=== PATIENT | female | born 1960 | race Caucasian/White ===

== ENCOUNTER 2016-08-30 11:05 | Emergency (ER) | payer OTHER ==
[~2016-08-30] VITALS: Ht 172.7 cm; Wt 62.4 kg
[~2016-08-30 11:05] MED LIST: CAL-150C PO; HYDR-3533 PO; MAGN250T13 PO; SPIRCAP INH; VENTAER INH; VITA10002 PO
[2016-08-30 11:09] VITALS: BP 110/81; PULSE 88; RESP 16; TEMP 98.3; O2SAT 96
[2016-08-30] MEDS ORDERED: GABA400C5 PO (11:23)
[2016-08-30] MEDS ORDERED: AMLO10TA2 PO (11:23)
--- NOTE | 2016-08-30 11:27 | PD ---
HPI Chief Complaint: Musculoskeletal Complaint Time Seen by Provider: 11:20 Travel History International Travel<30 days: No Contact w/Intl Traveler<30days: No Traveled to known affect area: No History of Present Illness HPI The patient is a 56-year-old female who presents emergency department for left arm pain. The patient states she developed left arm pain several days ago after she rolled 3000 knees papers. Pain is located over the lateral aspect of the left shoulder and radiates down the left mid humeral area. The patient denies any falls or direct trauma to the area, however, states she uses a "cracking" to the left shoulder that radiates down the left arm. She is right -hand dominant. She denies any paresthesias left arm, however, notes her pain is sharp, worse with movement, and slightly alleviated at rest. The patient also states she has a history of chronic pain and recently ran out of her Lortab and does not have an appointment next Saturday. The patient came to the emergency department for an x-ray of her left arm and for refill of her Lortab. Patient does note a history of alcohol use, has been sober for the last 134 days. She denies taking any anticoagulants at home. PFSH Past Medical History Arthritis: No Asthma: Yes Autoimmune Disease: No Blood Disorders: No Anxiety: Yes Depression: Yes Heart Rhythm Problems: No Cancer: No Cardiac Catheterization: Yes (07/08/12 ) Cardiovascular Problems: Yes ([place] 2012) High Cholesterol: Yes Chest Pain: No Congestive Heart Failure: No COPD: Yes Cerebrovascular Accident: Yes ([place]) Diabetes: No Diminished Hearing: No Endocrine: No Gastrointestinal Disorders: Yes GERD: Yes Genitourinary: No Headaches: Yes Hepatitis: No Hiatal Hernia: No Hypertension: Yes Immune Disorder: No Implanted Vascular Access Dvce: No Kidney Stones: Yes Musculoskeletal: Yes Neurologic: Yes (MIGRAINES) Psychiatric: Yes Reproductive: No Respiratory: Yes (COPD, CHRONIC BRONCHITIS) Immunizations Current: Yes Myocardial Infarction: Yes (2012) Renal Failure: No Seizures: No Thyroid Disease: No Ulcer: No PNEUMOCCOCAL Vaccine (Year): 1 ?: Not Menopausal: Yes : 4 Para: 3 Miscarriage: 1 : 0 Ectopic : No Ovarian Cysts: No Tubal Ligation: Yes Past Surgical History AICD: No Body Medical Devices: CARDIAC STENT 07/08/12 Section: Yes Coronary Stent: Yes (X 1) Hysterectomy: No Pacemaker: No Other Surgery: Yes Social History Alcohol Use: Yes (" 4 BEERS DAILY ") Tobacco Use: Yes (1/2 PPD) Substance Use: No Allergies-Medications (Allergen,Severity, Reaction): Coded Allergies: Codeine (Verified Allergy, Severe, Rash, 08/30/16) Compazine (Verified Allergy, Severe, SWELLING, 08/30/16) Penicillin (Verified Allergy, Severe, SWELLING, 08/30/16) Reported Meds & Prescriptions Reported Meds & Active Scripts Active Reported Gabapentin 400 Mg Cap 400 Cap PO Q6HR Amlodipine (Amlodipine Besylate) 10 Mg Tab 10 Mg PO DAILY Review of Systems Except as stated in HPI: all other systems reviewed are Neg Respiratory: No: Shortness of Breath Gastrointestinal: No: Nausea, Vomiting Musculoskeletal: Positive: Edema, Pain Neurologic: No: Paresthesia, Sensory Disturbance Physical Exam Narrative GENERAL: Awake, alert, pleasant 56-year-old female who appears her stated age and is in no acute respiratory distress. SKIN: Focused skin assessment warm/dry. HEAD: Atraumatic. Normocephalic. EYES: Pupils equal and round. No scleral icterus. No injection or drainage. ENT: No nasal bleeding or discharge. Mucous membranes pink and moist. NECK: Trachea midline. No JVD. MUSCULOSKELETAL: The left arm is tender palpation lateral aspect left shoulder the lateral aspect left humeral area. No tenderness over the biceps or triceps. She is able flex and extend the left elbow as well as supinate and pronate, however, has difficulty abducting and extending the left upper extremity secondary to pain. Positive left radial pulse. No tenderness over the left clavicle. NEUROLOGICAL: Awake and alert. No obvious cranial nerve deficits. Motor grossly within normal limits. Normal speech. PSYCHIATRIC: Appropriate mood and affect; insight and judgment normal. Data Data Last Documented VS Vital Signs Date Time Temp Pulse Resp B/P Pulse Ox O2 Delivery O2 Flow Rate FiO2 08/30/16 11:09 98.3 88 16 110/81 96 Orders Humerus (Min 2vws) (08/30/16 ) [facility] Medical Decision Making Medical Screen Exam Complete: Yes Emergency Medical Condition: Yes Medical Record Reviewed: Yes Interpretation(s) X-ray reveals no acute fracture or dislocation. Differential Diagnosis Differential diagnosis includes sprain, strain, frozen shoulder, fracture, contusion, hematoma, radiculopathy. Narrative Course An x-ray of the left humerus was obtained. X-rays unremarkable, no acute fracture dislocation. The patient will be placed in a sling for comfort, however, is advised to take her arm out of the sling for range of motion exercises daily and a follow-up with her primary physician as she may benefit from outpatient physical therapy. She is requesting a prescription/refill until she can see her physician for Lortab. I will place her on Lortab, 12 pills, and ibuprofen. She is advised to apply ice and/or heat to the affected area for comfort. Diagnosis Primary Impression: Strain of left upper arm Qualified Code: S46.912A - Strain of left upper arm, initial encounter Patient Instructions: General Instructions Additional Instructions: Sling as needed. Range of motion exercises. Medications as directed. Follow- up with her primary physician, you may benefit from physical therapy. Please provide a patient a copy of her x-ray results at discharge. Med/Other Pt SpecificInfo: Prescription(s) given Scripts Hydrocodone-Acetaminophen ([place])7.5-325 mg Tab1 Tab PO Q6H PRN (PAIN) #12 TAB Ref 0 Prov:Jaison Johnston MD 08/30/16 Ibuprofen 400 Mg [id number] Mg PO Q6H PRN (PAIN SCALE 1 TO 10) #20 TAB Ref 0 Prov:Jaison Johnston MD 08/30/16 Disposition: 01 DISCHARGE HOME Condition: Stable Jaison Johnston MD Aug 30, 2016 11:27
--- NOTE | 2016-08-30 11:46 | RADRPT ---
EXAM DATE/TIME: 08/30/2016 11:33 [facility] COMPARISON: HUMERUS LEFT (MIN 2VWS), June 07, 2014, 16:12. INDICATIONS : Pain in left humerus after rolling newspapers yesterday. MEDICAL HISTORY : None. SURGICAL HISTORY : None. ENCOUNTER: Initial ACUITY: 2 days PAIN SCORE: 8/10 LOCATION: Left humerus FINDINGS: Two view examination of the left humerus demonstrates no evidence of fracture or dislocation. Bony m ineralization is normal. The soft tissue structures are intact. There is an old healed fracture invo lving the distal clavicle. There is At the a.c. joint. CONCLUSION: No acute fracture or joint dislocation. Errol Barber MD on August 30, 2016 at 11:43 Board Certified Radiologist. This report was verified electronically.
[2016-08-30] MEDS ORDERED: IBUP400T20 PO (12:00)
[2016-08-30] MEDS ORDERED: HYDR-3288 PO (12:00)
[2016-08-30] MEDS ORDERED: ACETAMINOPHEN/HYDROcodone 325 MG/5 MG TAB PO ONE (12:00)
== END 2016-08-30 12:40 | disposition home or self-care (01) ==
LOC: PHEFT 11:05
DX: S46.912A Strain of unspecified muscle, fascia and tendon at shoulder and upper arm level, left arm, initial encounter (principal); R60.9 Edema, unspecified; I10 Essential (primary) hypertension; K21.9 Gastro-esophageal reflux disease without esophagitis; J44.9 Chronic obstructive pulmonary disease, unspecified; E78.00 Pure hypercholesterolemia, unspecified; I25.2 Old myocardial infarction; Z87.442 Personal history of urinary calculi; F17.210 Nicotine dependence, cigarettes, uncomplicated; T73.3XXA Exhaustion due to excessive exertion, initial encounter; X50.3XXA Overexertion from repetitive movements, initial encounter; Y93.89 Activity, other specified; Y92.9 Unspecified place or not applicable
CPT/HCPCS: 73060; 99283

== ENCOUNTER 2016-09-28 13:28 | Inpatient (IN) | payer OTHER ==
[~2016-09-28] VITALS: Ht 152.4 cm; Wt 61.3 kg
[2016-09-28] VITALS (8 sets, daily range): BP systolic 92–109; BP diastolic 54–66; PULSE 65–76; RESP 15–20; TEMP 98.3–100.2; O2SAT 94–98
[~2016-09-28 13:28] MED LIST changes: +AMLO10TA2 PO; -CAL-150C PO; +GABA400C5 PO; +HYDR-3288 PO; -HYDR-3533 PO; +IBUP400T20 PO; -MAGN250T13 PO; -SPIRCAP INH; -VENTAER INH; -VITA10002 PO
[2016-09-28] MEDS ORDERED: SODIUM CHLOR 0.9% 1000 ML INJ 1,000 ML IV ONE ×3 (13:33→17:45)
--- NOTE | 2016-09-28 13:52 | PD ---
HPI Chief Complaint: Neuro Symptoms/ Deficits Time Seen by Provider: 13:33 Travel History International Travel<30 days: No Contact w/Intl Traveler<30days: No Traveled to known affect area: No History of Present Illness HPI PATIENT WAS FOUND AROUND 1030 BY FRIENDS WITH LEFT SIDED FACIAL DROOP, AND GENERALIZED WEAKNESS ON FLOOR, NO SYNCOPE AND APPARENTLY WAS TOO WEAK TO GET UP ON HER OWN.. ALL: CODEINE,COMPAZINE,PCN PMHX: COPD, SMOKING HX, PFSH Past Medical History Arthritis: No Asthma: Yes Autoimmune Disease: No Blood Disorders: No Anxiety: Yes Depression: Yes Heart Rhythm Problems: No Cancer: No Cardiac Catheterization: Yes (07/08/12 ) Cardiovascular Problems: Yes ([place] 2012) High Cholesterol: Yes Chest Pain: No Congestive Heart Failure: No COPD: Yes Cerebrovascular Accident: Yes ([place]) Diabetes: No Diminished Hearing: No Endocrine: No Gastrointestinal Disorders: Yes GERD: Yes Genitourinary: No Headaches: Yes Hepatitis: No Hiatal Hernia: No Hypertension: Yes Immune Disorder: No Implanted Vascular Access Dvce: No Kidney Stones: Yes Musculoskeletal: Yes Neurologic: Yes (MIGRAINES) Psychiatric: Yes Reproductive: No Respiratory: Yes (COPD, CHRONIC BRONCHITIS) Immunizations Current: Yes Migraines: Yes Myocardial Infarction: Yes (2012) Renal Failure: No Seizures: No Thyroid Disease: No Ulcer: No PNEUMOCCOCAL Vaccine (Year): 1 ?: Not Menopausal: Yes : 4 Para: 3 Miscarriage: 1 : 0 Ectopic : No Ovarian Cysts: No Tubal Ligation: Yes Past Surgical History AICD: No Body Medical Devices: PLATE, SCREWS LEFT WRIST Section: Yes Coronary Stent: Yes (X 1) Hysterectomy: No Pacemaker: No Other Surgery: Yes Social History Alcohol Use: No Tobacco Use: Yes (/2 PPD) Substance Use: No Allergies-Medications (Allergen,Severity, Reaction): Coded Allergies: Codeine (Verified Allergy, Severe, Rash, 08/30/16) Compazine (Verified Allergy, Severe, SWELLING, 08/30/16) Penicillin (Verified Allergy, Severe, SWELLING, 08/30/16) Reported Meds & Prescriptions Reported Meds & Active Scripts Active [place] (Hydrocodone-Acetaminophen) 7.5-325 mg Tab 1 Tab PO Q6H PRN Ibuprofen 400 Mg Tab 400 Mg PO Q6H PRN Reported Gabapentin 400 Mg Cap 400 Cap PO Q6HR Amlodipine (Amlodipine Besylate) 10 Mg Tab 10 Mg PO DAILY Review of Systems Except as stated in HPI: all other systems reviewed are Neg Neurologic: Positive: Weakness Physical Exam Narrative GENERAL: SKIN: Warm and dry. HEAD: Atraumatic. Normocephalic. EYES: Pupils equal and round. No scleral icterus. No injection or drainage. ENT: No nasal bleeding or discharge. Mucous membranes pink and moist. NECK: Trachea midline. No JVD. CARDIOVASCULAR: Regular rate and rhythm. RESPIRATORY: No accessory muscle use. Clear to auscultation. Breath sounds equal bilaterally. GASTROINTESTINAL: Abdomen soft, non-tender, nondistended. Hepatic and splenic margins not palpable. MUSCULOSKELETAL: Extremities without clubbing, cyanosis, or edema. No obvious deformities. NEUROLOGICAL: Awake and alert. FACIAL DROOP LEFT, GENERALIZED WEAKNESS AND RESTRING TREMORS PSYCHIATRIC: Appropriate mood and affect; insight and judgment normal. Data Data Last Documented VS Vital Signs Date Time Temp Pulse Resp B/P Pulse Ox O2 Delivery O2 Flow Rate FiO2 09/28/16 15:08 18 94 Room Air 09/28/16 15:05 68 92/55 09/28/16 13:42 2.00 09/28/16 13:31 99.1 Orders Diet Npo (09/28/16 Lunch) Activity Bed Rest (09/28/16 ) Electrocardiogram (09/28/16 ) I-Stat Creatinine (09/28/16 13:33) I-Stat Profile (09/28/16 13:33) Prothrombin Time / Inr (Pt) (09/28/16 13:33) Act Partial Throm Time (Ptt) (09/28/16 13:33) Complete Blood Count With Diff (09/28/16 13:33) Fibrinogen (09/28/16 13:33) Creatine Kinase (Cpk) (09/28/16 13:33) Troponin I (09/28/16 13:33) Ua Includes Microscopic (09/28/16 13:33) Drug Screen, Random Urine (09/28/16 13:33) Type And Screen (09/28/16 13:33) Ct Brain W/O Iv Contrast(Rout) (09/28/16 ) Chest, Single Ap (09/28/16 ) Cta Brain W Iv Contrast W 3d (09/28/16 13:33) Cta Neck W Iv Contrast W 3d (09/28/16 13:33) Consult Neurology (09/28/16 ) Blood Glucose (09/28/16 13:33) Ecg Monitoring (09/28/16 13:33) Neuro Checks Q2HX12,Q4H (09/28/16 13:33) Nursing Bedside Swallow Assess .ONCE (09/28/16 13:33) Iv Access Insert/Monitor (09/28/16 13:33) NPO (09/28/16 13:33) Oximetry (09/28/16 13:33) Oxygen Administration (09/28/16 13:33) Sodium Chlor 0.9% 1000 Ml Inj (Ns 1000 M (09/28/16 13:33) Resp Oxygen Eleazar C Titrat 1-4 L (09/28/16 13:33) Cath For Specimen (09/28/16 13:33) (Hub Use Only)Inp Phy Cons/Ref (09/28/16 ) Iohexol 350 Inj (Omnipaque 350 Inj) (09/28/16 14:02) Alcohol (Ethanol) (09/28/16 14:24) Salicylates (Aspirin) (09/28/16 14:24) Tylenol (Acetaminophen) (09/28/16 14:24) CKMB (09/28/16 13:45) CKMB% (09/28/16 13:45) Nih Stroke Scale - Nihss .On admission and discharge (09/28/16 14:37) Case Management Consult (09/28/16 ) Activity Bed Rest (09/28/16 14:37) Nursing Bedside Swallow Assess .ONCE (09/28/16 14:37) Scd Bilateral/Knee High HUANG.QSHIFT (09/28/16 14:37) Diet Npo (09/28/16 Dinner) Hemoglobin (Hgb) A1c (09/28/16 14:37) Lipid Profile (09/29/16 06:00) Echo 2d Comp With Doppler (09/28/16 ) Resp Oxygen Eleazar C Titrat 1-4 L (09/28/16 ) ^ Hold Medication (09/28/16 14:37) Sodium Chloride 0.9% Flush (Ns Flush) (09/28/16 21:00) Sodium Chloride 0.9% Flush (Ns Flush) (09/28/16 14:45) Sodium Chlor 0.9% 1000 Ml Inj (Ns 1000 M (09/28/16 14:37) Aspirin Supp (Aspirin Supp) (09/28/16 14:45) Bedside Glucose HUANG.AC&HS (09/28/16 14:37) ^ Discontinue Insulin Orders (09/28/16 14:37) Insulin Aspart Supplemtl Scale (Novolog (09/28/16 16:00) Dextrose 50% In Ulices (Vial) Inj (D50w (Vi (09/28/16 14:45) Glucagon Inj (Glucagon Inj) (09/28/16 14:45) Consult Rehab Medicine (09/28/16 14:37) Customer Success Director / Telemetry HUANG.Q8H (09/28/16 14:37) Consult Stoke Navigator (09/28/16 ) (Hub Use Only)Inp Phy Cons/Ref (09/28/16 ) Sodium Chlor 0.9% 1000 Ml Inj (Ns 1000 M (09/28/16 15:00) Admit Order (Ed Use Only) (09/28/16 16:07) Labs Laboratory Tests Test 09/28/16 09/28/16 09/28/16 13:45 14:28 14:44 White Blood Count 6.3 TH/MM3 Red Blood Count 4.08 MIL/MM3 Hemoglobin 12.3 GM/DL Bedside Hemoglobin 12.9 G/DL Hematocrit 35.7 % Bedside Hematocrit 38.0 % Mean Corpuscular Volume 87.5 FL Mean Corpuscular Hemoglobin 30.2 PG Mean Corpuscular Hemoglobin 34.4 % Concent Red Cell Distribution Width 17.2 % Platelet Count 229 TH/MM3 Mean Platelet Volume 6.8 FL Neutrophils (%) (Auto) 86.1 % Lymphocytes (%) (Auto) 7.5 % Monocytes (%) (Auto) 5.7 % Eosinophils (%) (Auto) 0.2 % Basophils (%) (Auto) 0.5 % Neutrophils # (Auto) 5.4 TH/MM3 Lymphocytes # (Auto) 0.5 TH/MM3 Monocytes # (Auto) 0.4 TH/MM3 Eosinophils # (Auto) 0.0 TH/MM3 Basophils # (Auto) 0.0 TH/MM3 CBC Comment DIFF FINAL Differential Comment Prothrombin Time 11.7 SEC Prothromb Time International 1.1 RATIO Ratio Activated Partial 24.6 SEC Thromboplast Time Fibrinogen 452 mg/dL Bedside Sodium 140 MMOL/L Bedside Potassium 3.9 MMOL/L Bedside Chloride 113 MMOL/L Bedside Blood Urea Nitrogen 20 MG/DL Bedside Creatinine 1.3 MG/DL Bedside Glucose 97 MG/DL Hemoglobin A1c 6.9 % Total Creatine Kinase 4920 U/L Creatine Kinase MB 52.0 NG/ML Creatine Kinase MB % 1.1 % Troponin I LESS THAN 0.02 NG/ML Blood Type B POSITIVE Antibody Screen NEGATIVE Blood Bank Comment Urine Color YELLOW Urine Turbidity CLEAR Urine pH 5.5 Urine Specific [place] 1.034 Urine Protein TRACE mg/dL Urine Glucose (UA) NEG mg/dL Urine Ketones NEG mg/dL Urine Occult Blood NEG Urine Nitrite NEG Urine Bilirubin NEG Urine Urobilinogen LESS THAN 2.0 MG/DL Urine Leukocyte Esterase NEG Urine WBC 3 /hpf Urine Squamous Epithelial 2 /hpf Cells Urine Hyaline Casts 22 /lpf Urine Mucus FEW /lpf Microscopic Urinalysis Comment Urine Opiates Screen NEG Urine Barbiturates Screen NEG Urine Amphetamines Screen NEG Urine Benzodiazepines Screen NEG Urine Cocaine Screen NEG Urine Cannabinoids Screen NEG Salicylates Level 41.7 MG/DL Acetaminophen Level LESS THAN 2.0 MCG/ML Ethyl Alcohol Level LESS THAN 3 MG/DL MDM Medical Decision Making Medical Screen Exam Complete: Yes Emergency Medical Condition: Yes Medical Record Reviewed: Yes Differential Diagnosis electrolyte abnl v ich v cva v etoh withdrawal v tox syndrome Narrative Course AT [facility] RADIOLOGIST CALLED A NEGATIVE ICH ON CT AND STABLE CHRONIC FINDINGS Critical Care Narrative CRITICAL CARE NOTE: With evaluation of the patient, labs, EKG, receipt of radiologic studies, administration of medications, reevaluation the patient and discussion of the patient with the admitting physicians, the total critical care time was [45] minutes. Time to perform other separately billable procedures was not included in the critical care time. Physician Communication Physician Communication DISCUSSED IN DETAIL WITH DR HOPKINS (NEUROLOGIST) AND BASED ON TIME, AND SEVERITY OF SYMPTOMS PATIENT IS NOT A TPA CANDIDATE. Diagnosis Primary Impression: Rhabdomyolysis Qualified Code: M62.82 - Non-traumatic rhabdomyolysis Additional Impressions: Salicylate poisoning Qualified Code: T39.094A - Poisoning by salicylate, undetermined intent, initial encounter Altered mental state Qualified Code: R41.0 - Delirium Daniel Randolph MD Sep 28, 2016 13:52
--- NOTE | 2016-09-28 14:00 | RADRPT ---
EXAM DATE/TIME: 09/28/2016 13:48 [facility] COMPARISON: CT BRAIN W/O CONTRAST, September 27, 2015, 16:29. INDICATIONS : Stroke alert; left side facial droop, tremors, weakness. RADIATION DOSE: 30.68 CTDIvol (mGy) MEDICAL HISTORY : Stroke. Hypertension. SURGICAL HISTORY : Coronary artery stent. ENCOUNTER: Initial ACUITY: 1 day PAIN SCALE: Non-responsive LOCATION: cranial TECHNIQUE: Multiple contiguous axial images were obtained of the head. Using automated exposure control and adj ustment of the mA and/or kV according to patient size, radiation dose was kept as low as reasonably a chievable to obtain optimal diagnostic quality images. DICOM format image data is available electro nically for review and comparison. FINDINGS: CEREBRUM: The ventricles are normal. There is mild cerebral atrophy with slightly asymmetric extra-axial space on the left. This finding is stable. No midline shift, mass lesion, hemorrhage or acute infarction. No extra-axial fluid collections are seen. POSTERIOR FOSSA: The cerebellum and brainstem demonstrate no acute finding. The 4th ventricle is midline. The cerebe llopontine angle is unremarkable. EXTRACRANIAL: There is minimal mucoperiosteal thickening in the left maxillary sinus. SKULL: The calvaria is intact. No evidence of skull fracture. CONCLUSION: 1. Stable noncontrast head CT. No acute intracranial abnormality is identified. 2. Chronic changes include mild cerebral atrophy. Reynaldo Patel MD on September 28, 2016 at 13:54 Board Certified Radiologist. This report was verified electronically.
[2016-09-28] MEDS ORDERED: IOHEXOL 350 MG/ML 10 ML VIAL (for RAD DIAG) IV ONE (14:02)
[2016-09-28 14:05] LABS: AUTOMATED NEUTROPHIL # 5.4 TH/MM3 (1.8-7.7); BASOPHIL % 0.5 % (0.0-2.0); EOSINOPHIL % 0.2 % (0.0-4.0); HEMATOCRIT 35.7 % (35.0-46.0); HEMO FLAGS DIFF FINAL; LYMPH % 7.5 % (9.0-44.0); LYMPHOCYTE # 0.5 TH/MM3 (1.0-4.8); MEAN CELL VOLUME 87.5 FL (80.0-100.0); MEAN CORPUSCULAR HEMOGLOBIN 30.2 PG (27.0-34.0); MEAN CORPUSCULAR HGB CONC 34.4 % (32.0-36.0); MONO % 5.7 % (0.0-8.0); NEUT % 86.1 % (16.0-70.0); PLATELET COUNT 229 TH/MM3 (150-450); RED BLOOD COUNT 4.08 MIL/MM3 (4.00-5.30); RED CELL DISTRIBUTION WIDTH 17.2 % (11.6-17.2); WHITE BLOOD COUNT 6.3 TH/MM3 (4.0-11.0)
[2016-09-28 14:06] LABS: I-STAT POTASSIUM 3.9 MMOL/L (3.5-4.9); I-STAT SODIUM 140 MMOL/L (138-146)
[2016-09-28 14:17] LABS: APTT (PATIENT) 24.6 SEC (24.3-30.1); INTERNATIONAL NORMALIZED RATIO 1.1 RATIO; PROTHROMBIN TIME - PATIENT 11.7 SEC (9.8-11.6)
--- NOTE | 2016-09-28 14:30 | RADRPT ---
EXAM DATE/TIME: 09/28/2016 14:03 [facility] COMPARISON: CHEST SINGLE AP, April 03, 2015, 19:40. INDICATIONS : Stroke alert MEDICAL HISTORY : Stroke. Hypertension SURGICAL HISTORY : Coronary artery stent. ENCOUNTER: Initial ACUITY: 1 day PAIN SCORE: Non-responsive. LOCATION: Bilateral chest FINDINGS: Portable AP view of the chest demonstrates a normal-sized cardiac silhouette. No effusion, consolidat ion, or pneumothorax is visualized. The bones and soft tissues demonstrate no acute abnormality. Lung s are hyperinflated and multiple EKG lines overlie the patient. CONCLUSION: No acute cardiopulmonary abnormality is identified. Reynaldo Patel MD on September 28, 2016 at 14:25 Board Certified Radiologist. This report was verified electronically.
--- NOTE | 2016-09-28 14:34 | RADRPT ---
EXAM DATE/TIME: 09/28/2016 13:57 [facility] COMPARISON: CT BRAIN W/O CONTRAST, September 28, 2016, 13:48. INDICATIONS : Stroke alert; left side facial droop, tremors. IV CONTRAST: 75 cc Omnipaque 350 (iohexol) IV ; Cumulative dose for multiple exams. RADIATION DOSE: 26.24 CTDIvol (mGy) ; Combined studies MEDICAL HISTORY : Stroke. Hypertension. Renal calculi. SURGICAL HISTORY : Coronary artery stent. ENCOUNTER: Initial ACUITY: 1 day PAIN SCALE: 0/10 LOCATION: cranial TECHNIQUE: Volumetric scanning was performed using a multi-row detector CT scanner. The data was post processed with a variety of visualization algorithms including full volume maximum intensity projection, multi -planar sliding thin slab reformation, curved planar reformation, and surface rendering techniques. Using automated exposure control and adjustment of the mA and/or kV according to patient size, radiat ion dose was kept as low as reasonably achievable to obtain optimal diagnostic quality images. DICO M format image data is available electronically for review and comparison. FINDINGS: There is excellent visualization of the major intracranial arteries out to the second-order branch ve ssels. There is no evidence for aneurysm, vessel truncation or stenosis, and no evidence for vascula r malformation. CONCLUSION: Normal examination. Jimmy Schmidt Jr., MD on September 28, 2016 at 14:30 Board Certified Radiologist. This report was verified electronically.
[2016-09-28 14:35] LABS: CREATINE KINASE 4920 U/L (26-192)
[2016-09-28] MEDS ORDERED: SODIUM CHLOR 0.9% 1000 ML INJ 1,000 ML IV SCH (14:37)
[2016-09-28] MEDS ORDERED: ASPIRIN 300 MG SUPP RECTAL SCH (14:45)
[2016-09-28] MEDS ORDERED: GLUCAGON 1 MG/ML VIAL OTHER PRN (14:45)
[2016-09-28] MEDS ORDERED: SODIUM CHLORIDE 0.9% FLUSH 5 ML FLUSH IV FLUSH PRN (14:45)
[2016-09-28] MEDS ORDERED: DEXTROSE 50% IN WATER 50 ML VIAL(D50) IV PUSH PRN (14:45)
[2016-09-28 14:56] LABS: BLOOD, URINE NEG (NEG); GLUCOSE,URINE NEG (NEG); HYALINE CAST, URINE 22 /lpf (RARE); KETONE, URINE NEG (NEG); MUCUS URINE FEW /lpf (OCC); NITRITE,URINE NEG (NEG); PH, URINE 5.5 (5.0-8.5); SQUAMOUS EPITHELIAL CELL URINE 2 /hpf (0-5); URINE COLOR YELLOW (YELLW/STRAW)
[2016-09-28 15:07] LABS: AMPHETAMINE, URINE NEG (NEG); BARBITURATES, URINE NEG (NEG); COCAINE, URINE NEG (NEG)
--- NOTE | 2016-09-28 15:07 | MB ---
cc: KELLIEZACHERY DATE OF CONSULTATION 09/28/16 REASON FOR CONSULTATION Stroke alert HISTORY OF PRESENT ILLNESS Ms. Hensley is a 56-year-old female found on the floor at 10:30 this morning. At that time she was very jittery and shaking and had a left facial droop and slurred speech, stroke alert was called. It is unclear exactly when she was seen normal last. PAST MEDICAL HISTORY History of alcohol abuse but none for several years. She denies any other past medical history. According to the chart past medical history she does have a history of [place], coronary stents in the past. Cardiac catheterization COPD, bronchitis. Apparently has had a stroke in the past. Migraine headaches. MEDICATIONS AT HOME She denies taking any medications at home. ALLERGIES CODEINE, COMPAZINE, PENICILLIN. SOCIAL HISTORY She denies alcohol use for several years. She does smoke. NEUROLOGIC EXAMINATION Blood pressure 109/66, pulse is 80, respiratory rate 18, temperature 99.1 degrees. NEURO: Higher cortical function, she is alert. Speech dysarthric but fluent. No aphasia. 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 On motor exam she states that she is weak in the left side. However, she demonstrates equal strength bilaterally. She is able to lift both arms up and both legs up. There is no drift. She has myoclonic jerking in both upper extremities. Reflexes are symmetric. IMAGING STUDIES CT of the brain no acute changes identified, chronic atrophy and ischemic demyelinization is identified. CTA of the brain was obtained, currently pending results. LABORATORY DATA The white count 6300. Hemoglobin 12.3, hematocrit 35%, platelets 229,000, PT 11.7, INR 1.1, APTT 24.6, sodium is 140, potassium 3.9, chloride 113, BUN is 20, creatinine 1.3, glucose 97. Tox screen pending. Urinalysis is pending. IMPRESSION Possible small stroke in the right hemisphere causing left facial droop. However, at this time her symptoms are very minimal plus the time of onset is ambiguous. Her NIH stroke scale is 4. She is not a candidate for IV TPA since we are not sure of the last time normal and also she does not have any definite focal neurologic findings except the facial droop. RECOMMENDATIONS Start her on aspirin 325 milligrams daily. Will obtain further evaluation with an echocardiogram, also lipid panel. According to her old records there was some history of stent associated with a stroke in the past. I would like to clarify this further before ordering an MRI to be sure she is able to have an MRI of the brain. We will monitor her carefully with close neurological checks. MD OTTO Torres/DOUG /2:31 PM /2:45 PM
--- NOTE | 2016-09-28 15:26 | RADRPT ---
EXAM DATE/TIME: 09/28/2016 13:57 [facility] COMPARISON: No previous studies available for comparison. INDICATIONS : Stroke alert; left side facial droop, tremors. IV CONTRAST: 75 cc Omnipaque 350 (iohexol) IV ; Cumulative dose for multiple exams. RADIATION DOSE: 26.24 CTDIvol (mGy) ; Reconstructed from previous dataset MEDICAL HISTORY : Stroke. Hypertension. SURGICAL HISTORY : Coronary artery stent. ENCOUNTER: Initial ACUITY: 1 day PAIN SCALE: 0/10 LOCATION: neck Elevated flow velocities and ICA/CCA ratios have been found to correlate with increased degrees of vessel stenosis, calculated as percentage of diameter relative to a normal segment of distal ICA/CCA. TECHNIQUE: Volumetric scanning was performed using a multirow detector CT scanner. The data was post processed with a variety of visualization algorithms including full-volume maximum intensity projection, multip lanar sliding thin-slab reformation, curved-planar reformation, and surface-rendering techniques. Us ing automated exposure control and adjustment of the mA and/or kV according to patient size, radiatio n dose was kept as low as reasonably achievable to obtain optimal diagnostic quality images. DICOM f ormat image data is available electronically for review and comparison. FINDINGS: Motion degraded exam. AORTIC ARCH: There is a three-vessel origin of the great vessels from the aorta. No evidence of ostial narrowing. RIGHT CAROTID: Eccentric calcified plaque is seen involving the proximal ICA. Utilizing NASCET criteria this generat es a 20% stenosis. No ulceration. The more cephalad portion of the extracranial ICA is patent. ECA an d CCA are patent. LEFT CAROTID: Eccentric calcified plaque is seen involving the proximal ICA. Utilizing NASCET criteria this generat es a 20% stenosis. No ulceration. The more cephalad portion of the extracranial ICA is patent. ECA an d CCA are patent. VERTEBRALS: The vertebral arteries have a symmetric diameter. No stenotic lesions are seen. Diffuse emphysematous changes within the visualized lung apices. CONCLUSION: 1. Calcified plaque generating 20% ICA stenoses without ulceration. 2. Patent vertebral arteries. 3. Emphysematous changes. Jimmy Schmidt Jr., MD on September 28, 2016 at 15:20 Board Certified Radiologist. This report was verified electronically.
[2016-09-28 15:35] LABS: ACETAMINOPHEN LESS THAN 2.0 MCG/ML (10.0-30.0)
[2016-09-28] MEDS: INSULIN ASPART SUPPLEMENTAL SCALE SQ SCH ×2 (16:00→19:53)
[2016-09-28 16:17] LABS: HEMOGLOBIN A1a 1.5 %; HEMOGLOBIN A1b 2.4 %; HEMOGLOBIN Ao 79.9 %; HEMOGLOBIN LA1C 2.8 %; HEMOGLOBIN P3 5.8 %
[2016-09-28] MEDS ORDERED: MAGNESIUM HYDROXIDE SUSP 30 ML CUP PO PRN (17:45)
[2016-09-28] MEDS ORDERED: LACTULOSE SYRUP 20 GM/30 ML CUP PO PRN (17:45)
[2016-09-28] MEDS ORDERED: SODIUM CHLORIDE 0.9% FLUSH 10 ML FLUSH IV FLUSH PRN (17:45)
[2016-09-28] MEDS ORDERED: ONDANSETRON HCL 4 MG/2 ML VIAL IVP PRN (17:45)
[2016-09-28] MEDS ORDERED: BISACODYL 10 MG SUPP RECTAL PRN (17:45)
[2016-09-28] MEDS ORDERED: ACETAMINOPHEN 325 MG TAB PO PRN (17:45)
[2016-09-28] MEDS ORDERED: SENNOSIDES 8.6 MG TAB PO PRN (17:45)
--- NOTE | 2016-09-28 18:02 | HHI.HP ---
[facility] Service [facility] Primary Care Physician [facility] Admission Diagnosis TIA Diagnoses: Chief Complaint: Found by family altered Travel History International Travel<30 Days: No Contact w/Intl Traveler <30 Da: No Traveled to Known Affected Are: No History of Present Illness Written by Paloma Encarnacion, acting as scribe for Dr. Conti on 09/28/16 at 17:42. This is a 56-year-old female patient with past medical history which includes EtOH abuse in the past, CAD status post [place] with cardiac stents, CVA, migraine headaches. Patient is currently obtunded and unable to give reliable information therefore information gathered from patient has physical exam as well as prior computerized charting. Patient asked she's able to give her name and that she is in the hospital. Patient does not know why she is in the hospital. Patient offers no specific complaints at this time. Per prior charting patient was found at 10:30 this morning by her family members she was noted to have slurred speech described as being jittery and confused with question of left-sided facial droop. When patient asked about whether or not she took aspirin she is unable to answer. Patient asked about EtOH use reports she has not drank in 6 months or more. Glucose 97 upon arrival to the emergency department Review of Systems ROS Limitations: Clinical Condition, Poor Historian Past Family Social History Past Medical History EtOH abuse in the past, CAD status post [place] with cardiac stents, CVA, migraine headaches Past Surgical History Cardiac stents, left wrist surgery Reported Medications [place] (Hydrocodone-Acetaminophen) 7.5-325 mg Tab 1 Tab PO Q6H PRN Ibuprofen 400 Mg Tab 400 Mg PO Q6H PRN Gabapentin 400 Mg Cap 400 Cap PO Q6HR Amlodipine (Amlodipine Besylate) 10 Mg Tab 10 Mg PO DAILY Allergies: Coded Allergies: Codeine (Verified Allergy, Severe, Rash, 08/30/16) Compazine (Verified Allergy, Severe, SWELLING, 08/30/16) Penicillin (Verified Allergy, Severe, SWELLING, 08/30/16) Active Ordered Medications Current Medications Medications (Trade) Dose Ordered Sig/Sandoval Route Start Time Stop Time Status Last Admin (NS Flush) 2 ml BID IV FLUSH 09/28/16 21:00 IV Flush 2 ml 2 ml UNSCH PRN IV FLUSH 09/28/16 14:45 (NS 1000 ml Inj) 1,000 ml @ 70 mls/hr [id number] IV 09/28/16 14:37 (Aspirin Supp) 300 mg DAILY RECTAL 09/28/16 14:45 (NovoLOG SUPPLEMENTAL SCALE) 1 ACHS SQ 09/28/16 16:00 (D50w (Vial) Inj) 50 ml UNSCH PRN IV PUSH 09/28/16 14:45 (Glucagon Inj) 1 mg UNSCH PRN OTHER 09/28/16 14:45 Family History Unable to obtain at this time due to patient's clinical condition Social History per prior computerized charting patient has a history of EtOH abuse. Patient denies EtOH use for the past 6 months. Per prior turning patient smokes half pack cigarette per day. Patient denies at this time Physical Exam Vital Signs Vital Signs Date Time Temp Pulse Resp B/P Pulse Ox O2 Delivery O2 Flow Rate FiO2 09/28/16 15:08 18 94 Room Air 09/28/16 15:05 68 18 92/55 94 Room Air 09/28/16 13:42 95 2.00 09/28/16 13:39 80 18 Room Air 09/28/16 13:31 99.1 76 18 109/66 97 Physical Exam GENERAL: This is a well-nourished, well-developed patient, appears critically ill and obtunded SKIN: No rashes, ecchymoses or lesions. Cool and dry. HEAD: Atraumatic. Normocephalic. No temporal or scalp tenderness. EYES: Pupils equal round and reactive. Extraocular motions intact. No scleral icterus. No injection or drainage. ENT: Nose without bleeding, purulent drainage or septal hematoma. Throat without erythema, tonsillar hypertrophy or exudate. Uvula midline. Airway patent. CARDIOVASCULAR: Regular rate and rhythm without murmurs, gallops, or rubs. RESPIRATORY: Clear to auscultation. Breath sounds equal bilaterally. No wheezes , rales, or rhonchi. GASTROINTESTINAL: Abdomen soft, non-tender, nondistended. No guarding. MUSCULOSKELETAL: Extremities without clubbing, cyanosis, or edema. No joint tenderness, effusion, or edema noted. No calf tenderness. Negative Homans sign bilaterally. NEUROLOGICAL: Obtunded has difficult time following commands. Right-sided facial droop noted. Right upper and lower extremity weaker than left. Patient also has generalized weakness. Slurred speech noted Laboratory Laboratory Tests Test 09/28/16 09/28/16 09/28/16 13:45 14:28 14:44 White Blood Count 6.3 Red Blood Count 4.08 Hemoglobin 12.3 Bedside Hemoglobin 12.9 Hematocrit 35.7 Bedside Hematocrit 38.0 Mean Corpuscular Volume 87.5 Mean Corpuscular Hemoglobin 30.2 Mean Corpuscular Hemoglobin 34.4 Concent Red Cell Distribution Width 17.2 Platelet Count 229 Mean Platelet Volume 6.8 Neutrophils (%) (Auto) 86.1 Lymphocytes (%) (Auto) 7.5 Monocytes (%) (Auto) 5.7 Eosinophils (%) (Auto) 0.2 Basophils (%) (Auto) 0.5 Neutrophils # (Auto) 5.4 Lymphocytes # (Auto) 0.5 Monocytes # (Auto) 0.4 Eosinophils # (Auto) 0.0 Basophils # (Auto) 0.0 CBC Comment DIFF FINAL Differential Comment Prothrombin Time 11.7 Prothromb Time International 1.1 Ratio Activated Partial 24.6 Thromboplast Time Fibrinogen 452 Bedside Sodium 140 Bedside Potassium 3.9 Bedside Chloride 113 Bedside Blood Urea Nitrogen 20 Bedside Creatinine 1.3 Bedside Glucose 97 Hemoglobin A1c 6.9 Total Creatine Kinase 4920 Creatine Kinase MB 52.0 Creatine Kinase MB % 1.1 Troponin I LESS THAN 0.02 Blood Type B POSITIVE Antibody Screen NEGATIVE Blood Bank Comment Urine Color YELLOW Urine Turbidity CLEAR Urine pH 5.5 Urine Specific [place] 1.034 Urine Protein TRACE Urine Glucose (UA) NEG Urine Ketones NEG Urine Occult Blood NEG Urine Nitrite NEG Urine Bilirubin NEG Urine Urobilinogen LESS THAN 2.0 Urine Leukocyte Esterase NEG Urine WBC 3 Urine Squamous Epithelial 2 Cells Urine Hyaline Casts 22 Urine Mucus FEW Microscopic Urinalysis Comment Urine Opiates Screen NEG Urine Barbiturates Screen NEG Urine Amphetamines Screen NEG Urine Benzodiazepines Screen NEG Urine Cocaine Screen NEG Urine Cannabinoids Screen NEG Salicylates Level 41.7 Acetaminophen Level LESS THAN 2.0 Ethyl Alcohol Level LESS THAN 3 Result Diagram: 09/28/16 1345 Imaging Last Impressions Neck CTA 09/28/16 1333 Signed Impressions: Service Date/Time: Wednesday, September 28, 2016 13:57 - CONCLUSION: 1. Calcified plaque generating 20%% ICA stenoses without ulceration. 2. Patent vertebral arteries. 3. Emphysematous changes. Jimmy Schmidt Jr., MD Head CTA 09/28/16 1333 Signed Impressions: Service Date/Time: Wednesday, September 28, 2016 13:57 - CONCLUSION: Normal examination. Jimmy Schmidt Jr., MD Head CT 09/28/16 0000 Signed Impressions: Service Date/Time: Wednesday, September 28, 2016 13:48 - CONCLUSION: 1. Stable noncontrast head CT. No acute intracranial abnormality is identified. 2. Chronic changes include mild cerebral atrophy. Reynaldo Patel MD Chest X-Ray 09/28/16 0000 Signed Impressions: Service Date/Time: Wednesday, September 28, 2016 14:03 - CONCLUSION: No acute cardiopulmonary abnormality is identified. Reynaldo Patel MD Assessment and Plan Problem List: (1) Altered mental state ICD Code: R41.82 Status: Acute (2) Salicylate poisoning ICD Code: T39.091A Status: Acute (3) Rhabdomyolysis ICD Code: M62.82 Status: Acute (4) Hypotension ICD Code: I95.9 Status: Resolved Assessment and Plan This is a 56-year-old female patient with past medical history which includes EtOH abuse in the past, CAD status post [place] with cardiac stents, CVA, migraine headaches. Patient is currently obtunded and unable to give reliable information . Patient was found at 10:30 this morning by her family members she was noted to have slurred speech described as being jittery and confused with question of left-sided facial droop. Altered mental status CVA versus salicylate toxicity Salicylate level 41.7 Admit patient to intensive care unit for close monitoring she appears critically ill and obtunded Discussed with Dr. Randolph in ER physician will call poison control CT of the head reviewed and reveals stable noncontrast head CT. No acute intracranial abnormality is identified. Chronic changes involving mild cerebral atrophy Neck CTA reviewed and reveals calcified plaques generating 20% ICA stenosis without ulceration. Patent vertebral artery. Emphysematous changes. Head CT reviewed and reveals normal exam Chest x-ray reviewed and reveals no acute cardiopulmonary abnormality is identified Glucose on arrival 97 UA revealed negative leukocyte esterase no culture indicated Continuous cardiac telemetry Echocardiogram Neurology consultation hold aspirin as patient has salicylate toxicity D5NS IV fluid Hypotension Continue to monitor blood pressure IV bolus ordered Rhabdomyolysis CK 4920 IV fluids Recheck CK in a.m. Recheck CBC and BMP in a.m. Discussed with patient, nursing in ER physician This note was transcribed by june Encarnacion. I, Dr. Kushal Bansal personally performed the history, physical exam, and medical decision making; and confirmed the accuracy of the information in the transcribed note. Authenticated by Dr. Kushal Bansal on 09/28/16 at 17:42. Physician Certification 2 Midnight Certification Type: Admission for Inpatient Services Order for Inpatient Services The services are ordered in accordance with Medicare regulations or non- Medicare payer requirements, as applicable. In the case of services not specified as inpatient-only, they are appropriately provided as inpatient services in accordance with the 2-midnight benchmark. Estimated LOS (days): 3 days is the estimated time the patient will need to remain in the hospital, assuming treatment plan goals are met and no additional complications. Post-Hospital Plan: Not yet determined Problem Qualifiers (1) Altered mental state: Qualified Code: R41.0 - Delirium (2) Salicylate poisoning: Qualified Code: T39.094A - Poisoning by salicylate, undetermined intent, initial encounter (3) Rhabdomyolysis: Qualified Code: M62.82 - Non-traumatic rhabdomyolysis Paloma Encarnacion Sep 28, 2016 18:02 Kushal Reyes MD Oct 01, 2016 23:00
[2016-09-28 18:21] LABS: BLOOD GAS BASE EXCESS -9.1 mmol/L (-2-2); BLOOD GAS CARBOXYHEMOGLOBIN 0.8 % (0-4); BLOOD GAS HCO3 16 mmol/L (22-26); BLOOD GAS METHEMOGLOBIN 0.7 % (0-2); BLOOD GAS O2 HGB SATURATION 86 % (90-100); BLOOD GAS OXYGEN CONTENT 13.7 Vol % (12.0-20.0); BLOOD GAS PCO2 31 mmHg (38-42); BLOOD GAS PO2 59 mmHG (61-120); BLOOD GAS TOTAL HGB 11.3 G/DL (12.0-16.0); CRITICAL VALUE YES; DRAW SITE RT RADIAL; FIO2 21 %; NUMBER OF ARTERIAL PUNCTURES 1; OXYGEN DEVICE ROOM AIR; STAT YES; TEMP CORR TO 98.6; ULNAR PULSE PRESENT
[2016-09-28] MEDS ORDERED: D5-NS + KCL 20 MEQ INJ 1,000 ML IV SCH (19:00)
[2016-09-28] MEDS: HEPARIN SODIUM - SQ 10,000 UNITS/ML VIAL SQ SCH (19:34)
[2016-09-28] MEDS: DOCUSATE SODIUM 50 MG/SENNA 8.6 MG TAB PO SCH (20:03)
[2016-09-28] MEDS: SODIUM CHLORIDE 0.9% FLUSH 10 ML FLUSH IV FLUSH SCH (21:00)
[2016-09-28] MEDS ORDERED: SODIUM CHLORIDE 0.9% FLUSH 5 ML FLUSH IV FLUSH SCH (21:00)
[2016-09-29] VITALS (9 sets, daily range): BP systolic 99–135; BP diastolic 56–83; PULSE 69–83; RESP 18–20; TEMP 98.6–99.8; O2SAT 94–98
[2016-09-29] MEDS: HEPARIN SODIUM - SQ 10,000 UNITS/ML VIAL SQ SCH ×3 (04:44→21:14)
[2016-09-29] MEDS: INSULIN ASPART SUPPLEMENTAL SCALE SQ SCH ×4 (06:25→21:00)
[2016-09-29] MEDS: DOCUSATE SODIUM 50 MG/SENNA 8.6 MG TAB PO SCH ×2 (09:00→21:14)
[2016-09-29] MEDS: SODIUM CHLORIDE 0.9% FLUSH 10 ML FLUSH IV FLUSH SCH ×2 (10:06→21:00)
[2016-09-29 12:53] LABS: BASOPHIL # 0.1 TH/MM3 (0-0.2); BASOPHIL % 0.7 % (0.0-2.0); EOSINOPHIL % 0.1 % (0.0-4.0); HEMATOCRIT 33.7 % (35.0-46.0); HEMO FLAGS DIFF FINAL; LYMPH % 6.4 % (9.0-44.0); LYMPHOCYTE # 0.7 TH/MM3 (1.0-4.8); MEAN CELL VOLUME 88.4 FL (80.0-100.0); MEAN CORPUSCULAR HEMOGLOBIN 29.4 PG (27.0-34.0); MEAN CORPUSCULAR HGB CONC 33.2 % (32.0-36.0); MONO % 4.9 % (0.0-8.0); NEUT % 87.9 % (16.0-70.0); PLATELET COUNT 231 TH/MM3 (150-450); RED BLOOD COUNT 3.82 MIL/MM3 (4.00-5.30); WHITE BLOOD COUNT 10.2 TH/MM3 (4.0-11.0)
--- NOTE | 2016-09-29 13:16 | EKG ---
Date Performed: 09/28/2016 Time Performed: 13:36:11 PTAGE: 56 years EKG: Sinus rhythm NORMAL ECG PREVIOUS TRACING : 04/03/2015 19.40 Since previous tracing, no significant change noted DOCTOR: Asaf Hayes Interpretating Date/Time 09/29/2016 13:15:58
[2016-09-29 13:26] LABS: ANION GAP 8 MEQ/L (5-15); AST (GOT) 168 U/L (15-37); BICARBONATE 19.8 MEQ/L (21.0-32.0); BLOOD UREA NITROGEN 11 MG/DL (7-18); CHLORIDE 116 MEQ/L (98-107); GLOMERULAR FILTRATION RATE 126 ML/MIN (>89); POTASSIUM 3.2 MEQ/L (3.5-5.1); SODIUM (NA) 144 MEQ/L (136-145)
[2016-09-29 13:40] LABS: ALKALINE PHOSPHATASE 54 U/L (45-117); ALT (GPT) 53 U/L (10-53); CREATINE KINASE 5174 U/L (26-192); HDL CHOLESTEROL 43.9 MG/DL (40.0-60.0); LDL CHOLESTEROL 76 MG/DL (0-99); TOTAL BILIRUBIN ADULT 0.2 MG/DL (0.2-1.0)
[2016-09-29 13:57] LABS: CKMB 25.2 NG/ML (0.5-3.6)
[2016-09-29] MEDS ORDERED: POTASSIUM CHLORIDE 10 MEQ CONTROLLED RELEASE TAB PO ONE (15:00)
[2016-09-29] MEDS ORDERED: LORazepam 2 MG/ML VIAL IV PUSH PRN ×4 (15:15)
[2016-09-29] MEDS ORDERED: FLUMAZENIL 0.5 MG/5 ML VIAL IV PUSH PRN (15:15)
[2016-09-29] MEDS ORDERED: HALOPERIDOL LACTATE 5 MG/ML AMP IM PRN (15:15)
[2016-09-29] MEDS: NS + KCL 20 MEQ INJ 1,000 ML IV SCH ×2 (15:15→23:15)
[2016-09-29] MEDS ORDERED: LORazepam 1 MG TAB PO PRN (15:15)
--- NOTE | 2016-09-29 15:42 | HHI.PR ---
Subjective Remarks Written by Paloma Encarnacion, acting as scribe for Dr. Conti on 09/29/16 at 15:36. Salicylate level, Hypotension and Rhabdomyolysis. Patient awake and alert, but appears confused. Patient is accusatory and paranoid. Per RN reports patient was hallucinating earlier. Patient offer no other complaints at this time. Denies shortness of breath, chest pain, N/V/D/C. Objective Vitals Vital Signs Date Time Temp Pulse Resp B/P Pulse Ox O2 Delivery O2 Flow Rate FiO2 09/29/16 12:45 95 21 09/29/16 12:06 98.6 79 18 116/62 98 09/29/16 08:21 99.8 71 18 100/60 94 09/29/16 08:14 69 09/29/16 04:00 99.2 75 18 102/56 97 09/29/16 03:30 99.1 73 18 103/58 98 09/29/16 00:00 98.8 70 18 99/62 96 09/28/16 21:13 98 Nasal Cannula 2.00 09/28/16 20:00 98.3 65 20 108/57 97 09/28/16 19:44 98 Nasal Cannula 2 09/28/16 19:30 69 15 92/54 97 Nasal Cannula 2 09/28/16 18:48 100.2 72 18 96/59 97 Room Air I/O 09/28/16 09/28/16 09/28/16 09/29/16 09/29/16 09/29/16 06:59 14:59 22:59 06:59 14:59 22:59 Output Total 550 ml Balance -550 ml Output Urine Total 550 ml # Voids 1 7 Result Diagram: 09/29/16 1221 09/29/16 1221 Imaging Last Impressions Neck CTA 09/28/16 1333 Signed Impressions: Service Date/Time: Wednesday, September 28, 2016 13:57 - CONCLUSION: 1. Calcified plaque generating 20%% ICA stenoses without ulceration. 2. Patent vertebral arteries. 3. Emphysematous changes. Jimmy Schmidt Jr., MD Head CTA 09/28/16 1333 Signed Impressions: Service Date/Time: Wednesday, September 28, 2016 13:57 - CONCLUSION: Normal examination. Jimmy Schmidt Jr., MD Head CT 09/28/16 0000 Signed Impressions: Service Date/Time: Wednesday, September 28, 2016 13:48 - CONCLUSION: 1. Stable noncontrast head CT. No acute intracranial abnormality is identified. 2. Chronic changes include mild cerebral atrophy. Reynaldo Patel MD Chest X-Ray 09/28/16 0000 Signed Impressions: Service Date/Time: Wednesday, September 28, 2016 14:03 - CONCLUSION: No acute cardiopulmonary abnormality is identified. Reynaldo Patel MD Objective Remarks GENERAL: This is a well-nourished, well-developed patient, awake, alert and confused SKIN: No rashes, ecchymoses or lesions. Cool and dry. HEAD: Atraumatic. Normocephalic. No temporal or scalp tenderness. EYES: Extraocular motions intact. No scleral icterus. No injection or drainage. ENT: Nose without bleeding, purulent drainage or septal hematoma. Throat without erythema, tonsillar hypertrophy or exudate. Uvula midline. Airway patent. CARDIOVASCULAR: Regular rate and rhythm without murmurs, gallops, or rubs. RESPIRATORY: Clear to auscultation. Breath sounds equal bilaterally. No wheezes , rales, or rhonchi. GASTROINTESTINAL: Abdomen soft, non-tender, nondistended. No guarding. MUSCULOSKELETAL: Extremities without clubbing, cyanosis, or edema. No joint tenderness, effusion, or edema noted. No calf tenderness. Negative Homans sign bilaterally. NEUROLOGICAL: No focal deficits. Patient also has generalized weakness, no focal deficits at this time. A/P Problem List: (1) Altered mental state ICD Code: R41.82 Status: Acute (2) Salicylate poisoning ICD Code: T39.091A Status: Acute (3) Rhabdomyolysis ICD Code: M62.82 Status: Acute (4) Hypotension ICD Code: I95.9 Status: Acute Assessment and Plan This is a 56-year-old female patient with past medical history which includes EtOH abuse in the past, CAD status post [place] with cardiac stents, CVA, migraine headaches. Patient is currently obtunded and unable to give reliable information . Patient was found at 10:30 this morning by her family members she was noted to have slurred speech described as being jittery and confused with question of left-sided facial droop. Altered mental status CVA versus salicylate toxicity CT of the head reviewed and reveals stable noncontrast head CT. No acute intracranial abnormality is identified. Chronic changes involving mild cerebral atrophy Neck CTA reviewed and reveals calcified plaques generating 20% ICA stenosis without ulceration. Patent vertebral artery. Emphysematous changes. Head CT reviewed and reveals normal exam Chest x-ray reviewed and reveals no acute cardiopulmonary abnormality is identified Glucose on arrival 97 UA revealed negative leukocyte esterase no culture indicated Continuous cardiac telemetry Echocardiogram pending Neurology consultation hold aspirin as patient has salicylate toxicity Salicylate level 41.7 --> 36.1 --> 19.4 D5NS IV fluid changed to NS with 20meq K Hypotension- improved Continue to monitor blood pressure Rhabdomyolysis CK 4920 --> 5174 change fluids to NS with KCL increase rate Recheck CK in a.m. Hypokalemia- potassium 3.2 replaced recheck in AM Psychosis Hallucinations, paranoid and persecuting Consult psych DVT prophylaxis with SCDs Discussed with patient, nursing Attending Statement This note was transcribed by june Encarnacion. I, Dr. Kushal Bansal personally performed the history, physical exam, and medical decision making; and confirmed the accuracy of the information in the transcribed note. Authenticated by Dr. Kushal Bansal on 09/30/16 at 07:31. Problem Qualifiers (1) Altered mental state: Qualified Code: R41.0 - Delirium (2) Salicylate poisoning: Qualified Code: T39.094A - Poisoning by salicylate, undetermined intent, initial encounter (3) Rhabdomyolysis: Qualified Code: M62.82 - Non-traumatic rhabdomyolysis Paloma Encarnacion Sep 29, 2016 15:42 Kushal Reyes MD Sep 30, 2016 07:31
[2016-09-29] MEDS: FOLIC ACID 1 MG TAB PO SCH (17:24)
[2016-09-29] MEDS: CYANOCOBALAMIN 1,000 MCG TAB PO SCH (17:24)
[2016-09-30] VITALS (9 sets, daily range): BP systolic 142–167; BP diastolic 80–92; PULSE 75–88; RESP 17–20; TEMP 97.6–99.7; O2SAT 93–99
[2016-09-30] MEDS: HEPARIN SODIUM - SQ 10,000 UNITS/ML VIAL SQ SCH ×3 (03:21→22:47)
[2016-09-30] MEDS: LORazepam 2 MG TAB PO PRN ×2 (03:30→06:16)
[2016-09-30] MEDS: INSULIN ASPART SUPPLEMENTAL SCALE SQ SCH ×4 (06:14→21:00)
--- NOTE | 2016-09-30 06:49 | RADRPT ---
EXAM DATE/TIME: 09/30/2016 06:08 [facility] COMPARISON: CHEST SINGLE AP, September 28, 2016, 14:03. INDICATIONS : Shortness of breath. MEDICAL HISTORY : Stroke. Hypertension. Renal calculi SURGICAL HISTORY : Coronary artery stent. ENCOUNTER: Subsequent ACUITY: 3 days PAIN SCORE: 1/10 LOCATION: Bilateral chest FINDINGS: The cardiac silhouette is normal in transverse diameter. There is left lower lobe atelectasis versus pneumonia. The right lung is free of acute parenchymal opacity. No pleural effusions are identified. CONCLUSION: 1. Left lower lobe atelectasis versus pneumonia. Cruzito Morris MD on September 30, 2016 at 6:47 Board Certified Radiologist. This report was verified electronically.
--- NOTE | 2016-09-30 07:23 | PD.PSY.CON ---
Provisional Diagnosis Admission Date Sep 28, 2016 at 17:45 Golden I. 1. Delirium due to medical condition +/- component of withdrawal 2. History of alcohol use disorder Golden II. Deferred History of Present Illness Service Psychiatry Consult Requested By Dr. Gallito Garnett Reason for Consult Visual hallucinations, paranoid delusions, aspirin overdose Primary Care Physician [facility] Ms. Hensley is a 56-year-old female with a history of alcohol use disorder who is presently admitted to the medical floor. Patient initially presented for TIA symptoms and was subsequently found to have an elevated salicylate level. Since admission to the medical floor, the patient has been noted to be hallucinating and paranoid. She has been started on a CIWA scale with Ativan for the management of withdrawal given her history of alcohol use disorder and has received approximately 8 mg of Ativan in the last 24 hours. Reviewing the electronic medical record, I note that the patient was seen by Dr. Whitman in 2004 for alcohol dependency issues. Patient seen and examined. Chart reviewed. Case discussed with nursing staff who reports that the patient was combative and belligerent yesterday. She was also reportedly actively hallucinating. She told the nurse that she had not used alcohol in 6 months. On my examination today, the patient presents as quite delirious. See full mental status testing below. She is in soft wrist restraints. She has fluctuations in level of consciousness throughout the interview. She endorses subjective confusion. She stares around the room and endorses visual hallucinations of figures standing behind me. She admits to feeling somewhat threatened and fearful in her current state. No SI or HI voiced. Psychiatric interview was quite limited as of the patient's current mental status, and I am unable to obtain any meaningful past psychiatric, family , chemical dependency or social history for this reason. Review of Systems ROS Limitations: Altered Mental Status, Poor Historian Other Limited ROS Past Family Social History Coded Allergies: Codeine (Verified Allergy, Severe, Rash, 08/30/16) Compazine (Verified Allergy, Severe, SWELLING, 08/30/16) Penicillin (Verified Allergy, Severe, SWELLING, 08/30/16) Past Medical History See EMR Active Scripts Hydrocodone-Acetaminophen ([place])7.5-325 mg Tab1 Tab PO Q6H PRN (PAIN) #12 TAB Ref 0 Prov:Jaison Johnston MD 08/30/16 Ibuprofen 400 Mg [id number] Mg PO Q6H PRN (PAIN SCALE 1 TO 10) #20 TAB Ref 0 Prov:Jaison Johnston MD 08/30/16 Reported Medications Gabapentin 400 Mg [id number] Cap PO Q6HR #30 CAP Ref 0 08/30/16 Amlodipine 10 Mg Tab10 Mg PO DAILY #30 TAB Ref 0 08/30/16 Current Medications Medications (Trade) Dose Ordered Sig/Sandoval Route Start Time Stop Time Status Last Admin (NovoLOG SUPPLEMENTAL SCALE) 1 ACHS SQ 09/28/16 16:00 (D50w (Vial) Inj) 50 ml UNSCH PRN IV PUSH 09/28/16 14:45 (Glucagon Inj) 1 mg UNSCH PRN OTHER 09/28/16 14:45 (NS Flush) 2 ml UNSCH PRN IV FLUSH 09/28/16 17:45 (NS Flush) 2 ml BID IV FLUSH 09/28/16 21:00 09/29/16 10:06 (Tylenol) 650 mg Q4H PRN PO 09/28/16 17:45 (Zofran Inj) 4 mg Q6H PRN IVP 09/28/16 17:45 (Heparin Inj) 5,000 units Q8H SQ 09/28/16 20:00 09/30/16 03:21 (Emiliana-Colace) 1 tab BID PO 09/28/16 21:00 09/29/16 21:14 (Milk Of Magnesia Liq) 30 ml Q12H PRN PO 09/28/16 17:45 (Senokot) 17.2 mg Q12H PRN PO 09/28/16 17:45 (Dulcolax Supp) 10 mg DAILY PRN RECTAL 09/28/16 17:45 Lactulose 30 ml 30 ml DAILY PRN PO 09/28/16 17:45 (NS + KCl 20 Meq Inj) 1,000 ml @ 125 mls/hr Q8H IV 09/29/16 15:15 (Folate) 1 mg DAILY PO 09/29/16 15:15 09/29/16 17:24 (Vitamin B12) 1,000 mcg DAILY PO 09/29/16 15:15 09/29/16 17:24 (Romazicon Inj) 0.2 mg Q1M PRN IV PUSH 09/29/16 15:15 (Ativan) 1 mg Q4H PRN PO 09/29/16 15:15 (Ativan Inj) 1 mg Q4H PRN IV PUSH 09/29/16 15:15 (Ativan) 2 mg Q2H PRN PO 09/29/16 15:15 09/30/16 06:16 (Ativan Inj) 2 mg Q2H PRN IV PUSH 09/29/16 15:15 09/30/16 00:42 (Ativan Inj) 2 mg Q1H PRN IV PUSH 09/29/16 15:15 (Ativan Inj) 2 mg Q15M PRN IV PUSH 09/29/16 15:15 09/29/16 17:28 (Haldol Inj) 2 mg Q15M PRN IM 09/29/16 15:15 09/29/16 17:19 Patient's Strengths (min. 2) In monitored setting. Some verbal fluency. Physical Exam Physical exam completed by primary team. On my examination today, the patient appears to be in no acute physical distress. No hand tremor, no diaphoresis, no mydriasis, no other signs of GABAergic withdrawal noted. No other motoric abnormalities appreciated. Labs and vitals reviewed: Vital Signs Vital Signs Date Time Temp Pulse Resp B/P Pulse Ox O2 Delivery O2 Flow Rate FiO2 09/30/16 05:12 97 Nasal Cannula 3.00 09/30/16 04:00 99.2 84 20 156/82 09/29/16 12:45 21 I/O 09/29/16 09/29/16 09/29/16 07:59 15:59 23:59 Intake Total 240 ml 240 ml Output Total 550 ml Balance -550 ml 240 ml 240 ml Lab Results Item Value Date Time White Blood Count 10.2 TH/MM3 # 09/29/16 1221 Hemoglobin 11.2 GM/DL L 09/29/16 1221 Platelet Count 231 TH/MM3 09/29/16 1221 Sodium Level 144 MEQ/L 09/29/16 1221 Potassium Level 3.2 MEQ/L L 09/29/16 1221 Chloride Level 116 MEQ/L H 09/29/16 1221 Carbon Dioxide Level 19.8 MEQ/L L 09/29/16 1221 Blood Urea Nitrogen 11 MG/DL 09/29/16 1221 Creatinine 0.51 MG/DL 09/29/16 1221 Estimat Glomerular Filtration Rate 126 ML/MIN 09/29/16 1221 Alanine Aminotransferase (ALT/SGPT) 53 U/L 09/29/16 1221 Alkaline Phosphatase 54 U/L 09/29/16 1221 Total Creatine Kinase 5174 U/L H 09/29/16 1221 Salicylates Level 41.7 MG/DL *H 09/28/16 1444 Ethyl Alcohol Level LESS THAN 3 MG/DL 09/28/16 1444 EKG read as sinus rhythm with a QTC of 399 ms. Last Impressions Chest X-Ray 09/30/16 0000 Signed Impressions: Service Date/Time: Friday, September 30, 2016 06:08 - CONCLUSION: 1. Left lower lobe atelectasis versus pneumonia. Cruzito Morris MD Neck CTA 09/28/163 Signed Impressions: Service Date/Time: Wednesday, September 28, 2016 13:57 - CONCLUSION: 1. Calcified plaque generating 20%% ICA stenoses without ulceration. 2. Patent vertebral arteries. 3. Emphysematous changes. Jimmy Schmidt Jr., MD Head CTA 09/28/163 Signed Impressions: Service Date/Time: Wednesday, September 28, 2016 13:57 - CONCLUSION: Normal examination. Jimmy Schmidt Jr., MD Head CT 09/28/16 0000 Signed Impressions: Service Date/Time: Wednesday, September 28, 2016 13:48 - CONCLUSION: 1. Stable noncontrast head CT. No acute intracranial abnormality is identified. 2. Chronic changes include mild cerebral atrophy. Reynaldo Patel MD Mental Status Examination Patient is in hospital [facility]. She is fairly well groomed. Level of alertness fluctuates throughout the interview. She answers to name but is otherwise disoriented. Her registration is 0 out of 3, and she has difficulties repeating. She is unable to recall any items. She is unable to name items. Focus and concentration quite scattered. Motor exam as above. Speech largely nonsensical and rambling. She is able to answer a few questions appropriately, as above. Memory difficult to assess given other current mental status issues. Mood is somewhat fearful, and affect is consistent with stated mood. Thought process quite disorganized, limiting assessment of thought content. No tereso delusions. Endorses visual hallucinations as above. No SI or HI. Insight and judgment are presently quite poor. Assessment & Plan Problem List: (1) Delirium due to another medical condition ICD Code: F05 (2) History of alcohol use disorder ICD Code: Z87.898 Assessment & Plan This is a 56-year-old female with psychiatric history as detailed above who is presently admitted to the medical floor following initial presentation for a TIA. Psychiatry is consulted for hallucinations and paranoia. The patient is presently quite delirious, and I suspect this may be multifactorial related to presenting salicylate toxicity (intention unclear), elevated CK, possible medication effect. Although the patient has a history of alcohol use issues, she has no stigmata of withdrawal on my exam, but she also has received quite a bit of Ativan overnight. My concern is that she is scoring so highly on the CIWA scale because of hallucinations and agitation better explained by delirium from other causes, and that the benzodiazepines she is being administered may in fact be worsening her mental status. For now, I recommend the following: --Start Haldol 1mg TID IV for delirium. QTc wnl. --Continue to use Ativan PRN CIWA, but consider adjusting parameters to focus more on signs like hand tremor, diaphoresis, vital sign abnormalities that are more specific for GABAergic withdrawal delirium. --Add empiric thiamine supplement --Limit use of opiates, anticholinergics, antihistamines and benzodiazepines except as needed for the management of withdrawal as all can worsen mental status. --Limited use of restraints. Recommend sitter instead for behavioral redirection. --Frequent reorientation. Early mobilization. Aggressive treatment of any urinary retention or constipation. --Unless there is evidence of primary psychiatric disturbance or evidence that ASA intake was suicidal overdose, patient unlikely to benefit additionally from med psych/inpatient psych. Patient's current issues seem to be secondary to medical problems and/or withdrawal. If evidence of either of above, initiate BA and place with sitter. Case discussed with RN. Thank you very much for this consultation. Please call or page with questions. I will update Dr. Oquendo after the weekend (he returns Saturday). Cruzito Parish MD Sep 30, 2016 07:23
[2016-09-30] MEDS: FOLIC ACID 1 MG TAB PO SCH (10:28)
[2016-09-30] MEDS: DOCUSATE SODIUM 50 MG/SENNA 8.6 MG TAB PO SCH ×2 (10:28→22:47)
[2016-09-30] MEDS: CYANOCOBALAMIN 1,000 MCG TAB PO SCH (10:28)
[2016-09-30] MEDS: HALOPERIDOL LACTATE 5 MG/ML AMP IV PUSH SCH ×3 (10:29→17:54)
[2016-09-30] MEDS: SODIUM CHLORIDE 0.9% FLUSH 10 ML FLUSH IV FLUSH SCH ×2 (10:29→22:48)
[2016-09-30] MEDS: NS + KCL 20 MEQ INJ 1,000 ML IV SCH ×3 (10:30→23:15)
[2016-09-30] MEDS: RESP: ALBUTEROL 2.5 MG/IPRATROPIUM 0.5 MG NEB (PRN) NEB ×2 (12:56→18:50)
[2016-09-30] MEDS ORDERED: POTASSIUM CHLORIDE 10 MEQ CONTROLLED RELEASE TAB PO ONE (14:00)
--- NOTE | 2016-09-30 14:05 | ECHRPT ---
Indication: cva/tia CONCLUSIONS Normal left ventricular size. Wall thickness is measured at the upper limits of normal. The left ventricular systolic function is normal with an estimated ejection fraction in the range of 55-60%. No regional wall motion abnormalities are present. Mild mitral valve regurgitation. There is mild tricuspid valve regurgitation. There is estimated mild pulmonary hypertension present (range 40-50 mmHg). There is no pericardial effusion. BP: / HR: Rhythm: MEASUREMENTS (Male / Female) Normal Values Technical Quality:Technically difficult study 2D ECHO LV Diastolic Diameter PLAX 3.6 cm 4.2 - 5.9 / 3.9 - 5.3 cm LV Systolic Diameter PLAX 2.7 cm IVS Diastolic Thickness 1.1 cm 0.6 - 1.0 / 0.6 - 0.9 cm LVPW Diastolic Thickness 1.0 cm 0.6 - 1.0 / 0.6 - 0.9 cm LV Relative Wall Thickness 0.6 RV Internal Dim ED PLAX 2.3 cm M-MODE Aortic Root Diameter MM 3.4 cm LA Systolic Diameter MM 4.1 cm LA Ao Ratio MM 1.2 AV Cusp Separation MM 2.4 cm DOPPLER Mitral E Point Velocity 93.3 cm/s Mitral A Point Velocity 58.2 cm/s Mitral E to A Ratio 1.6 LV E' Lateral Velocity 12.8 cm/s Mitral E to LV E' Lateral Ratio 7.3 LV E' Septal Velocity 14.1 cm/s Mitral E to LV E' Septal Ratio 6.6 TR Peak Velocity 319.0 cm/s TR Peak Gradient 40.7 mmHg FINDINGS LEFT VENTRICLE Normal left ventricular size. Wall thickness is measured at the upper limits of normal. The left ventricular systolic function is normal with an estimated ejection fraction in the range of 55-60%. No regional wall motion abnormalities are present. RIGHT VENTRICLE Normal right ventricular size and systolic function. LEFT ATRIUM The left atrial size is normal. RIGHT ATRIUM The right atrial size is normal. AORTA The aortic root and proximal ascending aorta are normal in size on limited imaging. MITRAL VALVE Structurally normal mitral valve. Mild mitral valve regurgitation. AORTIC VALVE Trileaflet aortic valve. No aortic valve stenosis or regurgitation. TRICUSPID VALVE Structurally normal tricuspid valve. There is mild tricuspid valve regurgitation. There is estimated mild pulmonary hypertension present (range 40-50 mmHg). PULMONARY VALVE The pulmonary valve is not well visualized. VESSELS The inferior vena cava is normal in size. PERICARDIUM There is no pericardial effusion. OTHER FINDINGS small asd vs pfo Wolfgang Patterson MD (Electronically Signed) Final Date:30 September 2016 14:05
--- NOTE | 2016-09-30 16:08 | HHI.PR ---
Subjective Remarks as per RN patient still having hallucinations patient is still confused, unable to provide good reponses to my questions BP noted to be elevated patient is afebrile PAtient has been having low grade fevers Objective Vitals Vital Signs Date Time Temp Pulse Resp B/P Pulse Ox O2 Delivery O2 Flow Rate FiO2 09/30/16 12:54 98.3 75 18 167/81 95 09/30/16 08:22 99.0 79 19 148/85 97 09/30/16 05:12 97 Nasal Cannula 3.00 09/30/16 04:00 99.2 84 20 156/82 95 09/30/16 00:00 99.7 83 20 146/80 94 09/29/16 20:00 98.7 83 20 135/83 96 09/29/16 17:19 99.1 74 20 122/62 96 I/O 09/29/16 09/29/16 09/29/16 09/30/16 09/30/16 09/30/16 07:00 15:00 23:00 07:00 15:00 23:00 Intake Total 240 ml 240 ml Output Total 550 ml Balance -550 ml 240 ml 240 ml Intake Oral 240 ml 240 ml Output Urine Total 550 ml # Voids 7 3 1 2 1 # Bowel Movements 1 0 1 Result Diagram: 09/29/16 1221 09/29/16 1221 Imaging Last Impressions Chest X-Ray 09/30/16 0000 Signed Impressions: Service Date/Time: Friday, September 30, 2016 06:08 - CONCLUSION: 1. Left lower lobe atelectasis versus pneumonia. Cruzito Morris MD Neck CTA 09/28/16 1333 Signed Impressions: Service Date/Time: Wednesday, September 28, 2016 13:57 - CONCLUSION: 1. Calcified plaque generating 20%% ICA stenoses without ulceration. 2. Patent vertebral arteries. 3. Emphysematous changes. Jimmy Schmidt Jr., MD Head CTA 09/28/16 1333 Signed Impressions: Service Date/Time: Wednesday, September 28, 2016 13:57 - CONCLUSION: Normal examination. Jimmy Schmidt Jr., MD Head CT 09/28/16 0000 Signed Impressions: Service Date/Time: Wednesday, September 28, 2016 13:48 - CONCLUSION: 1. Stable noncontrast head CT. No acute intracranial abnormality is identified. 2. Chronic changes include mild cerebral atrophy. Reynaldo Patel MD Objective Remarks GENERAL: This is a well-nourished, well-developed patient, awake, alert and confused SKIN: No rashes, ecchymoses or lesions. Cool and dry. HEAD: Atraumatic. Normocephalic. No temporal or scalp tenderness. EYES: Extraocular motions intact. No scleral icterus. No injection or drainage. ENT: Nose without bleeding, purulent drainage or septal hematoma. Throat without erythema, tonsillar hypertrophy or exudate. Uvula midline. Airway patent. CARDIOVASCULAR: Regular rate and rhythm without murmurs, gallops, or rubs. RESPIRATORY:Breath sounds decreased at the bases. bilaterally. No wheezes, rales , or rhonchi. GASTROINTESTINAL: Abdomen soft, non-tender, nondistended. No guarding. MUSCULOSKELETAL: Extremities without clubbing, cyanosis, or edema. No joint tenderness, effusion, or edema noted. No calf tenderness. Negative Homans sign bilaterally. NEUROLOGICAL: No focal deficits. Patient also has generalized weakness, no focal deficits at this time. Medications and IVs Current Medications Medications (Trade) Dose Ordered Sig/Sandoval Route Start Time Stop Time Status Last Admin (NovoLOG SUPPLEMENTAL SCALE) 1 ACHS SQ 09/28/16 16:00 (D50w (Vial) Inj) 50 ml UNSCH PRN IV PUSH 09/28/16 14:45 (Glucagon Inj) 1 mg UNSCH PRN OTHER 09/28/16 14:45 (NS Flush) 2 ml UNSCH PRN IV FLUSH 09/28/16 17:45 (NS Flush) 2 ml BID IV FLUSH 09/28/16 21:00 09/30/16 10:29 (Tylenol) 650 mg Q4H PRN PO 09/28/16 17:45 (Zofran Inj) 4 mg Q6H PRN IVP 09/28/16 17:45 (Heparin Inj) 5,000 units Q8H SQ 09/28/16 20:00 09/30/16 12:22 (Emiliana-Colace) 1 tab BID PO 09/28/16 21:00 09/30/16 10:28 (Milk Of Magnesia Liq) 30 ml Q12H PRN PO 09/28/16 17:45 (Senokot) 17.2 mg Q12H PRN PO 09/28/16 17:45 (Dulcolax Supp) 10 mg DAILY PRN RECTAL 09/28/16 17:45 Lactulose 30 ml 30 ml DAILY PRN PO 09/28/16 17:45 (NS + KCl 20 Meq Inj) 1,000 ml @ 125 mls/hr Q8H IV 09/29/16 15:15 09/30/16 10:30 (Folate) 1 mg DAILY PO 09/29/16 15:15 09/30/16 10:28 (Vitamin B12) 1,000 mcg DAILY PO 09/29/16 15:15 09/30/16 10:28 (Romazicon Inj) 0.2 mg Q1M PRN IV PUSH 09/29/16 15:15 (Ativan) 1 mg Q4H PRN PO 09/29/16 15:15 (Ativan Inj) 1 mg Q4H PRN IV PUSH 09/29/16 15:15 (Ativan) 2 mg Q2H PRN PO 09/29/16 15:15 09/30/16 06:16 (Ativan Inj) 2 mg Q2H PRN IV PUSH 09/29/16 15:15 09/30/16 00:42 (Ativan Inj) 2 mg Q1H PRN IV PUSH 09/29/16 15:15 (Ativan Inj) 2 mg Q15M PRN IV PUSH 09/29/16 15:15 09/29/16 17:28 (Haldol Inj) 2 mg Q15M PRN IM 09/29/16 15:15 09/29/16 17:19 (Haldol Inj) 1 mg TID IV PUSH 09/30/16 09:00 09/30/16 12:23 (Norvasc) 10 mg DAILY PO 09/30/16 14:00 09/30/16 15:18 A/P Problem List: (1) Altered mental status ICD Code: R41.82 Status: Acute Plan: This is a 56-year-old female patient with past medical history which includes EtOH abuse in the past, CAD status post OH with cardiac stents, CVA, migraine headaches. Patient is currently obtunded and unable to give reliable information . Patient was found at 10:30 this morning by her family members she was noted to have slurred speech described as being jittery and confused with question of left-sided facial droop. Patient initially admitted with a diagnosis of atheromatous status due to CVA versus salicylate toxicity Neurology consulted. Aspirin was held since aspirin level was very elevated at 41. CT of the head reviewed stable noncontrast head CT. Rectal changes involving mild cerebral atrophy. CTA of the neck ordered revealed calcified plaques generating 20% ICA stenosis without ulceration are patent vertebral artery. Initial chest x-ray and pain admission and reviewed by me showed no acute cardiopulmonary abnormality. Glucose was normal on arrival. UA was negative. The patient was admitted and placed on cardiac telemetry 09/30 Echocardiogram ordered and it shows a normal left ventricular systolic function with an EF of 55-60%. Mild pulmonary hypertension. Psychiatry has been consulted - symptoms thought to be secondary to the due to delirium. Patient started on Haldol 1 mg 3 times a day IV for delirium. Opinion Ativan when necessary as per [facility] protocol. I suspect the patient has delirium secondary to metabolic encephalopathy possibly due to aspiration pneumonia. Will start the patient on broad-spectrum IV antibiotics with IV vancomycin and IV Zosyn. . (2) Salicylate poisoning ICD Code: T39.091A Status: Acute Plan: Patient initially started on D5NS which was switched to normal saline once salicylate came down to normal level. (3) Rhabdomyolysis ICD Code: M62.82 Status: Acute Plan: CK was 4920 on admission, it went up to 5174 on 09/29. IV fluids were switched from D5NS to normal saline and the rate was increased. Today's labs are still pending. (4) Hypotension ICD Code: I95.9 Status: Resolved Plan: Hypotension resolved after IV fluid administration. Patient now hypertensive. (5) HTN (hypertension) ICD Code: I10 Status: Acute Plan: Resume amlodipine. Continue to monitor vital signs since patient is hypertensive with systolic blood pressure in the 160s (6) Left lower lobe pneumonia ICD Code: J18.1 Status: Acute Plan: Suspect due to aspiration pneumonia given patient's altered mental status. Chest x-ray on admission did not show any abnormalities or infiltrates. Repeat chest x-ray obtained on 09/29 shows a left lower lobe infiltrate and patient is having low-grade fevers. I will start the patient on IV Zosyn and IV vancomycin since the patient has been hospitalized for 3 days. Pneumococcal urine antigen and Legionella urine antigen. Assessment and Plan DVT prophylaxis: SCDs, continue heparin subcutaneously. Discharge Planning Continue to monitor in the medical floor. Patient still with delirium and been started on IV antibiotics for left lower lobe infiltrate. Problem Qualifiers (1) Salicylate poisoning: Qualified Code: T39.094A - Poisoning by salicylate, undetermined intent, initial encounter (2) Rhabdomyolysis: Qualified Code: M62.82 - Non-traumatic rhabdomyolysis Kushal Reyes MD Sep 30, 2016 16:08
[2016-09-30] MEDS ORDERED: Vancomycin Consult Pharmacy 1 EA OTHER SCH (16:15)
[2016-09-30] MEDS ORDERED: VANCOMYCIN INJ 1,000 MG in SODIUM CHLOR 0.9% 250 ML INJ 250 ML IV SCH (16:15)
[2016-09-30] MEDS ORDERED: PIPERACIL-TAZO 4.5 GM PREMIX 100 ML IV SCH (17:00)
[2016-09-30] MEDS: PIPERACIL-TAZO 4.5 GM PREMIX 100 ML IV SCH (17:53)
[2016-09-30] MEDS: VANCOMYCIN INJ 1,250 MG in SODIUM CHLOR 0.9% 250 ML INJ 250 ML IV SCH (18:32)
[2016-09-30 19:07] LABS: AUTOMATED NEUTROPHIL # 9.3 TH/MM3 (1.8-7.7); BASOPHIL % 0.4 % (0.0-2.0); HEMO FLAGS DIFF FINAL; LYMPH % 7.5 % (9.0-44.0); LYMPHOCYTE # 0.8 TH/MM3 (1.0-4.8); MEAN CORPUSCULAR HEMOGLOBIN 29.2 PG (27.0-34.0); MEAN CORPUSCULAR HGB CONC 33.2 % (32.0-36.0); MONO % 6.7 % (0.0-8.0); NEUT % 85.4 % (16.0-70.0); PLATELET COUNT 264 TH/MM3 (150-450); RED CELL DISTRIBUTION WIDTH 16.9 % (11.6-17.2); WHITE BLOOD COUNT 10.9 TH/MM3 (4.0-11.0)
[2016-09-30 19:41] LABS: ANION GAP 9 MEQ/L (5-15); AST (GOT) 109 U/L (15-37); BLOOD UREA NITROGEN 5 MG/DL (7-18); CHLORIDE 110 MEQ/L (98-107); GLOMERULAR FILTRATION RATE 201 ML/MIN (>89); POTASSIUM 3.5 MEQ/L (3.5-5.1); SODIUM (NA) 141 MEQ/L (136-145)
[2016-09-30 19:42] LABS: ALT (GPT) 51 U/L (10-53)
[2016-09-30 19:55] LABS: ALKALINE PHOSPHATASE 78 U/L (45-117); CREATINE KINASE 2546 U/L (26-192); TOTAL BILIRUBIN ADULT 0.5 MG/DL (0.2-1.0)
[2016-09-30 20:11] LABS: CKMB 6.6 NG/ML (0.5-3.6)
[2016-10-01] VITALS (9 sets, daily range): BP systolic 143–169; BP diastolic 62–96; PULSE 66–85; RESP 17–42; TEMP 97.6–98.8; O2SAT 93–96
[2016-10-01] MEDS: PIPERACIL-TAZO 4.5 GM PREMIX 100 ML IV SCH ×3 (01:21→17:21)
[2016-10-01] MEDS: HEPARIN SODIUM - SQ 10,000 UNITS/ML VIAL SQ SCH ×3 (04:07→22:37)
[2016-10-01] MEDS: VANCOMYCIN INJ 1,250 MG in SODIUM CHLOR 0.9% 250 ML INJ 250 ML IV SCH ×2 (05:56→16:08)
[2016-10-01] MEDS: INSULIN ASPART SUPPLEMENTAL SCALE SQ SCH ×4 (05:59→21:00)
[2016-10-01] MEDS: RESP: ALBUTEROL 2.5 MG/IPRATROPIUM 0.5 MG NEB (PRN) NEB (07:46)
[2016-10-01] MEDS: CYANOCOBALAMIN 1,000 MCG TAB PO SCH (09:18)
[2016-10-01] MEDS: SODIUM CHLORIDE 0.9% FLUSH 10 ML FLUSH IV FLUSH SCH ×2 (09:19→22:37)
[2016-10-01] MEDS: FOLIC ACID 1 MG TAB PO SCH (09:19)
[2016-10-01] MEDS: NS + KCL 20 MEQ INJ 1,000 ML IV SCH ×2 (09:23→22:36)
[2016-10-01] MEDS: HALOPERIDOL LACTATE 5 MG/ML AMP IV PUSH SCH ×3 (09:26→17:21)
[2016-10-01] MEDS: DOCUSATE SODIUM 50 MG/SENNA 8.6 MG TAB PO SCH ×2 (09:26→22:37)
--- NOTE | 2016-10-01 13:49 | HHI.PR ---
Subjective Remarks patient is alert and oriented denies hallucinations on 4 liters nasal canula denies sob o2 sats on the low 90's Objective Vitals Vital Signs Date Time Temp Pulse Resp B/P Pulse Ox O2 Delivery O2 Flow Rate FiO2 10/01/16 12:00 98.8 76 143/80 95 10/01/16 08:00 98.8 78 42 157/96 94 10/01/16 07:48 94 Nasal Cannula 4.00 10/01/16 04:34 97.8 79 17 158/80 95 10/01/16 00:30 97.6 85 17 169/85 93 09/30/16 21:03 96 21 09/30/16 20:30 97.6 88 17 157/84 93 09/30/16 16:19 98.2 77 20 142/92 99 I/O 09/30/16 09/30/16 09/30/16 10/01/16 10/01/16 10/01/16 07:00 15:00 23:00 07:00 15:00 23:00 Intake Total 650 ml 1051 ml Balance 650 ml 1051 ml Intake Oral 240 ml IV Total 650 ml 811 ml # Voids 2 1 1 5 # Bowel Movements 1 5 Result Diagram: 09/30/16 1827 09/30/16 1827 Imaging Last Impressions Chest X-Ray 09/30/16 0000 Signed Impressions: Service Date/Time: Friday, September 30, 2016 06:08 - CONCLUSION: 1. Left lower lobe atelectasis versus pneumonia. Cruzito Morris MD Neck CTA 09/28/163 Signed Impressions: Service Date/Time: Wednesday, September 28, 2016 13:57 - CONCLUSION: 1. Calcified plaque generating 20%% ICA stenoses without ulceration. 2. Patent vertebral arteries. 3. Emphysematous changes. Jimmy Schmidt Jr., MD Head CTA 09/28/16 1333 Signed Impressions: Service Date/Time: Wednesday, September 28, 2016 13:57 - CONCLUSION: Normal examination. Jimmy Schmidt Jr., MD Head CT 09/28/16 0000 Signed Impressions: Service Date/Time: Wednesday, September 28, 2016 13:48 - CONCLUSION: 1. Stable noncontrast head CT. No acute intracranial abnormality is identified. 2. Chronic changes include mild cerebral atrophy. Reynaldo Patel MD Objective Remarks GENERAL: This is a well-nourished, well-developed patient, awake, alert and confused SKIN: No rashes, ecchymoses or lesions. Cool and dry. HEAD: Atraumatic. Normocephalic. No temporal or scalp tenderness. EYES: Extraocular motions intact. No scleral icterus. No injection or drainage. ENT: Nose without bleeding, purulent drainage or septal hematoma. Throat without erythema, tonsillar hypertrophy or exudate. Uvula midline. Airway patent. CARDIOVASCULAR: Regular rate and rhythm without murmurs, gallops, or rubs. RESPIRATORY:Breath sounds decreased at the bases. bilaterally. No wheezes, rales , or rhonchi. GASTROINTESTINAL: Abdomen soft, non-tender, nondistended. No guarding. MUSCULOSKELETAL: Extremities without clubbing, cyanosis, or edema. No joint tenderness, effusion, or edema noted. No calf tenderness. Negative Homans sign bilaterally. NEUROLOGICAL: No focal deficits. Patient also has generalized weakness, no focal deficits at this time. Procedures none Medications and IVs Current Medications Medications (Trade) Dose Ordered Sig/Sandoval Route Start Time Stop Time Status Last Admin (NovoLOG SUPPLEMENTAL SCALE) 1 ACHS SQ 09/28/16 16:00 (D50w (Vial) Inj) 50 ml UNSCH PRN IV PUSH 09/28/16 14:45 (Glucagon Inj) 1 mg UNSCH PRN OTHER 09/28/16 14:45 (NS Flush) 2 ml UNSCH PRN IV FLUSH 09/28/16 17:45 (NS Flush) 2 ml BID IV FLUSH 09/28/16 21:00 09/30/16 22:48 (Tylenol) 650 mg Q4H PRN PO 09/28/16 17:45 (Zofran Inj) 4 mg Q6H PRN IVP 09/28/16 17:45 (Heparin Inj) 5,000 units Q8H SQ 09/28/16 20:00 10/01/16 14:06 (Emiliana-Colace) 1 tab BID PO 09/28/16 21:00 09/30/16 22:47 (Milk Of Magnesia Liq) 30 ml Q12H PRN PO 09/28/16 17:45 (Senokot) 17.2 mg Q12H PRN PO 09/28/16 17:45 (Dulcolax Supp) 10 mg DAILY PRN RECTAL 09/28/16 17:45 Lactulose 30 ml 30 ml DAILY PRN PO 09/28/16 17:45 (NS + KCl 20 Meq Inj) 1,000 ml @ 125 mls/hr Q8H IV 09/29/16 15:15 10/01/16 09:23 (Folate) 1 mg DAILY PO 09/29/16 15:15 10/01/16 09:19 (Vitamin B12) 1,000 mcg DAILY PO 09/29/16 15:15 10/01/16 09:18 (Romazicon Inj) 0.2 mg Q1M PRN IV PUSH 09/29/16 15:15 (Ativan) 1 mg Q4H PRN PO 09/29/16 15:15 (Ativan Inj) 1 mg Q4H PRN IV PUSH 09/29/16 15:15 (Ativan) 2 mg Q2H PRN PO 09/29/16 15:15 09/30/16 06:16 (Ativan Inj) 2 mg Q2H PRN IV PUSH 09/29/16 15:15 09/30/16 00:42 (Ativan Inj) 2 mg Q1H PRN IV PUSH 09/29/16 15:15 (Ativan Inj) 2 mg Q15M PRN IV PUSH 09/29/16 15:15 09/29/16 17:28 (Haldol Inj) 2 mg Q15M PRN IM 09/29/16 15:15 09/29/16 17:19 (Haldol Inj) 1 mg TID IV PUSH 09/30/16 09:00 10/01/16 17:21 Amlodipine Besylate 10 mg 10 mg DAILY PO 09/30/16 14:00 10/01/16 09:19 Pharmacy Profile Note 0 ml @ 0 mls/hr UNSCH OTHER 09/30/16 16:15 (Vancomycin Inj/ NS 250 ml Inj) 262.5 ml @ 250 mls/hr Q12H IV 09/30/16 18:00 10/01/16 16:08 Miscellaneous Information SPECIFIC LAB TO BE DRAWN:VANCOMYCIN TROUGH DATE TO... ONCE ONCE .XX 10/02/16 05:45 10/02/16 05:46 (Zosyn 4.5 Gm Premix) 100 ml @ 200 mls/hr Q8H IV 09/30/16 18:00 10/01/16 17:21 (SoluMEDROL INJ) 40 mg Q8HR IV PUSH 10/01/16 14:30 10/01/16 16:07 (Aspirin) 325 mg DAILY PO 10/01/16 17:00 10/01/16 17:24 Urinary Catheter: No Vascular Central Line Catheter: No A/P Problem List: (1) Altered mental status ICD Code: R41.82 Status: Acute (2) Salicylate poisoning ICD Code: T39.091A Status: Acute (3) Rhabdomyolysis ICD Code: M62.82 Status: Acute (4) Hypotension ICD Code: I95.9 Status: Resolved (5) HTN (hypertension) ICD Code: I10 Status: Acute (6) Left lower lobe pneumonia ICD Code: J18.1 Status: Acute (7) Acute respiratory failure ICD Code: J96.00 Status: Acute Plan: Patient is on 4 liters nasal canula and 02 sats are dropping into low 90' s Due to pneumonia. Patient also a smoker - possible COPD. Will start on Iv Solumedrol since there are decreased breath sounds and air movement on physical exam. Echo 55 to 60% Wean O2 as tolerated. repeat CXR in am Assessment and Plan (1) Altered mental status Plan: This is a 56-year-old female patient with past medical history which includes EtOH abuse in the past, CAD status post ME with cardiac stents, CVA, migraine headaches. Patient is currently obtunded and unable to give reliable information . Patient was found at 10:30 this morning by her family members she was noted to have slurred speech described as being jittery and confused with question of left-sided facial droop. Patient initially admitted with a diagnosis of atheromatous status due to CVA versus salicylate toxicity Neurology consulted. Aspirin was held since aspirin level was very elevated at 41. CT of the head reviewed stable noncontrast head CT. Rectal changes involving mild cerebral atrophy. CTA of the neck ordered revealed calcified plaques generating 20% ICA stenosis without ulceration are patent vertebral artery. Initial chest x-ray and pain admission and reviewed by me showed no acute cardiopulmonary abnormality. Glucose was normal on arrival. UA was negative. The patient was admitted and placed on cardiac telemetry 09/30 Echocardiogram ordered and it shows a normal left ventricular systolic function with an EF of 55-60%. Mild pulmonary hypertension. Psychiatry has been consulted - symptoms thought to be secondary to the due to delirium. Patient started on Haldol 1 mg 3 times a day IV for delirium. Opinion Ativan when necessary as per [facility] protocol. I suspect the patient has delirium secondary to metabolic encephalopathy possibly due to aspiration pneumonia. Will start the patient on broad-spectrum IV antibiotics with IV vancomycin and IV Zosyn. 10/01 Patient is now oriented and hallucinations resolved. Likely metabolic encephalopathy due to multifactorial causes including aspirin overdose and possible aspiration pneumonia. Resolving. Started on ASA as per neurology. .(2) Salicylate poisoning Plan: Patient initially started on D5NS which was switched to normal saline once salicylate came down to normal level. (3) Rhabdomyolysis Plan: CK was 4920 on admission, it went up to 5174 on 09/29. IV fluids were switched from D5NS to normal saline and the rate was increased. 10/01 ck trending down - continue IV fluids and continue to monitor CK. (4) Hypotension Plan: Hypotension resolved after IV fluid administration. (5) HTN (hypertension) Plan: Resume amlodipine. Continue to monitor vital signs since patient is hypertensive with systolic blood pressure in the 160s. 10/01 BP much improved. Continue amlodipine. (6) Left lower lobe pneumonia Plan: Suspect due to aspiration pneumonia given patient's altered mental status. Chest x-ray on admission did not show any abnormalities or infiltrates. Repeat chest x-ray obtained on 09/29 shows a left lower lobe infiltrate and patient is having low-grade fevers. I will start the patient on IV Zosyn and IV vancomycin since the patient has been hospitalized for 3 days. Pneumococcal urine antigen and Legionella urine antigen - negative 10/01 Continue IV Vancomycin and IV zosyn. DVT prophylaxis: SCDs, continue heparin subcutaneously. Discharge Planning Dc pending clinical improvement - patient still requiring high o2. Problem Qualifiers (1) Salicylate poisoning: Qualified Code: T39.094A - Poisoning by salicylate, undetermined intent, initial encounter (2) Rhabdomyolysis: Qualified Code: M62.82 - Non-traumatic rhabdomyolysis (3) Acute respiratory failure: Qualified Code: J96.00 - Acute respiratory failure, unspecified whether with hypoxia or hypercapnia Kushal Reyes MD Oct 01, 2016 13:49
[2016-10-01 14:04] LABS: AUTOMATED NEUTROPHIL # 6.6 TH/MM3 (1.8-7.7); BASOPHIL % 0.5 % (0.0-2.0); HEMATOCRIT 36.1 % (35.0-46.0); HEMO FLAGS DIFF FINAL; LYMPH % 9.1 % (9.0-44.0); LYMPHOCYTE # 0.7 TH/MM3 (1.0-4.8); MEAN CELL VOLUME 87.4 FL (80.0-100.0); MEAN CORPUSCULAR HEMOGLOBIN 28.9 PG (27.0-34.0); MEAN CORPUSCULAR HGB CONC 33.1 % (32.0-36.0); MONO % 8.2 % (0.0-8.0); NEUT % 82.2 % (16.0-70.0); PLATELET COUNT 269 TH/MM3 (150-450); RED BLOOD COUNT 4.13 MIL/MM3 (4.00-5.30); RED CELL DISTRIBUTION WIDTH 16.2 % (11.6-17.2); WHITE BLOOD COUNT 8.1 TH/MM3 (4.0-11.0)
[2016-10-01 14:14] LABS: ANION GAP 11 MEQ/L (5-15); AST (GOT) 64 U/L (15-37); BICARBONATE 23.4 MEQ/L (21.0-32.0); BLOOD UREA NITROGEN 2 MG/DL (7-18); CHLORIDE 104 MEQ/L (98-107); GLOMERULAR FILTRATION RATE 194 ML/MIN (>89); POTASSIUM 3.1 MEQ/L (3.5-5.1); SODIUM (NA) 138 MEQ/L (136-145)
[2016-10-01 14:15] LABS: ALT (GPT) 46 U/L (10-53)
[2016-10-01 14:29] LABS: ALKALINE PHOSPHATASE 71 U/L (45-117); CREATINE KINASE 1115 U/L (26-192); TOTAL BILIRUBIN ADULT 0.6 MG/DL (0.2-1.0)
[2016-10-01] MEDS ORDERED: POTASSIUM CHLORIDE 10 MEQ CONTROLLED RELEASE TAB PO ONE (14:30)
[2016-10-01] MEDS: methylPREDNISolone SOD SUCC 40 MG/1 ML VIAL IV PUSH SCH ×2 (16:07→22:38)
--- NOTE | 2016-10-01 16:09 | HHI.PR ---
Review/Management Diagnosis TIA--neuro sx resolved Plan asa 325 mg daily Diagnosis/Plan: Subjective Subjective Comments No acute events reported denies focal weakness, facial droop or speech change Active Medications Current Medications Medications (Trade) Dose Ordered Sig/Sandoval Route Start Time Stop Time Status Last Admin (NovoLOG SUPPLEMENTAL SCALE) 1 ACHS SQ 09/28/16 16:00 (D50w (Vial) Inj) 50 ml UNSCH PRN IV PUSH 09/28/16 14:45 (Glucagon Inj) 1 mg UNSCH PRN OTHER 09/28/16 14:45 (NS Flush) 2 ml UNSCH PRN IV FLUSH 09/28/16 17:45 (NS Flush) 2 ml BID IV FLUSH 09/28/16 21:00 09/30/16 22:48 (Tylenol) 650 mg Q4H PRN PO 09/28/16 17:45 (Zofran Inj) 4 mg Q6H PRN IVP 09/28/16 17:45 (Heparin Inj) 5,000 units Q8H SQ 09/28/16 20:00 10/01/16 14:06 (Emiliana-Colace) 1 tab BID PO 09/28/16 21:00 09/30/16 22:47 (Milk Of Magnesia Liq) 30 ml Q12H PRN PO 09/28/16 17:45 (Senokot) 17.2 mg Q12H PRN PO 09/28/16 17:45 (Dulcolax Supp) 10 mg DAILY PRN RECTAL 09/28/16 17:45 Lactulose 30 ml 30 ml DAILY PRN PO 09/28/16 17:45 (NS + KCl 20 Meq Inj) 1,000 ml @ 125 mls/hr Q8H IV 09/29/16 15:15 10/01/16 09:23 (Folate) 1 mg DAILY PO 09/29/16 15:15 10/01/16 09:19 (Vitamin B12) 1,000 mcg DAILY PO 09/29/16 15:15 10/01/16 09:18 (Romazicon Inj) 0.2 mg Q1M PRN IV PUSH 09/29/16 15:15 (Ativan) 1 mg Q4H PRN PO 09/29/16 15:15 (Ativan Inj) 1 mg Q4H PRN IV PUSH 09/29/16 15:15 (Ativan) 2 mg Q2H PRN PO 09/29/16 15:15 09/30/16 06:16 (Ativan Inj) 2 mg Q2H PRN IV PUSH 09/29/16 15:15 09/30/16 00:42 (Ativan Inj) 2 mg Q1H PRN IV PUSH 09/29/16 15:15 (Ativan Inj) 2 mg Q15M PRN IV PUSH 09/29/16 15:15 09/29/16 17:28 (Haldol Inj) 2 mg Q15M PRN IM 09/29/16 15:15 09/29/16 17:19 (Haldol Inj) 1 mg TID IV PUSH 09/30/16 09:00 10/01/16 14:05 Amlodipine Besylate 10 mg 10 mg DAILY PO 09/30/16 14:00 10/01/16 09:19 Pharmacy Profile Note 0 ml @ 0 mls/hr UNSCH OTHER 09/30/16 16:15 (Vancomycin Inj/ NS 250 ml Inj) 262.5 ml @ 250 mls/hr Q12H IV 09/30/16 18:00 10/01/16 05:56 Miscellaneous Information SPECIFIC LAB TO BE DRAWN:VANCOMYCIN TROUGH DATE TO... ONCE ONCE .XX 10/02/16 05:45 10/02/16 05:46 (Zosyn 4.5 Gm Premix) 100 ml @ 200 mls/hr Q8H IV 09/30/16 18:00 10/01/16 09:19 (SoluMEDROL INJ) 40 mg Q8HR IV PUSH 10/01/16 14:30 Allergies Allergies Coded Allergies Codeine (Verified Allergy, Severe, Rash, 08/30/16) Compazine (Verified Allergy, Severe, SWELLING, 08/30/16) Penicillin (Verified Allergy, Severe, SWELLING, 08/30/16) Exam I&O / VS 09/30/16 09/30/16 10/01/16 15:00 23:00 07:00 Intake Total 650 ml 1051 ml Balance 650 ml 1051 ml Intake Oral 240 ml IV Total 650 ml 811 ml # Voids 1 1 5 # Bowel Movements 1 5 Vital Signs Date Time Temp Pulse Resp B/P Pulse Ox O2 Delivery O2 Flow Rate FiO2 10/01/16 12:00 98.8 76 143/80 95 10/01/16 08:00 98.8 78 42 157/96 94 10/01/16 07:48 94 Nasal Cannula 4.00 10/01/16 04:34 97.8 79 17 158/80 95 10/01/16 00:30 97.6 85 17 169/85 93 09/30/16 21:03 96 21 09/30/16 20:30 97.6 88 17 157/84 93 09/30/16 16:19 98.2 77 20 142/92 99 Exam Comments alert, speech normal CN 2-12 normal Motor 5/5 BUE Objective Micro and Labs Laboratory Tests Test 09/30/16 10/01/16 18:27 12:42 White Blood Count 10.9 8.1 Red Blood Count 4.10 4.13 Hemoglobin 12.0 12.0 Hematocrit 36.0 36.1 Mean Corpuscular Volume 88.0 87.4 Mean Corpuscular Hemoglobin 29.2 28.9 Mean Corpuscular Hemoglobin 33.2 33.1 Concent Red Cell Distribution Width 16.9 16.2 Platelet Count 264 269 Mean Platelet Volume 6.8 6.5 Neutrophils (%) (Auto) 85.4 82.2 Lymphocytes (%) (Auto) 7.5 9.1 Monocytes (%) (Auto) 6.7 8.2 Eosinophils (%) (Auto) 0.0 0.0 Basophils (%) (Auto) 0.4 0.5 Neutrophils # (Auto) 9.3 6.6 Lymphocytes # (Auto) 0.8 0.7 Monocytes # (Auto) 0.7 0.7 Eosinophils # (Auto) 0.0 0.0 Basophils # (Auto) 0.0 0.0 CBC Comment DIFF FINAL DIFF FINAL Differential Comment Sodium Level 141 138 Potassium Level 3.5 3.1 Chloride Level 110 104 Carbon Dioxide Level 22.0 23.4 Anion Gap 9 11 Blood Urea Nitrogen 5 2 Creatinine 0.34 0.35 Estimat Glomerular Filtration 201 194 Rate Random Glucose 155 118 Calcium Level 8.2 8.5 Total Bilirubin 0.5 0.6 Aspartate Amino Transf 109 64 (AST/SGOT) Alanine Aminotransferase 51 46 (ALT/SGPT) Alkaline Phosphatase 78 71 Total Creatine Kinase 2546 1115 Creatine Kinase MB 6.6 4.0 Creatine Kinase MB % 0.3 0.4 Total Protein 6.9 7.0 Albumin 3.1 3.1 Salicylates Level 4.7 Date/Time Procedure Status Source Growth 09/30/16 18:06 Legionella Antigen - Final Complete Urine Random Urine PRESUMPTIVE NEGATIVE FOR LEGIONELLA P... 09/30/16 18:06 Streptococcus pneumoniae Antigen (M - Final Complete Urine Random Urine PRESUMPTIVE NEGATIVE FOR STREPTOCOCCU... Tee Hand PhD Oct 01, 2016 16:09
[2016-10-01] MEDS: ASPIRIN 325 MG TAB PO SCH (17:24)
[2016-10-02] VITALS: BP_SYST 107; BP_SYST 147; BP_DIAS 57; BP_DIAS 71; PULSE 65; PULSE 73; RESP 18; TEMP 98.4; TEMP 98.9; O2SAT 95; O2SAT 96
[2016-10-02] MEDS: NS + KCL 20 MEQ INJ 1,000 ML IV SCH (01:37)
[2016-10-02] MEDS: PIPERACIL-TAZO 4.5 GM PREMIX 100 ML IV SCH ×2 (01:37→09:59)
[2016-10-02] MEDS: HEPARIN SODIUM - SQ 10,000 UNITS/ML VIAL SQ SCH ×2 (03:42→12:13)
[2016-10-02] MEDS ORDERED: PHARMACY ORDERED LAB ONE (05:45)
[2016-10-02] MEDS: VANCOMYCIN INJ 1,250 MG in SODIUM CHLOR 0.9% 250 ML INJ 250 ML IV SCH (06:13)
[2016-10-02] MEDS: methylPREDNISolone SOD SUCC 40 MG/1 ML VIAL IV PUSH SCH (06:14)
--- NOTE | 2016-10-02 06:51 | RADRPT ---
EXAM DATE/TIME: 10/02/2016 06:03 [facility] COMPARISON: CHEST SINGLE AP, September 30, 2016, 6:08. INDICATIONS : Short of breath, chest pain, evaluate infiltrate MEDICAL HISTORY : Renal calculi. Stroke. Hypertension. SURGICAL HISTORY : Coronary artery stent. ENCOUNTER: Subsequent ACUITY: 4 - 6 days PAIN SCORE: 2/10 LOCATION: Bilateral chest FINDINGS: There is cardiomegaly. Right lung is clear. Left lower lobe airspace disease again noted. No effusion s. Osseous structures are intact. CONCLUSION: Left lower lobe airspace disease. Felix Waldron MD on October 02, 2016 at 6:49 Board Certified Radiologist. This report was verified electronically.
[2016-10-02] MEDS: INSULIN ASPART SUPPLEMENTAL SCALE SQ SCH ×2 (07:00→11:00)
[2016-10-02 08:00] VITALS: BP 162/100; PULSE 70; RESP 18; TEMP 98.3; O2SAT 96
[2016-10-02 09:07] LABS: AUTOMATED NEUTROPHIL # 2.8 TH/MM3 (1.8-7.7); BASOPHIL % 0.1 % (0.0-2.0); HEMATOCRIT 38.7 % (35.0-46.0); HEMO FLAGS DIFF FINAL; LYMPH % 12.6 % (9.0-44.0); LYMPHOCYTE # 0.4 TH/MM3 (1.0-4.8); MEAN CELL VOLUME 87.5 FL (80.0-100.0); MEAN CORPUSCULAR HEMOGLOBIN 28.9 PG (27.0-34.0); MEAN CORPUSCULAR HGB CONC 33.1 % (32.0-36.0); MONO % 6.5 % (0.0-8.0); NEUT % 80.8 % (16.0-70.0); PLATELET COUNT 289 TH/MM3 (150-450); RED BLOOD COUNT 4.42 MIL/MM3 (4.00-5.30); RED CELL DISTRIBUTION WIDTH 15.9 % (11.6-17.2); WHITE BLOOD COUNT 3.5 TH/MM3 (4.0-11.0)
[2016-10-02] MEDS ORDERED: KETOROLAC TROMETHAMINE 30 MG/ML (IVP) VIAL IV PUSH ONE (09:30)
[2016-10-02 09:32] LABS: ANION GAP 9 MEQ/L (5-15); BICARBONATE 23.8 MEQ/L (21.0-32.0); CHLORIDE 106 MEQ/L (98-107); GLOMERULAR FILTRATION RATE 182 ML/MIN (>89); POTASSIUM 3.5 MEQ/L (3.5-5.1); SODIUM (NA) 139 MEQ/L (136-145)
[2016-10-02] MEDS: FOLIC ACID 1 MG TAB PO SCH (09:58)
[2016-10-02] MEDS: DOCUSATE SODIUM 50 MG/SENNA 8.6 MG TAB PO SCH (09:58)
[2016-10-02] MEDS: ASPIRIN 325 MG TAB PO SCH (09:58)
[2016-10-02] MEDS: CYANOCOBALAMIN 1,000 MCG TAB PO SCH (09:58)
[2016-10-02] MEDS: SODIUM CHLORIDE 0.9% FLUSH 10 ML FLUSH IV FLUSH SCH (09:59)
[2016-10-02] MEDS: HALOPERIDOL LACTATE 5 MG/ML AMP IV PUSH SCH ×2 (09:59→12:14)
[2016-10-02 10:12] LABS: ALKALINE PHOSPHATASE 65 U/L (45-117); CREATINE KINASE 453 U/L (26-192); TOTAL BILIRUBIN ADULT 0.4 MG/DL (0.2-1.0)
[2016-10-02 10:42] LABS: ALT (GPT) 44 U/L (10-53); AST (GOT) 36 U/L (15-37); BLOOD UREA NITROGEN 4 MG/DL (7-18)
[2016-10-02 11:47] LABS: CKMB 2.6 NG/ML (0.5-3.6)
[2016-10-02 12:00] VITALS: BP 136/76; PULSE 54; RESP 18; TEMP 97.3; O2SAT 98
[2016-10-02 12:57] VITALS: O2SAT 96
[2016-10-02] MEDS ORDERED: LEVOFLOXACIN 750 MG PREMIX INJ 150 ML IV SCH (14:00)
[2016-10-02] MEDS ORDERED: metroNIDAZOLE 500 MG TAB PO SCH (14:00)
[2016-10-02] MEDS ORDERED: VANCOMYCIN INJ 1,250 MG in SODIUM CHLOR 0.9% 250 ML INJ 250 ML IV SCH (14:00)
[2016-10-02] MEDS ORDERED: LEVA750T9 PO (14:28)
[2016-10-02] MEDS ORDERED: ASPI325T PO (14:28)
[2016-10-02] MEDS ORDERED: VITA10002 PO (14:28)
[2016-10-02] MEDS ORDERED: METR-1 PO (14:28)
[2016-10-02] MEDS ORDERED: LACTTAB8 PO (14:28)
--- NOTE | 2016-10-02 14:29 | HHI.DCPOC ---
Discharge Care Plan Diagnosis: (1) Acute respiratory failure (2) Left lower lobe pneumonia (3) HTN (hypertension) (4) Hypotension (5) Altered mental status (6) History of alcohol use disorder (7) Delirium due to another medical condition (8) Salicylate poisoning (9) Rhabdomyolysis Goals to Promote Your Health * To prevent worsening of your condition and complications * To maintain your health at the optimal level Directions to Meet Your Goals Take your medications as prescribed Follow your dietary instruction Follow activity as directed Keep your appointments as scheduled Take your immunizations and boosters as scheduled If your symptoms worsen call your PCP, if no PCP go to Urgent Care Center or Emergency Room Smoking is Dangerous to Your Health. Avoid second hand smoke Call the 24-hour hour crisis hotline for domestic abuse at Kushal Reyes MD Oct 02, 2016 14:28
--- NOTE | 2016-10-02 14:32 | HHI.FF ---
Face to Face Verification Diagnosis: (1) History of alcohol use disorder (2) Left lower lobe pneumonia (3) HTN (hypertension) (4) Tobacco abuse (5) Rhabdomyolysis (6) Alcohol abuse (7) Macrocytic anemia (8) Acute respiratory failure (9) Hypotension (10) Salicylate poisoning (11) Delirium due to another medical condition Physical Therapy Order: Improve ambulation, Strength and gait training Home Health Nursing Order: Nursing assessment with vital signs I have seen patient Gem Hensley on 10/02/16. My clinical findings support the need for the requested home health care services because: Patient has SOB Need for psychosocial assistance High risk of falls Infection w/ risk of complications I certify that my clinical findings support that this patient is homebound because: Unsteady gait/balance Unsafe to leave home unassisted Need for psychosocial assistance Unable to use public transportation Kushal Reyes MD Oct 02, 2016 14:31
--- NOTE | 2016-10-02 14:39 | HHI.DS ---
Discharge Summary Admission Date Sep 28, 2016 at 17:45 Discharge Date: Oct 02, 2016 Admitting Diagnosis TIA (1) Altered mental status ICD Code: R41.82 Diagnosis: Principal (2) Salicylate poisoning ICD Code: T39.091A Diagnosis: Principal (3) Rhabdomyolysis ICD Code: M62.82 Diagnosis: Principal (4) Hypotension ICD Code: I95.9 Diagnosis: Principal (5) HTN (hypertension) ICD Code: I10 Diagnosis: Secondary (6) Left lower lobe pneumonia ICD Code: J18.1 Diagnosis: Principal (7) Acute respiratory failure ICD Code: J96.00 Diagnosis: Principal (8) Metabolic encephalopathy ICD Code: G93.41 Diagnosis: Principal (9) Delirium due to another medical condition ICD Code: F05 Diagnosis: Principal (10) History of alcohol use disorder ICD Code: Z87.898 Diagnosis: Secondary (11) TIA (transient ischemic attack) ICD Code: G45.9 Diagnosis: Principal Procedures none Brief History - From Admission Written by Paloma Encarnacion, acting as scribe for Dr. Conti on 09/28/16 at 17:42. This is a 56-year-old female patient with past medical history which includes EtOH abuse in the past, CAD status post DC with cardiac stents, CVA, migraine headaches. Patient is currently obtunded and unable to give reliable information therefore information gathered from patient has physical exam as well as prior computerized charting. Patient asked she's able to give her name and that she is in the hospital. Patient does not know why she is in the hospital. Patient offers no specific complaints at this time. Per prior charting patient was found at 10:30 this morning by her family members she was noted to have slurred speech described as being jittery and confused with question of left-sided facial droop. When patient asked about whether or not she took aspirin she is unable to answer. Patient asked about EtOH use reports she has not drank in 6 months or more. Glucose 97 upon arrival to the emergency department CBC/BMP: 10/02/16 0820 10/02/16 0820 Significant Findings Laboratory Tests Test 09/30/16 10/01/16 10/02/16 10/02/16 18:27 12:42 06:10 08:20 Mean Platelet Volume 6.8 FL 6.5 FL 6.6 FL (7.0-11.0) (7.0-11.0) (7.0-11.0) Neutrophils (%) (Auto) 85.4 % 82.2 % 80.8 % (16.0-70.0) (16.0-70.0) (16.0-70.0) Lymphocytes (%) (Auto) 7.5 % (9.0-44.0) Neutrophils # (Auto) 9.3 TH/MM3 (1.8-7.7) Lymphocytes # (Auto) 0.8 TH/MM3 0.7 TH/MM3 0.4 TH/MM3 (1.0-4.8) (1.0-4.8) (1.0-4.8) Chloride Level 110 MEQ/L (98-107) Blood Urea Nitrogen 5 MG/DL (7-18) 2 MG/DL (7-18) 4 MG/DL (7-18) Creatinine 0.34 MG/DL 0.35 MG/DL 0.37 MG/DL (0.50-1.00) (0.50-1.00) (0.50-1.00) Random Glucose 155 MG/DL 118 MG/DL 138 MG/DL (74-106) (74-106) (74-106) Calcium Level 8.2 MG/DL (8.5-10.1) Aspartate Amino Transf 109 U/L (15-37) 64 U/L (15-37) (AST/SGOT) Total Creatine Kinase 2546 U/L 1115 U/L 453 U/L (26-192) (26-192) (26-192) Creatine Kinase MB 6.6 NG/ML 4.0 NG/ML (0.5-3.6) (0.5-3.6) Albumin 3.1 GM/DL 3.1 GM/DL 3.3 GM/DL (3.4-5.0) (3.4-5.0) (3.4-5.0) Monocytes (%) (Auto) 8.2 % (0.0-8.0) Potassium Level 3.1 MEQ/L (3.5-5.1) Vancomycin Level Trough 4.8 MCG/ML (5.0-10.0) White Blood Count 3.5 TH/MM3 (4.0-11.0) Imaging Last Impressions Chest X-Ray 10/02/16 0600 Signed Impressions: Service Date/Time: Sunday, October 02, 2016 06:03 - CONCLUSION: Left lower lobe airspace disease. Felix Waldron MD Neck CTA 09/28/16 1333 Signed Impressions: Service Date/Time: Wednesday, September 28, 2016 13:57 - CONCLUSION: 1. Calcified plaque generating 20%% ICA stenoses without ulceration. 2. Patent vertebral arteries. 3. Emphysematous changes. Jimmy Schmidt Jr., MD Head CTA 09/28/16 1333 Signed Impressions: Service Date/Time: Wednesday, September 28, 2016 13:57 - CONCLUSION: Normal examination. Jimmy Schmidt Jr., MD Head CT 09/28/16 0000 Signed Impressions: Service Date/Time: Wednesday, September 28, 2016 13:48 - CONCLUSION: 1. Stable noncontrast head CT. No acute intracranial abnormality is identified. 2. Chronic changes include mild cerebral atrophy. Reynaldo Patel MD PE at Discharge GENERAL: This is a well-nourished, well-developed patient, awake, alert and confused SKIN: No rashes, ecchymoses or lesions. Cool and dry. HEAD: Atraumatic. Normocephalic. No temporal or scalp tenderness. EYES: Extraocular motions intact. No scleral icterus. No injection or drainage. ENT: Nose without bleeding, purulent drainage or septal hematoma. Throat without erythema, tonsillar hypertrophy or exudate. Uvula midline. Airway patent. CARDIOVASCULAR: Regular rate and rhythm without murmurs, gallops, or rubs. RESPIRATORY:Breath sounds decreased at the bases. bilaterally. No wheezes, rales , or rhonchi. GASTROINTESTINAL: Abdomen soft, non-tender, nondistended. No guarding. MUSCULOSKELETAL: Extremities without clubbing, cyanosis, or edema. No joint tenderness, effusion, or edema noted. No calf tenderness. Negative Homans sign bilaterally. NEUROLOGICAL: No focal deficits. Patient also has generalized weakness, no focal deficits at this time. Pt update on day of discharge The patient is satting 96% on room air. States she feels much better, neurological symptoms including hallucinations have completely resolved. The patient denies chest pain and shortness of breath is much improved. Patient is afebrile, had one episode of elevated blood pressure into the 160s systolic, however this has resolved and the patient's blood pressure is stable upon discharge. Patient was recommended to be discharged to assisted facility to pursue further rehabilitation, however the patient refuses to go to a SNF and will be discharged on home health physical therapy. Pt Condition on Discharge: Stable Discharge Disposition: Disch w/ Home Health Serv Discharge Time: > 30 minutes Discharge Instructions DIET: Follow Instructions for: Heart Healthy Diet Speech Therapy-Diet Recommends: Soft Activities you can perform: See Additionl Instruction Follow up Referrals: PCP Follow-up - 2-3 Days New Medications: Lactobacillus Acidophilus (Lactobacillus Acidophilus) 1 Tab Tab 1 TAB PO TIDAC Nutritional Supplement #30 Ref 0 TAB Levofloxacin (Levaquin) 750 Mg Tablet 750 MG PO DAILY Infection #10 TAB-CAP Aspirin (Aspirin) 325 Mg Tab 325 MG PO DAILY Blood Clot Prevention #31 TAB Cyanocobalamin (Vitamin B-12) 1,000 Mcg Tab 1000 MCG PO DAILY Alcohol Detox #31 TAB Metronidazole (Flagyl) 500 Mg Tab 500 MG PO Q8HR Infection #30 TAB Continued Medications: Amlodipine (Amlodipine) 10 Mg Tab 10 MG PO DAILY Blood Pressure Management #30 Ref 0 TAB Gabapentin (Gabapentin) 400 Mg Cap 400 CAP PO Q6HR #30 Ref 0 CAP Hydrocodone-Acetaminophen ([place]) 7.5-325 mg Tab 1 TAB PO Q6H PRN PAIN #12 Ref 0 TAB Discontinued Medications: Ibuprofen (Ibuprofen) 400 Mg Tab 400 MG PO Q6H PRN PAIN SCALE 1 TO 10 #20 Ref 0 TAB Kushal Reyes MD Oct 02, 2016 14:39
--- NOTE | 2016-10-02 15:00 | HHI.PR ---
Subjective Remarks Patient is satting 96% on room air. States shortness of breath much better. Denies visual or auditory hallucinations. Denies suicidal ideation. Wants to go home Objective Vitals Vital Signs Date Time Temp Pulse Resp B/P Pulse Ox O2 Delivery O2 Flow Rate FiO2 10/02/16 12:57 96 21 10/02/16 12:00 97.3 54 18 136/76 98 10/02/16 08:00 98.3 70 18 162/100 96 10/02/16 00:00 98.4 65 18 147/71 96 10/02/16 00:00 98.9 73 18 107/57 95 10/01/16 23:00 73 10/01/16 20:00 98.5 66 18 147/62 96 10/01/16 17:30 79 10/01/16 16:00 98.1 76 28 147/86 96 I/O 10/01/16 10/01/16 10/01/16 10/02/16 10/02/16 10/02/16 06:59 14:59 22:59 06:59 14:59 22:59 Intake Total 1051 ml 733 ml 2342 ml Output Total 2400 ml Balance 1051 ml 733 ml -2400 ml 2342 ml Intake Oral 240 ml 480 ml IV Total 811 ml 253 ml 2342 ml Output Urine Total 2400 ml # Voids 5 4 # Bowel Movements 5 1 Result Diagram: 10/02/16 0820 10/02/16 0820 Imaging Last Impressions Chest X-Ray 10/02/16 0600 Signed Impressions: Service Date/Time: Sunday, October 02, 2016 06:03 - CONCLUSION: Left lower lobe airspace disease. Felix Waldron MD Neck CTA [id number]/28/[id number] Signed Impressions: Service Date/Time: Wednesday, September 28, 2016 13:57 - CONCLUSION: 1. Calcified plaque generating 20%% ICA stenoses without ulceration. 2. Patent vertebral arteries. 3. Emphysematous changes. Jimmy Schmidt Jr., MD Head CTA [id number]/28/[id number] Signed Impressions: Service Date/Time: Wednesday, September 28, 2016 13:57 - CONCLUSION: Normal examination. Jimmy Schmidt Jr., MD Head CT 09/28/16 0000 Signed Impressions: Service Date/Time: [place], September 28, 2016 13:48 - CONCLUSION: 1. Stable noncontrast head CT. No acute intracranial abnormality is identified. 2. Chronic changes include mild cerebral atrophy. Reynaldo Patel MD Objective Remarks GENERAL: This is a well-nourished, well-developed patient, awake, alert and confused SKIN: No rashes, ecchymoses or lesions. Cool and dry. HEAD: Atraumatic. Normocephalic. No temporal or scalp tenderness. EYES: Extraocular motions intact. No scleral icterus. No injection or drainage. ENT: Nose without bleeding, purulent drainage or septal hematoma. Throat without erythema, tonsillar hypertrophy or exudate. Uvula midline. Airway patent. CARDIOVASCULAR: Regular rate and rhythm without murmurs, gallops, or rubs. RESPIRATORY:Breath sounds decreased at the bases. bilaterally. No wheezes, rales , or rhonchi. GASTROINTESTINAL: Abdomen soft, non-tender, nondistended. No guarding. MUSCULOSKELETAL: Extremities without clubbing, cyanosis, or edema. No joint tenderness, effusion, or edema noted. No calf tenderness. Negative Homans sign bilaterally. NEUROLOGICAL: No focal deficits. Patient also has generalized weakness, no focal deficits at this time. Procedures none Medications and IVs Current Medications Medications (Trade) Dose Ordered Sig/Sandoval Route Start Time Stop Time Status Last Admin (NovoLOG SUPPLEMENTAL SCALE) 1 ACHS SQ 09/28/16 16:00 (D50w (Vial) Inj) 50 ml UNSCH PRN IV PUSH 09/28/16 14:45 (Glucagon Inj) 1 mg UNSCH PRN OTHER 09/28/16 14:45 (NS Flush) 2 ml UNSCH PRN IV FLUSH 09/28/16 17:45 (NS Flush) 2 ml BID IV FLUSH 09/28/16 21:00 10/02/16 09:59 (Tylenol) 650 mg Q4H PRN PO 09/28/16 17:45 (Zofran Inj) 4 mg Q6H PRN IVP 09/28/16 17:45 (Heparin Inj) 5,000 units Q8H SQ 09/28/16 20:00 10/02/16 03:42 (Emiliana-Colace) 1 tab BID PO 09/28/16 21:00 10/02/16 09:58 (Milk Of Magnesia Liq) 30 ml Q12H PRN PO 09/28/16 17:45 (Senokot) 17.2 mg Q12H PRN PO 09/28/16 17:45 (Dulcolax Supp) 10 mg DAILY PRN RECTAL 09/28/16 17:45 (Lactulose Liq) 30 ml DAILY PRN PO 09/28/16 17:45 (Folate) 1 mg DAILY PO 09/29/16 15:15 10/02/16 09:58 (Vitamin B12) 1,000 mcg DAILY PO 09/29/16 15:15 10/02/16 09:58 (Romazicon Inj) 0.2 mg Q1M PRN IV PUSH 09/29/16 15:15 (Ativan) 1 mg Q4H PRN PO 09/29/16 15:15 (Ativan Inj) 1 mg Q4H PRN IV PUSH 09/29/16 15:15 (Ativan) 2 mg Q2H PRN PO 09/29/16 15:15 09/30/16 06:16 (Ativan Inj) 2 mg Q2H PRN IV PUSH 09/29/16 15:15 09/30/16 00:42 (Ativan Inj) 2 mg Q1H PRN IV PUSH 09/29/16 15:15 (Ativan Inj) 2 mg Q15M PRN IV PUSH 09/29/16 15:15 09/29/16 17:28 (Haldol Inj) 2 mg Q15M PRN IM 09/29/16 15:15 09/29/16 17:19 (Haldol Inj) 1 mg TID IV PUSH 09/30/16 09:00 10/02/16 12:14 (Norvasc) 10 mg DAILY PO 09/30/16 14:00 10/02/16 09:58 Aspirin 325 mg 325 mg DAILY PO 10/01/16 17:00 10/02/16 09:58 (Levaquin 750 Mg Premix Inj) 150 ml @ 100 mls/hr Q24H IV 10/02/16 14:00 10/02/16 14:33 (Flagyl) 500 mg Q8HR PO 10/02/16 14:00 10/02/16 14:33 (Deltasone) 20 mg BID PO 10/02/16 21:00 Urinary Catheter: No Vascular Central Line Catheter: No A/P Problem List: (1) Altered mental status ICD Code: R41.82 Status: Acute (2) Salicylate poisoning ICD Code: T39.091A Status: Acute (3) Rhabdomyolysis ICD Code: M62.82 Status: Acute (4) Hypotension ICD Code: I95.9 Status: Resolved (5) HTN (hypertension) ICD Code: I10 Status: Acute (6) Left lower lobe pneumonia ICD Code: J18.1 Status: Acute (7) Acute respiratory failure ICD Code: J96.00 Status: Acute (8) Metabolic encephalopathy ICD Code: G93.41 Status: Acute (9) Delirium due to another medical condition ICD Code: F05 Status: Acute (10) History of alcohol use disorder ICD Code: Z87.898 Status: Acute (11) TIA (transient ischemic attack) ICD Code: G45.9 Status: Acute Assessment and Plan (1) Altered mental status Plan: This is a 56-year-old female patient with past medical history which includes EtOH abuse in the past, CAD status post NC with cardiac stents, CVA, migraine headaches. Patient is currently obtunded and unable to give reliable information . Patient was found at 10:30 this morning by her family members she was noted to have slurred speech described as being jittery and confused with question of left-sided facial droop. Patient initially admitted with a diagnosis of atheromatous status due to CVA versus salicylate toxicity Neurology consulted. Aspirin was held since aspirin level was very elevated at 41. CT of the head reviewed stable noncontrast head CT. Rectal changes involving mild cerebral atrophy. CTA of the neck ordered revealed calcified plaques generating 20% ICA stenosis without ulceration are patent vertebral artery. Initial chest x-ray and pain admission and reviewed by me showed no acute cardiopulmonary abnormality. Glucose was normal on arrival. UA was negative. The patient was admitted and placed on cardiac telemetry 09/30 Echocardiogram ordered and it shows a normal left ventricular systolic function with an EF of 55-60%. Mild pulmonary hypertension. Psychiatry has been consulted - symptoms thought to be secondary to the due to delirium. Patient started on Haldol 1 mg 3 times a day IV for delirium. Opinion Ativan when necessary as per [facility] protocol. I suspect the patient has delirium secondary to metabolic encephalopathy possibly due to aspiration pneumonia. Will start the patient on broad-spectrum IV antibiotics with IV vancomycin and IV Zosyn. 10/01 Patient is now oriented and hallucinations resolved. Likely metabolic encephalopathy due to multifactorial causes including aspirin overdose and possible aspiration pneumonia. Resolving. Started on ASA as per neurology. .(2) Salicylate poisoning Plan: Patient initially started on D5NS which was switched to normal saline once salicylate came down to normal level. (3) Rhabdomyolysis Plan: CK was 4920 on admission, it went up to 5174 on 09/29. IV fluids were switched from D5NS to normal saline and the rate was increased. CK trending down - continue IV fluids and continue to monitor CK. (4) Hypotension Plan: Hypotension resolved after IV fluid administration. level 453 on 10/02 (5) HTN (hypertension) Plan: Resume amlodipine. Continue to monitor vital signs since patient is hypertensive with systolic blood pressure in the 160s. 10/01 BP much improved. Continue amlodipine. (6) Left lower lobe pneumonia Plan: Suspect due to aspiration pneumonia given patient's altered mental status. Chest x-ray on admission did not show any abnormalities or infiltrates. Repeat chest x-ray obtained on 09/29 shows a left lower lobe infiltrate and patient is having low-grade fevers. I will start the patient on IV Zosyn and IV vancomycin since the patient has been hospitalized for 3 days. Pneumococcal urine antigen and Legionella urine antigen - negative 10/01 Continue IV Vancomycin and IV zosyn. 10/02 DC IV vancomycin and IV Zosyn. I will start the patient on oral Flagyl and oral Levaquin to cover for aspiration pneumonia. Continue supplemental oxygen to keep oxygen saturation more than 92%. 6) acute respiratory failure Due to left lower lobe pneumonia. The patient was requiring elevated oxygen to maintain appropriate oxygen saturation. Patient started on IV antibiotics, now patient is satting well on room air and acute respiratory failure has resolved. DVT prophylaxis: SCDs, continue heparin subcutaneously. Discharge Planning Discharge patient home with home health service. Discussed the case with case management. Patient will need to have services approved [facility] prior to be discharge. Discharge once this benefits her approved. Problem Qualifiers (1) Salicylate poisoning: Qualified Code: T39.094A - Poisoning by salicylate, undetermined intent, initial encounter (2) Rhabdomyolysis: Qualified Code: M62.82 - Non-traumatic rhabdomyolysis (3) Acute respiratory failure: Qualified Code: J96.00 - Acute respiratory failure, unspecified whether with hypoxia or hypercapnia Kushal Reyes MD Oct 02, 2016 14:59
--- NOTE | 2016-10-02 16:23 | PD.CONS ---
Assessment and Plan Assessment Consult received per stroke order set. EMR reviewed and head CT negative. Neurology consult noted TIA Consult deferred due to no acute stroke. Please re-consult as needed. Thank you. Kelli Hartmann MD Oct 02, 2016 16:23
[2016-10-02] MEDS ORDERED: LACTOBACILLUS ACIDOPHILUS TAB PO SCH (18:00)
--- NOTE | 2016-10-02 19:41 | PQ ---
Physician Query Response Document PATIENT: ASHLEY CORREIA : 1960 ADMIT DATE: 09/28/2016 5:45 PM DISCH DATE: 10/02/2016 3:21 PM RESPONDING PROVIDER #: [email or web address] QUERY TEXT: Conflicting Documentation Clarification A single mention or documentation of multiple diagnoses for the same clinical presentation appears in the record. Please clarify the diagnosis/diagnoses. Please also document if the condition is: -- Confirmed and current -- Confirmed, treated and resolved -- Ruled out -- Other, please specify The patient's Clinical Indicators include: 09/28/16 Dr. Hand consult note: Possible small stroke in the right hemisphere causing left facial droo p. 10/01/16 Dr. Hand progress note: TIA- neuro sx resolved 09/29/16 SEEMA Osman Progress note: Altered mental status CVA versus salicylate toxicity CT of the head reviewed and reveals stable noncontrast head CT. No acute intracranial abnormality is identified 10/01/16 Dr. Conti Progress note: I suspect the patient has delirium secondary to metabolic enceph alopathy possibly due to aspiration pneumonia. Will start the patient on broad-spectrum IV antibioti cs with IV vancomycin and IV Zosyn. Query created by: Tish Berg on 10/02/2016 10:02 AM RESPONSE TEXT: Likely metabolic encephalopathy. TIA possible but less likely. Electronically signed by: Kushal Espino MD 10/02/2016 7:37 PM
[2016-10-02] MEDS ORDERED: predniSONE 20 MG TAB PO SCH (21:00)
[2016-10-03] MEDS ORDERED: PHARMACY ORDERED LAB ONE (05:45)
[2016-10-03] MEDS ORDERED: LEVOFLOXACIN 750 MG PREMIX INJ 150 ML IV SCH (14:00)
== END 2016-10-02 15:21 | disposition home health service (06) | DRG 917 ==
LOC: NEPE 13:28 → NEDA 16:12 → OBSVTOIN 17:45 → N05A 20:16
PROVIDERS: ADMIT Hospitalist; ATTEND Hospitalist
DX: T39.091A Poisoning by salicylates, accidental (unintentional), initial encounter (principal); J96.00 Acute respiratory failure, unspecified whether with hypoxia or hypercapnia; J69.0 Pneumonitis due to inhalation of food and vomit; G93.41 Metabolic encephalopathy; F05 Delirium due to known physiological condition; M62.82 Rhabdomyolysis; I95.9 Hypotension, unspecified; G25.3 Myoclonus; I65.29 Occlusion and stenosis of unspecified carotid artery; R44.3 Hallucinations, unspecified; E87.6 Hypokalemia; F17.210 Nicotine dependence, cigarettes, uncomplicated; J44.9 Chronic obstructive pulmonary disease, unspecified; I10 Essential (primary) hypertension; K21.9 Gastro-esophageal reflux disease without esophagitis; F41.9 Anxiety disorder, unspecified; F32.9 Major depressive disorder, single episode, unspecified; I25.10 Atherosclerotic heart disease of native coronary artery without angina pectoris; Z86.73 Personal history of transient ischemic attack (TIA), and cerebral infarction without residual deficits; Z95.5 Presence of coronary angioplasty implant and graft; I25.2 Old myocardial infarction
CPT/HCPCS: 36600; 70450; 70496; 70498; 71010; 76937; 80053; 80061; 80202; 80307; 81001; 82435; 82550; 82552; 82565; 82805; 82947; 82948; 83036; 84132; 84295; 84484; 84520; 85025; 85384; 85610; 85730; 86850; 86900; 86901; 87449; 93005; 93306; 94150; 94640; 94664; 96360; J1630; J1644; J1885; J1956; J2060; J2543; J2920; J3370; J3480; J7030; J7050; P9612; Q9967

== ENCOUNTER 2016-10-12 21:22 | Inpatient (IN) | payer OTHER ==
[~2016-10-12] VITALS: Ht 167.6 cm; Wt 65.1 kg
[~2016-10-12 21:22] MED LIST changes: +ASPI325T PO; -IBUP400T20 PO; +LACTTAB8 PO; +LEVA750T9 PO; +METR-1 PO; +VITA10002 PO
[2016-10-12 21:40] VITALS: BP 131/63; PULSE 97; RESP 16; TEMP 98.6; O2SAT 91
[2016-10-12] MEDS ORDERED: SODIUM CHLOR 0.9% 1000 ML INJ 1,000 ML IV SCH (21:53)
[2016-10-12] MEDS ORDERED: PROPOFOL 1000 MG/100 ML INJ 100 ML IV SCH (22:00)
[2016-10-12] MEDS ORDERED: ETOMIDATE 20 MG/10 ML VIAL IV PUSH ONE (22:00)
[2016-10-12] MEDS ORDERED: SODIUM CHLORIDE 0.9% FLUSH 5 ML FLUSH IV FLUSH PRN (22:00)
[2016-10-12] MEDS ORDERED: SUCCINYLCHOLINE CHLORIDE 200 MG/10 ML VIAL IV PUSH ONE (22:00)
[2016-10-12 22:16] LABS: BLOOD GAS BASE EXCESS -0.4 mmol/L (-2-2); BLOOD GAS CARBOXYHEMOGLOBIN 1.8 % (0-4); BLOOD GAS HCO3 25 mmol/L (22-26); BLOOD GAS METHEMOGLOBIN 0.5 % (0-2); BLOOD GAS O2 HGB SATURATION 95 % (90-100); BLOOD GAS OXYGEN CONTENT 14.3 Vol % (12.0-20.0); BLOOD GAS PCO2 50 mmHg (38-42); BLOOD GAS PO2 245 mmHG (61-120); BLOOD GAS TOTAL HGB 10.3 G/DL (12.0-16.0); CRITICAL VALUE NO; DRAW SITE RT RADIAL; LITER FLOW 12 L/M; NUMBER OF ARTERIAL PUNCTURES 1; OXYGEN DEVICE PARTIAL REBREATHER; STAT YES; TEMP CORR TO 98.6; ULNAR PULSE PRESENT
[2016-10-12 22:20] VITALS: O2SAT 100
[2016-10-12 22:34] LABS: AUTOMATED NEUTROPHIL # 7.9 TH/MM3 (1.8-7.7); BASOPHIL % 0.4 % (0.0-2.0); EOSINOPHIL % 0.1 % (0.0-4.0); HEMATOCRIT 39.7 % (35.0-46.0); HEMO FLAGS DIFF FINAL; LYMPH % 7.4 % (9.0-44.0); LYMPHOCYTE # 0.7 TH/MM3 (1.0-4.8); MEAN CELL VOLUME 89.5 FL (80.0-100.0); MEAN CORPUSCULAR HEMOGLOBIN 29.3 PG (27.0-34.0); MEAN CORPUSCULAR HGB CONC 32.8 % (32.0-36.0); MONO % 8.2 % (0.0-8.0); NEUT % 83.9 % (16.0-70.0); PLATELET COUNT 338 TH/MM3 (150-450); RED BLOOD COUNT 4.44 MIL/MM3 (4.00-5.30); RED CELL DISTRIBUTION WIDTH 17.2 % (11.6-17.2); WHITE BLOOD COUNT 9.5 TH/MM3 (4.0-11.0)
--- NOTE | 2016-10-12 22:42 | RADRPT ---
EXAM DATE/TIME: 10/12/2016 22:19 [facility] COMPARISON: CHEST SINGLE AP, October 02, 2016, 6:03. INDICATIONS : Shortness of breath and chest pain. MEDICAL HISTORY : Renal calculi. Stroke. Hypertension. SURGICAL HISTORY : Coronary artery stent. ENCOUNTER: Initial ACUITY: 1 day PAIN SCORE: 2/10 LOCATION: Bilateral chest FINDINGS: Pneumonia has developed of the right lung base, probably primarily in the lower lobe. Left lung base consolidation decreased, currently very mild. No pleural effusion or pneumothorax seen on either side . Heart size stable, mildly enlarged. CONCLUSION: New right base pneumonia. Partial clearing of the left base. Reynaldo Tamayo MD on October 12, 2016 at 22:39 Board Certified Radiologist. This report was verified electronically.
[2016-10-12] MEDS ORDERED: SODIUM CHLOR 0.9% 1000 ML INJ 1,000 ML IV ONE ×2 (22:45)
[2016-10-12] MEDS ORDERED: VANCOMYCIN INJ 1,000 MG in SODIUM CHLOR 0.9% 250 ML INJ 250 ML IV ONE (22:45)
[2016-10-12] MEDS ORDERED: AZTREONAM INJ 2,000 MG in SODIUM CHLORIDE 0.9% INJ 100 ML IV ONE (22:45)
[2016-10-12 22:52] VITALS: O2SAT 100
[2016-10-12 23:05] LABS: ALT (GPT) 85 U/L (10-53); ANION GAP 7 MEQ/L (5-15); AST (GOT) 180 U/L (15-37); BICARBONATE 29.4 MEQ/L (21.0-32.0); BLOOD UREA NITROGEN 9 MG/DL (7-18); CHLORIDE 102 MEQ/L (98-107); GLOMERULAR FILTRATION RATE 98 ML/MIN (>89); POTASSIUM 3.4 MEQ/L (3.5-5.1); SODIUM (NA) 138 MEQ/L (136-145)
[2016-10-12 23:06] LABS: ALCOHOL LESS THAN 3 MG/DL (0-5)
[2016-10-12 23:12] LABS: APTT (PATIENT) 31.5 SEC (24.3-30.1); INTERNATIONAL NORMALIZED RATIO 1.1 RATIO; PROTHROMBIN TIME - PATIENT 12.4 SEC (9.8-11.6)
--- NOTE | 2016-10-12 23:14 | RADRPT ---
EXAM DATE/TIME: 10/12/2016 22:55 [facility] COMPARISON: No previous studies available for comparison. INDICATIONS : Altered mental status. RADIATION DOSE: 56.35 CTDIvol (mGy) MEDICAL HISTORY : Hypertension. Cardiovascular disease Cerebrovascular disease. SURGICAL HISTORY : None. ENCOUNTER: Initial ACUITY: 1 day PAIN SCALE: Non-responsive LOCATION: cranial TECHNIQUE: Multiple contiguous axial images were obtained of the head. Using automated exposure control and adj ustment of the mA and/or kV according to patient size, radiation dose was kept as low as reasonably a chievable to obtain optimal diagnostic quality images. DICOM format image data is available electro nically for review and comparison. FINDINGS: CEREBRUM: The ventricles are normal for age. No evidence of midline shift, mass lesion, hemorrhage or acute in farction. No extra-axial fluid collections are seen. POSTERIOR FOSSA: The cerebellum and brainstem are intact. The 4th ventricle is midline. The cerebellopontine angle i s unremarkable. EXTRACRANIAL: The visualized portion of the orbits is intact. SKULL: The calvaria is intact. No evidence of skull fracture. CONCLUSION: 1. No acute findings. No significant change from September 28. Bharath Correa MD on October 12, 2016 at 23:11 Board Certified Radiologist. This report was verified electronically.
--- NOTE | 2016-10-12 23:17 | RADRPT ---
EXAM DATE/TIME: 10/12/2016 22:59 [facility] COMPARISON: No previous studies available for comparison. INDICATIONS : Shortness of breath. RADIATION DOSE: 5.10 CTDIvol (mGy) MEDICAL HISTORY : Cardiovascular disease. Hypertension. SURGICAL HISTORY : None. ENCOUNTER: Initial ACUITY: 1 day PAIN SCALE: Non-responsive LOCATION: chest TECHNIQUE: Volumetric scanning of the chest was performed. Using automated exposure control and adjustment of t he mA and/or kV according to patient size, radiation dose was kept as low as reasonably achievable to obtain optimal diagnostic quality images. DICOM format image data is available electronically for r eview and comparison. Follow-up recommendations for detected pulmonary nodules are based at a minimum on nodule size and pa tient risk factors according to Fleischner Society Guidelines. FINDINGS: There is dense airspace consolidation in the right lower lobe and some patchy airspace disease in bot h upper lobes and left lower lobe. Findings most characteristic of a bronchopneumonia. There is moder ate underlying emphysema. Trace right pleural fluid. No left effusion. No hilar, mediastinal or axillary adenopathy. No acute bony abnormalities. CONCLUSION: 1. Dense consolidation in the right lower lobe and patchy airspace disease in other lobes most charac teristic of bronchopneumonia. Aspiration could give this appearance. Trace right pleural fluid. Bharath Correa MD on October 12, 2016 at 23:13 Board Certified Radiologist. This report was verified electronically.
[2016-10-12 23:20] LABS: ACETAMINOPHEN LESS THAN 2.0 MCG/ML (10.0-30.0); ALKALINE PHOSPHATASE 98 U/L (45-117); CREATINE KINASE 3177 U/L (26-192); TOTAL BILIRUBIN ADULT 0.3 MG/DL (0.2-1.0)
--- NOTE | 2016-10-12 23:28 | PD ---
HPI Chief Complaint: OD/ Ingestion Time Seen by Provider: 21:53 Travel History International Travel<30 days: No Contact w/Intl Traveler<30days: No Traveled to known affect area: No History of Present Illness HPI 56-year-old female came to the emergency room brought by EMS as altered mental status. Patient was found by her family in her house unresponsive. EMS was called and as per them initially GCS was 3. Patient was given Narcan total of 2.4 mg after which she started to open her eyes and mumble words. She was brought in with a GCS of 12 and not making much sense. Patient was not a reliable historian. She was afebrile. Vision saturation was 90% on 3 L of oxygen via nasal cannula. As per the medical records patient was discharged 2 weeks ago from the hospital for possible stroke. Blood glucose was 100 as per EMS. She seemed very groggy and delirious. PFSH Past Medical History Narrative Medical List of her past medical, surgical, social and family history was reviewed from the nursing note. Arthritis: No Asthma: Yes Autoimmune Disease: No Blood Disorders: No Anxiety: Yes Depression: Yes Heart Rhythm Problems: No Cancer: No Cardiac Catheterization: Yes (07/08/12 ) Cardiovascular Problems: Yes (STENTS, ID 2012) High Cholesterol: Yes Chest Pain: No Congestive Heart Failure: No COPD: Yes Cerebrovascular Accident: Yes (STENT) Diabetes: No Diminished Hearing: No Endocrine: No Gastrointestinal Disorders: Yes GERD: Yes Genitourinary: No Headaches: Yes Hepatitis: No Hiatal Hernia: No Hypertension: Yes Immune Disorder: No Implanted Vascular Access Dvce: No Kidney Stones: Yes Musculoskeletal: Yes Neurologic: Yes (MIGRAINES) Psychiatric: Yes Reproductive: No Respiratory: Yes (COPD, CHRONIC BRONCHITIS) Immunizations Current: Yes Migraines: Yes Myocardial Infarction: Yes (2012) Renal Failure: No Seizures: No Thyroid Disease: No Ulcer: No PNEUMOCCOCAL Vaccine (Year): 1 Menopausal: Yes : 4 Para: 3 Miscarriage: 1 : 0 Ectopic : No Ovarian Cysts: No Tubal Ligation: Yes Past Surgical History AICD: No Body Medical Devices: PLATE, SCREWS LEFT WRIST Section: Yes Coronary Stent: Yes (X 1) Hysterectomy: No Pacemaker: No Other Surgery: Yes Social History Alcohol Use: No (HX OF ALCOHOL ABUSE ) Tobacco Use: Yes (1/2 PPD) Substance Use: No Allergies-Medications (Allergen,Severity, Reaction): Coded Allergies: codeine (Unverified Allergy, Severe, Rash, 10/12/16) penicillin G (Unverified Allergy, Severe, SWELLING, 10/12/16) prochlorperazine (Unverified Allergy, Severe, SWELLING, 10/12/16) Comments List of her allergies reviewed from the nursing note. Reported Meds & Prescriptions Reported Meds & Active Scripts Active Lactobacillus Acidophilus 1 Tab Tab 1 Tab PO TIDAC Levaquin (Levofloxacin) 750 Mg Tablet 750 Mg PO DAILY Flagyl (Metronidazole) 500 Mg Tab 500 Mg PO Q8HR Vitamin B-12 (Cyanocobalamin) 1,000 Mcg Tab 1,000 Mcg PO DAILY Aspirin 325 Mg Tab 325 Mg PO DAILY [place] (Hydrocodone-Acetaminophen) 7.5-325 mg Tab 1 Tab PO Q6H PRN Reported Gabapentin 400 Mg Cap 400 Cap PO Q6HR Amlodipine (Amlodipine Besylate) 10 Mg Tab 10 Mg PO DAILY Narrative Medication List of her home medications reviewed from the nursing note. Review of Systems Except as stated in HPI: all other systems reviewed are Neg Physical Exam Narrative GENERAL: Altered mental status, poorly responsive, confused, delirium, disheveled SKIN: Focused skin assessment warm/dry. HEAD: Atraumatic. Normocephalic. EYES: Pupils equal and round. No scleral icterus. No injection or drainage. ENT: No nasal bleeding or discharge. Dry mucous membrane, coated tongue NECK: Trachea midline. No JVD. CARDIOVASCULAR: Regular rate and rhythm. No murmur appreciated. RESPIRATORY: No accessory muscle use. Clear to auscultation. Breath sounds equal bilaterally. GASTROINTESTINAL: Abdomen soft, non-tender, nondistended. Hepatic and splenic margins not palpable. MUSCULOSKELETAL: No obvious deformities. No clubbing. No cyanosis. No edema. NEUROLOGICAL: GCS of 12. No obvious cranial nerve deficits. Not following commands, bilateral patellar hyperreflexia, slurred speech. Psych: Altered mental status unable to assess Data Data Last Documented VS Orders Orders Electrocardiogram (10/12/16 21:53) Ammonia (10/12/16 21:53) Complete Blood Count With Diff (10/12/16 21:53) Comprehensive Metabolic Panel (10/12/16 21:53) Creatine Kinase (Cpk) (10/12/16 21:53) Prothrombin Time / Inr (Pt) (10/12/16 21:53) Act Partial Throm Time (Ptt) (10/12/16 21:53) Troponin I (10/12/16 21:53) Thyroid Stimulating Hormone (10/12/16 21:53) Urinalysis - C+S If Indicated (10/12/16 21:53) Lactic Acid Sepsis Protocol (10/12/16 21:53) Arterial Blood Gas (Abg) (10/12/16 21:53) Blood Culture (10/12/16 21:53) Chest, Single Ap (10/12/16 21:53) Ct Brain W/O Iv Contrast(Rout) (10/12/16 21:53) Blood Glucose (10/12/16 21:53) Ecg Monitoring (10/12/16:53) Iv Access Insert/Monitor (10/12/16 21:53) Oximetry (10/12/16 21:53) Sodium Chloride 0.9% Flush (Ns Flush) (10/12/16 22:00) Sodium Chlor 0.9% 1000 Ml Inj (Ns 1000 M (10/12/16 21:53) Drug Screen, Random Urine (10/12/16 21:53) Alcohol (Ethanol) (10/12/16 21:53) Tylenol (Acetaminophen) (10/12/16 21:53) Salicylates (Aspirin) (10/12/16 21:53) Succinylcholine Inj (Quelicin Inj) (10/12/16 22:00) Etomidate Inj (Amidate Inj) (10/12/16 22:00) Propofol 1000 Mg/100 Ml Inj (Diprivan 10 (10/12/16 22:00) ^ Infusion (10/12/16 21:56) RASS (10/12/16 21:56) Neurological Rass Scale HUANG.Q2H (10/12/16 21:56) ^ Orogastric Tube (10/12/16 21:56) Resp Bipap / Cpap Non Invas Vt (10/12/16 ) Arterial Blood Gas (Abg) (10/12/16 ) Aztreonam Inj (Azactam Inj) (10/12/16 22:45) Vancomycin Inj (Vancomycin Inj) (10/12/16 22:45) Sodium Chlor 0.9% 1000 Ml Inj (Ns 1000 M (10/12/16 22:45) Sodium Chlor 0.9% 1000 Ml Inj (Ns 1000 M (10/12/16 22:45) Ct Thorax/ Chest Wo Iv Contras (10/12/16 ) CKMB (10/12/16 22:04) CKMB% (10/12/16 22:04) Admit Order (Ed Use Only) (10/12/16 23:58) Labs Laboratory Tests Test 10/12/16 22:00 10/12/16 22:03 10/12/16 22:04 10/12/16 22:39 Lactic Acid Level 1.3 mmol/L Blood Gas Puncture Site RT RADIAL Blood Gas Patient Temperature 98.6 Blood Gas HCO3 25 mmol/L Blood Gas Base Excess -0.4 mmol/L Blood Gas Oxygen Saturation 95 % Arterial Blood pH 7.32 Arterial Blood Partial Pressure CO2 50 mmHg Arterial Blood Partial Pressure O2 245 mmHG Arterial Blood Oxygen Content 14.3 Vol % Arterial Blood Carboxyhemoglobin 1.8 % Arterial Blood Methemoglobin 0.5 % Blood Gas Hemoglobin 10.3 G/DL Oxygen Delivery Device PARTIAL REBREATHER Blood Gas Liter Flow 12 L/M White Blood Count 9.5 TH/MM3 Red Blood Count 4.44 MIL/MM3 Hemoglobin 13.0 GM/DL Hematocrit 39.7 % Mean Corpuscular Volume 89.5 FL Mean Corpuscular Hemoglobin 29.3 PG Mean Corpuscular Hemoglobin Concent 32.8 % Red Cell Distribution Width 17.2 % Platelet Count 338 TH/MM3 Mean Platelet Volume 6.8 FL Neutrophils (%) (Auto) 83.9 % Lymphocytes (%) (Auto) 7.4 % Monocytes (%) (Auto) 8.2 % Eosinophils (%) (Auto) 0.1 % Basophils (%) (Auto) 0.4 % Neutrophils # (Auto) 7.9 TH/MM3 Lymphocytes # (Auto) 0.7 TH/MM3 Monocytes # (Auto) 0.8 TH/MM3 Eosinophils # (Auto) 0.0 TH/MM3 Basophils # (Auto) 0.0 TH/MM3 CBC Comment DIFF FINAL Differential Comment Prothrombin Time 12.4 SEC Prothromb Time International Ratio 1.1 RATIO Activated Partial Thromboplast Time 31.5 SEC Urine Color YELLOW Urine Turbidity HAZY Urine pH 5.5 Urine Specific [place] 1.023 Urine Protein 30 mg/dL Urine Glucose (UA) NEG mg/dL Urine Ketones 40 mg/dL Urine Occult Blood MOD Urine Nitrite NEG Urine Bilirubin NEG Urine Urobilinogen LESS THAN 2.0 MG/DL Urine Leukocyte Esterase TRACE Urine RBC LESS THAN 1 /hpf Urine WBC 3 /hpf Urine Squamous Epithelial Cells 3 /hpf Urine White Blood Cell Casts 3 /lpf Urine Mucus FEW /lpf Microscopic Urinalysis Comment CATH-CULT NOT IND Blood Urea Nitrogen 9 MG/DL Creatinine 0.63 MG/DL Random Glucose 93 MG/DL Total Protein 7.3 GM/DL Albumin 2.8 GM/DL Calcium Level 8.5 MG/DL Alkaline Phosphatase 98 U/L Aspartate Amino Transf (AST/SGOT) 180 U/L Alanine Aminotransferase (ALT/SGPT) 85 U/L Total Bilirubin 0.3 MG/DL Sodium Level 138 MEQ/L Potassium Level 3.4 MEQ/L Chloride Level 102 MEQ/L Carbon Dioxide Level 29.4 MEQ/L Anion Gap 7 MEQ/L Estimat Glomerular Filtration Rate 98 ML/MIN Total Creatine Kinase 3177 U/L Creatine Kinase MB 36.4 NG/ML Creatine Kinase MB % 1.1 % Troponin I LESS THAN 0.02 NG/ML Thyroid Stimulating Hormone 3rd Gen 0.139 uIU/ML Acetaminophen Level LESS THAN 2.0 MCG/ML Ethyl Alcohol Level LESS THAN 3 MG/DL Ammonia 25 MCMOL/L Salicylates Level 7.0 MG/DL Test 10/12/16 22:50 10/12/16 23:45 Urine Opiates Screen POS Urine Barbiturates Screen NEG Urine Amphetamines Screen NEG Urine Benzodiazepines Screen NEG Urine Cocaine Screen NEG Urine Cannabinoids Screen POS Blood Gas Puncture Site RT RADIAL Blood Gas Patient Temperature 98.6 Blood Gas HCO3 25 mmol/L Blood Gas Base Excess -1.3 mmol/L Blood Gas Oxygen Saturation 94 % Arterial Blood pH 7.28 Arterial Blood Partial Pressure CO2 55 mmHg Arterial Blood Partial Pressure O2 112 mmHG Arterial Blood Oxygen Content 13.9 Vol % Arterial Blood Carboxyhemoglobin 0.9 % Arterial Blood Methemoglobin 0.6 % Blood Gas Hemoglobin 10.4 G/DL Oxygen Delivery Device BiPAP Blood Gas Ventilator Setting [id number] Blood Gas Inspired Oxygen 50 % [facility] Medical Decision Making Medical Screen Exam Complete: Yes Emergency Medical Condition: Yes Medical Record Reviewed: Yes Interpretation(s) Twelve-lead EKG was reviewed by me. Normal sinus rhythm, normal axis, nonspecific ST-T wave changes. Heart rate of 93 bpm. Differential Diagnosis Sepsis, substance abuse, intracranial bleed, metabolic encephalopathy Narrative Course 11:24 PM x-ray chest was suggestive of a right lower lobe infiltrate. Blood gas showed respiratory acidosis. Patient was switched to BiPAP. CT scan of her head was negative and CT scan of her chest shows dense right lower lobe consolidation. However patient is afebrile and her white count is within normal limit with some left shift. In my opinion patient may have aspirated. However she was given a coverage with antibiotic and fluid as per sepsis protocol. Patient should be admitted to the ICU given her altered mental status. I'm continuing the BiPAP. Chemistry overall looks to be within acceptable limits. Awaiting for the solutions architect to call back. 11:57 PM I was just told by the nurse that patient is very hard to be aroused at this point. Her GCS is 8. I decided to intubate her at this point. I did discuss the case with the solutions architect and he has accepted the patient. I will update him about intubation. Critical Care Narrative Aggregate critical care time was 60 minutes. Time to perform other separately billable procedures was not included in the critical care time. My time did not include minutes spent treating any other patients simultaneously or on activities that did not directly contribute to the patient's treatment. The services I provided to this patient were to treat and/or prevent clinically significant deterioration that could result in: Altered mental status, respiratory acidosis, large pneumonia, hypoxia, sepsis, sepsis. I provided critical care services requiring my management, as noted below: Chart data review, documentation time, medication orders and management, vital sign assessments/reviewing monitor data, ordering and reviewing lab tests, ordering and interpreting/reviewing x-rays and diagnostic studies, care of the patient and discussion of the patient with the admitting physicians. Procedures Procedure Narrative After the risks and benefits were discussed the following procedure was performed: INTUBATION: The patient was put in optimal position for the procedure. Rapid sequence intubation was initiated by me using 20 milligrams of etomidate IV and 100 milligrams of succinylcholine IV. The patient was intubated with a 7.5 cuffed endotracheal tube. Tube placement was confirmed by visualization of the tube and balloon passing through the cords, capnometry and subsequent chest x-ray. Breath sounds were equal and well aerated bilaterally postintubation. No breath sounds over stomach. Patient tolerated procedure well. EKG Prior to Arrival: No Physician Communication Physician Communication Dr. Herr Diagnosis Primary Impression: Altered mental status Additional Impressions: Respiratory acidosis Hypoxia Pneumonia Sepsis Rhabdomyolysis Acute respiratory failure Admitting Information Admitting Physician Requests: Admit Tiffany Vázquez MD Oct 12, 2016 23:28
[2016-10-12 23:33] LABS: CKMB 36.4 NG/ML (0.5-3.6)
--- NOTE | 2016-10-12 23:43 | HHI.HP ---
[facility] Service Critical Care Medicine Primary Care Physician Unknown Admission Diagnosis Pneumonia, Hypoxemia Diagnosis: (1) Acute hypoxemic respiratory failure Diagnosis: Principal (2) Pneumonia Diagnosis: Principal (3) Encephalopathy, metabolic Diagnosis: Principal (4) Rhabdomyolysis Diagnosis: Secondary Chief Complaint: AMS Travel History International Travel<30 Days: No Contact w/Intl Traveler <30 Da: No Traveled to Known Affected Are: No History of Present Illness 56 y/o woman [place] [facility] following TIA and pneumonia presents tonight with AMS, hypoxemic respiratory failure, new RLL, RML pneumonia , and probable excess oral narcotic use. She responded to narcan at the scene. She was offered SNF transfer after the last admission but refused. I suspect the pneumonia is from aspiration. Last admission she had a LLL pneumonia. She failed BiPAP and required intubation in the ED. Rhabdomyolysis points to probable sedentary state for extended period. Review of Systems ROS Unobtainable, no family. Past Family Social History Allergies: Coded Allergies: codeine (Unverified Allergy, Severe, Rash, 10/12/16) penicillin G (Unverified Allergy, Severe, SWELLING, 10/12/16) prochlorperazine (Unverified Allergy, Severe, SWELLING, 10/12/16) Past Medical History Past Medical History Narrative Medical List of her past medical, surgical, social and family history was reviewed from the nursing note. Anxiety: Yes Depression: Yes Cardiac Catheterization: Yes (07/08/12 ) Cardiovascular Problems: Yes (STENTS, [place] 2012) High Cholesterol: Yes COPD: Yes Cerebrovascular Accident: Yes (STENT) Gastrointestinal Disorders: Yes GERD: Yes Genitourinary: No Headaches: Yes Hepatitis: No Hiatal Hernia: No Hypertension: Yes Immune Disorder: No Implanted Vascular Access Dvce: No Kidney Stones: Yes Musculoskeletal: Yes Neurologic: Yes (MIGRAINES) Psychiatric: Yes Reproductive: No Respiratory: Yes (COPD, CHRONIC BRONCHITIS) Immunizations Current: Yes Migraines: Yes Myocardial Infarction: Yes (2012) PNEUMOCCOCAL Vaccine (Year): 1 Menopausal: Yes : 4 Para: 3 Miscarriage: 1 : 0 Ectopic : No Ovarian Cysts: No Tubal Ligation: Yes Past Surgical History AICD: No Body Medical Devices: PLATE, SCREWS LEFT WRIST Section: Yes Coronary Stent: Yes (X 1) Hysterectomy: No Pacemaker: No Other Surgery: Yes Social History Alcohol Use: No (HX OF ALCOHOL ABUSE ) Tobacco Use: Yes (1/2 PPD) Substance Use: No Allergies-Medications Allergies-Medications (Allergen,Severity, Reaction): Coded Allergies: codeine (Unverified Allergy, Severe, Rash, 10/12/16) penicillin G (Unverified Allergy, Severe, SWELLING, 10/12/16) prochlorperazine (Unverified Allergy, Severe, SWELLING, 10/12/16) Comments List of her allergies reviewed from the nursing note. Reported Meds & Prescriptions Reported Meds & Active Scripts Active Lactobacillus Acidophilus 1 Tab Tab 1 Tab PO TIDAC Levaquin (Levofloxacin) 750 Mg Tablet 750 Mg PO DAILY Flagyl (Metronidazole) 500 Mg Tab 500 Mg PO Q8HR Vitamin B-12 (Cyanocobalamin) 1,000 Mcg Tab 1,000 Mcg PO DAILY Aspirin 325 Mg Tab 325 Mg PO DAILY [place] (Hydrocodone-Acetaminophen) 7.5-325 mg Tab 1 Tab PO Q6H PRN Reported Gabapentin 400 Mg Cap 400 Cap PO Q6HR Amlodipine (Amlodipine Besylate) 10 Mg Tab 10 Mg PO DAILY Physical Exam Vital Signs Vital Signs Date Time Temp Pulse Resp B/P Pulse Ox O2 Delivery O2 Flow Rate FiO2 10/12/16 22:52 100 Non-Rebreather 15 10/12/16 22:52 16 100 Non-Rebreather 15 10/12/16 21:40 98.6 97 16 131/63 91 Physical Exam Gen: Ill-appearing, somnolent Head: Atraumatic. Neck: Supple, airway widely patent. Lungs: Clear, no wheezes, good excursions Heart: Tachycardia, no JVD. RRR. Abdomen: Nontender, no distention, BS active, no guarding. Extremities: Well perfused. Neuro: Confused, slurred speech. Moves 4 limbs to stimulation. ABEBE. Poorly responsive. Laboratory Laboratory Tests Test 10/12/16 10/12/16 10/12/16 10/12/16 22:00 22:03 22:04 22:39 Lactic Acid Level 1.3 Blood Gas Puncture Site RT RADIAL Blood Gas Patient Temperature 98.6 Blood Gas HCO3 25 Blood Gas Base Excess -0.4 Blood Gas Oxygen Saturation 95 Arterial Blood pH 7.32 Arterial Blood Partial 50 Pressure CO2 Arterial Blood Partial 245 Pressure O2 Arterial Blood Oxygen Content 14.3 Arterial Blood 1.8 Carboxyhemoglobin Arterial Blood Methemoglobin 0.5 Blood Gas Hemoglobin 10.3 Oxygen Delivery Device PARTIAL REBREATHER Blood Gas Liter Flow 12 White Blood Count 9.5 Red Blood Count 4.44 Hemoglobin 13.0 Hematocrit 39.7 Mean Corpuscular Volume 89.5 Mean Corpuscular Hemoglobin 29.3 Mean Corpuscular Hemoglobin 32.8 Concent Red Cell Distribution Width 17.2 Platelet Count 338 Mean Platelet Volume 6.8 Neutrophils (%) (Auto) 83.9 Lymphocytes (%) (Auto) 7.4 Monocytes (%) (Auto) 8.2 Eosinophils (%) (Auto) 0.1 Basophils (%) (Auto) 0.4 Neutrophils # (Auto) 7.9 Lymphocytes # (Auto) 0.7 Monocytes # (Auto) 0.8 Eosinophils # (Auto) 0.0 Basophils # (Auto) 0.0 CBC Comment DIFF FINAL Differential Comment Prothrombin Time 12.4 Prothromb Time International 1.1 Ratio Activated Partial 31.5 Thromboplast Time Sodium Level 138 Potassium Level 3.4 Chloride Level 102 Carbon Dioxide Level 29.4 Anion Gap 7 Blood Urea Nitrogen 9 Creatinine 0.63 Estimat Glomerular Filtration 98 Rate Random Glucose 93 Calcium Level 8.5 Total Bilirubin 0.3 Aspartate Amino Transf 180 (AST/SGOT) Alanine Aminotransferase 85 (ALT/SGPT) Alkaline Phosphatase 98 Total Creatine Kinase 3177 Creatine Kinase MB 36.4 Creatine Kinase MB % 1.1 Troponin I LESS THAN 0.02 Total Protein 7.3 Albumin 2.8 Thyroid Stimulating Hormone 0.139 3rd Gen Acetaminophen Level LESS THAN 2.0 Ethyl Alcohol Level LESS THAN 3 Ammonia 25 Salicylates Level 7.0 Date/Time Procedure Status Source Growth 10/12/16 22:45 Aerobic Blood Culture Received Blood Peripheral Pending 10/12/16 22:45 Anaerobic Blood Culture Received Blood Peripheral Pending Result Diagram: 10/12/16220310/12/162203 Assessment and Plan Assessment and Plan Assessment: 1. Hypoxemic, hypercapneic respiratory failure. 2. RLL, RML pneumonia. 3. Rhabdomyolysis. 4. Encephalopathy, metabolic. 5. Excess narcotic use. Plan: 1. PRVC vent mode. 2. Sputum culture. 3. Lactic acid. 4. Broad abx coverage, recent hospitalization and recent treatment for pneumonia. Include anaerobes. 5. Lovenox for DVT px. 6. Zantac 7. Sepsis bundle. 8. Serial CK. Overall impression: Critically ill with acute respiratory failure and new pneumonia, probably from aspiration due to excessive narcotics at home. Requires mechanical ventilation for support. Unstable lung function. Probable selected organism after recent treatment. Critical care 43 ins Problem Qualifiers (1) Pneumonia: Benji Herr MD Oct 12, 2016 23:43
[2016-10-12 23:52] LABS: BLOOD, URINE MOD (NEG); GLUCOSE,URINE NEG (NEG); KETONE, URINE 40 mg/dL (NEG); MUCUS URINE FEW /lpf (OCC); NITRITE,URINE NEG (NEG); PH, URINE 5.5 (5.0-8.5); SQUAMOUS EPITHELIAL CELL URINE 3 /hpf (0-5); URINE COLOR YELLOW (YELLW/STRAW); WHITE BLOOD CELL CAST, URINE 3 /lpf
[2016-10-12 23:53] VITALS: BP 104/71; PULSE 82; RESP 18; O2SAT 99
[2016-10-12 23:53] LABS: COMMENT (UR) CATH-CULT NOT IND; CULTURE IF INDICATED CATH CULTURE NOT IND
[2016-10-12 23:57] LABS: BLOOD GAS BASE EXCESS -1.3 mmol/L (-2-2); BLOOD GAS CARBOXYHEMOGLOBIN 0.9 % (0-4); BLOOD GAS HCO3 25 mmol/L (22-26); BLOOD GAS METHEMOGLOBIN 0.6 % (0-2); BLOOD GAS O2 HGB SATURATION 94 % (90-100); BLOOD GAS OXYGEN CONTENT 13.9 Vol % (12.0-20.0); BLOOD GAS PCO2 55 mmHg (38-42); BLOOD GAS PO2 112 mmHG (61-120); BLOOD GAS TOTAL HGB 10.4 G/DL (12.0-16.0); CRITICAL VALUE YES; DRAW SITE RT RADIAL; FIO2 50 %; NUMBER OF ARTERIAL PUNCTURES 2; OXYGEN DEVICE BiPAP; STAT YES; TEMP CORR TO 98.6; ULNAR PULSE PRESENT; VENT SETTINGS IPAP14/EPAP7
[2016-10-13] VITALS (29 sets, daily range): BP systolic 97–150; BP diastolic 56–91; PULSE 58–92; RESP 16–32; TEMP 99.1–101.5; O2SAT 95–100
[2016-10-13] MEDS ORDERED: CHLORHEXIDINE GLUCONATE 2 % 1 PACK (2 CLOTHS) TOP PRN (00:15)
[2016-10-13] MEDS ORDERED: MAGNESIUM HYDROXIDE SUSP 30 ML CUP PO PRN (00:15)
[2016-10-13] MEDS ORDERED: Vancomycin Consult Pharmacy 1 EA OTHER SCH (00:15)
[2016-10-13] MEDS ORDERED: ONDANSETRON HCL 4 MG/2 ML VIAL IV PRN (00:15)
[2016-10-13] MEDS ORDERED: SENNOSIDES 8.6 MG TAB PO PRN (00:15)
[2016-10-13] MEDS ORDERED: MISCELLANEOUS NURSING INFORMATION XX SCH (00:15)
[2016-10-13] MEDS ORDERED: BISACODYL 10 MG SUPP RECTAL PRN (00:15)
[2016-10-13] MEDS ORDERED: LACTULOSE SYRUP 20 GM/30 ML CUP PO PRN (00:15)
[2016-10-13] MEDS ORDERED: RESP: ALBUTEROL 2.5 MG/IPRATROPIUM 0.5 MG NEB (PRN) INH (00:15)
[2016-10-13] MEDS ORDERED: CEFEPIME INJ 2,000 MG in SODIUM CHLORIDE 0.9% INJ 100 ML IV SCH (01:00)
--- NOTE | 2016-10-13 01:17 | RADRPT ---
EXAM DATE/TIME: 10/13/2016 01:04 [place] COMPARISON: CHEST SINGLE AP, October 12, 2016, 22:19. INDICATIONS : Post intubation MEDICAL HISTORY : Renal calculi. Stroke. Hypertension. SURGICAL HISTORY : None. ENCOUNTER: Subsequent ACUITY: 1 day PAIN SCORE: Non-responsive. LOCATION: Bilateral chest FINDINGS: A single view of the chest demonstrates nasogastric tube entering the stomach. Endotracheal tube in s atisfactory position. Mild cardiomegaly. Bilateral mostly basilar airspace disease, right greater madeline n left. No pneumothorax. No significant effusion. CONCLUSION: 1. Cardiomegaly with basilar airspace disease, right greater left. No significant change since October 12. Endotracheal tube tip in satisfactory position at the level of the aortic arch. Bharath Correa MD on October 13, 2016 at 1:13 Board Certified Radiologist. This report was verified electronically.
[2016-10-13 01:39] LABS: BLOOD GAS BASE EXCESS -4.1 mmol/L (-2-2); BLOOD GAS CARBOXYHEMOGLOBIN 1.3 % (0-4); BLOOD GAS HCO3 24 mmol/L (22-26); BLOOD GAS METHEMOGLOBIN 1.3 % (0-2); BLOOD GAS O2 HGB SATURATION 90 % (90-100); BLOOD GAS OXYGEN CONTENT 19.1 Vol % (12.0-20.0); BLOOD GAS PCO2 72 mmHg (38-42); BLOOD GAS PO2 82 mmHG (61-120); CRITICAL VALUE YES; TEMP CORR TO 98.6
[2016-10-13 01:40] LABS: DRAW SITE RT RADIAL; FIO2 50 %; NUMBER OF ARTERIAL PUNCTURES 1; OXYGEN DEVICE VENTILATOR; ULNAR PULSE PRESENT; VENT SETTINGS PRVC / AC
[2016-10-13] MEDS: SODIUM CHLOR 0.9% 1000 ML INJ 1,000 ML IV SCH ×2 (02:08→11:43)
[2016-10-13] MEDS: ENOXAPARIN SODIUM 40 MG/0.4 ML SYRINGE SQ SCH (02:09)
[2016-10-13] MEDS: CHLORHEXIDINE GLUCONATE 2 % 1 PACK (2 CLOTHS) TOP SCH (04:00)
[2016-10-13] MEDS: PROPOFOL 1000 MG/100 ML INJ 100 ML IV SCH ×2 (04:53→16:04)
[2016-10-13 05:12] LABS: BLOOD GAS BASE EXCESS -3.1 mmol/L (-2-2); BLOOD GAS CARBOXYHEMOGLOBIN 1.5 % (0-4); BLOOD GAS HCO3 23 mmol/L (22-26); BLOOD GAS METHEMOGLOBIN 1.6 % (0-2); BLOOD GAS O2 HGB SATURATION 95 % (90-100); BLOOD GAS OXYGEN CONTENT 13.5 Vol % (12.0-20.0); BLOOD GAS PCO2 52 mmHg (38-42); BLOOD GAS PO2 114 mmHg (61-120); TEMP CORR TO 98.6
[2016-10-13 05:13] LABS: CRITICAL VALUE YES; DRAW SITE RT RADIAL; FIO2 50 %; NUMBER OF ARTERIAL PUNCTURES 1; OXYGEN DEVICE VENTILATOR; STAT NO; ULNAR PULSE PRESENT
[2016-10-13 05:14] LABS: VENT SETTINGS PRVC/18/500/0.9/+5
[2016-10-13] MEDS: metroNIDAZOLE 500 MG INJ 100 ML IV SCH ×3 (05:38→17:31)
[2016-10-13 06:24] LABS: CREATINE KINASE 2998 U/L (26-192)
[2016-10-13 06:37] LABS: CKMB 42.3 NG/ML (0.5-3.6)
[2016-10-13] MEDS: FAMOTIDINE 20 MG TAB PO SCH ×2 (08:11→21:20)
[2016-10-13] MEDS: CHLORHEXIDINE 0.12% (ORAL KIT) 15 ML CUP MT SCH ×2 (08:11→21:21)
[2016-10-13] MEDS: ASPIRIN 81 MG CHEW TAB CHEW SCH (08:11)
[2016-10-13] MEDS: DOCUSATE SODIUM 50 MG/SENNA 8.6 MG TAB PO SCH ×2 (08:11→21:20)
[2016-10-13] MEDS ORDERED: fentaNYL DRIP 250 ML IV SCH (08:15)
[2016-10-13] MEDS: VANCOMYCIN 1,000 MG/NS 250 ML IV SCH ×2 (11:43)
[2016-10-13] MEDS: ACETAMINOPHEN 325 MG TAB PO PRN ×2 (11:48→21:22)
[2016-10-13] MEDS ORDERED: SOD PHOSPHATE/SOD BIPHOSPHATE (ADULT) ENEMA 133ML RECTAL SCH (15:15)
[2016-10-13] MEDS ORDERED: ALPRAZolam 0.25 MG TAB PO PRN (15:15)
[2016-10-13] MEDS: CEFEPIME INJ 2,000 MG in SODIUM CHLORIDE 0.9% INJ 100 ML IV SCH (15:17)
--- NOTE | 2016-10-13 16:00 | HHI.CCPN ---
Subjective Remarks/Hospital Course 56 y/o woman [place] [facility] [place] and pneumonia presents tonight with AMS, hypoxemic respiratory failure, new RLL, RML pneumonia , and probable excess oral narcotic use. She responded to narcan at the scene. She was offered SNF transfer after the last admission but refused. I suspect the pneumonia is from aspiration. Last admission she had a LLL pneumonia. She failed BiPAP and required intubation in the ED. Rhabdomyolysis points to probable sedentary state for extended period. Subjective: 10/13: No acute events since admission. The patient remains on mechanical ventilation responding to commands appropriately. Plan for CPAP trials this afternoon.Empiric antibiotics initiated secondary to most likely 2/2 pneumonia. Patient was noted to have positive opioids and THC on drug screen last evening. Objective Vital Signs Date Time Temp Pulse Resp B/P Pulse Ox O2 Delivery O2 Flow Rate FiO2 10/13/16 14:00 58 10/13/16 12:48 20 10/13/16 12:00 100.8 108/67 97 10/13/16 12:00 35 10/13/16 01:49 Ventilator 10/12/16 22:52 15 Result Diagram: 10/12/16 2204 10/12/162203 Other Results Laboratory Tests Test 10/12/16 10/12/16 10/13/16 10/13/16 22:03 23:45 01:13 04:56 Blood Gas Puncture Site RT RADIAL RT RADIAL RT RADIAL RT RADIAL Blood Gas Patient Temperature 98.6 98.6 98.6 98.6 Blood Gas HCO3 25 mmol/L 25 mmol/L 24 mmol/L 23 mmol/L (22-26) (22-26) (22-26) (22-26) Blood Gas Base Excess -0.4 mmol/L -1.3 mmol/L -4.1 mmol/L -3.1 mmol/L (-2-2) (-2-2) (-2-2) (-2-2) Blood Gas Oxygen Saturation 95 % (90-100) 94 % (90-100) 90 % (90-100) 95 % (90- 100) Arterial Blood pH 7.32 7.28 7.15 7.27 (7.380-7.420) (7.380-7.420) (7.380-7.420) (7.380-7.420) Arterial Blood Partial 50 mmHg (38-42) 55 mmHg (38-42) 72 mmHg (38-42) 52 mmHg ( 38-42) Pressure CO2 Arterial Blood Partial 245 mmHG 112 mmHG 82 mmHG 114 mmHg Pressure O2 (61-120) (61-120) (61-120) (61-120) Arterial Blood Oxygen Content 14.3 Vol % 13.9 Vol % 19.1 Vol % 13.5 Vol % (12.0-20.0) (12.0-20.0) (12.0-20.0) (12.0-20.0) Arterial Blood 1.8 % (0-4) 0.9 % (0-4) 1.3 % (0-4) 1.5 % (0-4) Carboxyhemoglobin Arterial Blood Methemoglobin 0.5 % (0-2) 0.6 % (0-2) 1.3 % (0-2) 1.6 % (0-2) Blood Gas Hemoglobin 10.3 G/DL 10.4 G/DL 15.0 G/DL 10.0 G/DL (12.0-16.0) (12.0-16.0) (12.0-16.0) (12.0-16.0) Oxygen Delivery Device PARTIAL BiPAP VENTILATOR VENTILATOR REBREATHER Blood Gas Liter Flow 12 L/M Blood Gas Ventilator Setting IPAP14/EPAP7 PRVC / AC PRVC/18/500/0.9/+5 Blood Gas Inspired Oxygen 50 % 50 % 50 % Imaging Last Impressions Chest X-Ray 10/13/16 0000 Signed Impressions: Service Date/Time: Thursday, October 13, 2016 01:04 - CONCLUSION: 1. Cardiomegaly with basilar airspace disease, right greater left. No significant change since October 12. Endotracheal tube tip in satisfactory position at the level of the aortic arch. Bharath Correa MD Head CT 10/12/16 2153 Signed Impressions: Service Date/Time: Wednesday, October 12, 2016 22:55 - CONCLUSION: 1. No acute findings. No significant change from September 28. Bharath Correa MD Chest CT 10/12/16 0000 Signed Impressions: Service Date/Time: Wednesday, October 12, 2016 22:59 - CONCLUSION: 1. Dense consolidation in the right lower lobe and patchy airspace disease in other lobes most characteristic of bronchopneumonia. Aspiration could give this appearance. Trace right pleural fluid. Bharath Correa MD Objective Remarks Gen: This is a well-developed well-nourished critically ill-appearing female , easily arousable Head: Atraumatic. Neck: Supple, airway widely patent. Lungs: Clear, no wheezes, good excursions Heart: Tachycardia, no JVD. RRR. Abdomen: Nontender, no distention, BS active, no guarding. Extremities: Well perfused. No edema, cyanosis or deformities Neuro:GCS 14. Moves 4 limbs to stimulation. ABEBE. Urinary Catheter: Yes Date of Insertion: Oct 12, 2016 A/P Assessment and Plan Assessment: 1. Hypoxemic, hypercapneic respiratory failure. 2. RLL, RML pneumonia. 3. Rhabdomyolysis. 4. Encephalopathy, metabolic. 5. Excess narcotic use. 6. Cannabinoids use/abuse Plan: Neurologic: Neurochecks per ICU protocol Seizure precautions Sedation vacation daily Propofol and fentanyl infusions for ventilator synchrony Hold gabapentin for now Respiratory: Mechanical ventilation PRBC 20/600/5/0.35 Begin CPAP trials currently 5/15/0.35 SBT when clinically indicated Cardiovascular: Maintain MAP greater than 65 mmHg Continue aspirin 81 mg daily Renal: Maintain Blum -- Strict I/Os FEN/GI: Electrolyte replacement per ICU protocol Maintain NPO status Continue to monitor creatinine kinase Heme/ID: Monitor CBC Continue antibiotics Follow up sputum culture and blood cultures Endocrine: Glucose monitoring per ICU protocol -- SSI Prophylaxis: GI Prophylaxis Pepcid DVT Prophylaxis -- SCDs Lovenox Lines: PIV's x2 Dispo: This patient remains critically ill with one or more organ systems which are or may become a threat to life. I have spent in excess of 30 minutes discontinuously in the care and management of this patient. This time is exclusive of procedures, and includes, but is not limited to, evaluation of the patient, review of the medical record, discussions with family, consultants, nursing staff, or respiratory therapy, and documentation in the medical record. Physician Demi Dietrich MD Oct 13, 2016 16:00
--- NOTE | 2016-10-13 16:02 | EKG ---
Date Performed: 10/12/2016 Time Performed: 21:42:48 PTAGE: 56 years EKG: Sinus rhythm NONSPECIFIC T-WAVE ABNORMALITY Compared to previous tracing, T wave changes are new BORDERLINE ECG PREVIOUS TRACING : 09/28/2016 13.36 DOCTOR: Omid Hutton Interpretating Date/Time 10/13/2016 16:01:05
[2016-10-13] MEDS ORDERED: SODIUM PHOSPHATE INJ 30 MMOL in SODIUM CHLOR 0.9% 250 ML INJ 240 ML IV PRN (16:45)
[2016-10-13] MEDS ORDERED: POTASSIUM PHOSPHATE MONOBASIC 500 MG TAB PO/TUBE PRN (16:45)
[2016-10-13] MEDS ORDERED: MAGNESIUM SULFATE INJ 4 GM in SODIUM CHLORIDE 0.9% INJ 92 ML IV PRN (16:45)
[2016-10-13] MEDS ORDERED: MAGNESIUM SULFATE INJ 2 GM in SODIUM CHLORIDE 0.9% INJ 96 ML IV PRN (16:45)
[2016-10-13] MEDS ORDERED: POTASSIUM PHOSPHATE INJ 30 MMOL in SODIUM CHLOR 0.9% 250 ML INJ 250 ML IV PRN (16:45)
[2016-10-13] MEDS ORDERED: POTASSIUM CHLOR 40 MEQ PREMIX 100 ML IV PRN ×2 (16:45)
[2016-10-13] MEDS ORDERED: POTASSIUM CHLOR 20 MEQ PREMIX 100 ML IV PRN (16:45)
[2016-10-13] MEDS ORDERED: MAGNESIUM OXIDE 400 MG TAB PO PRN (16:45)
[2016-10-13 17:35] LABS: BLOOD GAS BASE EXCESS -2.8 mmol/L (-2-2); BLOOD GAS CARBOXYHEMOGLOBIN 1.6 % (0-4); BLOOD GAS HCO3 21 mmol/L (22-26); BLOOD GAS METHEMOGLOBIN 1.7 % (0-2); BLOOD GAS O2 HGB SATURATION 93 % (90-100); BLOOD GAS PCO2 33 mmHg (38-42); BLOOD GAS PO2 79 mmHg (61-120); BLOOD GAS TOTAL HGB 9.9 G/DL (12.0-16.0); CRITICAL VALUE NO; DRAW SITE RT BRACHIAL; FIO2 35 %; NUMBER OF ARTERIAL PUNCTURES 1; OXYGEN DEVICE VENTILATOR; STAT NO; TEMP CORR TO 98.6; VENT SETTINGS CPAP 5/15PS
[2016-10-13] MEDS ORDERED: GLUCAGON 1 MG/ML VIAL OTHER PRN (18:15)
[2016-10-13] MEDS ORDERED: DEXTROSE 50% IN WATER 50 ML VIAL(D50) IV PUSH PRN (18:15)
[2016-10-13] MEDS: RESP: ALBUTEROL 2.5 MG/IPRATROPIUM 0.5 MG NEB (SCH) NEB (20:26)
[2016-10-13] MEDS: LOW DOSE INSULIN NOVOLOG SUPPLEMENTAL SCALE SQ SCH (21:00)
[2016-10-14] VITALS (17 sets, daily range): BP systolic 104–149; BP diastolic 64–89; PULSE 57–92; RESP 26–33; TEMP 99.5–102; O2SAT 96–100
[2016-10-14] MEDS: VANCOMYCIN 1,000 MG/NS 250 ML IV SCH ×6 (00:16→21:09)
[2016-10-14] MEDS: ENOXAPARIN SODIUM 40 MG/0.4 ML SYRINGE SQ SCH (00:16)
[2016-10-14] MEDS: metroNIDAZOLE 500 MG INJ 100 ML IV SCH ×4 (00:16→17:51)
[2016-10-14] MEDS: SODIUM CHLOR 0.9% 1000 ML INJ 1,000 ML IV SCH ×2 (00:17→11:54)
[2016-10-14 01:24] LABS: BICARBONATE 26.3 MEQ/L (21.0-32.0)
[2016-10-14 01:29] LABS: POTASSIUM 2.9 MEQ/L (3.5-5.1)
[2016-10-14] MEDS: POTASSIUM CHLOR 20 MEQ PREMIX 100 ML IV PRN (01:52)
[2016-10-14 03:20] LABS: AUTOMATED NEUTROPHIL # 3.9 TH/MM3 (1.8-7.7); BASOPHIL % 0.7 % (0.0-2.0); EOSINOPHIL % 0.1 % (0.0-4.0); HEMATOCRIT 30.6 % (35.0-46.0); HEMO FLAGS DIFF FINAL; LYMPH % 16.7 % (9.0-44.0); MEAN CELL VOLUME 88.2 FL (80.0-100.0); MEAN CORPUSCULAR HEMOGLOBIN 29.1 PG (27.0-34.0); MEAN CORPUSCULAR HGB CONC 32.9 % (32.0-36.0); MONO % 13.8 % (0.0-8.0); NEUT % 68.7 % (16.0-70.0); PLATELET COUNT 308 TH/MM3 (150-450); RED BLOOD COUNT 3.47 MIL/MM3 (4.00-5.30); RED CELL DISTRIBUTION WIDTH 16.8 % (11.6-17.2); WHITE BLOOD COUNT 5.7 TH/MM3 (4.0-11.0)
[2016-10-14] MEDS: CEFEPIME INJ 2,000 MG in SODIUM CHLORIDE 0.9% INJ 100 ML IV SCH ×2 (03:40→14:58)
[2016-10-14] MEDS: CHLORHEXIDINE GLUCONATE 2 % 1 PACK (2 CLOTHS) TOP SCH (03:41)
[2016-10-14 03:42] LABS: BICARBONATE 23.8 MEQ/L (21.0-32.0)
[2016-10-14 03:46] LABS: POTASSIUM 2.9 MEQ/L (3.5-5.1)
[2016-10-14] MEDS: RESP: ALBUTEROL 2.5 MG/IPRATROPIUM 0.5 MG NEB (SCH) NEB ×4 (04:26→20:25)
[2016-10-14] MEDS: LOW DOSE INSULIN NOVOLOG SUPPLEMENTAL SCALE SQ SCH ×4 (05:28→21:00)
[2016-10-14 05:38] LABS: BLOOD GAS BASE EXCESS -2.5 mmol/L (-2-2); BLOOD GAS HCO3 21 mmol/L (22-26); BLOOD GAS O2 HGB SATURATION 94 % (90-100); BLOOD GAS OXYGEN CONTENT 14.3 Vol % (12.0-20.0); BLOOD GAS PCO2 35 mmHg (38-42); BLOOD GAS PO2 93 mmHg (61-120); BLOOD GAS TOTAL HGB 10.7 G/DL (12.0-16.0); CRITICAL VALUE NO; DRAW SITE RT RADIAL; FIO2 35 %; NUMBER OF ARTERIAL PUNCTURES 1; OXYGEN DEVICE VENTILATOR; STAT NO; TEMP CORR TO 98.6; ULNAR PULSE PRESENT; VENT SETTINGS CPAP/15/+5
--- NOTE | 2016-10-14 05:42 | RADRPT ---
EXAM DATE/TIME: 10/14/2016 03:34 [facility] COMPARISON: CHEST SINGLE AP, October 13, 2016, 1:04. INDICATIONS : Shortness of breath, possible pulmonary disease. MEDICAL HISTORY : Renal calculi. Stroke. Hypertension. COPD SURGICAL HISTORY : section. ENCOUNTER: Subsequent ACUITY: 3 days PAIN SCORE: Non-responsive. LOCATION: Bilateral chest FINDINGS: A single view of the chest demonstrates persistent airspace disease predominantly in the right lower lung. Left lung is grossly clear. Heart size is normal. Endotracheal tube in appropriate position abo ve the devin the nasogastric tube entering the stomach extending off the inferior aspect of the imag e. CONCLUSION: 1. Persistent airspace disease in the right lower lung. This may actually be slightly worse when comp ared to prior. 2. Left lung is clear. Heart size is normal. 3. Stable position of life support tubes. Yazan Low MD on October 14, 2016 at 5:39 Board Certified Radiologist. This report was verified electronically.
[2016-10-14] MEDS: CHLORHEXIDINE 0.12% (ORAL KIT) 15 ML CUP MT SCH ×2 (08:00→21:10)
[2016-10-14] MEDS: DOCUSATE SODIUM 50 MG/SENNA 8.6 MG TAB PO SCH ×2 (09:00→21:09)
[2016-10-14] MEDS: FAMOTIDINE 20 MG TAB PO SCH ×2 (09:00→21:09)
[2016-10-14] MEDS: ASPIRIN 81 MG CHEW TAB CHEW SCH (09:00)
--- NOTE | 2016-10-14 11:54 | MB ---
cc: ARYAN DEMPSEY MD DATE OF CONSULTATION: 10/14/2016 REQUESTING PHYSICIAN: Dr. Reich. REASON FOR CONSULTATION: Evaluate patient with pneumonia. HISTORY OF PRESENT ILLNESS: The patient's record is reviewed. She is unable to give any history. The patient is a 56 year-old female, admitted to the hospital for evaluation of decreased loss of consciousness. She was tried on BiPAP, failed, and required intubation in the emergency room. Of note is that the patient was admitted September 28, to October 02, and at that time she was admitted for decreased level of consciousness. Her drug screen was negative except for an elevated salicylates level. Workup was negative and her mental status improved. She was put on antibiotics for left lower lobe pneumonia. She was discharged supposedly to finish a course of oral antibiotics and according to the patient when I asked her she said she completed the treatment. On this admission, her drug screen came back positive for opiates and marijuana. She was febrile to 101.5 on admission. Her WBC is normal. Urinalysis is unremarkable. Chest x-ray is now showing infiltrate on the right lower lobe with improvement in the left lower lobe. Chest CT shows dense consolidation in the right lower lobe and patchy air space disease in the other lobes most characteristic of pneumonia. The patient currently is on cefepime and vancomycin. She currently has low-grade temperature this morning. She is on C-PAP. She is awake and responding. Her hemodynamics are stable. Infectious Disease consultation has been requested to assist in evaluation and treatment of pneumonia. REVIEW OF SYSTEMS: CONSTITUTIONAL: There is fever or chills. SKIN: She denies any rash or itching. THROAT: She denies any sore throat. RESPIRATORY: Denies any chest pain or shortness of breath. GASTROINTESTINAL: Denies any nausea, vomiting or diarrhea. GENITOURINARY: She denies any dysuria. PAST HISTORY: 1. Significant for CAD, previous [place], cardiac catheterization with stent placement. 2. CVA. 3. Migraine headaches. 4. Alcohol abuse in the past. 5. Left wrist surgery. SOCIAL HISTORY: The patient lives at home with . Previous history of alcohol abuse, none recently. She smokes half-pack per day of cigarettes. Denies IV drug use. ALLERGIES: CODEINE PENICILLIN PROCHLORPERAZINE She tolerates cephalosporins. MEDICATIONS: 1. Tylenol 2. Albuterol 3. Aspirin 4. Dulcolax. 5. Cefepime 6. Lovenox 7. Pepcid 8. Fentanyl 9. Insulin 10. Lactulose. 11. Milk of Magnesia. 12. Magnesium oxide 13. Flagyl 14. Morphine. 15. Zofran 16. Potassium. 17. Diprivan 18. Emiliana-Colace 19. Senokot 20. IV vancomycin PHYSICAL EXAMINATION: CONSTITUTIONAL: The patient is awake, on the vent. She is a well-developed, well-nourished female. She looks comfortable on the vent. VITAL SIGNS: Temperature 99.7, highest temperature 101.5 last night. Blood pressure 113/72. Heart rate 68, respiratory rate 27. SKIN: Warm and dry. She is somewhat edematous. No generalized rash noted. No ecchymosis. No evidence of peripheral emboli. HEAD: Normocephalic, atraumatic head with no temporal wasting. EYES: [place] conjunctivae, no petechiae or subconjunctival hemorrhage. No scleral icterus. Pupils are equal and reactive to light. Extraocular movements are full and intact. No conjunctival injection. No drainage noted. EARS, NOSE, AND THROAT: She has no evidence of nasal drainage or septal deviation. No sinus tenderness. Moist oral mucosa, she is orally intubated. NECK: Trachea midline, supple, nontender. No lymphadenopathy. CHEST: Symmetrical respiratory effort with diffuse rhonchi, seems to be worse on the right than on the left. CARDIAC: Regular, but limited due to the diffuse rhonchi. ABDOMEN: Bowel sounds are present and normoactive. Soft, not distended. No tenderness on palpation. No guarding or rebound. No organomegaly. EXTREMITIES: Warm and well perfused. There is some edema in both hands. No cyanosis or clubbing noted. No calf tenderness. She has no evidence of joint effusion and has good ROM in all her joints. NEUROLOGIC: The patient is awake, alert. Cranial nerves are grossly intact. Motor strength is equal and 5/5. No Babinski. No ankle clonus. PSYCHIATRIC: She is awake, calm, cooperative. GENITOURINARY: Blum catheter is in place. Urine is clear. Lines, she has PIV with no evidence of infection. LABORATORY DATA: White blood cell count is 5.7, hemoglobin 10.1, platelet count is 308. Her white count on admission was 9.5. Sodium 143, potassium 2.9, chloride 108, CO2 23.8. BUN 3, creatinine 0.28. Bilirubin is normal. AST 180, ALT 85, alkaline phosphatase is 98. Urinalysis is fairly unremarkable. Drug screen is positive for opiates and cannabinoids. Her ABG this morning, pH 7.41, PCO2 35, PO2 93. This is on C-PAP, PEEP of 5, 35% FIO2. Chest x-ray this morning showing persistent air space disease in the right lower lobe which looks worse and the left lung infiltrate seems to have cleared. IMPRESSION: 1. Sepsis syndrome on admission due to pneumonia, could be aspiration due to decreased level of consciousness. She has positive opiates and cannabinoids on her drug screen on this admission. 2. Right lower lobe pneumonia. Possibly aspiration, came from the community, last hospitalization September 28 to October 02. 3. Respiratory failure. 4. Normal LFTs. RECOMMENDATIONS: Continue cefepime and vancomycin. Will follow the results of the culture. She has blood culture and sputum culture. Will get Legionella and pneumococcal antigen. Will adjust antibiotics once cultures are available. Monitor progress. Will determine course of her antibiotics depending on her clinical course and results of the workup. Weaning per critical care medicine. I will follow along with you. Thank you for the consultation. MD KAVEH Daley/JENIFER /10:59 AM /11:19 AM
[2016-10-14 12:20] LABS: MAGNESIUM 1.9 MG/DL (1.5-2.5); POTASSIUM 3.1 MEQ/L (3.5-5.1); VANCOMYCIN TROUGH 5.8 MCG/ML (5.0-10.0)
[2016-10-14 12:37] LABS: CALCIUM-PROTEIN CORRECTED 8.3 MG/DL (8.5-10.1); CKMB 8.5 NG/ML (0.5-3.6)
[2016-10-14] MEDS ORDERED: PHARMACY ORDERED LAB ONE (12:45)
[2016-10-14] MEDS: ACETAMINOPHEN 325 MG TAB PO PRN ×2 (14:00→21:10)
--- NOTE | 2016-10-14 14:43 | HHI.CCPN ---
Subjective Remarks/Hospital Course 56 y/o woman discharged from [facility] [place] 10 [place] ago following TIA and pneumonia presents tonight with AMS, hypoxemic respiratory failure, new RLL, RML pneumonia , and probable excess oral narcotic use. She responded to narcan at the scene. She was offered SNF transfer after the last admission but refused. I suspect the pneumonia is from aspiration. Last admission she had a LLL pneumonia. She failed BiPAP and required intubation in the ED. Rhabdomyolysis points to probable sedentary state for extended period. Subjective: 10/13: No acute events since admission. The patient remains on mechanical ventilation responding to commands appropriately. Plan for CPAP trials this afternoon.Empiric antibiotics initiated secondary to most likely 2/2 pneumonia. Patient was noted to have positive opioids and THC on drug screen last evening. 10/14: Tmax 102.0. ID consulted. Patient continues on vancomycin and cefepime, with Legionella and pneumococcal antigens pending. The patient has successfully been weaned to CPAP. And has successfully passed SBT parameters, however with any diminution of oxygen the patient O2 sat remains in the 80s, thick cream-colored sputum noted. Will continue patient on CPAP with plans of eventual extubation in the near future Repeat blood cultures pending. Objective Vital Signs Date Time Temp Pulse Resp B/P (MAP) Pulse Ox O2 Delivery O2 Flow Rate FiO2 10/14/16 12:00 35 10/14/16 12:00 80 10/14/16 08:00 99.8 27 123/78 (93) 96 10/13/16 01:49 Ventilator 10/12/16 22:52 15 Intake and Output 10/14/16 10/14/16 10/15/16 08:00 16:00 00:00 Intake Total 615 ml 353 ml Output Total 600 ml Balance 15 ml 353 ml Result Diagram: 10/14/16 0249 10/14/16 1117 Other Results Laboratory Tests Test 10/13/16 17:29 10/14/16 05:22 Blood Gas Puncture Site RT BRACHIAL RT RADIAL Blood Gas Patient Temperature 98.6 98.6 Blood Gas HCO3 21 mmol/L (22-26) 21 mmol/L (22-26) Blood Gas Base Excess -2.8 mmol/L (-2-2) -2.5 mmol/L (-2-2) Blood Gas Oxygen Saturation 93 % (90-100) 94 % (90-100) Arterial Blood pH 7.42 (7.380-7.420) 7.41 (7.380-7.420) Arterial Blood Partial Pressure CO2 33 mmHg (38-42) 35 mmHg (38-42) Arterial Blood Partial Pressure O2 79 mmHg (61-120) 93 mmHg (61-120) Arterial Blood Oxygen Content 13.0 Vol % (12.0-20.0) 14.3 Vol % (12.0-20.0) Arterial Blood Carboxyhemoglobin 1.6 % (0-4) 0.0 % (0-4) Arterial Blood Methemoglobin 1.7 % (0-2) 1.0 % (0-2) Blood Gas Hemoglobin 9.9 G/DL (12.0-16.0) 10.7 G/DL (12.0-16.0) Oxygen Delivery Device VENTILATOR VENTILATOR Blood Gas Ventilator Setting CPAP 5/15PS CPAP/15/+5 Blood Gas Inspired Oxygen 35 % 35 % Imaging Last Impressions Chest X-Ray 10/13/16 0000 Signed Impressions: Service Date/Time: Thursday, October 13, 2016 01:04 - CONCLUSION: 1. Cardiomegaly with basilar airspace disease, right greater left. No significant change since October 12. Endotracheal tube tip in satisfactory position at the level of the aortic arch. Bharath Correa MD Head CT 10/12/162152 Signed Impressions: Service Date/Time: Wednesday, October 12, 2016 22:55 - CONCLUSION: 1. No acute findings. No significant change from September 28. Bharath Correa MD Chest CT 10/12/16 0000 Signed Impressions: Service Date/Time: Wednesday, October 12, 2016 22:59 - CONCLUSION: 1. Dense consolidation in the right lower lobe and patchy airspace disease in other lobes most characteristic of bronchopneumonia. Aspiration could give this appearance. Trace right pleural fluid. Bharath Correa MD Objective Remarks Gen: This is a well-developed well-nourished critically ill-appearing female , awake and responsive on CPAP trials Head: Atraumatic. Neck: Supple, airway widely patent. Lungs: Clear, no wheezes, good excursions Heart: Tachycardia, no JVD. RRR. Abdomen: Nontender, no distention, BS active, no guarding. Extremities: Well perfused. No edema, cyanosis or deformities. Brisk capillary refill. Neuro:GCS 14. Moves 4 limbs to stimulation. RASS -1 Date of Insertion: Oct 12, 2016 A/P Assessment and Plan Assessment: 1. Hypoxemic, hypercapneic respiratory failure. 2. RLL, RML pneumonia. 3. Rhabdomyolysis. 4. Encephalopathy, metabolic. 5. Excess narcotic use. 6. Cannabinoids use/abuse Plan: Neurologic: Neurochecks per ICU protocol Seizure precautions Sedation vacation daily Propofol and fentanyl infusions for ventilator synchrony-Maintain RASS -1 Hold gabapentin for now Respiratory: Mechanical ventilation PRBC 20/600/5/0.35 Begin CPAP trials currently 5/15/0.35 SBT when clinically indicated Cardiovascular: Maintain MAP greater than 65 mmHg Continue aspirin 81 mg daily Renal: Maintain Blum -- Strict I/Os FEN/GI: Electrolyte replacement per ICU protocol Begin tube feeds Jevity 1.5 at 10 cc/an hour Continue to monitor creatinine kinase- decreasing 2998-> 848 today Heme/ID: Monitor CBC ID following Dr. العلي Continue antibiotics vancomycin and cefepime Follow up sputum culture and blood cultures 10/14 repeat blood culture, pneumococcal, Legionella antigens pending Endocrine: Glucose monitoring per ICU protocol -- SSI Prophylaxis: GI Prophylaxis Pepcid DVT Prophylaxis -- SCDs Lovenox Lines: PIV's x 2 Dispo: Discussed with patient and REPRODUCER at bedside. Level 3 Physician Demi Dietrich MD Oct 14, 2016 14:43
[2016-10-14] MEDS: POTASSIUM CHLORIDE 25 MEQ EFFERVESCENT TAB PO PRN (14:58)
[2016-10-14] MEDS: POTASSIUM PHOSPHATE MONOBASIC 500 MG TAB PO PRN ×2 (17:51→21:21)
[2016-10-14] MEDS: PROPOFOL 1000 MG/100 ML INJ 100 ML IV SCH (18:07)
[2016-10-15] VITALS (26 sets, daily range): BP systolic 106–160; BP diastolic 51–110; PULSE 59–93; RESP 11–33; TEMP 98.7–101.1; O2SAT 95–100
[2016-10-15] MEDS: metroNIDAZOLE 500 MG INJ 100 ML IV SCH ×4 (00:13→18:23)
[2016-10-15] MEDS: ENOXAPARIN SODIUM 40 MG/0.4 ML SYRINGE SQ SCH (00:13)
[2016-10-15] MEDS: SODIUM CHLOR 0.9% 1000 ML INJ 1,000 ML IV SCH ×2 (00:14→11:44)
[2016-10-15] MEDS: RESP: ALBUTEROL 2.5 MG/IPRATROPIUM 0.5 MG NEB (SCH) NEB ×4 (02:54→20:43)
[2016-10-15] MEDS: CHLORHEXIDINE GLUCONATE 2 % 1 PACK (2 CLOTHS) TOP SCH (04:00)
[2016-10-15] MEDS: CEFEPIME INJ 2,000 MG in SODIUM CHLORIDE 0.9% INJ 100 ML IV SCH ×2 (04:11→16:23)
[2016-10-15] MEDS: VANCOMYCIN 1,000 MG/NS 250 ML IV SCH ×4 (04:12→13:00)
[2016-10-15 04:34] LABS: BLOOD GAS BASE EXCESS -2.5 mmol/L (-2-2); BLOOD GAS HCO3 21 mmol/L (22-26); BLOOD GAS O2 HGB SATURATION 95 % (90-100); BLOOD GAS PCO2 34 mmHg (38-42); BLOOD GAS PO2 112 mmHg (61-120); BLOOD GAS TOTAL HGB 10.3 G/DL (12.0-16.0); CRITICAL VALUE NO; OXYGEN DEVICE VENTILATOR; TEMP CORR TO 98.6
[2016-10-15 04:35] LABS: DRAW SITE RT BRACHIAL; FIO2 35 %; NUMBER OF ARTERIAL PUNCTURES 1; STAT NO; VENT SETTINGS PRVC/AC
--- NOTE | 2016-10-15 05:16 | RADRPT ---
EXAM DATE/TIME: 10/15/2016 03:26 [facility] COMPARISON: CHEST SINGLE AP, October 14, 2016, 3:34. INDICATIONS : Shortness of breath, possible pulmonary disease. MEDICAL HISTORY : Renal calculi. Stroke. Hypertension. COPD SURGICAL HISTORY : section. ENCOUNTER: Subsequent ACUITY: 4 - 6 days PAIN SCORE: Non-responsive. LOCATION: Bilateral chest FINDINGS: A single view of the chest demonstrates endotracheal tube in satisfactory position. NG enters stomach . Bilateral mostly basilar airspace disease, right greater than left similar to October 14. CONCLUSION: Endotracheal tube and nasogastric tube in good position. Stable basilar airspace disease. Bharath Correa MD on October 15, 2016 at 5:13 Board Certified Radiologist. This report was verified electronically.
[2016-10-15 05:42] LABS: BASOPHIL % 0.6 % (0.0-2.0); EOSINOPHIL % 0.2 % (0.0-4.0); HEMATOCRIT 32.3 % (35.0-46.0); HEMO FLAGS DIFF FINAL; LYMPH % 13.2 % (9.0-44.0); LYMPHOCYTE # 0.7 TH/MM3 (1.0-4.8); MEAN CELL VOLUME 86.7 FL (80.0-100.0); MEAN CORPUSCULAR HEMOGLOBIN 28.7 PG (27.0-34.0); MEAN CORPUSCULAR HGB CONC 33.1 % (32.0-36.0); MONO % 13.1 % (0.0-8.0); NEUT % 72.9 % (16.0-70.0); PLATELET COUNT 362 TH/MM3 (150-450); RED BLOOD COUNT 3.73 MIL/MM3 (4.00-5.30); RED CELL DISTRIBUTION WIDTH 16.6 % (11.6-17.2); WHITE BLOOD COUNT 5.5 TH/MM3 (4.0-11.0)
[2016-10-15 06:19] LABS: BICARBONATE 23.1 MEQ/L (21.0-32.0); MAGNESIUM 1.9 MG/DL (1.5-2.5)
[2016-10-15] MEDS: LOW DOSE INSULIN NOVOLOG SUPPLEMENTAL SCALE SQ SCH ×3 (07:00→16:00)
[2016-10-15 07:08] LABS: CKMB 5.5 NG/ML (0.5-3.6)
[2016-10-15] MEDS: CHLORHEXIDINE 0.12% (ORAL KIT) 15 ML CUP MT SCH ×2 (08:40→20:00)
[2016-10-15] MEDS: MORPHINE SULFATE 4 MG/ML INJ IV PUSH PRN ×3 (08:41→20:26)
[2016-10-15] MEDS: FAMOTIDINE 20 MG TAB PO SCH ×2 (08:41→20:25)
[2016-10-15] MEDS: DOCUSATE SODIUM 50 MG/SENNA 8.6 MG TAB PO SCH ×2 (08:42→20:25)
[2016-10-15] MEDS: ASPIRIN 81 MG CHEW TAB CHEW SCH (08:42)
--- NOTE | 2016-10-15 10:07 | HHI.IDPN ---
Subjective Subjective Remarks 56 y/o F admitted with decreased LOC. Drug screen (+) opiates and cannabinoids. Tried on BIPAP, failed, required intubation. CXR with RLL PNA and some infiltrates on L side Notes reviewed Awake on the vent, on CPAP Not SOB Temps high last night BP ok Antibiotics Vancomycin Cefepime Past Medical History 1. Significant for CAD, previous OR, cardiac catheterization with stent placement. 2. CVA. 3. Migraine headaches. 4. Alcohol abuse in the past. 5. Left wrist surgery. Allergies: Coded Allergies: codeine (Unverified Allergy, Severe, Rash, 10/12/16) penicillin G (Unverified Allergy, Severe, SWELLING, 10/12/16) prochlorperazine (Unverified Allergy, Severe, SWELLING, 10/12/16) Objective . Vital Signs Date Time Temp Pulse Resp B/P (MAP) Pulse Ox O2 Delivery O2 Flow Rate FiO2 10/15/16 07:53 100 35 10/15/16 06:00 68 10/15/16 04:00 66 10/15/16 04:00 35 10/15/16 04:00 99.5 65 24 137/70 (92) 100 10/15/16 03:39 100 35 10/15/16 02:00 92 10/15/16 00:19 100 35 10/15/16 00:00 79 10/15/16 00:00 35 10/15/16 00:00 99.2 72 23 136/80 (98) 100 10/14/16 22:00 57 10/14/16 20:23 100 35 10/14/16 20:00 99.5 92 26 142/81 (101) 10/14/16 20:00 35 10/14/16 20:00 79 10/14/16 18:00 59 10/14/16 16:00 100.3 65 33 143/80 (101) 100 10/14/16 16:00 65 10/14/16 16:00 35 10/14/16 15:00 14 10/14/16 14:45 100 35 10/14/16 14:00 67 10/14/16 12:00 35 10/14/16 12:00 80 10/14/16 12:00 102.0 80 27 149/89 (109) 100 . Laboratory Tests Test 10/14/16 02:49 10/15/16 04:59 White Blood Count 5.7 TH/MM3 5.5 TH/MM3 Red Blood Count 3.47 MIL/MM3 3.73 MIL/MM3 Hemoglobin 10.1 GM/DL 10.7 GM/DL Hematocrit 30.6 % 32.3 % Mean Corpuscular Volume 88.2 FL 86.7 FL Mean Corpuscular Hemoglobin 29.1 PG 28.7 PG Mean Corpuscular Hemoglobin Concent 32.9 % 33.1 % Red Cell Distribution Width 16.8 % 16.6 % Platelet Count 308 TH/MM3 362 TH/MM3 Mean Platelet Volume 6.9 FL 6.5 FL Neutrophils (%) (Auto) 68.7 % 72.9 % Lymphocytes (%) (Auto) 16.7 % 13.2 % Monocytes (%) (Auto) 13.8 % 13.1 % Eosinophils (%) (Auto) 0.1 % 0.2 % Basophils (%) (Auto) 0.7 % 0.6 % Neutrophils # (Auto) 3.9 TH/MM3 4.0 TH/MM3 Lymphocytes # (Auto) 1.0 TH/MM3 0.7 TH/MM3 Monocytes # (Auto) 0.8 TH/MM3 0.7 TH/MM3 Eosinophils # (Auto) 0.0 TH/MM3 0.0 TH/MM3 Basophils # (Auto) 0.0 TH/MM3 0.0 TH/MM3 CBC Comment DIFF FINAL DIFF FINAL Differential Comment Laboratory Tests Test 10/13/16 23:42 10/14/16 02:49 10/14/16 11:17 10/14/16 14:04 Blood Urea Nitrogen 3 MG/DL 3 MG/DL 2 MG/DL Creatinine 0.35 MG/DL 0.28 MG/DL 0.27 MG/DL Random Glucose 87 MG/DL 87 MG/DL 89 MG/DL Calcium Level 7.6 MG/DL 7.7 MG/DL 7.4 MG/DL Sodium Level 143 MEQ/L 143 MEQ/L 141 MEQ/L Potassium Level 2.9 MEQ/L 2.9 MEQ/L 3.1 MEQ/L 3.0 MEQ/L Chloride Level 108 MEQ/L 108 MEQ/L 107 MEQ/L Carbon Dioxide Level 26.3 MEQ/L 23.8 MEQ/L 21.0 MEQ/L Anion Gap 9 MEQ/L 11 MEQ/L 13 MEQ/L Estimat Glomerular Filtration Rate 194 ML/MIN 251 ML/MIN 262 ML/MIN Phosphorus Level 1.3 MG/DL 1.8 MG/DL 1.0 MG/DL Total Protein 5.4 GM/DL Magnesium Level 1.9 MG/DL Protein Corrected Calcium 8.3 MG/DL Total Creatine Kinase 848 U/L Creatine Kinase MB 8.5 NG/ML Creatine Kinase MB % 1.0 % Test 10/14/16 18:35 10/15/16 04:59 Potassium Level 4.1 MEQ/L 3.0 MEQ/L Blood Urea Nitrogen 2 MG/DL Creatinine 0.28 MG/DL Random Glucose 107 MG/DL Calcium Level 7.6 MG/DL Phosphorus Level 1.1 MG/DL Magnesium Level 1.9 MG/DL Sodium Level 138 MEQ/L Chloride Level 105 MEQ/L Carbon Dioxide Level 23.1 MEQ/L Anion Gap 10 MEQ/L Estimat Glomerular Filtration Rate 251 ML/MIN Total Creatine Kinase 528 U/L Creatine Kinase MB 5.5 NG/ML Creatine Kinase MB % 1.0 % Microbiology Date/Time Source Procedure Growth Status 10/13/16 23:48 Blood Peripheral Aerobic Blood Culture Pending Received 10/13/16 23:48 Blood Peripheral Anaerobic Blood Culture Pending Received 10/13/16 23:42 Blood Peripheral Aerobic Blood Culture Pending Received 10/13/16 23:42 Blood Peripheral Anaerobic Blood Culture Pending Received 10/12/16 22:45 Blood Peripheral Aerobic Blood Culture - Preliminary NO GROWTH IN 2 DAYS Resulted 10/12/16 22:45 Blood Peripheral Anaerobic Blood Culture - Preliminary NO GROWTH IN 2 DAYS Resulted 10/12/16 22:35 Blood Peripheral Aerobic Blood Culture - Preliminary NO GROWTH IN 2 DAYS Resulted 10/12/16 22:35 Blood Peripheral Anaerobic Blood Culture - Preliminary NO GROWTH IN 2 DAYS Resulted 10/14/16 04:15 Sputum Endotracheal Gram Stain - Final Resulted 10/14/16 04:15 Sputum Endotracheal Sputum Culture Pending Resulted Imaging Last Impressions Chest X-Ray 10/14/16 0600 Signed Impressions: Service Date/Time: Friday, October 14, 2016 03:34 - CONCLUSION: 1. Persistent airspace disease in the right lower lung. This may actually be slightly worse when compared to prior. 2. Left lung is clear. Heart size is normal. 3. Stable position of life support tubes. Yazan Low MD Head CT 8/18/17 2153 Signed Impressions: Service Date/Time: Wednesday, October 12, 2016 22:55 - CONCLUSION: 1. No acute findings. No significant change from September 28. Bharath Correa MD Chest CT 10/12/16 0000 Signed Impressions: Service Date/Time: Wednesday, October 12, 2016 22:59 - CONCLUSION: 1. Dense consolidation in the right lower lobe and patchy airspace disease in other lobes most characteristic of bronchopneumonia. Aspiration could give this appearance. Trace right pleural fluid. Bharath Correa MD Physical Exam CONSTITUTIONAL: The patient is awake, on the vent. She looks comfortable on the vent, on CPAP. SKIN: Warm and dry. No generalized rash noted. No ecchymosis. No evidence of peripheral emboli. HEAD: Normocephalic, atraumatic head with no temporal wasting. EYES: [place] conjunctivae, no petechiae or subconjunctival hemorrhage. No scleral icterus. Pupils are equal and reactive to light. EOMs full and intact. No conjunctival injection. No drainage noted. EARS, NOSE, AND THROAT: She has no evidence of nasal drainage or septal deviation. No sinus tenderness. Moist oral mucosa, she is orally intubated. NECK: Trachea midline, supple, nontender. No lymphadenopathy. CHEST: Symmetrical respiratory effort with diffuse rhonchi, seems to be worse on the right than on the left. CARDIAC: Regular, but limited due to the diffuse rhonchi. ABDOMEN: Bowel sounds are present and normoactive. Soft, not distended. No tenderness on palpation. No guarding or rebound. No organomegaly. EXTREMITIES: Warm and well perfused. There is some edema in both hands. No cyanosis or clubbing noted. No calf tenderness. She has no evidence of joint effusion and has good ROM in all her joints. NEUROLOGIC: Non-focal PSYCHIATRIC: She is awake, calm, cooperative. GENITOURINARY: Blum catheter is in place. Urine is clear. Lines, she has PIV with no evidence of infection. Assessment & Plan Remarks IMPRESSION: Sepsis syndrome on admission due to pneumonia, could be aspiration due to decreased level of consciousness. - She has positive opiates and cannabinoids on her drug screen on this admission. Right lower lobe pneumonia. Possibly aspiration, came from the community, - last hospitalization September 28 to October 02. Respiratory failure. Abnormal LFTs. RECOMMENDATIONS: Continue cefepime and vancomycin. Follow C/S and adjust Abx Monitor progress Weaning per CCM Beti العلي MD Oct 15, 2016 10:07
[2016-10-15] MEDS ORDERED: PHARMACY ORDERED LAB ONE (12:45)
--- NOTE | 2016-10-15 18:37 | HHI.CCPN ---
Subjective Remarks/Hospital Course 56 y/o [place] [facility] and pneumonia presents tonight with AMS, hypoxemic respiratory failure, new RLL, RML pneumonia , and probable excess oral narcotic use. She responded to narcan at the scene. She was offered SNF transfer after the last admission but refused. I suspect the pneumonia is from aspiration. Last admission she had a LLL pneumonia. She failed BiPAP and required intubation in the ED. Rhabdomyolysis points to probable sedentary state for extended period. Subjective: 10/13: No acute events since admission. The patient remains on mechanical ventilation responding to commands appropriately. Plan for CPAP trials this afternoon.Empiric antibiotics initiated secondary to most likely 2/2 pneumonia. Patient was noted to have positive opioids and THC on drug screen last evening. 10/14: Tmax 102.0. ID consulted. Patient continues on vancomycin and cefepime, with Legionella and pneumococcal antigens pending. The patient has successfully been weaned to CPAP. And has successfully passed SBT parameters, however with any diminution of oxygen the patient O2 sat remains in the 80s, thick cream-colored sputum noted. Will continue patient on CPAP with plans of eventual extubation in the near future Repeat blood cultures pending. 10/15: awake and alert. o2 sat at 100% on 35% fio2. passed SBT. Objective Vital Signs Date Time Temp Pulse Resp B/P (MAP) Pulse Ox O2 Delivery O2 Flow Rate FiO2 10/15/16 16:00 70 10/15/16 14:44 100 Nasal Cannula 3 10/15/16 11:02 35 10/15/16 04:00 99.5 24 137/70 (92) Intake and Output 10/15/16 10/15/16 10/16/16 08:00 16:00 00:00 Intake Total 1928 ml Output Total 1975 ml Balance -47 ml Result Diagram: 10/15/16 0459 10/15/16 0459 Other Results Laboratory Tests Test 10/15/16 04:10 Blood Gas Puncture Site RT BRACHIAL Blood Gas Patient Temperature 98.6 Blood Gas HCO3 21 mmol/L (22-26) Blood Gas Base Excess -2.5 mmol/L (-2-2) Blood Gas Oxygen Saturation 95 % (90-100) Arterial Blood pH 7.42 (7.380-7.420) Arterial Blood Partial Pressure CO2 34 mmHg (38-42) Arterial Blood Partial Pressure O2 112 mmHg (61-120) Arterial Blood Oxygen Content 14.0 Vol % (12.0-20.0) Arterial Blood Carboxyhemoglobin 0.0 % (0-4) Arterial Blood Methemoglobin 1.0 % (0-2) Blood Gas Hemoglobin 10.3 G/DL (12.0-16.0) Oxygen Delivery Device VENTILATOR Blood Gas Ventilator Setting PRVC/AC Blood Gas Inspired Oxygen 35 % Imaging Last Impressions Chest X-Ray 10/13/16 0000 Signed Impressions: Service Date/Time: Thursday, October 13, 2016 01:04 - CONCLUSION: 1. Cardiomegaly with basilar airspace disease, right greater left. No significant change since October 12. Endotracheal tube tip in satisfactory position at the level of the aortic arch. Bharath Correa MD Head CT 10/12/162152 Signed Impressions: Service Date/Time: Wednesday, October 12, 2016 22:55 - CONCLUSION: 1. No acute findings. No significant change from September 28. Bharath Correa MD Chest CT 10/12/16 0000 Signed Impressions: Service Date/Time: Wednesday, October 12, 2016 22:59 - CONCLUSION: 1. Dense consolidation in the right lower lobe and patchy airspace disease in other lobes most characteristic of bronchopneumonia. Aspiration could give this appearance. Trace right pleural fluid. Bharath Correa MD Objective Remarks Gen: critically ill-appearing female , awake and responsive on CPAP trials Head: Atraumatic. Neck: Supple, airway widely patent. Lungs: Clear, no wheezes, good excursions Heart: normal rate, no JVD. RRR. Abdomen: Nontender, no distention, no guarding. Extremities: Well perfused. No edema, cyanosis or deformities. Brisk capillary refill. Neuro:GCS 14. Moves 4 limbs to stimulation. RASS -1 Date of Insertion: Oct 12, 2016 A/P Assessment and Plan Assessment: 56yF with HCAP and hypoxic respiratory failure, improving. will attempt to wean to extubate. continue abx. rhabdo resolving. end-organs improving. could transition to hospitalist service as early as tomorrow if remains on pathway. 1. Hypoxemic, hypercapneic respiratory failure. 2. RLL, RML pneumonia. 3. Rhabdomyolysis. 4. Encephalopathy, metabolic. 5. Excess narcotic use. 6. Cannabinoids use/abuse Plan: Neurologic: Neurochecks per ICU protocol Seizure precautions Propofol and fentanyl infusions for ventilator synchrony-Maintain RASS -1 Hold gabapentin for now Respiratory: Mechanical ventilation PSV 5/5/35% will wean to extubate Cardiovascular: Maintain MAP greater than 65 mmHg Continue aspirin 81 mg daily Renal: Maintain Blum -- Strict I/Os FEN/GI: Electrolyte replacement per ICU protocol Tube feeds Jevity 1.5 at 10 cc/an hour CK downtrending. ok to stop checking. Heme/ID: Monitor CBC ID following Dr. العلي Continue antibiotics vancomycin and cefepime Follow up sputum culture and blood cultures 10/14 repeat blood culture, pneumococcal, Legionella antigens pending Endocrine: Glucose monitoring per ICU protocol -- SSI Prophylaxis: GI Prophylaxis Pepcid DVT Prophylaxis -- SCDs Lovenox Lines: PIV's x 2 Dispo: Discussed with patient and [employer] at bedside. Speedy Wang MD Oct 15, 2016 18:37
[2016-10-15] MEDS: VANCOMYCIN 1,500 MG/NS 500 ML IV SCH ×2 (20:25)
--- NOTE | 2016-10-15 20:27 | RADRPT ---
EXAM DATE/TIME: 10/15/2016 18:35 [facility] COMPARISON: No previous studies available for comparison. INDICATIONS : Bilateral arm swelling. MEDICAL HISTORY : Hypercholesterolemia. Chronic obstructive pulmonary disease. CVA. [place]. Kidney stones. SURGICAL HISTORY : Tubal ligation. Cardiac stents. Cardiac catheterization. ENCOUNTER: Initial ACUITY: 1 day PAIN SCORE: 3/10 LOCATION: Bilateral arm. FINDINGS: RIGHT UPPER EXTREMITY: Occlusive thrombus is identified in the basilic vein. There is spontaneous flow documented in the brachial, cephalic, axillary, and subclavian veins. The vessels are compressible and augmentation response is documented. No other filling defects are seen. The flow is phasic with respiration. Direction of flow in the jugular vein is caudal. LEFT UPPER EXTREMITY: Intraluminal filling defects with loss of flow and compressibility is identified in the brachial, bas ilic,, cephalic radial and ulnar veins. There is spontaneous flow documented in the axillary, and subclavian veins. These vessels are co mpressible and augmentation response is documented. No filling defects are seen proximal to the brac hial vein. The flow is phasic with respiration. Direction of flow in the jugular vein is caudal. CONCLUSION: 1. DVT in the left upper extremity involving the brachial vein. 2. Bilateral superficial venous thrombosis as described. 3. No evidence of DVT in the right upper extremity. Willy Gutierrez MD on October 15, 2016 at 20:20 Board Certified Radiologist. This report was verified electronically.
[2016-10-16] VITALS (24 sets, daily range): BP systolic 98–164; BP diastolic 52–73; PULSE 58–86; RESP 18–28; TEMP 98.4–99.8; O2SAT 92–100
[2016-10-16] MEDS: metroNIDAZOLE 500 MG INJ 100 ML IV SCH ×4 (00:21→17:27)
[2016-10-16] MEDS: ENOXAPARIN SODIUM 40 MG/0.4 ML SYRINGE SQ SCH (00:22)
[2016-10-16] MEDS: MORPHINE SULFATE 4 MG/ML INJ IV PUSH PRN ×8 (00:22→22:18)
[2016-10-16] MEDS: CHLORHEXIDINE GLUCONATE 2 % 1 PACK (2 CLOTHS) TOP SCH (04:00)
[2016-10-16] MEDS: RESP: ALBUTEROL 2.5 MG/IPRATROPIUM 0.5 MG NEB (SCH) NEB ×4 (04:04→22:59)
[2016-10-16] MEDS: CEFEPIME INJ 2,000 MG in SODIUM CHLORIDE 0.9% INJ 100 ML IV SCH (04:27)
[2016-10-16] MEDS: VANCOMYCIN 1,500 MG/NS 500 ML IV SCH ×6 (05:12→21:26)
[2016-10-16 06:07] LABS: HEMATOCRIT 30.6 % (35.0-46.0); MEAN CELL VOLUME 86.8 FL (80.0-100.0); MEAN CORPUSCULAR HEMOGLOBIN 28.4 PG (27.0-34.0); MEAN CORPUSCULAR HGB CONC 32.8 % (32.0-36.0); PLATELET COUNT 347 TH/MM3 (150-450); RED BLOOD COUNT 3.53 MIL/MM3 (4.00-5.30); RED CELL DISTRIBUTION WIDTH 16.5 % (11.6-17.2); REVIEW FLAG FINAL; WHITE BLOOD COUNT 5.8 TH/MM3 (4.0-11.0)
[2016-10-16 06:51] LABS: POTASSIUM 2.3 MEQ/L (3.5-5.1)
[2016-10-16] MEDS ORDERED: ENOXAPARIN SODIUM 60 MG/0.6 ML SYRINGE SQ SCH (07:00)
[2016-10-16] MEDS: CHLORHEXIDINE 0.12% (ORAL KIT) 15 ML CUP MT SCH ×2 (08:00→20:00)
[2016-10-16] MEDS: FAMOTIDINE 20 MG TAB PO SCH ×2 (08:01→20:24)
[2016-10-16] MEDS: ASPIRIN 81 MG CHEW TAB CHEW SCH (08:01)
[2016-10-16] MEDS: POTASSIUM CHLOR 20 MEQ PREMIX 100 ML IV PRN ×3 (08:02→21:27)
[2016-10-16] MEDS: POTASSIUM CHLORIDE 25 MEQ EFFERVESCENT TAB PO PRN ×2 (08:02→21:26)
[2016-10-16] MEDS: DOCUSATE SODIUM 50 MG/SENNA 8.6 MG TAB PO SCH ×2 (08:40→20:24)
--- NOTE | 2016-10-16 10:45 | HHI.PR ---
Subjective Remarks Patient reports she is feeling much better. Breathing status improving. Stable on nasal cannula. Potassium low this morning. Objective Vitals Vital Signs Date Time Temp Pulse Resp B/P (MAP) Pulse Ox O2 Delivery O2 Flow Rate FiO2 10/16/16 10:03 63 10/16/16 10:02 100 Nasal Cannula 3.00 10/16/16 09:00 67 22 164/73 (103) 100 10/16/16 08:34 98.4 73 18 143/70 (94) 97 10/16/16 08:00 86 10/16/16 07:01 76 22 162/70 (100) 99 10/16/16 06:00 66 10/16/16 04:47 19 10/16/16 04:00 68 10/16/16 04:00 98.9 68 25 139/67 (91) 94 10/16/16 02:00 66 10/16/16 00:00 99.8 71 25 130/64 (86) 92 10/16/16 00:00 71 10/15/16 22:00 80 10/15/16 20:30 100 Nasal Cannula 3.00 10/15/16 20:00 68 10/15/16 20:00 101.1 68 24 156/72 (100) 98 10/15/16 18:48 71 10/15/16 18:00 81 23 106/51 (69) 99 10/15/16 17:00 71 24 121/63 (82) 95 10/15/16 16:00 98.8 70 24 120/70 (87) 96 10/15/16 16:00 70 10/15/16 15:00 65 22 134/66 (88) 97 10/15/16 15:00 65 22 134/66 (88) 97 10/15/16 14:44 100 Nasal Cannula 3 10/15/16 14:44 100 Nasal Cannula 3.00 10/15/16 14:00 59 11 112/63 (79) 99 10/15/16 14:00 68 10/15/16 13:01 93 30 160/110 (127) 100 10/15/16 12:00 35 10/15/16 12:00 98.7 65 22 141/68 (92) 100 10/15/16 12:00 68 10/15/16 11:02 100 35 8/21/17 11:01 76 33 138/84 (102) 100 I/O 10/15/16 10/15/16 10/15/16 10/16/16 10/16/16 10/16/16 07:00 15:00 23:00 07:00 15:00 23:00 Intake Total 1928 ml 1178 ml 2437 ml Output Total 1975 ml 1150 ml 1750 ml Balance -47 ml 28 ml 687 ml Intake Oral 480 ml IV Total 1700 ml 1095 ml 1957 ml Tube Feeding 128 ml 23 ml Other 100 ml 60 ml Output Urine Total 1975 ml 1150 ml 1750 ml # Bowel Movements 1 2 0 Result Diagram: 10/16/16 0542 10/16/16 0542 Imaging Last Impressions Chest X-Ray 10/15/16 0600 Signed Impressions: Service Date/Time: Saturday, October 15, 2016 03:26 - CONCLUSION: Endotracheal tube and nasogastric tube in good position. Stable basilar airspace disease. Bhaarth Correa MD Head CT 10/12/16 2153 Signed Impressions: Service Date/Time: Wednesday, October 12, 2016 22:55 - CONCLUSION: 1. No acute findings. No significant change from September 28. Bharath Correa MD Chest CT 10/12/16 0000 Signed Impressions: Service Date/Time: Wednesday, October 12, 2016 22:59 - CONCLUSION: 1. Dense consolidation in the right lower lobe and patchy airspace disease in other lobes most characteristic of bronchopneumonia. Aspiration could give this appearance. Trace right pleural fluid. Bharath Correa MD Objective Remarks GENERAL: This is a well-nourished, well-developed patient, in no apparent distress. CARDIOVASCULAR: Normal rate and regular rhythm without murmurs, gallops, or rubs. RESPIRATORY: Good respiratory efforts. Diffuse rhonchi throughout. GASTROINTESTINAL: Abdomen soft, non-tender, non-distended. Normal active bowel sounds MUSCULOSKELETAL: Extremities without cyanosis, or edema. NEURO: Alert & Oriented x4 to person, place, time, situation. Moves all ext x4 PSYCH: Appropriate mood and affect. Date of Insertion: Oct 12, 2016 A/P Problem List: (1) Acute hypoxemic respiratory failure ICD Code: J96.01 - Acute respiratory failure with hypoxia Status: Acute (2) Pneumonia ICD Code: J18.9 - Pneumonia, unspecified organism Status: Acute (3) Encephalopathy, metabolic ICD Code: G93.41 - Metabolic encephalopathy Status: Acute (4) Rhabdomyolysis ICD Code: M62.82 - Rhabdomyolysis Status: Acute (5) Deep vein thrombosis (DVT) of upper extremity ICD Code: I82.629 - Acute embolism and thrombosis of deep veins of unspecified upper extremity Assessment and Plan 56-year-old female admitted with pneumonia and respiratory failure. Patient is status post intubation and extubation in the ICU. She also has resolving rhabdomyolysis and upper extremity DVTs. Hypoxemic, hypercapneic respiratory failure. - Improving. Continue breathing treatments, incentive spirometry. Treat pneumonia. RLL, RML pneumonia. Could be aspiration. - ID following Dr. العلي Continue antibiotics vancomycin and cefepime Follow up sputum culture and blood cultures Rhabdomyolysis: Resolved. Encephalopathy, metabolic. Secondary to excessive narcotic use and respiratory failure. Resolved. Patient was counseled. Upper extremity DVT: Patient was started on Lovenox 1 mg/kg every 12 hours. Transition to Xarelto. Hypokalemia: Replace and monitor. Prophylaxis: GI Prophylaxis Pepcid DVT Prophylaxis -- SCDs Lovenox Discharge Planning Transfer to [facility]. Problem Qualifiers (1) Pneumonia: Ernestina Locke MD Oct 16, 2016 10:45
--- NOTE | 2016-10-16 15:42 | HHI.IDPN ---
Subjective Subjective Remarks 56 y/o F admitted with decreased LOC. Drug screen (+) opiates and cannabinoids. Tried on BIPAP, failed, required intubation. CXR with RLL PNA and some infiltrates on L side Notes reviewed Temps better overnight Extubated, doing well On nasal O2 Sputum with Staph aureus no final ID yet Not SOB BP ok Antibiotics Vancomycin Cefepime Past Medical History 1. Significant for CAD, previous [place], cardiac catheterization with stent placement. 2. CVA. 3. Migraine headaches. 4. Alcohol abuse in the past. 5. Left wrist surgery. Allergies: Coded Allergies: codeine (Unverified Allergy, Severe, Rash, 10/12/16) penicillin G (Unverified Allergy, Severe, SWELLING, 10/12/16) prochlorperazine (Unverified Allergy, Severe, SWELLING, 10/12/16) Objective . Vital Signs Date Time Temp Pulse Resp B/P (MAP) Pulse Ox O2 Delivery O2 Flow Rate FiO2 10/16/16 14:00 81 10/16/16 12:00 98.6 79 19 98/52 (67) 96 10/16/16 12:00 79 10/16/16 11:00 72 21 136/70 (92) 96 10/16/16 10:03 63 10/16/16 10:02 100 Nasal Cannula 3.00 10/16/16 10:01 63 21 126/59 (81) 99 10/16/16 09:00 67 22 164/73 (103) 100 10/16/16 08:34 98.4 73 18 143/70 (94) 97 10/16/16 08:00 86 10/16/16 07:01 76 22 162/70 (100) 99 10/16/16 06:00 66 10/16/16 04:47 19 10/16/16 04:00 68 10/16/16 04:00 98.9 68 25 139/67 (91) 94 10/16/16 02:00 66 10/16/16 00:00 99.8 71 25 130/64 (86) 92 10/16/16 00:00 71 10/15/16 22:00 80 10/15/16 20:30 100 Nasal Cannula 3.00 10/15/16 20:00 68 10/15/16 20:00 101.1 68 24 156/72 (100) 98 10/15/16 18:48 71 10/15/16 18:00 81 23 106/51 (69) 99 10/15/16 17:00 71 24 121/63 (82) 95 10/15/16 16:00 98.8 70 24 120/70 (87) 96 10/15/16 16:00 70 10/16/16 10/16/16 10/17/16 15:00 23:00 07:00 Intake Total 300 ml Output Total 400 ml Balance -100 ml IV Total 300 ml Output Urine Total 400 ml # Voids 3 . Laboratory Tests Test 10/15/16 04:59 10/16/16 05:42 White Blood Count 5.5 TH/MM3 5.8 TH/MM3 Red Blood Count 3.73 MIL/MM3 3.53 MIL/MM3 Hemoglobin 10.7 GM/DL 10.0 GM/DL Hematocrit 32.3 % 30.6 % Mean Corpuscular Volume 86.7 FL 86.8 FL Mean Corpuscular Hemoglobin 28.7 PG 28.4 PG Mean Corpuscular Hemoglobin Concent 33.1 % 32.8 % Red Cell Distribution Width 16.6 % 16.5 % Platelet Count 362 TH/MM3 347 TH/MM3 Mean Platelet Volume 6.5 FL 6.4 FL Neutrophils (%) (Auto) 72.9 % Lymphocytes (%) (Auto) 13.2 % Monocytes (%) (Auto) 13.1 % Eosinophils (%) (Auto) 0.2 % Basophils (%) (Auto) 0.6 % Neutrophils # (Auto) 4.0 TH/MM3 Lymphocytes # (Auto) 0.7 TH/MM3 Monocytes # (Auto) 0.7 TH/MM3 Eosinophils # (Auto) 0.0 TH/MM3 Basophils # (Auto) 0.0 TH/MM3 CBC Comment DIFF FINAL Differential Comment Laboratory Tests Test 10/14/16 18:35 10/15/16 04:59 10/16/16 05:42 Potassium Level 4.1 MEQ/L 3.0 MEQ/L 2.3 MEQ/L Blood Urea Nitrogen 2 MG/DL 2 MG/DL Creatinine 0.28 MG/DL 0.20 MG/DL Random Glucose 107 MG/DL 109 MG/DL Calcium Level 7.6 MG/DL 7.6 MG/DL Phosphorus Level 1.1 MG/DL Magnesium Level 1.9 MG/DL Sodium Level 138 MEQ/L 138 MEQ/L Chloride Level 105 MEQ/L 101 MEQ/L Carbon Dioxide Level 23.1 MEQ/L 27.0 MEQ/L Anion Gap 10 MEQ/L 10 MEQ/L Estimat Glomerular Filtration Rate 251 ML/MIN 370 ML/MIN Total Creatine Kinase 528 U/L 228 U/L Creatine Kinase MB 5.5 NG/ML 2.0 NG/ML Creatine Kinase MB % 1.0 % 0.9 % Microbiology Date/Time Source Procedure Growth Status 10/13/16 23:48 Blood Peripheral Aerobic Blood Culture - Preliminary NO GROWTH IN 2 DAYS Resulted 10/13/16 23:48 Blood Peripheral Anaerobic Blood Culture - Preliminary NO GROWTH IN 2 DAYS Resulted 10/13/16 23:42 Blood Peripheral Aerobic Blood Culture - Preliminary NO GROWTH IN 2 DAYS Resulted 10/13/16 23:42 Blood Peripheral Anaerobic Blood Culture - Preliminary NO GROWTH IN 2 DAYS Resulted 10/14/16 04:15 Sputum Endotracheal Gram Stain - Final Resulted 10/14/16 04:15 Sputum Culture - Preliminary Staphylococcus Aureus Resulted Imaging Chest X-Ray 10/15/16 0600 Signed Impressions: Service Date/Time: Saturday, October 15, 2016 03:26 - CONCLUSION: Endotracheal tube and nasogastric tube in good position. Stable basilar airspace disease. Bharath Correa MD Chest X-Ray 10/14/16 06 Signed Impressions: Service Date/Time: Friday, October 14, 2016 03:34 - CONCLUSION: 1. Persistent airspace disease in the right lower lung. This may actually be slightly worse when compared to prior. 2. Left lung is clear. Heart size is normal. 3. Stable position of life support tubes. Yazan Low MD Head CT 10/12/163 Signed Impressions: Service Date/Time: Wednesday, October 12, 2016 22:55 - CONCLUSION: 1. No acute findings. No significant change from September 4. Bharath Correa MD Chest CT 10/12/16 0000 Signed Impressions: Service Date/Time: Wednesday, October 12, 2016 22:59 - CONCLUSION: 1. Dense consolidation in the right lower lobe and patchy airspace disease in other lobes most characteristic of bronchopneumonia. Aspiration could give this appearance. Trace right pleural fluid. Bharath Correa MD Physical Exam CONSTITUTIONAL: Awake and alert, NAD SKIN: Warm and dry. No generalized rash noted. HEAD: Normocephalic, atraumatic head with no temporal wasting. EYES: [place] conjunctivae, no petechiae or subconjunctival hemorrhage. No scleral icterus. No conjunctival injection. No drainage noted. EARS, NOSE, AND THROAT: She has no evidence of nasal drainage or septal deviation. No sinus tenderness. Moist oral mucosa NECK: Trachea midline, supple, nontender. No lymphadenopathy. CHEST: Scattered rhonchi CARDIAC: Regular, but limited due to the diffuse rhonchi. ABDOMEN: Bowel sounds are present and normoactive. Soft, not distended. No tenderness on palpation. No guarding or rebound. No organomegaly. EXTREMITIES: Warm and well perfused. No cyanosis or clubbing noted. No calf tenderness. NEUROLOGIC: Non-focal PSYCHIATRIC: She is awake, calm, cooperative. GENITOURINARY: Blum catheter is in place. Urine is clear. Lines, she has PIV with no evidence of infection. Assessment & Plan Remarks IMPRESSION: Sepsis syndrome on admission due to pneumonia, could be aspiration due to decreased level of consciousness. - She has positive opiates and cannabinoids on her drug screen on this admission. Right lower lobe pneumonia. Possibly aspiration, came from the community, - last hospitalization September 28 to October 02. Respiratory failure. Abnormal LFTs. RECOMMENDATIONS: Continue vancomycin. Stop Cefepime and change to Levaquin Follow C/S and adjust Abx Monitor progress Beti العلي MD Oct 16, 2016 15:42
[2016-10-16] MEDS: LEVOFLOXACIN 750 MG TAB PO SCH (17:26)
[2016-10-16] MEDS: ACETAMINOPHEN 325 MG TAB PO PRN (17:27)
[2016-10-16] MEDS: RIVAROXABAN 15 MG TAB PO SCH (20:24)
[2016-10-16] MEDS ORDERED: PHARMACY ORDERED LAB ONE (20:45)
[2016-10-17] VITALS (12 sets, daily range): BP systolic 124–144; BP diastolic 62–84; PULSE 64–87; RESP 16–27; TEMP 98.7–100.4; O2SAT 91–95
[2016-10-17] MEDS: POTASSIUM CHLOR 20 MEQ PREMIX 100 ML IV PRN (00:17)
[2016-10-17] MEDS: metroNIDAZOLE 500 MG INJ 100 ML IV SCH ×4 (00:18→18:01)
[2016-10-17] MEDS: POTASSIUM CHLORIDE 25 MEQ EFFERVESCENT TAB PO PRN (01:30)
[2016-10-17] MEDS: MORPHINE SULFATE 4 MG/ML INJ IV PUSH PRN ×7 (02:22→21:58)
[2016-10-17] MEDS: CHLORHEXIDINE GLUCONATE 2 % 1 PACK (2 CLOTHS) TOP SCH (04:00)
[2016-10-17] MEDS: RESP: ALBUTEROL 2.5 MG/IPRATROPIUM 0.5 MG NEB (SCH) NEB ×4 (04:22→19:54)
[2016-10-17] MEDS: CHLORHEXIDINE 0.12% (ORAL KIT) 15 ML CUP MT SCH ×2 (08:00→20:00)
[2016-10-17 08:32] LABS: HEMATOCRIT 31.3 % (35.0-46.0); MEAN CELL VOLUME 87.4 FL (80.0-100.0); MEAN CORPUSCULAR HEMOGLOBIN 28.3 PG (27.0-34.0); MEAN CORPUSCULAR HGB CONC 32.3 % (32.0-36.0); PLATELET COUNT 357 TH/MM3 (150-450); RED BLOOD COUNT 3.58 MIL/MM3 (4.00-5.30); RED CELL DISTRIBUTION WIDTH 16.8 % (11.6-17.2); REVIEW FLAG FINAL; WHITE BLOOD COUNT 7.6 TH/MM3 (4.0-11.0)
[2016-10-17 08:52] LABS: BICARBONATE 26.8 MEQ/L (21.0-32.0); POTASSIUM 3.6 MEQ/L (3.5-5.1)
[2016-10-17] MEDS ORDERED: VANCOMYCIN 1,500 MG/NS 500 ML IV SCH ×2 (09:00)
[2016-10-17] MEDS: ASPIRIN 81 MG CHEW TAB CHEW SCH (09:08)
[2016-10-17] MEDS: FAMOTIDINE 20 MG TAB PO SCH ×2 (09:09→21:58)
[2016-10-17] MEDS: DOCUSATE SODIUM 50 MG/SENNA 8.6 MG TAB PO SCH ×2 (09:09→21:00)
[2016-10-17] MEDS: RIVAROXABAN 15 MG TAB PO SCH ×2 (09:09→21:58)
--- NOTE | 2016-10-17 12:50 | HHI.PR ---
Subjective Remarks Patient reports feeling very weak today. Still coughing a lot. Shortness of breath has improved. Objective Vitals Vital Signs Date Time Temp Pulse Resp B/P (MAP) Pulse Ox O2 Delivery O2 Flow Rate FiO2 10/17/16 12:01 98.8 64 18 140/78 (98) 95 10/17/16 11:21 93 10/17/16 08:01 71 10/17/16 08:00 100.4 82 18 129/62 (84) 91 10/17/16 04:24 92 21 10/17/16 03:00 100.2 80 18 124/76 (92) 91 10/17/16 02:27 16 10/17/16 02:00 76 10/17/16 00:00 98.9 74 27 138/68 (91) 91 10/17/16 00:00 74 10/16/16 22:00 67 10/16/16 21:28 92 21 10/16/16 20:00 68 10/16/16 20:00 98.8 68 21 114/57 (76) 95 10/16/16 18:00 66 10/16/16 18:00 66 26 96 10/16/16 17:00 58 20 115/54 (74) 99 10/16/16 16:01 98.9 60 23 144/70 (94) 99 10/16/16 16:00 60 10/16/16 15:00 65 22 121/61 (81) 98 10/16/16 14:58 69 25 119/67 (84) 98 10/16/16 14:00 81 10/16/16 14:00 81 28 93 10/16/16 13:00 67 22 139/63 (88) 97 I/O 10/16/16 10/16/16 10/16/16 10/17/16 10/17/16 10/17/16 07:00 15:00 23:00 07:00 15:00 23:00 Intake Total 2537 ml 300 ml 1830 ml 2000 ml Output Total 1750 ml 400 ml 375 ml 500 ml Balance 787 ml -100 ml 1455 ml 1500 ml Intake Oral 480 ml 700 ml 240 ml IV Total 2057 ml 300 ml 1130 ml 1760 ml Output Urine Total 1750 ml 400 ml 375 ml 500 ml # Voids 3 3 9 # Bowel Movements 0 1 Result Diagram: 10/17/1631 10/17/16 0631 Objective Remarks GENERAL: This is a well-nourished, well-developed patient, in no apparent distress. CARDIOVASCULAR: Normal rate and regular rhythm without murmurs, gallops, or rubs. RESPIRATORY: Good respiratory efforts. Faint rhonchi throughout. GASTROINTESTINAL: Abdomen soft, non-tender, non-distended. Normal active bowel sounds MUSCULOSKELETAL: Extremities without cyanosis, or edema. NEURO: Alert & Oriented x4 to person, place, time, situation. Moves all ext x4 PSYCH: Appropriate mood and affect. Date of Insertion: Oct 12, 2016 A/P Problem List: (1) Acute hypoxemic respiratory failure ICD Code: J96.01 - Acute respiratory failure with hypoxia Status: Acute (2) Pneumonia ICD Code: J18.9 - Pneumonia, unspecified organism Status: Acute (3) Encephalopathy, metabolic ICD Code: G93.41 - Metabolic encephalopathy Status: Acute (4) Rhabdomyolysis ICD Code: M62.82 - Rhabdomyolysis Status: Acute (5) Deep vein thrombosis (DVT) of upper extremity ICD Code: I82.629 - Acute embolism and thrombosis of deep veins of unspecified upper extremity Assessment and Plan 56-year-old female admitted with pneumonia and respiratory failure. Patient is status post intubation and extubation in the ICU. She also has resolving rhabdomyolysis and upper extremity DVTs. Hypoxemic, hypercapneic respiratory failure. - Improving. Continue breathing treatments, incentive spirometry. Treat pneumonia. RLL, RML pneumonia. Could be aspiration. - ID following Dr. العلي Continue antibiotics vancomycin and Levaquin Follow up sputum culture and blood cultures Rhabdomyolysis: Resolved. Encephalopathy, metabolic. Secondary to excessive narcotic use and respiratory failure. Resolved. Patient was counseled. Upper extremity DVT: Patient was initially started on Lovenox 1 mg/kg every 12 hours. Transition to Xarelto. Hypokalemia: Replace and monitor. Prophylaxis: GI Prophylaxis Pepcid DVT Prophylaxis -- SCDs Lovenox Discharge Planning Possible discharge tomorrow with home health. Problem Qualifiers (1) Pneumonia: Ernestina Locke MD Oct 17, 2016 12:50
[2016-10-17] MEDS: ACETAMINOPHEN 325 MG TAB PO PRN (14:18)
--- NOTE | 2016-10-17 14:40 | HHI.IDPN ---
Subjective Subjective Remarks 56 y/o F admitted with decreased LOC. Drug screen (+) opiates and cannabinoids. Tried on BIPAP, failed, required intubation. CXR with RLL PNA and some infiltrates on L side Notes reviewed Low grade temps last night Breathing is better, on RA Still weak, but ambulating to the bathroom Blum out, voiding ok Sputum with MSSA Antibiotics Vancomycin Levaquin Lines PIV Past Medical History 1. Significant for CAD, previous [place], cardiac catheterization with stent placement. 2. CVA. 3. Migraine headaches. 4. Alcohol abuse in the past. 5. Left wrist surgery. Allergies: Coded Allergies: codeine (Unverified Allergy, Severe, Rash, 10/12/16) penicillin G (Unverified Allergy, Severe, SWELLING, 10/12/16) prochlorperazine (Unverified Allergy, Severe, SWELLING, 10/12/16) Objective . Vital Signs Date Time Temp Pulse Resp B/P (MAP) Pulse Ox O2 Delivery O2 Flow Rate FiO2 10/17/16 12:01 98.8 64 18 140/78 (98) 95 10/17/16 11:21 93 10/17/16 08:01 71 10/17/16 08:00 100.4 82 18 129/62 (84) 91 10/17/16 04:24 92 21 10/17/16 03:00 100.2 80 18 124/76 (92) 91 10/17/16 02:27 16 10/17/16 02:00 76 10/17/16 00:00 98.9 74 27 138/68 (91) 91 10/17/16 00:00 74 10/16/16 22:00 67 10/16/16 21:28 92 21 10/16/16 20:00 68 10/16/16 20:00 98.8 68 21 114/57 (76) 95 10/16/16 18:00 66 10/16/16 18:00 66 26 96 10/16/16 17:00 58 20 115/54 (74) 99 10/16/16 16:01 98.9 60 23 144/70 (94) 99 10/16/16 16:00 60 10/16/16 15:00 65 22 121/61 (81) 98 10/16/16 14:58 69 25 119/67 (84) 98 . Laboratory Tests Test 10/16/16 05:42 10/17/16 06:31 White Blood Count 5.8 TH/MM3 7.6 TH/MM3 Red Blood Count 3.53 MIL/MM3 3.58 MIL/MM3 Hemoglobin 10.0 GM/DL 10.1 GM/DL Hematocrit 30.6 % 31.3 % Mean Corpuscular Volume 86.8 FL 87.4 FL Mean Corpuscular Hemoglobin 28.4 PG 28.3 PG Mean Corpuscular Hemoglobin Concent 32.8 % 32.3 % Red Cell Distribution Width 16.5 % 16.8 % Platelet Count 347 TH/MM3 357 TH/MM3 Mean Platelet Volume 6.4 FL 6.9 FL Laboratory Tests Test 10/16/16 05:42 10/16/16 19:24 10/17/16 06:31 Blood Urea Nitrogen 2 MG/DL 2 MG/DL Creatinine 0.20 MG/DL 0.19 MG/DL Random Glucose 109 MG/DL 105 MG/DL Calcium Level 7.6 MG/DL 8.1 MG/DL Sodium Level 138 MEQ/L 135 MEQ/L Potassium Level 2.3 MEQ/L 2.9 MEQ/L 3.6 MEQ/L Chloride Level 101 MEQ/L 99 MEQ/L Carbon Dioxide Level 27.0 MEQ/L 26.8 MEQ/L Anion Gap 10 MEQ/L 9 MEQ/L Estimat Glomerular Filtration Rate 370 ML/MIN 393 ML/MIN Total Creatine Kinase 228 U/L Creatine Kinase MB 2.0 NG/ML Creatine Kinase MB % 0.9 % Imaging Chest X-Ray 10/15/16 06 Signed Impressions: Service Date/Time: Saturday, October 15, 2016 03:26 - CONCLUSION: Endotracheal tube and nasogastric tube in good position. Stable basilar airspace disease. Bharath Correa MD Chest X-Ray 10/14/16 0600 Signed Impressions: Service Date/Time: Friday, October 14, 2016 03:34 - CONCLUSION: 1. Persistent airspace disease in the right lower lung. This may actually be slightly worse when compared to prior. 2. Left lung is clear. Heart size is normal. 3. Stable position of life support tubes. Yazan Low MD Head CT 10/12/16 3676 Signed Impressions: Service Date/Time: Wednesday, October 12, 2016 22:55 - CONCLUSION: 1. No acute findings. No significant change from September 28. Bharath Correa MD Chest CT 10/12/16 0000 Signed Impressions: Service Date/Time: Wednesday, October 12, 2016 22:59 - CONCLUSION: 1. Dense consolidation in the right lower lobe and patchy airspace disease in other lobes most characteristic of bronchopneumonia. Aspiration could give this appearance. Trace right pleural fluid. Bharath Correa MD Physical Exam CONSTITUTIONAL: Awake and alert, NAD. Up in chair SKIN: Warm and dry. No generalized rash noted. EYES: [place] conjunctivae, no petechiae or subconjunctival hemorrhage. No scleral icterus. No conjunctival injection. No drainage noted. EARS, NOSE, AND THROAT: She has no evidence of nasal drainage or septal deviation. No sinus tenderness. Moist oral mucosa NECK: Trachea midline, supple, nontender. No lymphadenopathy. CHEST: Few scattered rhonchi CARDIAC: Regular, but limited due to the diffuse rhonchi. ABDOMEN: Bowel sounds are present and normoactive. Soft, not distended. No tenderness on palpation. No guarding or rebound. No organomegaly. EXTREMITIES: Warm and well perfused. No cyanosis or clubbing noted. No calf tenderness. NEUROLOGIC: Non-focal PSYCHIATRIC: She is awake, calm, cooperative. Lines, she has PIV with no evidence of infection. Has some ecchymoses in previous IV sites in her LUE Assessment & Plan Remarks IMPRESSION: Sepsis syndrome on admission due to pneumonia, could be aspiration due to decreased level of consciousness. - She has positive opiates and cannabinoids on her drug screen on this admission. Right lower lobe pneumonia. Possibly aspiration, came from the community, C/S MSSA - last hospitalization September 28 to October 02. Respiratory failure. - doung well post extubation - on RA Abnormal LFTs. Low grade temps RECOMMENDATIONS: Stop vancomycin. Continue Levaquin CXR - fup UA and C/S If afebrile and nothing else on tests, should be able to D/C and give 7 mnore days Abx on D/C Monitor progress Explained plan to the patient D/W Dr Locke ([facility]) Beti العلي MD Oct 17, 2016 14:40
[2016-10-17] MEDS: LEVOFLOXACIN 750 MG TAB PO SCH (18:01)
[2016-10-17] MEDS ORDERED: PHARMACY ORDERED LAB ONE (20:45)
[2016-10-17 20:50] LABS: BLOOD, URINE NEG (NEG); COMMENT (UR) CULT NOT INDICATED; CULTURE IF INDICATED CULT NOT INDICATED; GLUCOSE,URINE NEG (NEG); KETONE, URINE 10 mg/dL (NEG); MUCUS URINE FEW /lpf (OCC); NITRITE,URINE NEG (NEG); PH, URINE 7.5 (5.0-8.5); SQUAMOUS EPITHELIAL CELL URINE 2 /hpf (0-5); URINE COLOR YELLOW (YELLW/STRAW)
[2016-10-18] VITALS (7 sets, daily range): BP systolic 111–139; BP diastolic 70–87; PULSE 62–137; RESP 16–18; TEMP 98.5–100.1; O2SAT 91–95
[2016-10-18] MEDS: metroNIDAZOLE 500 MG INJ 100 ML IV SCH ×3 (01:00→12:30)
[2016-10-18] MEDS: MORPHINE SULFATE 4 MG/ML INJ IV PUSH PRN ×8 (01:00→22:51)
[2016-10-18] MEDS: CHLORHEXIDINE GLUCONATE 2 % 1 PACK (2 CLOTHS) TOP SCH (03:20)
[2016-10-18 07:21] LABS: HEMATOCRIT 33.8 % (35.0-46.0); MEAN CELL VOLUME 87.2 FL (80.0-100.0); MEAN CORPUSCULAR HEMOGLOBIN 28.8 PG (27.0-34.0); MEAN CORPUSCULAR HGB CONC 33.1 % (32.0-36.0); PLATELET COUNT 330 TH/MM3 (150-450); RED BLOOD COUNT 3.88 MIL/MM3 (4.00-5.30); RED CELL DISTRIBUTION WIDTH 16.5 % (11.6-17.2); REVIEW FLAG FINAL; WHITE BLOOD COUNT 7.4 TH/MM3 (4.0-11.0)
[2016-10-18] MEDS: CHLORHEXIDINE 0.12% (ORAL KIT) 15 ML CUP MT SCH ×2 (08:00→19:53)
[2016-10-18 08:10] LABS: BICARBONATE 27.3 MEQ/L (21.0-32.0); POTASSIUM 3.1 MEQ/L (3.5-5.1)
[2016-10-18] MEDS: RIVAROXABAN 15 MG TAB PO SCH ×2 (09:51→19:48)
[2016-10-18] MEDS: FAMOTIDINE 20 MG TAB PO SCH ×2 (09:52→19:48)
[2016-10-18] MEDS: DOCUSATE SODIUM 50 MG/SENNA 8.6 MG TAB PO SCH ×2 (09:52→19:48)
[2016-10-18] MEDS: ASPIRIN 81 MG CHEW TAB CHEW SCH (09:52)
--- NOTE | 2016-10-18 10:33 | RADRPT ---
EXAM DATE/TIME: 10/18/2016 10:04 [facility] COMPARISON: CHEST SINGLE AP, October 15, 2016, 3:26. INDICATIONS : Follow up pneumonia. MEDICAL HISTORY : Chronic obstructive pulmonary disease. TIA SURGICAL HISTORY : None. ENCOUNTER: Initial ACUITY: 4 - 6 days PAIN SCORE: 0/10 LOCATION: Bilateral chest FINDINGS: Right mid and lower lung infiltrate is present with a tiny right pleural effusion. The pleural effusi on was not present previously, however infiltrates have not changed. The rest of the examination has not significantly changed. CONCLUSION: No change in right lung infiltrate, however a tiny pleural effusion has developed. Ange Sheriff MD on October 18, 2016 at 10:31 Board Certified Radiologist. This report was verified electronically.
--- NOTE | 2016-10-18 12:20 | HHI.IDPN ---
Subjective Subjective Remarks 56 y/o F admitted with decreased LOC. Drug screen (+) opiates and cannabinoids. Tried on BIPAP, failed, required intubation. CXR with RLL PNA and some infiltrates on L side Notes reviewed One low grade temps Feels better Repeat CXR stable UA ok Antibiotics Levaquin Lines PIV Past Medical History 1. Significant for CAD, previous [place], cardiac catheterization with stent placement. 2. CVA. 3. Migraine headaches. 4. Alcohol abuse in the past. 5. Left wrist surgery. Allergies: Coded Allergies: codeine (Unverified Allergy, Severe, Rash, 10/12/16) penicillin G (Unverified Allergy, Severe, SWELLING, 10/12/16) prochlorperazine (Unverified Allergy, Severe, SWELLING, 10/12/16) Objective . Vital Signs Date Time Temp Pulse Resp B/P (MAP) Pulse Ox O2 Delivery O2 Flow Rate FiO2 10/18/16 08:02 99.2 137 16 111/84 (93) 92 10/18/16 04:37 100.1 77 18 133/87 (102) 95 10/17/16 23:36 99.4 83 16 138/84 (102) 91 10/17/16 20:22 99.1 67 16 144/81 (102) 93 10/17/16 20:00 87 10/17/16 16:00 98.7 66 18 128/83 (98) 93 . Laboratory Tests Test 10/17/16 06:31 10/18/16 06:49 White Blood Count 7.6 TH/MM3 7.4 TH/MM3 Red Blood Count 3.58 MIL/MM3 3.88 MIL/MM3 Hemoglobin 10.1 GM/DL 11.2 GM/DL Hematocrit 31.3 % 33.8 % Mean Corpuscular Volume 87.4 FL 87.2 FL Mean Corpuscular Hemoglobin 28.3 PG 28.8 PG Mean Corpuscular Hemoglobin Concent 32.3 % 33.1 % Red Cell Distribution Width 16.8 % 16.5 % Platelet Count 357 TH/MM3 330 TH/MM3 Mean Platelet Volume 6.9 FL 7.3 FL Laboratory Tests Test 10/16/16 19:24 10/17/16 06:31 10/18/16 06:49 Potassium Level 2.9 MEQ/L 3.6 MEQ/L 3.1 MEQ/L Blood Urea Nitrogen 2 MG/DL 3 MG/DL Creatinine 0.19 MG/DL 0.25 MG/DL Random Glucose 105 MG/DL 111 MG/DL Calcium Level 8.1 MG/DL 8.5 MG/DL Sodium Level 135 MEQ/L 136 MEQ/L Chloride Level 99 MEQ/L 97 MEQ/L Carbon Dioxide Level 26.8 MEQ/L 27.3 MEQ/L Anion Gap 9 MEQ/L 12 MEQ/L Estimat Glomerular Filtration Rate 393 ML/MIN 286 ML/MIN Imaging Chest X-Ray 10/15/16 06 Signed Impressions: Service Date/Time: Saturday, October 15, 2016 03:26 - CONCLUSION: Endotracheal tube and nasogastric tube in good position. Stable basilar airspace disease. Bharath Correa MD Chest X-Ray 10/14/16 06 Signed Impressions: Service Date/Time: Friday, October 14, 2016 03:34 - CONCLUSION: 1. Persistent airspace disease in the right lower lung. This may actually be slightly worse when compared to prior. 2. Left lung is clear. Heart size is normal. 3. Stable position of life support tubes. Yazan Low MD Head CT 10/12/162152 Signed Impressions: Service Date/Time: Wednesday, October 12, 2016 22:55 - CONCLUSION: 1. No acute findings. No significant change from September 4. Bharath Correa MD Chest CT 10/12/16 0000 Signed Impressions: Service Date/Time: Wednesday, October 12, 2016 22:59 - CONCLUSION: 1. Dense consolidation in the right lower lobe and patchy airspace disease in other lobes most characteristic of bronchopneumonia. Aspiration could give this appearance. Trace right pleural fluid. Bharath Correa MD Physical Exam CONSTITUTIONAL: Awake and alert, NAD. Up in chair SKIN: Warm and dry. No generalized rash noted. EYES: [place] conjunctivae, no petechiae or subconjunctival hemorrhage. No scleral icterus. No conjunctival injection. No drainage noted. EARS, NOSE, AND THROAT: She has no evidence of nasal drainage or septal deviation. No sinus tenderness. Moist oral mucosa NECK: Trachea midline, supple, nontender. No lymphadenopathy. CHEST: Few scattered rhonchi CARDIAC: Regular, but limited due to the diffuse rhonchi. ABDOMEN: Bowel sounds are present and normoactive. Soft, not distended. No tenderness on palpation. No guarding or rebound. No organomegaly. EXTREMITIES: Warm and well perfused. No cyanosis or clubbing noted. No calf tenderness. NEUROLOGIC: Non-focal PSYCHIATRIC: She is awake, calm, cooperative. Lines, she has PIV with no evidence of infection. Has some ecchymoses in previous IV sites in her LUE Assessment & Plan Remarks IMPRESSION: Sepsis syndrome on admission due to pneumonia, could be aspiration due to decreased level of consciousness. - resolved - She has positive opiates and cannabinoids on her drug screen on this admission. Right lower lobe pneumonia. Possibly aspiration, came from the community, C/S MSSA - last hospitalization September 28 to October 02. Respiratory failure. - doung well post extubation - on RA Abnormal LFTs. Low grade temps, improving RECOMMENDATIONS: Continue Levaquin - give Levaquin until Oct 23 She is clinically stable from ID standpoint I will sign off Please reconsult if with any new ID issue or question Beti العلي MD Oct 18, 2016 12:20
--- NOTE | 2016-10-18 15:04 | HHI.PR ---
Subjective Remarks Patient is very weak and deconditioned. She gets short of breath with minimal activities. She does not think she will be able to manage at home. Her is elderly and will not be able to help her. Objective Vitals Vital Signs Date Time Temp Pulse Resp B/P (MAP) Pulse Ox O2 Delivery O2 Flow Rate FiO2 10/18/16 12:02 98.5 115 16 126/70 (88) 94 10/18/16 08:02 99.2 137 16 111/84 (93) 92 10/18/16 04:37 100.1 77 18 133/87 (102) 95 10/17/16 23:36 99.4 83 16 138/84 (102) 91 10/17/16 20:22 99.1 67 16 144/81 (102) 93 10/17/16 20:00 87 10/17/16 16:00 98.7 66 18 128/83 (98) 93 I/O 10/17/16 10/17/16 10/17/16 10/18/16 10/18/16 10/18/16 06:59 14:59 22:59 06:59 14:59 22:59 Intake Total 2000 ml 600 ml 580 ml 580 ml Output Total 500 ml 475 ml 550 ml Balance 1500 ml 600 ml 105 ml 30 ml Intake Oral 240 ml 480 ml 480 ml IV Total 1760 ml 600 ml 100 ml 100 ml Output Urine Total 500 ml 475 ml 550 ml # Voids 9 # Bowel Movements 1 1 0 Result Diagram: 10/18/16 0649 10/18/16 0649 Objective Remarks GENERAL: This is a well-nourished, well-developed patient, in no apparent distress. CARDIOVASCULAR: Normal rate and regular rhythm without murmurs, gallops, or rubs. RESPIRATORY: Good respiratory efforts. Faint rhonchi throughout. GASTROINTESTINAL: Abdomen soft, non-tender, non-distended. Normal active bowel sounds MUSCULOSKELETAL: Extremities without cyanosis, or edema. NEURO: Alert & Oriented x4 to person, place, time, situation. Moves all ext x4 PSYCH: Appropriate mood and affect. Date of Insertion: Oct 12, 2016 A/P Problem List: (1) Acute hypoxemic respiratory failure ICD Code: J96.01 - Acute respiratory failure with hypoxia Status: Acute (2) Pneumonia ICD Code: J18.9 - Pneumonia, unspecified organism Status: Acute (3) Encephalopathy, metabolic ICD Code: G93.41 - Metabolic encephalopathy Status: Acute (4) Rhabdomyolysis ICD Code: M62.82 - Rhabdomyolysis Status: Acute (5) Deep vein thrombosis (DVT) of upper extremity ICD Code: I82.629 - Acute embolism and thrombosis of deep veins of unspecified upper extremity Assessment and Plan 56-year-old female admitted with pneumonia and respiratory failure. Patient is status post intubation and extubation in the ICU. She also has resolving rhabdomyolysis and upper extremity DVTs. Hypoxemic, hypercapneic respiratory failure. - Improving. Continue breathing treatments, incentive spirometry. Treat pneumonia. Patient encouraged to use incentive spirometry. She has a small pleural effusion. RLL, RML pneumonia. Could be aspiration. - ID following Dr. العلي Patient transition to oral Levaquin until 10/23/16. Rhabdomyolysis: Resolved. Encephalopathy, metabolic. Secondary to excessive narcotic use and respiratory failure. Resolved. Patient was counseled. Upper extremity DVT: Patient was initially started on Lovenox 1 mg/kg every 12 hours. Transitioned to Xarelto. Hypokalemia: Replace and monitor. Prophylaxis: GI Prophylaxis Pepcid DVT Prophylaxis -- SCDs Lovenox Discharge Planning Plan to discharge to longterm facility tomorrow. Discussed with case management. Will inquire if the patient has benefited [facility]. Problem Qualifiers (1) Pneumonia: Ernestina Locke MD Oct 18, 2016 15:04
[2016-10-18] MEDS: LEVOFLOXACIN 750 MG TAB PO SCH (16:27)
[2016-10-19] MEDS: MORPHINE SULFATE 4 MG/ML INJ IV PUSH PRN ×6 (01:56→15:32)
[2016-10-19] MEDS: CHLORHEXIDINE GLUCONATE 2 % 1 PACK (2 CLOTHS) TOP SCH (03:24)
[2016-10-19 04:18] VITALS: BP 140/96; PULSE 72; RESP 16; TEMP 99.3; O2SAT 96
[2016-10-19 05:31] LABS: HEMATOCRIT 31.8 % (35.0-46.0); MEAN CELL VOLUME 86.1 FL (80.0-100.0); MEAN CORPUSCULAR HEMOGLOBIN 28.6 PG (27.0-34.0); MEAN CORPUSCULAR HGB CONC 33.2 % (32.0-36.0); PLATELET COUNT 354 TH/MM3 (150-450); RED BLOOD COUNT 3.69 MIL/MM3 (4.00-5.30); RED CELL DISTRIBUTION WIDTH 16.4 % (11.6-17.2); REVIEW FLAG FINAL
[2016-10-19 06:01] LABS: BICARBONATE 29.3 MEQ/L (21.0-32.0)
[2016-10-19 06:09] LABS: POTASSIUM 2.8 MEQ/L (3.5-5.1)
[2016-10-19] MEDS ORDERED: POTASSIUM CHLORIDE 25 MEQ EFFERVESCENT TAB PO ONE (06:30)
[2016-10-19] MEDS: POTASSIUM CHLOR 20 MEQ PREMIX 100 ML IV SCH ×2 (06:50→08:33)
[2016-10-19] MEDS: CHLORHEXIDINE 0.12% (ORAL KIT) 15 ML CUP MT SCH (06:51)
[2016-10-19 08:00] VITALS: BP 145/81; PULSE 71; RESP 18; TEMP 99.1; O2SAT 92
[2016-10-19 08:16] VITALS: PULSE 75
[2016-10-19] MEDS: RIVAROXABAN 15 MG TAB PO SCH (08:34)
[2016-10-19] MEDS: ASPIRIN 81 MG CHEW TAB CHEW SCH (08:34)
[2016-10-19] MEDS: FAMOTIDINE 20 MG TAB PO SCH (08:34)
[2016-10-19] MEDS ORDERED: SERO200T PO (08:43)
[2016-10-19] MEDS ORDERED: TRAZ100T6 PO (08:43)
[2016-10-19 08:50] VITALS: O2SAT 92
[2016-10-19] MEDS: DOCUSATE SODIUM 50 MG/SENNA 8.6 MG TAB PO SCH (09:00)
[2016-10-19 12:00] VITALS: BP 136/70; PULSE 74; RESP 18; TEMP 98.7; O2SAT 90
[2016-10-19] MEDS ORDERED: LEVA750T9 PO (13:16)
[2016-10-19] MEDS ORDERED: XARE15TA PO (13:16)
[2016-10-19] MEDS ORDERED: ASPI81CH25 CHEW (13:16)
[2016-10-19] MEDS ORDERED: HYDR-3288 PO (13:16)
--- NOTE | 2016-10-19 13:17 | HHI.DS ---
Discharge Summary Admission Date Oct 13, 2016 at 00:01 Discharge Date: Oct 19, 2016 Admitting Diagnosis Pneumonia, Hypoxemia (1) Acute hypoxemic respiratory failure ICD Code: J96.01 - Acute respiratory failure with hypoxia Status: Acute (2) Pneumonia ICD Code: J18.9 - Pneumonia, unspecified organism Status: Acute (3) Encephalopathy, metabolic ICD Code: G93.41 - Metabolic encephalopathy Status: Acute (4) Rhabdomyolysis ICD Code: M62.82 - Rhabdomyolysis Status: Acute (5) Deep vein thrombosis (DVT) of upper extremity ICD Code: I82.629 - Acute embolism and thrombosis of deep veins of unspecified upper extremity Procedures Intubation and extubation Brief History - From Admission 56 y/o woman discharged from [facility] 10 days ago following TIA and pneumonia presents tonight with AMS, hypoxemic respiratory failure, new RLL, RML pneumonia , and probable excess oral narcotic use. She responded to narcan at the scene. She was offered SNF transfer after the last admission but refused. I suspect the pneumonia is from aspiration. Last admission she had a LLL pneumonia. She failed BiPAP and required intubation in the ED. Rhabdomyolysis points to probable sedentary state for extended period. CBC/BMP: 10/19/16 0512 10/19/16 0512 Significant Findings Laboratory Tests Test 10/16/16 19:24 10/16/16 20:35 10/17/16 06:31 10/17/16 20:25 Potassium Level 2.9 MEQ/L (3.5-5.1) Vancomycin Level Trough 20.8 MCG/ML (5.0-10.0) Red Blood Count 3.58 MIL/MM3 (4.00-5.30) Hemoglobin 10.1 GM/DL (11.6-15.3) Hematocrit 31.3 % (35.0-46.0) Mean Platelet Volume 6.9 FL (7.0-11.0) Blood Urea Nitrogen 2 MG/DL (7-18) Creatinine 0.19 MG/DL (0.50-1.00) Calcium Level 8.1 MG/DL (8.5-10.1) Sodium Level 135 MEQ/L (136-145) Urine Ketones 10 mg/dL (NEG) Urine Leukocyte Esterase TRACE (NEG) Urine WBC 6 /hpf (0-5) Urine Mucus FEW /lpf (OCC) Test 10/18/16 06:49 10/19/16 05:12 Red Blood Count 3.88 MIL/MM3 (4.00-5.30) 3.69 MIL/MM3 (4.00-5.30) Hemoglobin 11.2 GM/DL (11.6-15.3) 10.6 GM/DL (11.6-15.3) Hematocrit 33.8 % (35.0-46.0) 31.8 % (35.0-46.0) Blood Urea Nitrogen 3 MG/DL (7-18) 3 MG/DL (7-18) Creatinine 0.25 MG/DL (0.50-1.00) 0.21 MG/DL (0.50-1.00) Random Glucose 111 MG/DL (74-106) Potassium Level 3.1 MEQ/L (3.5-5.1) 2.8 MEQ/L (3.5-5.1) Chloride Level 97 MEQ/L (98-107) 96 MEQ/L (98-107) Calcium Level 7.7 MG/DL (8.5-10.1) Sodium Level 135 MEQ/L (136-145) Imaging Last Impressions Chest X-Ray 10/18/16 0000 Signed Impressions: Service Date/Time: September 10:04 - CONCLUSION: No change in right lung infiltrate, however a tiny pleural effusion has developed. Ange Sheriff MD Upper Extremity Ultrasound 10/15/16 0000 Signed Impressions: Service Date/Time: Saturday, October 15, 2016 18:35 - CONCLUSION: 1. DVT in the left upper extremity involving the brachial vein. 2. Bilateral superficial venous thrombosis as described. 3. No evidence of DVT in the right upper extremity. Willy Gutierrez MD Head CT 10/12/16 215 Signed Impressions: Service Date/Time: Wednesday, October 12, 2016 22:55 - CONCLUSION: 1. No acute findings. No significant change from September 4. Bharath Correa MD Chest CT 10/12/16 0000 Signed Impressions: Service Date/Time: Wednesday, October 12, 2016 22:59 - CONCLUSION: 1. Dense consolidation in the right lower lobe and patchy airspace disease in other lobes most characteristic of bronchopneumonia. Aspiration could give this appearance. Trace right pleural fluid. Bharath Correa MD PE at Discharge GENERAL: This is a well-nourished, well-developed patient, in no apparent distress. CARDIOVASCULAR: Normal rate and regular rhythm without murmurs, gallops, or rubs. RESPIRATORY: Good respiratory efforts. Faint rhonchi throughout. GASTROINTESTINAL: Abdomen soft, non-tender, non-distended. Normal active bowel sounds MUSCULOSKELETAL: Extremities without cyanosis, or edema. NEURO: Alert & Oriented x4 to person, place, time, situation. Moves all ext x4 PSYCH: Appropriate mood and affect. Pt update on day of discharge Patient reports she is feeling better today. Respiratory status has improved. No chest pain. Looking forward to go rehabilitation. Hospital Course 56-year-old female admitted with pneumonia and respiratory failure. Patient is status post intubation and extubation in the ICU. She also has resolving rhabdomyolysis and upper extremity DVTs. Evaluation and treatment course detailed below: Hypoxemic, hypercapneic respiratory failure. -The patient status improved. She is encouraged to continue to use incentive spirometry. Pneumonia was treated with antibiotics as detailed below. RLL, RML pneumonia. Could be aspiration. - ID Dr. العلي followed the patient. She was initially treated with IV antibiotics. She was transitioned to oral Levaquin to continue until 10/23/16 Rhabdomyolysis: Resolved after treatment with IV hydration. Encephalopathy, metabolic. Secondary to excessive narcotic use and respiratory failure. This resolved. Patient was counseled. Upper extremity DVT: Patient was initially started on Lovenox 1 mg/kg every 12 hours. She was transitioned to Xarelto. She should continue on this medication for 3 months Hypokalemia: Replaced Pt Condition on Discharge: Good Discharge Disposition: Discharge to SNF Discharge Time: > 30 minutes Discharge Instructions DIET: Follow Instructions for: Heart Healthy Diet Activities you can perform: Regular-No Restrictions Follow up Referrals: PCP Follow-up New Medications: Aspirin (Aspirin Low Strength) 81 Mg Chew 81 MG CHEW DAILY for 30 Days, EA Rivaroxaban (Xarelto) 15 Mg Tab 15 MG PO BID for 30 Days, TAB Continued Medications: Amlodipine (Amlodipine) 10 Mg Tab 10 MG PO DAILY for Blood Pressure Management, #30 TAB 0 Refills Cyanocobalamin (Vitamin B-12) 1,000 Mcg Tab 1000 MCG PO DAILY for Alcohol Detox, #31 TAB Gabapentin (Gabapentin) 400 Mg Cap 400 CAP PO Q6HR, #30 CAP 0 Refills Hydrocodone-Acetaminophen ([place]) 7.5-325 mg Tab 1 TAB PO Q6H PRN for PAIN, #20 TAB 0 Refills (This prescription has been renewed ) Lactobacillus Acidophilus (Lactobacillus Acidophilus) 1 Tab Tab 1 TAB PO TIDAC for Nutritional Supplement, #30 TAB 0 Refills Levofloxacin (Levaquin) 750 Mg Tablet 750 MG PO DAILY for Infection, #4 TAB-CAP (This prescription has been renewed) Discontinued Medications: Aspirin (Aspirin) 325 Mg Tab 325 MG PO DAILY for Blood Clot Prevention, #31 TAB Metronidazole (Flagyl) 500 Mg Tab 500 MG PO Q8HR for Infection, #30 TAB Quetiapine (Seroquel) 200 Mg Tab 200 MG PO HS, #30 TAB 0 Refills Trazodone (Trazodone) 100 Mg Tablet 200 MG PO HS for Control Depression, #30 TAB 0 Refills Ernestina Locke MD Oct 19, 2016 13:17
[2016-10-19 16:00] VITALS: BP 134/72; PULSE 66; RESP 18; TEMP 98.6; O2SAT 92
[2016-10-19] MEDS: LEVOFLOXACIN 750 MG TAB PO SCH (17:21)
[2016-10-21 05:46] LABS: STAT YES
== END 2016-10-19 18:51 | DRG 208 ==
LOC: NEPE 21:22 → NEDA 10-13 00:01 → HIMN 10-13 02:45 → N04B 10-17 02:56
PROVIDERS: ADMIT Family Medicine; ATTEND Family Medicine
PROC: 5A09357 Assistance with Respiratory Ventilation, Less than 24 Consecutive Hours, Continuous Positive Airway Pressure (ICD-10-PCS; principal; 2016-10-13)
PROC: 5A1945Z Respiratory Ventilation, 24-96 Consecutive Hours (ICD-10-PCS; 2016-10-13)
PROC: 0BH17EZ Insertion of Endotracheal Airway into Trachea, Via Natural or Artificial Opening (ICD-10-PCS; 2016-10-13)
DX: J69.0 Pneumonitis due to inhalation of food and vomit (principal); J96.01 Acute respiratory failure with hypoxia; G93.41 Metabolic encephalopathy; J96.02 Acute respiratory failure with hypercapnia; I82.629 Acute embolism and thrombosis of deep veins of unspecified upper extremity; E87.2 Acidosis; M62.82 Rhabdomyolysis; J44.9 Chronic obstructive pulmonary disease, unspecified; K21.9 Gastro-esophageal reflux disease without esophagitis; I25.10 Atherosclerotic heart disease of native coronary artery without angina pectoris; I25.2 Old myocardial infarction; Z95.5 Presence of coronary angioplasty implant and graft; Z87.442 Personal history of urinary calculi; Z86.73 Personal history of transient ischemic attack (TIA), and cerebral infarction without residual deficits; I10 Essential (primary) hypertension; E78.00 Pure hypercholesterolemia, unspecified; G43.909 Migraine, unspecified, not intractable, without status migrainosus; F17.210 Nicotine dependence, cigarettes, uncomplicated; F41.9 Anxiety disorder, unspecified; F32.9 Major depressive disorder, single episode, unspecified; E87.6 Hypokalemia; Y95 Nosocomial condition; F12.10 Cannabis abuse, uncomplicated
CPT/HCPCS: 31500; 36600; 70450; 71010; 71020; 71250; 76937; 80048; 80053; 80202; 80307; 81001; 82140; 82550; 82552; 82805; 82948; 83605; 83735; 84100; 84132; 84155; 84443; 84484; 85025; 85027; 85610; 85730; 86403; 87040; 87070; 87147; 87186; 87205; 87641; 93005; 93970; 94002; 94003; 94150; 94640; 94664; 94667; 94668; J0330; J0692; J1650; J2270; J2405; J3010; J3370; J3480; J7030; J7040; J7050

== ENCOUNTER 2016-12-08 22:57 | Observation (INO) | payer OTHER ==
[~2016-12-08 22:57] MED LIST changes: -ASPI325T PO; +ASPI81CH25 CHEW; -METR-1 PO; +XARE15TA PO
[2016-12-08 23:00] VITALS: BP 153/77; PULSE 50; PULSE 55; RESP 16; TEMP 97.7; O2SAT 95; O2SAT 99
--- NOTE | 2016-12-08 23:20 | PD ---
HPI Chief Complaint: altered mental status Time Seen by Provider: 23:06 Travel History International Travel<30 days: No Contact w/Intl Traveler<30days: No Traveled to known affect area: No History of Present Illness HPI 56-year-old female was brought him EMS for altered mental status. Patient's roommate called EMS because patient was having jerking motions of the extremity and altered mental status. No reported injury. Patient was admitted to [facility] in September for acute hypoxic respiratory failure, pneumonia, metabolic encephalopathy, rhabdomyolysis and DVT. Patient was discharged on aspirin 81 mg daily, Xarelto, amlodipine, gabapentin. A short Course of hydrocodone and Levaquin was given also. Unable to get any more information today from the patient or the roommate. PFSH Past Medical History Arthritis: No Asthma: Yes Autoimmune Disease: No Blood Disorders: No Anxiety: Yes Depression: Yes Heart Rhythm Problems: No Cancer: No Cardiac Catheterization: Yes (07/08/12 ) Cardiovascular Problems: Yes ([place], [place] 2012) High Cholesterol: Yes Chest Pain: No Congestive Heart Failure: No COPD: Yes Cerebrovascular Accident: Yes ([place]) Diabetes: No Diminished Hearing: No Endocrine: No Gastrointestinal Disorders: Yes GERD: Yes Genitourinary: No Headaches: Yes Hepatitis: No Hiatal Hernia: No Hypertension: Yes Immune Disorder: No Implanted Vascular Access Dvce: No Kidney Stones: Yes Musculoskeletal: Yes Neurologic: Yes (MIGRAINES) Psychiatric: Yes Reproductive: No Respiratory: Yes (COPD, CHRONIC BRONCHITIS) Immunizations Current: Yes Migraines: Yes Myocardial Infarction: Yes (2012) Renal Failure: No Seizures: No Thyroid Disease: No Ulcer: No PNEUMOCCOCAL Vaccine (Year): 1 Menopausal: Yes : 4 Para: 3 Miscarriage: 1 : 0 Ectopic : No Ovarian Cysts: No Tubal Ligation: Yes Past Surgical History AICD: No Body Medical Devices: PLATE, SCREWS LEFT WRIST Section: Yes Coronary Stent: Yes (X 1) Hysterectomy: No Pacemaker: No Other Surgery: Yes Social History Alcohol Use: No (HX OF ALCOHOL ABUSE ) Tobacco Use: Yes (1/2 PPD) Substance Use: No Allergies-Medications (Allergen,Severity, Reaction): Coded Allergies: codeine (Unverified Allergy, Severe, Rash, 12/09/16) penicillin G (Unverified Allergy, Severe, SWELLING, 12/09/16) prochlorperazine (Unverified Allergy, Severe, SWELLING, 12/09/16) Reported Meds & Prescriptions Reported Meds & Active Scripts Active Aspirin Low Strength (Aspirin) 81 Mg Chew 81 Mg CHEW DAILY 30 Days Xarelto (Rivaroxaban) 15 Mg Tab 15 Mg PO BID 30 Days Levaquin (Levofloxacin) 750 Mg Tablet 750 Mg PO DAILY [place] (Hydrocodone-Acetaminophen) 7.5-325 mg Tab 1 Tab PO Q6H PRN Lactobacillus Acidophilus 1 Tab Tab 1 Tab PO TIDAC Vitamin B-12 (Cyanocobalamin) 1,000 Mcg Tab 1,000 Mcg PO DAILY Reported Baclofen 10 Mg Tab 10 Mg PO TID Gabapentin 400 Mg Cap 400 Cap PO Q6HR Amlodipine (Amlodipine Besylate) 10 Mg Tab 10 Mg PO DAILY Review of Systems ROS Limitations: Altered Mental Status General / Constitutional: No: Fever Eyes: No: Visual changes HENT: No: Headaches Cardiovascular: No: Chest Pain or Discomfort Respiratory: No: Shortness of Breath Gastrointestinal: No: Abdominal Pain Genitourinary: No: Dysuria Musculoskeletal: No: Pain Skin: No Rash Neurologic: No: Weakness Psychiatric: No: Depression Endocrine: No: Polydipsia Hematologic/Lymphatic: No: Easy Bruising Physical Exam Narrative GENERAL: Well-nourished, well-developed patient. SKIN: Focused skin assessment warm/dry. HEAD: Normocephalic. EYES: No scleral icterus. No injection or drainage. Pupils 4 mm equal reactive. NECK: Supple, trachea midline. No JVD or lymphadenopathy. CARDIOVASCULAR: Regular rate and rhythm without murmurs, gallops, or rubs. RESPIRATORY: Breath sounds equal bilaterally. No accessory muscle use. GASTROINTESTINAL: Abdomen soft, non-tender, nondistended. MUSCULOSKELETAL: No cyanosis, or edema. BACK: Nontender without obvious deformity. No CVA tenderness. Neurologic exam: Patient's lethargic. Patient responded to painful stimuli. Data Data Last Documented VS Vital Signs Date Time Temp Pulse Resp B/P (MAP) Pulse Ox O2 Delivery O2 Flow Rate FiO2 12/08/16 23:00 14 95 Room Air 12/08/16 23:00 55 2.00 12/08/16 23:00 97.7 153/77 (102) Orders Orders Electrocardiogram (12/08/16 23:07) Complete Blood Count With Diff (12/08/16 23:07) Comprehensive Metabolic Panel (12/08/16 23:07) Creatine Kinase (Cpk) (12/08/16 23:) Troponin I (12/08/16:) Prothrombin Time / Inr (Pt) (12/08/16:) Act Partial Throm Time (Ptt) (12/08/16 23:) Blood Culture (12/08/16:) Urinalysis - C+S If Indicated (12/08/16:) Thyroid Stimulating Hormone (12/08/16:) Chest, Single Ap (12/08/16:) Ct Brain W/O Iv Contrast(Rout) (12/08/16:) Iv Access Insert/Monitor (12/08/16:) Ecg Monitoring (12/08/16:) Oximetry (12/08/16:) Urinary Catheter Insert/Apply (12/08/16:) Drug Screen, Random Urine (12/08/16:) Alcohol (Ethanol) (12/08/16:) Salicylates (Aspirin) (12/08/16 23:) Tylenol (Acetaminophen) (12/08/16 23:07) Lactic Acid Sepsis Protocol (12/08/16 23:18) Sodium Chlor 0.9% 1000 Ml Inj (Ns 1000 M (12/08/16 23:30) Labs Laboratory Tests Test 12/08/16 23:20 12/08/16 23:25 12/08/16 23:45 12/09/16 00:48 White Blood Count 4.5 TH/MM3 Red Blood Count 4.65 MIL/MM3 Hemoglobin 13.1 GM/DL Hematocrit 41.2 % Mean Corpuscular Volume 88.7 FL Mean Corpuscular Hemoglobin 28.1 PG Mean Corpuscular Hemoglobin Concent 31.7 % Red Cell Distribution Width 15.7 % Platelet Count 266 TH/MM3 Mean Platelet Volume 6.5 FL Neutrophils (%) (Auto) 61.4 % Lymphocytes (%) (Auto) 29.1 % Monocytes (%) (Auto) 8.3 % Eosinophils (%) (Auto) 0.7 % Basophils (%) (Auto) 0.5 % Neutrophils # (Auto) 2.8 TH/MM3 Lymphocytes # (Auto) 1.3 TH/MM3 Monocytes # (Auto) 0.4 TH/MM3 Eosinophils # (Auto) 0.0 TH/MM3 Basophils # (Auto) 0.0 TH/MM3 CBC Comment DIFF FINAL Differential Comment Blood Urea Nitrogen 9 MG/DL Creatinine 0.58 MG/DL Random Glucose 83 MG/DL Total Protein 7.1 GM/DL Albumin 3.2 GM/DL Calcium Level 8.5 MG/DL Alkaline Phosphatase 63 U/L Aspartate Amino Transf (AST/SGOT) 14 U/L Alanine Aminotransferase (ALT/SGPT) 12 U/L Total Bilirubin 0.1 MG/DL Sodium Level 145 MEQ/L Potassium Level 4.3 MEQ/L Chloride Level 115 MEQ/L Carbon Dioxide Level 23.6 MEQ/L Anion Gap 6 MEQ/L Estimat Glomerular Filtration Rate 108 ML/MIN Total Creatine Kinase 92 U/L Troponin I LESS THAN 0.02 NG/ML Thyroid Stimulating Hormone 3rd Gen 0.384 uIU/ML Salicylates Level 16.8 MG/DL Acetaminophen Level LESS THAN 2.0 MCG/ML Ethyl Alcohol Level LESS THAN 3 MG/DL Lactic Acid Level 0.8 mmol/L Urine Color LIGHT-YELLOW Urine Turbidity CLEAR Urine pH 5.0 Urine Specific Nelson 1.012 Urine Protein NEG mg/dL Urine Glucose (UA) NEG mg/dL Urine Ketones TRACE mg/dL Urine Occult Blood NEG Urine Nitrite NEG Urine Bilirubin NEG Urine Urobilinogen LESS THAN 2.0 MG/DL Urine Leukocyte Esterase NEG Urine RBC LESS THAN 1 /hpf Urine WBC LESS THAN 1 /hpf Urine Mucus FEW /lpf Microscopic Urinalysis Comment CULT NOT INDICATED Urine Opiates Screen NEG Urine Barbiturates Screen NEG Urine Amphetamines Screen NEG Urine Benzodiazepines Screen NEG Urine Cocaine Screen NEG Urine Cannabinoids Screen NEG Prothrombin Time 11.1 SEC Prothromb Time International Ratio 1.0 RATIO Activated Partial Thromboplast Time 25.7 SEC [facility] Medical Decision Making Medical Screen Exam Complete: Yes Emergency Medical Condition: Yes Interpretation(s) 1:56 AM. Chest x-ray shows right medial base atelectasis or consolidation. CT of the brain shows mild atrophy. No acute process. CBC within normal limit. CMP within normal limit. Lactic acid 0.8. Cardiac enzymes are normal. Urine drug screen negative. Acetaminophen negative. Salicylate 16.8. UA is negative. Differential Diagnosis Differential diagnosis including drug overdose, metabolic abnormality, TIA, CVA , [place], sepsis. Narrative Course 56-year-old female was found lethargic with possible jerking motion of the extremity. Normal saline solution 1 L IV bolus. Vancomycin 1 g IV. Levaquin 750 mg IV. Diagnosis Primary Impression: Altered mental status Qualified Codes: R41.0 - Disorientation, unspecified Additional Impression: Pneumonia Qualified Codes: J18.1 - Lobar pneumonia, unspecified organism Admitting Information Admitting Physician Requests: Admit Good Jeffers MD Dec 08, 2016 23:20
[2016-12-08] MEDS ORDERED: SODIUM CHLOR 0.9% 1000 ML INJ 1,000 ML IV ONE (23:30)
--- NOTE | 2016-12-08 23:50 | RADRPT ---
EXAM DATE/TIME: 12/08/2016 23:28 [facility] COMPARISON: CHEST SINGLE AP, October 15, 2016, 3:26. INDICATIONS : Shortness of breath. MEDICAL HISTORY : Chronic obstructive pulmonary disease. TIA SURGICAL HISTORY : None. ENCOUNTER: Initial ACUITY: 1 day PAIN SCORE: Non-responsive. LOCATION: Bilateral chest FINDINGS: The heart size is normal. There is increased density in the medial right base. The left lung is clear . No effusion is seen. CONCLUSION: Right medial base atelectasis or consolidation. Reynaldo Mauricio MD on December 08, 2016 at 23:49 Board Certified Radiologist. This report was verified electronically.
[2016-12-08 23:56] LABS: AUTOMATED NEUTROPHIL # 2.8 TH/MM3 (1.8-7.7); BASOPHIL % 0.5 % (0.0-2.0); EOSINOPHIL % 0.7 % (0.0-4.0); HEMATOCRIT 41.2 % (35.0-46.0); HEMO FLAGS DIFF FINAL; LYMPH % 29.1 % (9.0-44.0); LYMPHOCYTE # 1.3 TH/MM3 (1.0-4.8); MEAN CELL VOLUME 88.7 FL (80.0-100.0); MEAN CORPUSCULAR HEMOGLOBIN 28.1 PG (27.0-34.0); MEAN CORPUSCULAR HGB CONC 31.7 % (32.0-36.0); MONO % 8.3 % (0.0-8.0); NEUT % 61.4 % (16.0-70.0); PLATELET COUNT 266 TH/MM3 (150-450); RED BLOOD COUNT 4.65 MIL/MM3 (4.00-5.30); RED CELL DISTRIBUTION WIDTH 15.7 % (11.6-17.2); WHITE BLOOD COUNT 4.5 TH/MM3 (4.0-11.0)
[2016-12-09] VITALS (9 sets, daily range): BP systolic 117–168; BP diastolic 61–98; PULSE 43–74; RESP 16–20; TEMP 96.4–98.2; O2SAT 95–99
[2016-12-09] MEDS ORDERED: BACL10TA PO (00:10)
[2016-12-09 00:17] LABS: BLOOD, URINE NEG (NEG); COMMENT (UR) CULT NOT INDICATED; CULTURE IF INDICATED CULT NOT INDICATED; GLUCOSE,URINE NEG (NEG); KETONE, URINE TRACE mg/dL (NEG); MUCUS URINE FEW /lpf (OCC); NITRITE,URINE NEG (NEG); URINE COLOR LIGHT-YELLOW (YELLW/STRAW)
[2016-12-09 00:18] LABS: ALT (GPT) 12 U/L (10-53); ANION GAP 6 MEQ/L (5-15); AST (GOT) 14 U/L (15-37); BICARBONATE 23.6 MEQ/L (21.0-32.0); BLOOD UREA NITROGEN 9 MG/DL (7-18); CHLORIDE 115 MEQ/L (98-107); GLOMERULAR FILTRATION RATE 108 ML/MIN (>89); POTASSIUM 4.3 MEQ/L (3.5-5.1); SODIUM (NA) 145 MEQ/L (136-145)
[2016-12-09 00:23] LABS: ALCOHOL LESS THAN 3 MG/DL (0-5)
[2016-12-09 00:25] LABS: ACETAMINOPHEN LESS THAN 2.0 MCG/ML (10.0-30.0)
[2016-12-09 00:28] LABS: ALKALINE PHOSPHATASE 63 U/L (45-117); TOTAL BILIRUBIN ADULT 0.1 MG/DL (0.2-1.0)
--- NOTE | 2016-12-09 00:33 | RADRPT ---
EXAM DATE/TIME: 12/09/2016 00:14 [facility] COMPARISON: CT BRAIN W/O CONTRAST, October 12, 2016, 22:55. INDICATIONS : Altered mental status. RADIATION DOSE: 56.35 CTDIvol (mGy) MEDICAL HISTORY : Cardiovascular disease. Gastroesophageal reflux disease. Chronic obstructive pulmonary disease.CVA. H ypertension. Renal calculi. SURGICAL HISTORY : Tubal ligation. Cardiac stents. ENCOUNTER: Initial ACUITY: 1 day PAIN SCALE: Non-responsive LOCATION: cranial TECHNIQUE: Multiple contiguous axial images were obtained of the head. Using automated exposure control and adj ustment of the mA and/or kV according to patient size, radiation dose was kept as low as reasonably a chievable to obtain optimal diagnostic quality images. DICOM format image data is available electro nically for review and comparison. FINDINGS: CEREBRUM: The ventricles are normal for age. The sulci are mildly widened. There is some expansion of the extr a-axial spaces. No evidence of midline shift, mass lesion, hemorrhage or acute infarction. No extra- axial fluid collections are seen. POSTERIOR FOSSA: The cerebellum and brainstem are intact. The 4th ventricle is midline. The cerebellopontine angle i s unremarkable. EXTRACRANIAL: The visualized portion of the orbits is intact. There is left sphenoid sinus disease. SKULL: The calvaria is intact. No evidence of skull fracture. CONCLUSION: 1. No acute abnormality seen. 2. Mild atrophy. Reynaldo Mauricio MD on December 09, 2016 at 0:30 Board Certified Radiologist. This report was verified electronically.
[2016-12-09 00:44] LABS: CREATINE KINASE 92 U/L (26-192)
[2016-12-09 01:48] LABS: APTT (PATIENT) 25.7 SEC (24.3-30.1); PROTHROMBIN TIME - PATIENT 11.1 SEC (9.8-11.6)
[2016-12-09] MEDS ORDERED: LACTULOSE SYRUP 20 GM/30 ML CUP PO PRN (02:15)
[2016-12-09] MEDS ORDERED: ONDANSETRON HCL 4 MG/2 ML VIAL IVP PRN (02:15)
[2016-12-09] MEDS ORDERED: MAGNESIUM HYDROXIDE SUSP 30 ML CUP PO PRN (02:15)
[2016-12-09] MEDS ORDERED: SENNOSIDES 8.6 MG TAB PO PRN (02:15)
[2016-12-09] MEDS ORDERED: SODIUM CHLORIDE 0.9% FLUSH 10 ML FLUSH IV FLUSH PRN (02:15)
[2016-12-09] MEDS ORDERED: BISACODYL 10 MG SUPP RECTAL PRN (02:15)
[2016-12-09] MEDS ORDERED: ACETAMINOPHEN 325 MG TAB PO PRN (02:15)
[2016-12-09] MEDS ORDERED: RESP: ALBUTEROL 2.5 MG/IPRATROPIUM 0.5 MG NEB (PRN) NEB (02:15)
[2016-12-09] MEDS ORDERED: VANCOMYCIN INJ 1,000 MG in SODIUM CHLOR 0.9% 250 ML INJ 250 ML IV ONE (02:15)
[2016-12-09] MEDS ORDERED: LEVOFLOXACIN 750 MG PREMIX INJ 150 ML IV ONE (02:15)
--- NOTE | 2016-12-09 02:51 | HHI.HP ---
HPI Service [facility] Primary Care Physician Unknown Admission Diagnosis altered mental status. Pneumonia. 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 Roommate noted pt to be more lethargic and having intermittent "jerking" movements, however not witnessed by EMS or while in ER. On arrival, pt significantly lethargic, unable to provide history, rouses only to painful stimuli. BP 153/77, HR 50, O2 sat 95% on 2L NC , Afebrile. CBC unremarkable. Chemistry essentially unremarkable. Lactic Acid 0.8. Troponin negative. UA negative. Urine Drug screen negative. Alcohol negative. CT Head with no acute findings. CXR with right medial base atelectasis or consolidation. S/p Levaquin/Vanc. While in ER, pt w/ improved mental status, more arousable, able to answer few questions, however repeats "I' m on pain pills". Review of Systems Except as stated in HPI: all other systems reviewed are Neg ROS: 14 point review of systems otherwise negative. Past Family Social History Past Medical History PMH: Anxiety, Depression, CAD, h/o CVA, COPD, h/o UE DVT on Xarelto, Chronic Narcotic Dependence and Tobacco Abuse Past Surgical History PAST SURGICAL HISTORY: Left Wrist Surgery, , Cardiac Stent Allergies: Coded Allergies: codeine (Unverified Allergy, Severe, Rash, 12/09/16) penicillin G (Unverified Allergy, Severe, SWELLING, 12/09/16) prochlorperazine (Unverified Allergy, Severe, SWELLING, 12/09/16) Family History PAST FAMILY HISTORY: Reviewed. No h/o DM or CAD Social History PAST SOCIAL HISTORY: Previous history of alcohol abuse. Smokes 1/2ppd. Negative for drugs. Physical Exam Vital Signs Vital Signs Date Time Temp Pulse Resp B/P (MAP) Pulse Ox O2 Delivery O2 Flow Rate FiO2 12/08/16 23:00 14 95 Room Air 12/08/16 23:00 55 16 99 Nasal Cannula 2.00 12/08/16 23:00 97.7 50 16 153/77 (102) 95 Physical Exam PE: GENERAL: Middle-aged white female in no acute distress, sleeping, rouses to name , answers few questions HEENT: PERRLA, EOMI. No scleral icterus or conjunctival pallor. No lid lag or facial droop. Dry mucous membranes CARDIOVASCULAR: Regular rate and rhythm. No obvious murmurs to auscultation. No chest tenderness to palpation. RESPIRATORY: No obvious rhonchi or wheezing. Clear to auscultation. Breath sounds equal bilaterally. GASTROINTESTINAL: Abdomen soft, non-tender, nondistended. BS normal. MUSCULOSKELETAL: Extremities without clubbing, cyanosis, or edema. No obvious deformities. NEUROLOGICAL: Awake, alert and oriented x4. No focal neurologic deficits. Moving both upper and lower extremities spontaneously. Laboratory Laboratory Tests Test 12/08/16 23:20 12/08/16 23:25 12/08/16 23:45 12/09/16 00:48 White Blood Count 4.5 Red Blood Count 4.65 Hemoglobin 13.1 Hematocrit 41.2 Mean Corpuscular Volume 88.7 Mean Corpuscular Hemoglobin 28.1 Mean Corpuscular Hemoglobin Concent 31.7 Red Cell Distribution Width 15.7 Platelet Count 266 Mean Platelet Volume 6.5 Neutrophils (%) (Auto) 61.4 Lymphocytes (%) (Auto) 29.1 Monocytes (%) (Auto) 8.3 Eosinophils (%) (Auto) 0.7 Basophils (%) (Auto) 0.5 Neutrophils # (Auto) 2.8 Lymphocytes # (Auto) 1.3 Monocytes # (Auto) 0.4 Eosinophils # (Auto) 0.0 Basophils # (Auto) 0.0 CBC Comment DIFF FINAL Differential Comment Blood Urea Nitrogen 9 Creatinine 0.58 Random Glucose 83 Total Protein 7.1 Albumin 3.2 Calcium Level 8.5 Alkaline Phosphatase 63 Aspartate Amino Transf (AST/SGOT) 14 Alanine Aminotransferase (ALT/SGPT) 12 Total Bilirubin 0.1 Sodium Level 145 Potassium Level 4.3 Chloride Level 115 Carbon Dioxide Level 23.6 Anion Gap 6 Estimat Glomerular Filtration Rate 108 Total Creatine Kinase 92 Troponin I LESS THAN 0.02 Thyroid Stimulating Hormone 3rd Gen 0.384 Salicylates Level 16.8 Acetaminophen Level LESS THAN 2.0 Ethyl Alcohol Level LESS THAN 3 Lactic Acid Level 0.8 Urine Color LIGHT-YELLOW Urine Turbidity CLEAR Urine pH 5.0 Urine Specific [place] 1.012 Urine Protein NEG Urine Glucose (UA) NEG Urine Ketones TRACE Urine Occult Blood NEG Urine Nitrite NEG Urine Bilirubin NEG Urine Urobilinogen LESS THAN 2.0 Urine Leukocyte Esterase NEG Urine RBC LESS THAN 1 Urine WBC LESS THAN 1 Urine Mucus FEW Microscopic Urinalysis Comment CULT NOT INDICATED Urine Opiates Screen NEG Urine Barbiturates Screen NEG Urine Amphetamines Screen NEG Urine Benzodiazepines Screen NEG Urine Cocaine Screen NEG Urine Cannabinoids Screen NEG Prothrombin Time 11.1 Prothromb Time International Ratio 1.0 Activated Partial Thromboplast Time 25.7 Date/Time Source Procedure Growth Status 12/08/16 23:25 Blood Peripheral Aerobic Blood Culture Pending Received 12/08/16 23:25 Blood Peripheral Anaerobic Blood Culture Pending Received Result Diagram: 12/08/16231912/08/162319 Caprini VTE Risk Assessment Caprini VTE Risk Assessment: Mod/High Risk (score >= 2) Caprini Risk Assessment Model Point Value = 1 Point Value = 2 Point Value = 3 Point Value = 5 Age 41-60 Minor surgery BMI > 25 kg/m2 Swollen legs Varicose veins or History of unexplained or recurrent spontaneous Oral contraceptives or hormone replacement Sepsis (< 1 month) Serious lung disease, including pneumonia (< 1 month) Abnormal pulmonary function Acute myocardial infarction Congestive heart failure (< 1 month) History of inflammatory bowel disease Medical patient at bed rest Age 61-74 Arthroscopic surgery Major open surgery (> 45 min) Laparoscopic surgery (> 45 min) Malignancy Confined to bed (> 72 hours) Immobilizing plaster cast Central venous access Age >= 75 History of VTE Family history of VTE Factor V Leiden Prothrombin [id number] Lupus anticoagulant Anticardiolipin antibodies Elevated serum homocysteine Heparin-induced thrombocytopenia Other congenital or acquired thrombophilia Stroke (< 1 month) Elective arthroplasty Hip, pelvis, or leg fracture Acute spinal cord injury (< 1 month) Prophylaxis Regimen Total Risk Factor Score Risk Level Prophylaxis Regimen 0-1 Low Early ambulation 2 Moderate Order ONE of the following: *Sequential Compression Device (SCD) *Heparin 5000 units SQ BID 3-4 Higher Order ONE of the following medications: *Heparin 5000 units SQ TID *Enoxaparin/Lovenox 40 mg SQ daily (WT < 150 kg, CrCl > 30 mL/min) *Enoxaparin/Lovenox 30 mg SQ daily (WT < 150 kg, CrCl > 10-29 mL/min) *Enoxaparin/Lovenox 30 mg SQ BID (WT < 150 kg, CrCl > 30 mL/min) AND/OR *Sequential Compression Device (SCD) 5 or more Highest Order ONE of the following medications: *Heparin 5000 units SQ TID (Preferred with Epidurals) *Enoxaparin/Lovenox 40 mg SQ daily (WT < 150 kg, CrCl > 30 mL/min) *Enoxaparin/Lovenox 30 mg SQ daily (WT < 150 kg, CrCl > 10-29 mL/min) *Enoxaparin/Lovenox 30 mg SQ BID (WT < 150 kg, CrCl > 30 mL/min) AND *Sequential Compression Device (SCD) Assessment and Plan Problem List: (1) Encephalopathy ICD Code: G93.40 - Encephalopathy, unspecified (2) PNA (pneumonia) ICD Code: J18.9 - Pneumonia, unspecified organism (3) Bradycardia ICD Code: R00.1 - Bradycardia, unspecified (4) COPD (chronic obstructive pulmonary disease) ICD Code: J44.9 - Chronic obstructive pulmonary disease, unspecified (5) H/O deep venous thrombosis ICD Code: Z86.718 - Personal history of other venous thrombosis and embolism Assessment and Plan A/P: 1. Encephalopathy: Unclear etiology. CT Head w/ no acute findings, images reviewed by me. Noted to have "jerking" movements per roommate, however not witnessed by EMS or ER. Seizure Precautions. Urine Drug Screen negative, pupils normal and reactive. Labs essentially unremarkable, CXR w/ PNA however no evidence of sepsis. Hold home Sunray, Baclofen, Gabapentin. Neuro checks q4h. 2. PNA: CXR w/ right medial base consolidation, images reviewed by me. Afebrile, no leukocytosis. S/p IV Levaquin/Vanc in ER, will continue IV Abx, DuoNeb prn. 3. Bradycardia: HR 40-50's while in ER, BP 140's systolic. Continue telemetry , check Echo. 4. COPD: Chronic Respiratory Failure, Stable. DuoNeb prn. Symbicort. 5. H/o DVT: h/o UE DVT on last admit 09/2016, plan for Xarelto x3 months, will continue Xarelto. 6. Tobacco Abuse: NicoDerm prn if needed. 7. DVT Prophylaxis: On Xarelto as above. 8. Social work for d/c planning as needed. 9. Case discussed w/ ER physician at length. Rosi Puri MD Dec 09, 2016 02:51
[2016-12-09] MEDS: SODIUM CHLOR 0.9% 1000 ML INJ 1,000 ML IV SCH ×3 (03:59→22:10)
--- NOTE | 2016-12-09 07:31 | EKG ---
Date Performed: 12/08/2016 Time Performed: 23:09:54 PTAGE: 56 years EKG: Baseline artifact present Sinus rhythm NORMAL ECG Compared to prior electrocardiogram, rate has decreased DOCTOR: Jeff Swan Interpretating Date/Time 12/09/2016 07:30:56
[2016-12-09] MEDS: RIVAROXABAN 15 MG TAB PO SCH ×2 (09:33→21:06)
[2016-12-09] MEDS: SODIUM CHLORIDE 0.9% FLUSH 10 ML FLUSH IV FLUSH SCH ×2 (09:33→21:06)
[2016-12-09] MEDS: DOCUSATE SODIUM 50 MG/SENNA 8.6 MG TAB PO SCH ×2 (09:33→21:06)
[2016-12-09] MEDS: BUDESONIDE-FORMOTEROL 160/4.5 MCG INHALER INH SCH ×2 (09:33→21:05)
[2016-12-09] MEDS ORDERED: HALOPERIDOL LACTATE 5 MG/ML AMP IM PRN ×2 (11:30→16:45)
--- NOTE | 2016-12-09 11:31 | HHI.PR ---
Subjective Remarks Follow-up for altered mental status. Discussed with RN, patient has only been oriented to self and extremely confused however has been cooperative. During long conversation patient can be held having allowed conversation with herself the entire time. On evaluation, the patient is sitting up and awake and rambling quickly and incoherently. She states she is fine and wants to go home. She states the year is 2000 and the month is 2009. At first she says she is in the hospital than she says she is in the group home, does not know the name of this facility. Oriented to self. She denies any cough or shortness of breath. She is asking to go home to take care of her 1-year-old babies because her and she is alone to take care of them. Objective Vitals Vital Signs Date Time Temp Pulse Resp B/P (MAP) Pulse Ox O2 Delivery O2 Flow Rate FiO2 12/09/16 08:22 98.2 56 20 148/73 (98) 98 12/09/16 08:04 97 Nasal Cannula 1.00 12/09/16 06:29 98.1 45 18 117/61 (79) 98 12/09/16 04:44 43 12/09/16 03:34 98 Nasal Cannula 1.00 12/09/16 03:31 52 16 150/89 (109) 97 Room Air 12/08/16 23:00 14 95 Room Air 12/08/16 23:00 55 16 99 Nasal Cannula 2.00 12/08/16 23:00 97.7 50 16 153/77 (102) 95 I/O 12/08/16 12/08/16 12/08/16 12/09/16 12/09/16 12/09/16 07:00 15:00 23:00 07:00 15:00 23:00 Output Total 850 ml Balance -850 ml Output Urine Total 850 ml Result Diagram: 12/08/16231912/08/162319 Objective Remarks GENERAL: Well-developed well-nourished. In no acute distress. SKIN: Warm and dry. No lesions noted. HEENT: Normocephalic. Pupils equal and round. Mucous membranes pink and moist. CARDIOVASCULAR: Regular rate and rhythm. No murmur appreciated. RESPIRATORY: No accessory muscle use. Clear to auscultation. Some diminished breath sounds in the bases. GASTROINTESTINAL: Abdomen soft, non-tender, nondistended. Bowel sounds x4. MUSCULOSKELETAL: No obvious deformities. No clubbing or cyanosis. No edema. NEUROLOGICAL: Awake and alert. No focal neurological deficits. Moves upper and lower extremities spontaneously. Normal speech. Strength 5/5. PSYCHIATRIC: Inappropriate mood and affect. Pressured, nonsensical, tangential , rambling speech. Oriented to self. A/P Problem List: (1) Encephalopathy ICD Code: G93.40 - Encephalopathy, unspecified Status: Acute (2) PNA (pneumonia) ICD Code: J18.9 - Pneumonia, unspecified organism (3) Bradycardia ICD Code: R00.1 - Bradycardia, unspecified Status: Acute (4) COPD (chronic obstructive pulmonary disease) ICD Code: J44.9 - Chronic obstructive pulmonary disease, unspecified Status: Chronic (5) H/O deep venous thrombosis ICD Code: Z86.718 - Personal history of other venous thrombosis and embolism Status: Chronic Assessment and Plan 56-year-old female with a PMH of Anxiety, Depression, CAD, h/o CVA, COPD, h/o UE DVT on Xarelto, Chronic Narcotic Dependence and Tobacco Abuse who was brought to the ER by EMS secondary to AMS Acute toxic/metabolic Encephalopathy: EFORSCE reveals that patient has been getting multiple [place] and Xanax prescriptions from multiple PCPs in the area and feeling them at different pharmacies and with negative UDS, strong suspicion of substance abuse/withdrawal. Cannot rule out secondary to underlying pneumonia as below. Reviewed: CT Head w/ no acute findings. UDS negative. Afebrile with no leukocytosis. -Noted to have "jerking" movements per roommate, check EEG, Seizure Precautions. -Consult psychiatry -Patient remains disoriented Ativan, Haldol, restraints if needed -Neuro checks PNA: CXR w/ possible right medial base consolidation. Recent admission in September for respiratory failure and aspiration pneumonia due to opiate overdose. No respiratory complaints. -Check PA and lateral chest x-ray -Continue IV Levaquin for now -O2 and DuoNeb prn. Bradycardia: HR 40-50's. -Monitor on telemetry and consult cardiology if indicated. COPD: Chronic. No signs of acute exacerbation. -Continue Symbicort. H/o DVT: h/o UE DVT on last admit 09/2016, plan for Xarelto x3 months -will continue Xarelto. DVT Prophylaxis: On Xarelto as above. Discharge Planning Continue to monitor for clinical improvement. Problem Qualifiers (1) COPD (chronic obstructive pulmonary disease): Qualified Codes: J44.9 - Chronic obstructive pulmonary disease, unspecified Chandan Chung Dec 09, 2016 11:31
[2016-12-09] MEDS: THIAMINE HCL 100 MG TAB PO ONE ×2 (12:30→12:51)
[2016-12-09] MEDS: LORazepam 0.5 MG TAB PO PRN ×3 (12:51→21:07)
[2016-12-09] MEDS ORDERED: LORazepam 2 MG/ML VIAL IV PUSH ONE (13:45)
[2016-12-09] MEDS ORDERED: LEVOFLOXACIN 750 MG PREMIX INJ 150 ML IV SCH (21:00)
[2016-12-10 03:16] VITALS: BP 184/82; PULSE 59; RESP 18; TEMP 96.5; O2SAT 99
[2016-12-10 08:00] VITALS: PULSE 78
[2016-12-10] MEDS ORDERED: cloNIDine HCL 0.1 MG TAB PO PRN (08:15)
[2016-12-10 08:18] VITALS: BP 127/74; PULSE 52; RESP 18; TEMP 96.1; O2SAT 100
[2016-12-10 08:38] LABS: AUTOMATED NEUTROPHIL # 2.9 TH/MM3 (1.8-7.7); BASOPHIL % 0.5 % (0.0-2.0); EOSINOPHIL % 0.2 % (0.0-4.0); HEMATOCRIT 38.1 % (35.0-46.0); HEMO FLAGS DIFF FINAL; LYMPH % 30.3 % (9.0-44.0); LYMPHOCYTE # 1.5 TH/MM3 (1.0-4.8); MEAN CELL VOLUME 87.9 FL (80.0-100.0); MEAN CORPUSCULAR HEMOGLOBIN 28.8 PG (27.0-34.0); MEAN CORPUSCULAR HGB CONC 32.7 % (32.0-36.0); MONO % 9.2 % (0.0-8.0); NEUT % 59.8 % (16.0-70.0); PLATELET COUNT 264 TH/MM3 (150-450); RED BLOOD COUNT 4.34 MIL/MM3 (4.00-5.30); RED CELL DISTRIBUTION WIDTH 15.3 % (11.6-17.2); WHITE BLOOD COUNT 4.9 TH/MM3 (4.0-11.0)
[2016-12-10] MEDS: DOCUSATE SODIUM 50 MG/SENNA 8.6 MG TAB PO SCH (08:40)
[2016-12-10] MEDS: RIVAROXABAN 15 MG TAB PO SCH (08:40)
[2016-12-10] MEDS: SODIUM CHLORIDE 0.9% FLUSH 10 ML FLUSH IV FLUSH SCH (08:41)
[2016-12-10] MEDS: SODIUM CHLOR 0.9% 1000 ML INJ 1,000 ML IV SCH (08:44)
[2016-12-10] MEDS: BUDESONIDE-FORMOTEROL 160/4.5 MCG INHALER INH SCH (08:45)
[2016-12-10 09:01] LABS: ANION GAP 9 MEQ/L (5-15); AST (GOT) 15 U/L (15-37); BICARBONATE 22.9 MEQ/L (21.0-32.0); BLOOD UREA NITROGEN 6 MG/DL (7-18); CHLORIDE 108 MEQ/L (98-107); GLOMERULAR FILTRATION RATE 157 ML/MIN (>89); POTASSIUM 3.6 MEQ/L (3.5-5.1); SODIUM (NA) 140 MEQ/L (136-145)
[2016-12-10 09:03] LABS: ALT (GPT) 11 U/L (10-53)
[2016-12-10 09:05] LABS: ALKALINE PHOSPHATASE 55 U/L (45-117); TOTAL BILIRUBIN ADULT 0.2 MG/DL (0.2-1.0)
[2016-12-10 11:49] VITALS: PULSE 65
--- NOTE | 2016-12-10 11:53 | HHI.PR ---
Subjective Remarks Follow up for altered mental status and possible pneumonia. Patient seen with our at bedside. More oriented and cooperative today, however she continues to refuse EEG. States she's feeling well and wants to go home. She states a friend of hers [place] concerned about her which is why she is in the hospital. She is oriented to December 10, 2016,she is in the hospital, oriented to self. She denies any respiratory complaints and doesn't think she has pneumonia. She denies any cough, shortness breath, fever, chills. She states she takes trazodone and Seroquel at home. She is repeatedly asked what medication she takes outside of the hospital and eventually she states that she remembers she takes hydrocodone as well which she says she's currently taking. She denies any other illicit substance use. She states she lives at home with her girlfriend who checks in on her. Objective Vitals Vital Signs Date Time Temp Pulse Resp B/P (MAP) Pulse Ox O2 Delivery O2 Flow Rate FiO2 12/10/16 11:49 65 12/10/16 08:18 96.1 52 18 127/74 (91) 100 12/10/16 08:00 78 12/10/16 03:16 96.5 59 18 184/82 (116) 99 12/09/16 23:51 96.8 72 18 168/98 (121) 97 12/09/16 19:28 96.4 74 16 143/82 (102) 99 12/09/16 16:26 98.2 70 18 158/74 (102) 95 I/O 12/09/16 12/09/16 12/09/16 12/10/16 12/10/16 12/10/16 06:59 14:59 22:59 06:59 14:59 22:59 Intake Total 1250 ml 1000 ml Output Total 850 ml 250 ml Balance 1250 ml -850 ml -250 ml 1000 ml Intake IV Total 1250 ml 1000 ml Output Urine Total 850 ml 250 ml Result Diagram: 12/10/16 0740 12/10/16 0740 Imaging Last Impressions Head CT 12/08/16 2122 Signed Impressions: Service Date/Time: Friday, December 09, 2016 00:14 - CONCLUSION: 1. No acute abnormality seen. 2. Mild atrophy. Reynaldo Mauricio MD Chest X-Ray 12/08/16 2730 Signed Impressions: Service Date/Time: Thursday, December 08, 2016 23:28 - CONCLUSION: Right medial base atelectasis or consolidation. Reynaldo Mauricio MD Objective Remarks GENERAL: Well-developed well-nourished. In no acute distress. SKIN: Warm and dry. No lesions noted. HEENT: Normocephalic. Pupils equal and round. Mucous membranes pink and moist. CARDIOVASCULAR: Regular rate and rhythm. No murmur appreciated. RESPIRATORY: No accessory muscle use. Clear to auscultation. Some diminished breath sounds in the bases. GASTROINTESTINAL: Abdomen soft, non-tender, nondistended. Bowel sounds x4. MUSCULOSKELETAL: No obvious deformities. No clubbing or cyanosis. No edema. NEUROLOGICAL: Awake and alert. No focal neurological deficits. Moves upper and lower extremities spontaneously. Normal speech. PSYCHIATRIC: Mood and affect are more appropriate today. Insight and judgment seems better today. Oriented 3. A/P Problem List: (1) Encephalopathy ICD Code: G93.40 - Encephalopathy, unspecified Status: Resolved (2) PNA (pneumonia) ICD Code: J18.9 - Pneumonia, unspecified organism (3) Bradycardia ICD Code: R00.1 - Bradycardia, unspecified Status: Acute (4) COPD (chronic obstructive pulmonary disease) ICD Code: J44.9 - Chronic obstructive pulmonary disease, unspecified Status: Chronic (5) H/O deep venous thrombosis ICD Code: Z86.718 - Personal history of other venous thrombosis and embolism Status: Chronic Assessment and Plan 56-year-old female with a PMH of Anxiety, Depression, CAD, h/o CVA, COPD, h/o UE DVT on Xarelto, Chronic Narcotic Dependence and Tobacco Abuse who was brought to the ER by EMS secondary to AMS Acute toxic/metabolic Encephalopathy: EFORSCE reveals that patient has been getting multiple [place] and Xanax prescriptions from multiple PCPs in the area and feeling them at different pharmacies and with negative UDS, strong suspicion of substance abuse/withdrawal. Cannot rule out secondary to underlying pneumonia as below. Symptoms seem to have resolved at this time; likely transient delirium. Reviewed: CT Head w/ no acute findings. UDS negative. Afebrile with no leukocytosis. -Noted to have "jerking" movements per roommate, refused EEG multiple times, Seizure Precautions. No driving. -Consulted psychiatry, D/W psychiatry, unclear etiology of delirium, although substance misuse is definitely in the differential, no indication for acute psychiatric treatment at this time -Neuro checks PNA: CXR w/ possible right medial base consolidation. Recent admission in September for respiratory failure and aspiration pneumonia due to opiate overdose. No respiratory complaints. -Check PA and lateral chest x-ray -Continue IV Levaquin for now, consider continued oral Levaquin course if still consolidation on chest x-ray. -O2 and DuoNeb prn. Bradycardia: Mild, heart rate 50s. -Monitor on telemetry COPD: Chronic. No signs of acute exacerbation. -Continue Symbicort. H/o DVT: h/o UE DVT on last admit 09/2016, plan for Xarelto x3 months -will continue Xarelto. Mood disorder: Unlimited disorder, however patient maintains that she takes trazodone and Seroquel at home. -Psychiatry consulted as above, continue outpatient psychiatry follow-up DVT Prophylaxis: On Xarelto as above. Discharge Planning Altered mental status and delirium have improved at this time. Follow-up results of repeat chest x-ray. Discharge planning for later today +/- oral levofloxacin course. 1300 chest x-ray PA and lateral shows no signs of pneumonia and as patient has no fever, no white count, no respiratory complaints, will not continue on antibiotics at discharge. Discussed with RN, patient's roommate will come pick her up. Discharge home today. Problem Qualifiers (1) COPD (chronic obstructive pulmonary disease): Qualified Codes: J44.9 - Chronic obstructive pulmonary disease, unspecified Chandan Chung Dec 10, 2016 11:53
--- NOTE | 2016-12-10 12:59 | RADRPT ---
EXAM DATE/TIME: 12/10/2016 12:16 [facility] COMPARISON: CHEST SINGLE AP, December 08, 2016, 23:28. INDICATIONS : Short of Breath MEDICAL HISTORY : Cardiovascular disease. Gastroesophageal reflux disease. Chronic obstructivepulmonary disease.CVA. Hy pertension. Renal calculi. SURGICAL HISTORY : Tubal ligation. Cardiac stents. ENCOUNTER: Subsequent ACUITY: 2 days PAIN SCORE: 0/10 LOCATION: Bilateral chest FINDINGS: The examination demonstrates moderate COPD changes. Heart is at the upper limits of normal in size. T here is atelectasis at the right lung base appears improved. There is no pleural effusion. There are chronic interstitial changes. Visualized bony structures are grossly intact. CONCLUSION: 1. Improved atelectasis at the right lung base. Jad Cabral MD on December 10, 2016 at 12:57 Board Certified Radiologist. This report was verified electronically.
[2016-12-10 14:26] VITALS: BP 155/75
--- NOTE | 2016-12-10 15:48 | PD.PSY.CON ---
Provisional Diagnosis Admission Date Dec 09, 2016 at 02:13 [place]. 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 Roommate noted pt to be more lethargic and having intermittent "jerking" movements, however not witnessed by EMS or while in ER. On arrival, pt significantly lethargic, unable to provide history, rouses only to painful stimuli. BP 153/77, HR 50, O2 sat 95% on 2L NC, Afebrile. CBC unremarkable. Chemistry essentially unremarkable. Lactic Acid 0.8. Troponin negative. UA negative. Urine Drug screen negative. Alcohol negative. CT Head with no acute findings. CXR with right medial base atelectasis or consolidation. S/p Levaquin/Vanc. While in ER, pt w/ improved mental status, more arousable, able to answer few questions, however repeats "I'm on pain pills ". She was consulted to psychiatry due to altered mental status. However, during my evaluation, patient is fully oriented 3, fluctuation of consciousness , no attention deficit, logical coherent and relevant. She denies depressive symptoms, she denies anhedonia, hopelessness, helplessness, she denies problems sleeping with appetite, she denies suicidal and homicidal ideation, she denies visual and auditory hallucinations. As per discussion with PA and nurse in charge, the related the patient has been disorganized, agitated, but today doing much better. Patient was asked if she has been using benzodiazepines at home, beginning she denies, but posteriorly admits that she sometimes uses Xanax , but she doesn't clarify what reason this medication is prescribed. Review of Systems Except as stated in HPI: all other systems reviewed are Neg Past Family Social History Coded Allergies: codeine (Unverified Allergy, Severe, Rash, 12/09/16) penicillin G (Unverified Allergy, Severe, SWELLING, 12/09/16) prochlorperazine (Unverified Allergy, Severe, SWELLING, 12/09/16) Active Scripts Rivaroxaban (Xarelto) 15 Mg Tab, 15 MG PO BID for 30 Days, TAB Prov:Ernestina Locke MD 10/19/16 Cyanocobalamin (Vitamin B-12) 1,000 Mcg Tab, 1000 MCG PO DAILY for Alcohol Detox , #31 TAB Prov:Kushal Reyes MD 10/02/16 Reported Medications Amlodipine (Amlodipine) 10 Mg Tab, 10 MG PO DAILY for Blood Pressure Management , #30 TAB 0 Refills 08/30/16 Discontinued Reported Medications Baclofen (Baclofen) 10 Mg Tab, 10 MG PO TID for Muscle Spasm, TAB 0 Refills 12/09/16 Gabapentin (Gabapentin) 400 Mg Cap, 400 CAP PO Q6HR, #30 CAP 0 Refills 08/30/16 Discontinued Scripts Aspirin (Aspirin Low Strength) 81 Mg Chew, 81 MG CHEW DAILY for 30 Days, EA Prov:Ernestina Locke MD 10/19/16 Levofloxacin (Levaquin) 750 Mg Tablet, 750 MG PO DAILY for Infection, #4 TAB-CAP Prov:Ernestina Locke MD 10/19/16 Hydrocodone-Acetaminophen (Eddy) 7.5-325 mg Tab, 1 TAB PO Q6H Y for PAIN, #20 TAB 0 Refills Prov:Ernestina Locke MD 10/19/16 Lactobacillus Acidophilus (Lactobacillus Acidophilus) 1 Tab Tab, 1 TAB PO TIDAC for Nutritional Supplement, #30 TAB 0 Refills Prov:Kushal Reyes MD 10/02/16 Current Medications Medications (Trade) Dose Ordered Sig/Sandoval Route Start Time Stop Time Status Last Admin (Duoneb Neb) 1 ampule Q4HR NEB PRN NEB 12/09/16 02:15 (NS Flush) 2 ml UNSCH PRN IV FLUSH 12/09/16 02:15 (NS Flush) 2 ml BID IV FLUSH 12/09/16 09:00 12/10/16 08:41 (Zofran Inj) 4 mg Q6H PRN IVP 12/09/16 02:15 (Tylenol) 650 mg Q6H PRN PO 12/09/16 02:15 (Emiliana-Colace) 1 tab BID PO 12/09/16 09:00 12/10/16 08:40 (Milk Of Magnesia Liq) 30 ml Q12H PRN PO 12/09/16 02:15 (Senokot) 17.2 mg Q12H PRN PO 12/09/16 02:15 (Dulcolax Supp) 10 mg DAILY PRN RECTAL 12/09/16 02:15 (Lactulose Liq) 30 ml DAILY PRN PO 12/09/16 02:15 (Xarelto) 15 mg BID PO 12/09/16 09:00 12/10/16 08:40 (Symbicort 160-4.5 Inh) 2 puff Q12HR INH 12/09/16 09:00 12/10/16 08:45 (Ativan) 0.5 mg Q8H PRN PO 12/09/16 11:30 12/09/16 21:07 (Haldol Inj) 5 mg Q8H PRN IM 12/09/16 16:45 12/09/16 16:53 (Catapres) 0.1 mg Q6H PRN PO 12/10/16 08:15 Family Psych History Patient denies family psychiatric history Social History Patient was born and raised in [place], she lives in [place] with a friend, she is , unemployed, his level of education is 11th grade Patient's Strengths (min. 2) outpatient care in the [place] Physical Exam Vital Signs Vital Signs Date Time Temp Pulse Resp B/P (MAP) Pulse Ox O2 Delivery O2 Flow Rate FiO2 12/10/16 14:26 155/75 (101) 12/10/16 11:49 65 12/10/16 08:18 96.1 18 100 12/09/16 08:04 Nasal Cannula 1.00 I/O 12/10/16 12/10/16 12/11/16 08:00 16:00 00:00 Intake Total 1900 ml Balance 1900 ml Lab Results Test 12/10/16 07:40 White Blood Count 4.9 TH/MM3 Red Blood Count 4.34 MIL/MM3 Hemoglobin 12.5 GM/DL Hematocrit 38.1 % Mean Corpuscular Volume 87.9 FL Mean Corpuscular Hemoglobin 28.8 PG Mean Corpuscular Hemoglobin Concent 32.7 % Red Cell Distribution Width 15.3 % Platelet Count 264 TH/MM3 Mean Platelet Volume 6.6 FL Neutrophils (%) (Auto) 59.8 % Lymphocytes (%) (Auto) 30.3 % Monocytes (%) (Auto) 9.2 % Eosinophils (%) (Auto) 0.2 % Basophils (%) (Auto) 0.5 % Neutrophils # (Auto) 2.9 TH/MM3 Lymphocytes # (Auto) 1.5 TH/MM3 Monocytes # (Auto) 0.5 TH/MM3 Eosinophils # (Auto) 0.0 TH/MM3 Basophils # (Auto) 0.0 TH/MM3 CBC Comment DIFF FINAL Differential Comment Blood Urea Nitrogen 6 MG/DL Creatinine 0.42 MG/DL Random Glucose 88 MG/DL Total Protein 7.0 GM/DL Albumin 3.3 GM/DL Calcium Level 9.0 MG/DL Alkaline Phosphatase 55 U/L Aspartate Amino Transf (AST/SGOT) 15 U/L Alanine Aminotransferase (ALT/SGPT) 11 U/L Total Bilirubin 0.2 MG/DL Sodium Level 140 MEQ/L Potassium Level 3.6 MEQ/L Chloride Level 108 MEQ/L Carbon Dioxide Level 22.9 MEQ/L Anion Gap 9 MEQ/L Estimat Glomerular Filtration Rate 157 ML/MIN Date/Time Source Procedure Growth Status 12/08/16 23:25 Blood Peripheral Aerobic Blood Culture - Preliminary NO GROWTH IN 2 DAYS Resulted 12/08/16 23:25 Blood Peripheral Anaerobic Blood Culture - Preliminary NO GROWTH IN 2 DAYS Resulted Mental Status Examination Appearance: Appropriate Consciousness: Alert Orientation: x4 Motor Activity: Normal gait Speech: Unremarkable Language: Adequate Fund of Knowledge: Adequate Attention and Concentration: Adequate Memory: Unremarkable Mood: Appropriate Affect: Appropriate Thought Process & Associations: Intact Thought Content: Appropriate Hallucination Type: None Delusion Type: None Suicidal Ideation: No Suicidal Plan: No Suicidal Intention: No Homicidal Ideation: No Homicidal Plan: No Homicidal Intention: No Insight: Adequate Judgment: Adequate Assessment & Plan Problem List: (1) Delirium due to another medical condition ICD Codes: F05 - Delirium due to known physiological condition Status: Acute Assessment & Plan: The patient does not present any significant evidence of depression, anxiety, mark or psychosis. Suicidal and homicidal ideation, she denies visual and auditory hallucinations. At this moment the patient is oriented 3, no attention deficit, no fluctuation of consciousness, no altered mental status present. She is to be that her recent described disorientation and delirium to be related with underlying medical conditions, and potentially with withdrawal of benzodiazepines. She does not meet criteria for psychiatric admission at this moment. [facility], motivation psycho education provided. Assessment & Plan Estimated LOS: days Jaron Oquendo MD Dec 10, 2016 15:48
== END 2016-12-10 15:49 | disposition home or self-care (01) ==
LOC: NEPC 22:57 → NEDA 12-09 02:13 → NEPHCDU 12-09 03:37
PROVIDERS: ADMIT Internal Medicine; ATTEND Internal Medicine
DX: G92 Toxic encephalopathy (principal); R00.1 Bradycardia, unspecified; J44.9 Chronic obstructive pulmonary disease, unspecified; K21.9 Gastro-esophageal reflux disease without esophagitis; E78.00 Pure hypercholesterolemia, unspecified; I10 Essential (primary) hypertension; I25.2 Old myocardial infarction; J18.1 Lobar pneumonia, unspecified organism; F17.200 Nicotine dependence, unspecified, uncomplicated; F41.9 Anxiety disorder, unspecified; F32.9 Major depressive disorder, single episode, unspecified; F39 Unspecified mood [affective] disorder; I25.10 Atherosclerotic heart disease of native coronary artery without angina pectoris; Z86.718 Personal history of other venous thrombosis and embolism; Z86.73 Personal history of transient ischemic attack (TIA), and cerebral infarction without residual deficits; Z79.01 Long term (current) use of anticoagulants; Z79.899 Other long term (current) drug therapy; Z95.5 Presence of coronary angioplasty implant and graft
CPT/HCPCS: 51702; 70450; 71010; 71020; 80053; 80307; 81001; 82550; 82607; 83605; 84443; 84484; 85025; 85610; 85730; 87040; 93005; 96361; 96365; 96366; 96375; 96376; G0378; G8987-GP; G8988-GP; J1630; J1956; J2060; J3370; J7030; J7050

== ENCOUNTER 2016-12-25 12:36 | Inpatient (IN) | payer OTHER ==
[~2016-12-25] VITALS: Ht 165.1 cm; Wt 69.0 kg
[2016-12-25] VITALS (8 sets, daily range): BP systolic 119–146; BP diastolic 59–94; PULSE 50–63; RESP 17–19; TEMP 95.7–98.2; O2SAT 92–100
[~2016-12-25 12:36] MED LIST changes: -ASPI81CH25 CHEW; -GABA400C5 PO; -HYDR-3288 PO; -LACTTAB8 PO; -LEVA750T9 PO
[2016-12-25] MEDS ORDERED: SODIUM CHLORIDE 0.9% FLUSH 10 ML FLUSH IVF PRN (13:00)
--- NOTE | 2016-12-25 13:33 | PD ---
HPI Chief Complaint: Altered Mental Status Time Seen by Provider: 12:49 Travel History International Travel<30 days: No Contact w/Intl Traveler<30days: No Traveled to known affect area: No History of Present Illness HPI So 56-year-old woman who presents to the emergency department after being found by friends lethargic. Apparently last seen normally last night. Patient unable to provide any additional history. EMS reports that she was sluggishly responsive in route. Not really answering questions. Medication list includes several sedating medications including quetiapine, trazodone, and Lortab. EMS also reports that she had a low heart rate in the 40s, was given 0.5 mg of atropine IV with good response. History Past Medical History Narrative Medical COPD Hypertension PNEUMOCCOCAL Vaccine (Year): 1 Menopausal: Yes : 4 Para: 3 Social History Alcohol Use: No (HX OF ALCOHOL ABUSE ) Tobacco Use: Yes (1/2 PPD) Allergies-Medications (Allergen,Severity, Reaction): Coded Allergies: codeine (Unverified Allergy, Severe, Rash, 12/25/16) KEEP RECORD PREVIOUS VISIT PT LETHARGIC UNABLE TO VERIFY penicillin G (Unverified Allergy, Severe, SWELLING, 12/25/16) KEEP RECORD PREVIOUS VISIT PT LETHARGIC UNABLE TO VERIFY prochlorperazine (Unverified Allergy, Severe, SWELLING, 12/25/16) KEEP RECORD PREVIOUS VISIT PT LETHARGIC UNABLE TO VERIFY Reported Meds & Prescriptions Reported Meds & Active Scripts Active Xarelto (Rivaroxaban) 15 Mg Tab 15 Mg PO BID 30 Days Vitamin B-12 (Cyanocobalamin) 1,000 Mcg Tab 1,000 Mcg PO DAILY Reported Amlodipine (Amlodipine Besylate) 10 Mg Tab 10 Mg PO DAILY Review of Systems Except as stated in HPI: all other systems reviewed are Neg Physical Exam Narrative GENERAL: 56 year-old woman, sluggishly responsive.. SKIN: Focused skin assessment warm/dry. HEAD: Atraumatic. Normocephalic. EYES: Eyes open and noxious stimulus. Pupils equal round about 3 mm. ENT: No nasal bleeding or discharge. Mucous membranes pink and moist. NECK: Trachea midline. No JVD. CARDIOVASCULAR: Regular rate and rhythm. No murmur appreciated. RESPIRATORY: No accessory muscle use. Clear to auscultation. Breath sounds equal bilaterally. GASTROINTESTINAL: Abdomen soft, non-tender, nondistended. Hepatic and splenic margins not palpable. MUSCULOSKELETAL: No obvious deformities. No clubbing. No cyanosis. No edema. NEUROLOGICAL: Sluggishly responsive. Will moan and answer some questions with a lot of stimulus some prompting. We'll withdraw all 4 extremities from pain. Sensation intact throughout. No obvious mario-neglect or lateralizing symptoms. PSYCHIATRIC: Unable to assess Data Data Last Documented VS Vital Signs Date Time Temp Pulse Resp B/P (MAP) Pulse Ox O2 Delivery O2 Flow Rate FiO2 12/25/16 14:31 56 18 125/63 (83) 97 Room Air 12/25/16 12:45 98.2 Orders Orders Electrocardiogram (12/25/16 12:49) Complete Blood Count With Diff (12/25/16 12:49) Comprehensive Metabolic Panel (12/25/16 12:49) Urinalysis - C+S If Indicated (12/25/16 12:49) Iv Access Insert/Monitor (12/25/16 12:49) Cath For Specimen (12/25/16 12:49) Ecg Monitoring (12/25/16 12:49) Oximetry (12/25/16 12:49) Sodium Chloride 0.9% Flush (Ns Flush) (12/25/16 13:00) Drug Screen, Random Urine (12/25/16 12:49) Alcohol (Ethanol) (12/25/16 12:49) Salicylates (Aspirin) (12/25/16 12:49) Tylenol (Acetaminophen) (12/25/16 12:49) Ammonia (12/25/16 12:49) Ct Brain W/O Iv Contrast(Rout) (12/25/16 ) Call Poison Control (12/25/16 15:07) Admit To Inpatient (12/25/16 ) Vital Signs (Adult) Q4H (12/25/16 15:23) Neuro Checks Q4H (12/25/16 15:23) Activity Oob With Assistance (12/25/16 15:23) Railroad Purchasing Agent / Telemetry .CONTINUOUS (12/25/16 15:23) Diet Npo (12/25/16 Dinner) Sodium Chlor 0.9% 1000 Ml Inj (Ns 1000 M (12/25/16 15:23) Sodium Chloride 0.9% Flush (Ns Flush) (12/25/16 15:30) Sodium Chloride 0.9% Flush (Ns Flush) (12/25/16 21:00) Acetaminophen (Tylenol) (12/25/16 15:30) Ondansetron Inj (Zofran Inj) (12/25/16 15:30) Basic Metabolic Panel (Bmp) (12/26/16 06:00) Complete Blood Count With Diff (12/26/16 06:00) Scd Bilateral/Knee High HUANG.BID (12/25/16 15:23) Naloxone Inj (Narcan Inj) (12/25/16 15:30) Magnesium Hydroxide Liq (Milk Of Magnesi (12/25/16 15:30) Sennosides (Senokot) (12/25/16 15:30) Bisacodyl Supp (Dulcolax Supp) (12/25/16 15:30) Lactulose Liq (Lactulose Liq) (12/25/16 15:30) Inpatient Certification (12/25/16 ) Admit Order (Ed Use Only) (12/25/16 ) Lactic Acid (12/25/16 15:23) Arterial Blood Gas (Abg) (12/25/16 ) Creatine Kinase (Cpk) (12/25/16 15:23) Magnesium (Mg) (12/25/16 15:23) Labs Laboratory Tests Test 12/25/16 13:00 White Blood Count 6.3 TH/MM3 Red Blood Count 4.19 MIL/MM3 Hemoglobin 12.9 GM/DL Hematocrit 37.4 % Mean Corpuscular Volume 89.2 FL Mean Corpuscular Hemoglobin 30.7 PG Mean Corpuscular Hemoglobin Concent 34.4 % Red Cell Distribution Width 15.3 % Platelet Count 292 TH/MM3 Mean Platelet Volume 6.7 FL Neutrophils (%) (Auto) 56.4 % Lymphocytes (%) (Auto) 33.2 % Monocytes (%) (Auto) 9.2 % Eosinophils (%) (Auto) 0.6 % Basophils (%) (Auto) 0.6 % Neutrophils # (Auto) 3.6 TH/MM3 Lymphocytes # (Auto) 2.1 TH/MM3 Monocytes # (Auto) 0.6 TH/MM3 Eosinophils # (Auto) 0.0 TH/MM3 Basophils # (Auto) 0.0 TH/MM3 CBC Comment DIFF FINAL Differential Comment Urine Color LIGHT-YELLOW Urine Turbidity CLEAR Urine pH 6.0 Urine Specific [place] 1.008 Urine Protein NEG mg/dL Urine Glucose (UA) NEG mg/dL Urine Ketones NEG mg/dL Urine Occult Blood NEG Urine Nitrite NEG Urine Bilirubin NEG Urine Urobilinogen LESS THAN 2.0 MG/DL Urine Leukocyte Esterase NEG Urine WBC LESS THAN 1 /hpf Urine Squamous Epithelial Cells <1 /hpf Urine Transitional Epithelial Cells <1 /hpf Microscopic Urinalysis Comment CULT NOT INDICATED Blood Urea Nitrogen 5 MG/DL Creatinine 0.52 MG/DL Random Glucose 91 MG/DL Total Protein 6.7 GM/DL Albumin 3.0 GM/DL Calcium Level 8.1 MG/DL Alkaline Phosphatase 63 U/L Aspartate Amino Transf (AST/SGOT) 16 U/L Alanine Aminotransferase (ALT/SGPT) 12 U/L Total Bilirubin 0.2 MG/DL Sodium Level 146 MEQ/L Potassium Level 4.3 MEQ/L Chloride Level 117 MEQ/L Carbon Dioxide Level 23.5 MEQ/L Anion Gap 6 MEQ/L Estimat Glomerular Filtration Rate 123 ML/MIN Ammonia 11 MCMOL/L Salicylates Level 20.2 MG/DL Urine Opiates Screen NEG Acetaminophen Level LESS THAN 2.0 MCG/ML Urine Barbiturates Screen NEG Urine Amphetamines Screen NEG Urine Benzodiazepines Screen NEG Urine Cocaine Screen NEG Urine Cannabinoids Screen NEG Ethyl Alcohol Level LESS THAN 3 MG/DL MDM Medical Decision Making Medical Screen Exam Complete: Yes Emergency Medical Condition: Yes Interpretation(s) My review of EKG: Sinus bradycardia rate of 58, prolonged QT interval with a QTC of 477, OK interval is low but short at 105, no definite evidence of acute ischemia. LABS: CBC is unremarkable. CMP is unremarkable. Ammonia is 11. UA is unremarkable. Urine drug screen negative Salicylates 20.2 Acetaminophen to Alcohol negative Differential Diagnosis Adverse drug effect, CVA, infection, encephalopathy, seizure, other Narrative Course Medical decision making INITIAL: Is a 56-year-old woman presents to the emergency Department with altered mental status. My impression is is likely adverse drug effect likely Seroquel overdose with trazodone overdose, difficult to discern. No obvious evidence of stroke. No evidence of infection. We'll check labs, CT, reassess. FINAL: Patient with altered mental status, suspect drug overdose. Salicylates are little bit elevated, I think this is probably inconsequential but will discuss with poison control, may need a repeat level. Otherwise looks well. Will be admitted for further evaluation, rule out stroke, reassess. Nurse spoke with poison control, recommended seizure precautions, observe for respiratory distress, repeat EKG, lactate, ABG, CPK, magnesium. Diagnosis Primary Impression: Altered mental status Additional Impression: Encephalopathy Dru Lee MD Dec 25, 2016 13:33
[2016-12-25 13:47] LABS: AUTOMATED NEUTROPHIL # 3.6 TH/MM3 (1.8-7.7); BASOPHIL % 0.6 % (0.0-2.0); EOSINOPHIL % 0.6 % (0.0-4.0); HEMATOCRIT 37.4 % (35.0-46.0); HEMO FLAGS DIFF FINAL; LYMPH % 33.2 % (9.0-44.0); LYMPHOCYTE # 2.1 TH/MM3 (1.0-4.8); MEAN CELL VOLUME 89.2 FL (80.0-100.0); MEAN CORPUSCULAR HEMOGLOBIN 30.7 PG (27.0-34.0); MEAN CORPUSCULAR HGB CONC 34.4 % (32.0-36.0); MONO % 9.2 % (0.0-8.0); NEUT % 56.4 % (16.0-70.0); PLATELET COUNT 292 TH/MM3 (150-450); RED BLOOD COUNT 4.19 MIL/MM3 (4.00-5.30); RED CELL DISTRIBUTION WIDTH 15.3 % (11.6-17.2); WHITE BLOOD COUNT 6.3 TH/MM3 (4.0-11.0)
[2016-12-25 13:52] LABS: BLOOD, URINE NEG (NEG); COMMENT (UR) CULT NOT INDICATED; CULTURE IF INDICATED CULT NOT INDICATED; GLUCOSE,URINE NEG (NEG); KETONE, URINE NEG (NEG); NITRITE,URINE NEG (NEG); SQUAMOUS EPITHELIAL CELL URINE <1 /hpf (0-5); TRANSITIONAL EPI CELLS, URINE <1 /hpf; URINE COLOR LIGHT-YELLOW (YELLW/STRAW)
[2016-12-25 14:02] LABS: ACETAMINOPHEN LESS THAN 2.0 MCG/ML (10.0-30.0); ALT (GPT) 12 U/L (10-53); ANION GAP 6 MEQ/L (5-15); AST (GOT) 16 U/L (15-37); BICARBONATE 23.5 MEQ/L (21.0-32.0); BLOOD UREA NITROGEN 5 MG/DL (7-18); CHLORIDE 117 MEQ/L (98-107); GLOMERULAR FILTRATION RATE 123 ML/MIN (>89); POTASSIUM 4.3 MEQ/L (3.5-5.1); SODIUM (NA) 146 MEQ/L (136-145)
[2016-12-25 14:04] LABS: ALKALINE PHOSPHATASE 63 U/L (45-117); TOTAL BILIRUBIN ADULT 0.2 MG/DL (0.2-1.0)
[2016-12-25 14:12] LABS: ALCOHOL LESS THAN 3 MG/DL (0-5)
--- NOTE | 2016-12-25 14:58 | RADRPT ---
EXAM DATE/TIME: 12/25/2016 13:29 [place] COMPARISON: CT BRAIN W/O CONTRAST, December 09, 2016, 0:14. INDICATIONS : Altered mental status. RADIATION DOSE: 56.35 CTDIvol (mGy) MEDICAL HISTORY : Cardiovascular disease. Hypertension. Chronic obstructive pulmonary disease. SURGICAL HISTORY : Tubal ligation. ENCOUNTER: Initial ACUITY: 3 days PAIN SCALE: Non-responsive LOCATION: Bilateral cranial TECHNIQUE: Multiple contiguous axial images were obtained of the head. Using automated exposure control and adj ustment of the mA and/or kV according to patient size, radiation dose was kept as low as reasonably a chievable to obtain optimal diagnostic quality images. DICOM format image data is available electro nically for review and comparison. FINDINGS: There is stable asymmetric cerebral atrophy worse on the left than the right with probable underlying chronic subdural hygroma along the left frontal parietal region measuring 7 mm in width. There is no acute in farct, acute hemorrhage, midline shift or extraaxial fluid collections. The ventricles are normal in size. CONCLUSION: 1. Stable asymmetric cerebral atrophy (left worse than right) with chronic subdural hygroma along th e left frontal parietal region measuring 7 mm. No acute infarct, hemorrhage, midline shift or extraa xial fluid collections. Tarun Mcallister MD on December 25, 2016 at 13:46 Board Certified Radiologist. This report was verified electronically.
[2016-12-25] MEDS ORDERED: BISACODYL 10 MG SUPP RECTAL PRN (15:30)
[2016-12-25] MEDS ORDERED: ONDANSETRON HCL 4 MG/2 ML VIAL IVP PRN (15:30)
[2016-12-25] MEDS ORDERED: SENNOSIDES 8.6 MG TAB PO PRN (15:30)
[2016-12-25] MEDS ORDERED: ACETAMINOPHEN 325 MG TAB PO PRN (15:30)
[2016-12-25] MEDS ORDERED: LACTULOSE SYRUP 20 GM/30 ML CUP PO PRN (15:30)
[2016-12-25] MEDS ORDERED: NALOXONE HCL 0.4 MG/ML AMP IV PUSH PRN (15:30)
[2016-12-25] MEDS ORDERED: MAGNESIUM HYDROXIDE SUSP 30 ML CUP PO PRN (15:30)
[2016-12-25] MEDS ORDERED: SODIUM CHLORIDE 0.9% FLUSH 10 ML FLUSH IV FLUSH PRN (15:30)
[2016-12-25 15:41] LABS: BLOOD GAS CARBOXYHEMOGLOBIN 4.2 % (0-4); BLOOD GAS HCO3 24 mmol/L (22-26); BLOOD GAS METHEMOGLOBIN 0.9 % (0-2); BLOOD GAS O2 HGB SATURATION 91 % (90-100); BLOOD GAS OXYGEN CONTENT 16.3 Vol % (12.0-20.0); BLOOD GAS PCO2 37 mmHg (38-42); BLOOD GAS PO2 75 mmHG (61-120); BLOOD GAS TOTAL HGB 12.7 G/DL (12.0-16.0); CRITICAL VALUE NO; DRAW SITE RT RADIAL; FIO2 21 %; NUMBER OF ARTERIAL PUNCTURES 1; OXYGEN DEVICE ROOM AIR; STAT YES; TEMP CORR TO 98.6
--- NOTE | 2016-12-25 16:41 | HHI.HP ---
[facility] Physician Unknown Admission Diagnosis AMS Diagnoses: Chief Complaint: Pt unable to provide information. Travel History International Travel<30 Days: No Contact w/Intl Traveler <30 Da: No Traveled to Known Affected Are: No History of Present Illness Written by Manny Staples PA-C acting as scribe for Dr. Jess De La Vega on 12/25/16 at 16:40. This note was transcribed by scribe Manny Staples PA-C. I, Dr. Eusebio De La Vega personally performed the history, physical exam, and medical decision making; and confirmed the accuracy of the information in the transcribed note. Authenticated by Dr. Eusebio De La Vega on 12/25/16 at 16:40. Ms. Hensley is 56 years old, with history inclusive of coronary artery disease, S/P myocardial infarction, CVA, migraine headaches, COPD/chronic bronchitis, left upper extremity DVT (on Xarelto since September 2016), chronic narcotic dependence, hypertension, B12 deficiency, hyperlipidemia, and metabolic encephalopathy (3). Review of the medical record indicated metabolic encephalopathy twice noted in September 2016 and upon her 12/09/16- admission.She is followed by psychiatry at the [facility] for depression and anxiety Ms. Hensley was brought to [facility] on 12/25/16 in a lethargic state with bradycardia. Per the ED report, Ms. Hensley was not able to provide much information at the time of admission. Information indicated she was last known well on the evening of 12/24/16. Friends found her in an altered state today, called EMS and she was subsequently brought to the hospital. ED reports indicated that her bradycardia was treated with atropine 0.5 mg 1 dose. It was also noted that her salicylate level was elevated (20.2). Fluids were administered. At time of interview, Ms. Hensley was not able to provide any significant information out her medical history or her current condition. When asked questions, she repeatedly said "Sir Sir". She would not follow simple one-step commands. As such, a 10 point review of systems could not be obtained. Ms. Hensley is being admitted for further evaluation and management of her condition. Review of Systems ROS Limitations: Altered Mental Status, Poor Historian Past Family Social History Past Medical History coronary artery disease, S/P myocardial infarction, CVA/TIA, migraine headaches, COPD/chronic bronchitis, left upper extremity DVT (on Xarelto since September 2016), chronic narcotic dependence, hypertension, B12 deficiency, hyperlipidemia, metabolic encephalopathy (3) Past Surgical History Cardiac stenting Left wrist repair Tubal ligation Reported Medications Reported Meds & Active Scripts Active Xarelto (Rivaroxaban) 15 Mg Tab 15 Mg PO BID 30 Days Vitamin B-12 (Cyanocobalamin) 1,000 Mcg Tab 1,000 Mcg PO DAILY Reported Amlodipine (Amlodipine Besylate) 10 Mg Tab 10 Mg PO DAILY Review of medical record indicates past prescriptions of Revloc, baclofen, gabapentin, Seroquel 100 mg, trazodone 50 mg. Allergies: Coded Allergies: codeine (Unverified Allergy, Severe, Rash, 12/25/16) KEEP RECORD PREVIOUS VISIT PT LETHARGIC UNABLE TO VERIFY penicillin G (Unverified Allergy, Severe, SWELLING, 12/25/16) KEEP RECORD PREVIOUS VISIT PT LETHARGIC UNABLE TO VERIFY prochlorperazine (Unverified Allergy, Severe, SWELLING, 12/25/16) KEEP RECORD PREVIOUS VISIT PT LETHARGIC UNABLE TO VERIFY Active Ordered Medications Current Medications Medications (Trade) Dose Ordered Sig/Sandoval Route Start Time Stop Time Status Last Admin Sodium Chloride 1,000 ml @ 100 mls/hr Q10H IV 12/25/16 16:00 (NS Flush) 2 ml UNSCH PRN IV FLUSH 12/25/16 15:30 (NS Flush) 2 ml BID IV FLUSH 12/25/16 21:00 (Tylenol) 650 mg Q4H PRN PO 12/25/16 15:30 (Zofran Inj) 4 mg Q6H PRN IVP 12/25/16 15:30 (Narcan Inj) 0.4 mg UNSCH PRN IV PUSH 12/25/16 15:30 (Milk Of Magnesia Liq) 30 ml Q12H PRN PO 12/25/16 15:30 (Senokot) 17.2 mg Q12H PRN PO 12/25/16 15:30 (Dulcolax Supp) 10 mg DAILY PRN RECTAL 12/25/16 15:30 (Lactulose Liq) 30 ml DAILY PRN PO 12/25/16 15:30 Family History Review of records indicates negative history for diabetes Social History Medical records indicate patient smokes one half pack cigarettes per day duration unknown. Records indicate no previous history of illicit/recreational drug use. Patient has history of alcohol use, amount and duration unknown. Previous notes indicate that the patient denied alcohol use for 6 months in September 2016. Unknown at this time the patient has used any alcohol since that time; toxicology screen was negative for alcohol at this admission. Physical Exam Vital Signs Vital Signs Date Time Temp Pulse Resp B/P (MAP) Pulse Ox O2 Delivery O2 Flow Rate FiO2 12/25/16 15:39 97.8 63 17 128/69 (88) 98 Room Air 12/25/16 14:31 56 18 125/63 (83) 97 Room Air 12/25/16 13:00 18 99 Room Air 12/25/16 12:45 98.2 52 18 139/79 (99) 100 Physical Exam GENERAL: This is a well-nourished, well-developed patient, in no apparent distress. SKIN: No rashes, ecchymoses or lesions. Cool and dry. HEAD: Atraumatic. Normocephalic. EYES: Pupils equal round and reactive. Extraocular motions intact. No scleral icterus. No injection or drainage. ENT: Nose without bleeding or purulent drainage. Airway patent. NECK: Trachea midline. No lymphadenopathy. Supple and nontender. CARDIOVASCULAR: Bradycardic rate (55-62) and regular rhythm without murmurs, gallops, or rubs. RESPIRATORY: Clear to auscultation. Breath sounds equal bilaterally. No wheezes , rales, or rhonchi. GASTROINTESTINAL: Abdomen soft, non-tender, nondistended. No hepato- splenomegaly or guarding. MUSCULOSKELETAL: Extremities without clubbing, cyanosis, or edema. NEUROLOGICAL: Awake and alert orientation could not be ascertained. Cranial nerves II through XII intact. Motor and sensory grossly within normal limits. Patient noted to move all extremities spontaneously. Patient did not follow one-step commands. Laboratory Laboratory Tests Test 12/25/16 13:00 12/25/16 15:30 12/25/16 15:31 White Blood Count 6.3 Red Blood Count 4.19 Hemoglobin 12.9 Hematocrit 37.4 Mean Corpuscular Volume 89.2 Mean Corpuscular Hemoglobin 30.7 Mean Corpuscular Hemoglobin Concent 34.4 Red Cell Distribution Width 15.3 Platelet Count 292 Mean Platelet Volume 6.7 Neutrophils (%) (Auto) 56.4 Lymphocytes (%) (Auto) 33.2 Monocytes (%) (Auto) 9.2 Eosinophils (%) (Auto) 0.6 Basophils (%) (Auto) 0.6 Neutrophils # (Auto) 3.6 Lymphocytes # (Auto) 2.1 Monocytes # (Auto) 0.6 Eosinophils # (Auto) 0.0 Basophils # (Auto) 0.0 CBC Comment DIFF FINAL Differential Comment Urine Color LIGHT-YELLOW Urine Turbidity CLEAR Urine pH 6.0 Urine Specific Spearfish 1.008 Urine Protein NEG Urine Glucose (UA) NEG Urine Ketones NEG Urine Occult Blood NEG Urine Nitrite NEG Urine Bilirubin NEG Urine Urobilinogen LESS THAN 2.0 Urine Leukocyte Esterase NEG Urine WBC LESS THAN 1 Urine Squamous Epithelial Cells <1 Urine Transitional Epithelial Cells <1 Microscopic Urinalysis Comment CULT NOT INDICATED Blood Urea Nitrogen 5 Creatinine 0.52 Random Glucose 91 Total Protein 6.7 Albumin 3.0 Calcium Level 8.1 Alkaline Phosphatase 63 Aspartate Amino Transf (AST/SGOT) 16 Alanine Aminotransferase (ALT/SGPT) 12 Total Bilirubin 0.2 Sodium Level 146 Potassium Level 4.3 Chloride Level 117 Carbon Dioxide Level 23.5 Anion Gap 6 Estimat Glomerular Filtration Rate 123 Ammonia 11 Salicylates Level 20.2 Urine Opiates Screen NEG Acetaminophen Level LESS THAN 2.0 Urine Barbiturates Screen NEG Urine Amphetamines Screen NEG Urine Benzodiazepines Screen NEG Urine Cocaine Screen NEG Urine Cannabinoids Screen NEG Ethyl Alcohol Level LESS THAN 3 Blood Gas Puncture Site RT RADIAL Blood Gas Patient Temperature 98.6 Blood Gas HCO3 24 Blood Gas Base Excess 0.0 Blood Gas Oxygen Saturation 91 Arterial Blood pH 7.42 Arterial Blood Partial Pressure CO2 37 Arterial Blood Partial Pressure O2 75 Arterial Blood Oxygen Content 16.3 Arterial Blood Carboxyhemoglobin 4.2 Arterial Blood Methemoglobin 0.9 Blood Gas Hemoglobin 12.7 Oxygen Delivery Device ROOM AIR Blood Gas Inspired Oxygen 21 Result Diagram: 12/25/16 1300 12/25/16 1300 Imaging Last Impressions Head CT 12/25/16 0000 Signed Impressions: Service Date/Time: Sunday, December 25, 2016 13:29 - CONCLUSION: 1. 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 No acute infarct, hemorrhage, midline shift or extraaxial fluid collections. MD Prashant Chambers VTE Risk Assessment Caprini VTE Risk Assessment: Mod/High Risk (score >= 2) Caprini Risk Assessment Model Point Value = 1 Point Value = 2 Point Value = 3 Point Value = 5 Age 41-60 Minor surgery BMI > 25 kg/m2 Swollen legs Varicose veins or History of unexplained or recurrent spontaneous Oral contraceptives or hormone replacement Sepsis (< 1 month) Serious lung disease, including pneumonia (< 1 month) Abnormal pulmonary function Acute myocardial infarction Congestive heart failure (< 1 month) History of inflammatory bowel disease Medical patient at bed rest Age 61-74 Arthroscopic surgery Major open surgery (> 45 min) Laparoscopic surgery (> 45 min) Malignancy Confined to bed (> 72 hours) Immobilizing plaster cast Central venous access Age >= 75 History of VTE Family history of VTE Factor V Leiden Prothrombin [id number] Lupus anticoagulant Anticardiolipin antibodies Elevated serum homocysteine Heparin-induced thrombocytopenia Other congenital or acquired thrombophilia Stroke (< 1 month) Elective arthroplasty Hip, pelvis, or leg fracture Acute spinal cord injury (< 1 month) Prophylaxis Regimen Total Risk Factor Score Risk Level Prophylaxis Regimen 0-1 Low Early ambulation 2 Moderate Order ONE of the following: *Sequential Compression Device (SCD) *Heparin 5000 units SQ BID 3-4 Higher Order ONE of the following medications: *Heparin 5000 units SQ TID *Enoxaparin/Lovenox 40 mg SQ daily (WT < 150 kg, CrCl > 30 mL/min) *Enoxaparin/Lovenox 30 mg SQ daily (WT < 150 kg, CrCl > 10-29 mL/min) *Enoxaparin/Lovenox 30 mg SQ BID (WT < 150 kg, CrCl > 30 mL/min) AND/OR *Sequential Compression Device (SCD) 5 or more Highest Order ONE of the following medications: *Heparin 5000 units SQ TID (Preferred with Epidurals) *Enoxaparin/Lovenox 40 mg SQ daily (WT < 150 kg, CrCl > 30 mL/min) *Enoxaparin/Lovenox 30 mg SQ daily (WT < 150 kg, CrCl > 10-29 mL/min) *Enoxaparin/Lovenox 30 mg SQ BID (WT < 150 kg, CrCl > 30 mL/min) AND *Sequential Compression Device (SCD) Assessment and Plan Problem List: (1) Encephalopathy ICD Code: G93.40 - Encephalopathy, unspecified Status: Acute (2) Bradycardia ICD Code: R00.1 - Bradycardia, unspecified Status: Acute Assessment and Plan Ms. Hensley is 56 years old, with history inclusive of coronary artery disease, S/P myocardial infarction, CVA, migraine headaches, COPD/chronic bronchitis, left upper extremity DVT (on Xarelto since September 2016), chronic narcotic dependence, hypertension, B12 deficiency, hyperlipidemia, and metabolic encephalopathy (3). She is followed by psychiatry at the [facility] for depression and anxiety. Review of the medical record indicated metabolic encephalopathy twice noted in September 2016 and upon her 12/09/16-12/10/16 admission. Ms. Hensley was brought to [facility] on 12/25/16 in a lethargic state with bradycardia. Per the ED report, Ms. Hensley was not able to provide much information at the time of admission. Information indicated she was last known well on the evening of 12/24/16. Friends found her in an altered state today, called EMS and she was subsequently brought to the hospital. Encephalopathy Bradycardia -Admit to inpatient -Hold sedating medications including patient's trazodone and Seroquel. -Psychiatry consulted -Haldol to be used in case of behavioral issues -Treat symptomatic bradycardia per ACLS protocol -Labs in a.m. -Toxicology screen upon admission was negative -Chemistries within normal limits upon admission -No acute findings on CT of head. -Seizure precautions -Neuro checks -EKG -Telemetry -EEG -Neurology to be consulted Diet -Nothing by mouth at this time DVT prophylaxis -SCDs -Resume Xarelto when patient is stable Code Status Full code Discussed Condition With ER staff Physician Certification 2 Midnight Certification Type: Admission for Inpatient Services Order for Inpatient Services The services are ordered in accordance with Medicare regulations or non- Medicare payer requirements, as applicable. In the case of services not specified as inpatient-only, they are appropriately provided as inpatient services in accordance with the 2-midnight benchmark. Estimated LOS (days): 2 Two days is the estimated time the patient will need to remain in the hospital, assuming treatment plan goals are met and no additional complications. Post-Hospital Plan: Not yet determined Manny Staples Jr. Dec 25, 2016 16:41 Volodymyr De La Vega DO Dec 25, 2016 16:41
[2016-12-25] MEDS: SODIUM CHLOR 0.9% 1000 ML INJ 1,000 ML IV SCH (16:46)
[2016-12-25] MEDS: SODIUM CHLORIDE 0.9% FLUSH 10 ML FLUSH IV FLUSH SCH (21:00)
--- NOTE | 2016-12-25 21:08 | EKG ---
Date Performed: 12/25/2016 Time Performed: 16:15:20 PTAGE: 56 years EKG: SINUS BRADYCARDIA WITH SINUS ARRHYTHMIA MINIMAL ST DEPRESSION BORDERLINE ECG PREVIOUS TRACING : 12/08/2016 23.09 Compared to the previous tracing rate slower DOCTOR: Michael Pascal Interpretating Date/Time 12/25/2016 21:06:47
--- NOTE | 2016-12-25 21:16 | EKG ---
Date Performed: 12/25/2016 Time Performed: 12:50:28 PTAGE: 56 years EKG: SINUS BRADYCARDIA WITH SHORT CA INTERVAL PROLONGED QT INTERVAL ABNORMAL ECG Compared to neeraj or tracing no significant change DOCTOR: Michael Pascal Interpretating Date/Time 12/25/2016 21:15:01
[2016-12-26 03:40] VITALS: BP 142/77; PULSE 49; PULSE 78; RESP 17; RESP 18; TEMP 97.4; O2SAT 97
[2016-12-26] MEDS: SODIUM CHLOR 0.9% 1000 ML INJ 1,000 ML IV SCH (05:43)
[2016-12-26 06:14] LABS: AUTOMATED NEUTROPHIL # 3.3 TH/MM3 (1.8-7.7); BASOPHIL % 0.8 % (0.0-2.0); EOSINOPHIL % 0.9 % (0.0-4.0); HEMATOCRIT 37.7 % (35.0-46.0); HEMO FLAGS DIFF FINAL; LYMPH % 31.2 % (9.0-44.0); LYMPHOCYTE # 1.8 TH/MM3 (1.0-4.8); MEAN CORPUSCULAR HEMOGLOBIN 28.5 PG (27.0-34.0); MONO % 8.4 % (0.0-8.0); NEUT % 58.7 % (16.0-70.0); PLATELET COUNT 288 TH/MM3 (150-450); RED BLOOD COUNT 4.24 MIL/MM3 (4.00-5.30); RED CELL DISTRIBUTION WIDTH 14.9 % (11.6-17.2); WHITE BLOOD COUNT 5.6 TH/MM3 (4.0-11.0)
[2016-12-26 06:31] LABS: BICARBONATE 21.2 MEQ/L (21.0-32.0); POTASSIUM 3.6 MEQ/L (3.5-5.1)
[2016-12-26 08:00] VITALS: BP 144/87; PULSE 60; RESP 17; TEMP 98.1; O2SAT 96
--- NOTE | 2016-12-26 08:57 | HHI.PR ---
Subjective Remarks Follow-up for acute encephalopathy. Patient has improved quite a bit since she was admitted yesterday 12/25/2016. Yesterday she could not say single words that made sense. Today she is able to communicate well. She is still having some word finding difficulty and not sure what she is. No fever or chills. Objective Vitals Vital Signs Date Time Temp Pulse Resp B/P (MAP) Pulse Ox O2 Delivery O2 Flow Rate FiO2 12/26/16 03:40 49 17 142/77 (98) 97 12/25/16 23:53 50 17 121/94 (103) 92 12/25/16 19:10 50 17 119/59 (79) 93 12/25/16 18:10 95.7 50 19 146/74 (98) 100 12/25/16 17:35 97.9 52 16 124/83 (97) 98 12/25/16 15:39 97.8 63 17 128/69 (88) 98 Room Air 12/25/16 14:31 56 18 125/63 (83) 97 Room Air 12/25/16 13:00 18 99 Room Air 12/25/16 12:45 98.2 52 18 139/79 (99) 100 I/O 12/25/16 12/25/16 12/25/16 12/26/16 12/26/16 12/26/16 07:00 15:00 23:00 07:00 15:00 23:00 Intake Total 0 ml 0 ml Balance 0 ml 0 ml Intake Oral 0 ml 0 ml # Voids 2 3 # Bowel Movements 0 2 Result Diagram: 12/26/16 0600 12/26/16 0600 Imaging Last Impressions Head CT 12/25/16 0000 Signed Impressions: Service Date/Time: Sunday, December 25, 2016 13:29 - CONCLUSION: 1. 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 No acute infarct, hemorrhage, midline shift or extraaxial fluid collections. Tarun Mcallister MD Objective Remarks GENERAL: Alert, oriented to person, NAD. SKIN: Warm and dry. HEAD: Normocephalic. EYES: No scleral icterus. No injection or drainage. NECK: Supple, trachea midline. No JVD or lymphadenopathy. CARDIOVASCULAR: Regular rate and rhythm without murmurs, gallops, or rubs. RESPIRATORY: Breath sounds equal bilaterally. No accessory muscle use. GASTROINTESTINAL: Abdomen soft, non-tender, nondistended. MUSCULOSKELETAL: No cyanosis, or edema. BACK: Nontender without obvious deformity. No CVA tenderness. Procedures None A/P Problem List: (1) Encephalopathy ICD Code: G93.40 - Encephalopathy, unspecified Status: Acute (2) Bradycardia ICD Code: R00.1 - Bradycardia, unspecified Status: Acute Assessment and Plan Ms. Hensley is a 56-year-old female with a history of anxiety, depression, CAD, COPD, chronic narcotic dependence who was brought to the emergency room due to acute encephalopathy. On the day of admission patient was able to make some sound but no meaningful common medication. CT head did not reveal any acute findings. Patient has had similar admissions before. - Acute encephalopathy - Likely due to medications. - Continue to hold her medications including Seroquel, trazodone, pain medication Lortab. - Switch normal saline to half-normal saline with potassium. - COPD - DuoNeb PRN. Supplemental O2 if needed to keep O2 sat > 90%. - Left Upper ext DVT - Diagnosed on 10/15/2016. - Patient was on Xarelto. Home med indicates Xarelto 15mg BID. After 21 days , it should be 20mg Qday. - We will continue anti-coagulation for 20 more days. We will switch her to Apixaban 5mg BID. - Hypertension - Reduce home med Amlodipine from 10mg to 5mg Qday. Full code. Apixaban. Volodymyr De La Vega DO Dec 26, 2016 8:57 am
[2016-12-26] MEDS: SODIUM CHLORIDE 0.9% FLUSH 10 ML FLUSH IV FLUSH SCH ×2 (09:00→21:00)
[2016-12-26] MEDS: 1/2 NS + KCL 20 MEQ INJ 1,000 ML IV SCH ×2 (10:59→21:55)
[2016-12-26] MEDS: amLODIPine BESYLATE 5 MG TAB PO SCH (11:14)
[2016-12-26] MEDS: CYANOCOBALAMIN 1,000 MCG TAB PO SCH (11:14)
[2016-12-26] MEDS: APIXABAN 5 MG TABLET PO SCH ×2 (11:17→21:20)
[2016-12-26] MEDS ORDERED: ALPRAZolam 0.25 MG TAB PO SCH (11:30)
--- NOTE | 2016-12-26 11:57 | MB ---
cc: GENE NINA M.D. DATE OF CONSULTATION 12/26/2016 HISTORY OF PRESENT ILLNESS The patient is a 56-year-old right-handed woman actually seen by Dr. Hand in September of this year with possible left facial droop, jittery shaking, long-time drinker but none for several years. A CTA of the neck and yocha dehe of [place] were negative as was CT of the brain. MRI had been ordered but never done. EEG was not performed at that time. She came into the hospital last evening, found by friends to be lethargic. She was slugglish. She was on Seroquel, trazodone, Lortab, heart rate in the 40s which came up with atropine. MEDICATIONS AT HOME 1. Xarelto. 2. Vitamin B12. 3. Amlodipine. ALLERGIES CODEINE. PENICILLIN. PROCHLORPERAZINE. REVIEW OF SYSTEMS She gave me a negative review of systems; however, I am not sure how accurate that is. She had been admitted on 12/08/2016 also with some jerking movements, change in mental status. They thought at that time she had a metabolic encephalopathy in September and also acute hypoxic episode. She was on 81 of aspirin a day. She was noted to have a history of DVT and had been on Xarelto, chronic narcotic dependence, tobacco use. O2 sat was 95%. She seemed to do better, able to answer questions, was repeating them on pain pills, was confused. She had been getting multiple [place] and Xanax prescriptions from multiple PCPs in the area, getting them at different pharmacies. An EEG was evidently ordered by I do not see where one was done. She was refusing the EEG, just wanted to go home and thus she was evidently discharged, seemed to be improved. She was given Levaquin. PAST MEDICAL HISTORY 1. Metabolic encephalopathy. 2. Hyperlipidemia. 3. B12 deficiency. 4. Hypertension. 5. Narcotic dependence. 6. DVT left upper extremity. 7. COPD. 8. Bronchitis. 9. Migraine headaches. 10. IL. 11. Possible stroke in the past, although I do not see there was any definite stroke. More of a TIA diagnosis in the chart. CURRENT MEDICATIONS 1. She is on B12 p.o. 2. Norvasc. 3. Eliquis. REVIEW OF SYSTEMS She denied any old review of systems including hypertension, diabetes, hypercholesterolemia, IL, CABG, cardiac arrhythmia, renal, hepatic or pulmonary disease, thyroid disease, lupus, ulcer, cancer or stroke. However, I do not feel she is qualified to answer. SOCIAL HISTORY She is a smoker. Hard to say if she drinks. FAMILY HISTORY She has had negative cancer, seizure or stroke. When asked who she lives with, she said Enedina, although she could not tell me who that was. PHYSICAL EXAMINATION VITAL SIGNS: Blood pressure 144/87, 17, 68. Febrile. Sinus rhythm. NECK: No carotid bruits. HEART: Regular rhythm. I do not detect a murmur. NEUROLOGICAL EXAMINATION Pupils are equal. Visual carpenter appear full. Face is symmetric. Tongue was midline. She moved all her extremities well with normal strength in upper and lower extremities bilaterally. Toes downgoing bilaterally. DTRs are trace. She seemed to feel discomfort throughout. Talking to her, however, she cannot tell me the year, the month, who her roommate is. She can say hello and good-bye and repeat fine. Her naming is a little bit off. She cannot show me her left thumb, possibly could have some aphasia. LABORATORY DATA CBC is normal. Sed rate was 8 in 2012. RPR has been negative in 2004. MELIDA was negative in 2013. Urine drug screens were negative twice in the last several days. UA was negative. Coags normal. BMP is normal. Magnesium normal. Phosphorus was low back in September of this year. Ammonia level normal. CPK normal. LDL cholesterol was normal in September of this year. B12 was normal. TSH normal. IMAGING STUDIES CAT scan was read as negative. Head CTA done in September of this year was normal. CTA of the neck at that time was negative. IMPRESSION AND RECOMMENDATIONS Encephalopathy. The EEG shows some bifrontal sharply contoured waves that do not look classic for triphasic waves. It is possible she could have some subclinical status and we will treat her with some Keppra. I will also give her a little bit of Xanax in case she has a history of benzodiazepine use and could be having withdrawal seizures. We will check an MRI of the brain and I will be following her with you in the hospital. Stroke is another consideration. MD KIMBERLY Mcneill/MAGUE /11:18 AM /11:37 AM
[2016-12-26 12:00] VITALS: BP 150/85; PULSE 61; RESP 18; TEMP 99; O2SAT 97
[2016-12-26] MEDS ORDERED: SODIUM CHLOR 0.9% 1000 ML INJ 1,000 ML IV SCH (12:00)
[2016-12-26 12:07] LABS: BLOOD GAS BASE EXCESS -1.9 mmol/L (-2-2); BLOOD GAS CARBOXYHEMOGLOBIN 1.3 % (0-4); BLOOD GAS HCO3 22 mmol/L (22-26); BLOOD GAS METHEMOGLOBIN 1.1 % (0-2); BLOOD GAS O2 HGB SATURATION 94 % (90-100); BLOOD GAS OXYGEN CONTENT 15.9 Vol % (12.0-20.0); BLOOD GAS PCO2 34 mmHg (38-42); BLOOD GAS PO2 82 mmHg (61-120); CRITICAL VALUE NO; DRAW SITE rr; FIO2 21 %; NUMBER OF ARTERIAL PUNCTURES 1; OXYGEN DEVICE room air; TEMP CORR TO 98.6; ULNAR PULSE y
[2016-12-26 12:10] LABS: STAT YES
[2016-12-26] MEDS ORDERED: levETIRAcetam 1000 MG INJ 100 ML IV SCH (13:00)
--- NOTE | 2016-12-26 13:53 | PD.PSY.CON ---
Provisional Diagnosis Admission Date Dec 25, 2016 at 15:29 [place] I. Delirium due to multiple etiologies, history of anxiety and depression, benzodiazepines abuse [place] II. Deferred History of Present Illness Service Psychiatry Consult Requested By Hospitalist Reason for Consult Overdosed Primary Care Physician Unknown HPI The patient is a 56-year-old woman, domiciled with a friend, , unemployed, with psychiatric history of self reported Anxiety, Depression, she is on trazodone 50 mg and Seroquel 100 mg [facility], no previous psychiatric hospitalizations, no previous suicidal attempts, benzodiazepines and opiates use disorder, was seen by me 2 weeks ago in the ER with a very similar presentation, significant medical history of CAD, h/o CVA, COPD, h/o UE DVT on Xarelto, who was brought to the ER by EMS secondary to AMS. On the day of admission patient was able to make some sound but no meaningful common medication. CT head did not reveal any acute findings. Patient has had similar admissions before. As per Neurology assessment today: The EEG shows some bifrontal sharply contoured waves that do, not look classic for triphasic waves. It is possible she could have somesubclinical status and we will treat her with some Keppra. I will also give her a little bit of Xanax in case she has a history of benzodiazepine use and could be having withdrawal seizures. We will check an MRI of the brain and I will be following her with you in the hospital. Stroke is another consideration. On psychiatric evaluation today she is found calm, cooperative, in a good spirit, but evidently confused and disoriented. She reports good mood, she denies previous suicidal attempts, she denies suicidal ideation, he clearly say that she has not tried to commit suicide and overdose. However, patient says that she is in [place], she doesn't know what she is at this moment, is even unable to say that she is in the hospital and what is the reason of her hospitalization. She says that the tax representative is Obama. Denies having any family member around. She is able to repeat 3 words, but unable to recall them 5 minutes later. Her draw clock test is a complete failure. She also has everything attention and concentration impairment as well as abstract thought and executive function. She denies visual and auditory hallucinations. No agitation, no aggressive behavior, no restlessness, no paranoia, delusions of reference are present at this moment. Review of Systems Constitutional: DENIES: Diaphoretic episodes, Fatigue, Fever, Weight gain, Weight loss, Chills, Dizziness, Change in appetite, Night Sweats Endocrine: DENIES: Abnorml menstrual pattern, Heat/cold intolerance, Polydipsia , Polyuria, Polyphagia Eyes: DENIES: Blurred vision, Diplopia, Eye inflammation, Eye pain, Vision loss , Photosensitivity, Double Vision Ears, nose, mouth, throat: DENIES: Tinnitus, Hearing loss, Vertigo, Nasal discharge, Oral lesions, Throat pain, Hoarseness, Ear Pain, Running Nose, Epistaxis, Sinus Pain, Toothache, Odynophagia Respiratory: DENIES: Apneas, Cough, Snoring, Wheezing, Hemoptysis, Sputum production, Shortness of breath Cardiovascular: DENIES: Chest pain, Palpitations, Syncope, Dyspnea on Exertion , PND, Lower Extremity Edema, Orthopnea, Claudication Gastrointestinal: DENIES: Abdominal pain, Black stools, Bloody stools, Constipation, Diarrhea, Nausea, Vomiting, Difficulty Swallowing, Anorexia Musculoskeletal: DENIES: Joint pain, Muscle aches, Stiffness, Joint Swelling, Back pain, Neck pain Hematologic/lymphatic: DENIES: Bruising, Lymphadenopathy Immunologic/allergic: DENIES: Eczema, Urticaria Except as stated in HPI: all other systems reviewed are Neg Past Family Social History Coded Allergies: codeine (Unverified Allergy, Severe, Rash, 12/25/16) KEEP RECORD PREVIOUS VISIT PT LETHARGIC UNABLE TO VERIFY penicillin G (Unverified Allergy, Severe, SWELLING, 12/25/16) KEEP RECORD PREVIOUS VISIT PT LETHARGIC UNABLE TO VERIFY prochlorperazine (Unverified Allergy, Severe, SWELLING, 12/25/16) KEEP RECORD PREVIOUS VISIT PT LETHARGIC UNABLE TO VERIFY Active Scripts Rivaroxaban (Xarelto) 15 Mg Tab, 15 MG PO BID for 30 Days, TAB Prov:Ernestina Locke MD 10/19/16 Cyanocobalamin (Vitamin B-12) 1,000 Mcg Tab, 1000 MCG PO DAILY for Alcohol Detox , #31 TAB Prov:Kushal Reyes MD 10/02/16 Reported Medications Amlodipine (Amlodipine) 10 Mg Tab, 10 MG PO DAILY for Blood Pressure Management , #30 TAB 0 Refills 08/30/16 Current Medications Medications (Trade) Dose Ordered Sig/Sandoval Route Start Time Stop Time Status Last Admin (NS Flush) 2 ml UNSCH PRN IV FLUSH 12/25/16 15:30 (NS Flush) 2 ml BID IV FLUSH 12/25/16 21:00 (Tylenol) 650 mg Q4H PRN PO 12/25/16 15:30 (Zofran Inj) 4 mg Q6H PRN IVP 12/25/16 15:30 (Narcan Inj) 0.4 mg UNSCH PRN IV PUSH 12/25/16 15:30 (Milk Of Magnesia Liq) 30 ml Q12H PRN PO 12/25/16 15:30 (Senokot) 17.2 mg Q12H PRN PO 12/25/16 15:30 (Dulcolax Supp) 10 mg DAILY PRN RECTAL 12/25/16 15:30 (Lactulose Liq) 30 ml DAILY PRN PO 12/25/16 15:30 Potassium Chloride/Sodium Chloride 1,000 ml @ 84 mls/hr [id number] IV 12/26/16 10:00 12/26/16 10:59 (Vitamin B12) 1,000 mcg DAILY PO 12/26/16 09:45 12/26/16 11:14 (Norvasc) 5 mg DAILY PO 12/26/16 09:45 12/26/16 11:14 (Eliquis) 5 mg BID PO 12/26/16 09:45 12/26/16 11:17 Sodium Chloride 1,000 ml @ 75 mls/hr [id number] IV 12/26/16 12:00 Levetriacetam 100 ml @ 400 mls/hr Q12HR IV 12/26/16 13:00 (Xanax) 0.25 mg BID PO 12/26/16 11:30 12/26/16 13:00 Family Psych History Patient denies family psychiatric history Social History Patient was born and raised in [place], she lives in [place] with a friend, she is , unemployed, his level of education is 11th grade Patient's Strengths (min. 2) Outpatient psychiatric care Physical Exam No tremors, no EPS, no acute psychomotor agitation or retardation Vital Signs Vital Signs Date Time Temp Pulse Resp B/P (MAP) Pulse Ox O2 Delivery O2 Flow Rate FiO2 12/26/16 08:00 98.1 60 17 144/87 (106) 96 12/25/16 15:39 Room Air I/O 12/26/16 12/26/16 12/27/16 08:00 16:00 00:00 Intake Total 0 ml 700 ml Balance 0 ml 700 ml Lab Results Test 12/25/16 15:31 12/25/16 16:41 12/25/16 22:30 12/26/16 06:00 Blood Gas Puncture Site RT RADIAL Blood Gas Patient Temperature 98.6 Blood Gas HCO3 24 mmol/L Blood Gas Base Excess 0.0 mmol/L Blood Gas Oxygen Saturation 91 % Arterial Blood pH 7.42 Arterial Blood Partial Pressure CO2 37 mmHg Arterial Blood Partial Pressure O2 75 mmHG Arterial Blood Oxygen Content 16.3 Vol % Arterial Blood Carboxyhemoglobin 4.2 % Arterial Blood Methemoglobin 0.9 % Blood Gas Hemoglobin 12.7 G/DL Oxygen Delivery Device ROOM AIR Blood Gas Inspired Oxygen 21 % Lactic Acid Level 1.3 mmol/L Magnesium Level 2.0 MG/DL Total Creatine Kinase 82 U/L Salicylates Level 10.8 MG/DL White Blood Count 5.6 TH/MM3 Red Blood Count 4.24 MIL/MM3 Hemoglobin 12.1 GM/DL Hematocrit 37.7 % Mean Corpuscular Volume 89.0 FL Mean Corpuscular Hemoglobin 28.5 PG Mean Corpuscular Hemoglobin Concent 32.0 % Red Cell Distribution Width 14.9 % Platelet Count 288 TH/MM3 Mean Platelet Volume 6.9 FL Neutrophils (%) (Auto) 58.7 % Lymphocytes (%) (Auto) 31.2 % Monocytes (%) (Auto) 8.4 % Eosinophils (%) (Auto) 0.9 % Basophils (%) (Auto) 0.8 % Neutrophils # (Auto) 3.3 TH/MM3 Lymphocytes # (Auto) 1.8 TH/MM3 Monocytes # (Auto) 0.5 TH/MM3 Eosinophils # (Auto) 0.0 TH/MM3 Basophils # (Auto) 0.0 TH/MM3 CBC Comment DIFF FINAL Differential Comment Blood Urea Nitrogen 6 MG/DL Creatinine 0.35 MG/DL Random Glucose 97 MG/DL Calcium Level 8.1 MG/DL Sodium Level 146 MEQ/L Potassium Level 3.6 MEQ/L Chloride Level 116 MEQ/L Carbon Dioxide Level 21.2 MEQ/L Anion Gap 9 MEQ/L Estimat Glomerular Filtration Rate 194 ML/MIN Test 12/26/16 12:03 Blood Gas Puncture Site rr Blood Gas Patient Temperature 98.6 Blood Gas HCO3 22 mmol/L Blood Gas Base Excess -1.9 mmol/L Blood Gas Oxygen Saturation 94 % Arterial Blood pH 7.42 Arterial Blood Partial Pressure CO2 34 mmHg Arterial Blood Partial Pressure O2 82 mmHg Arterial Blood Oxygen Content 15.9 Vol % Arterial Blood Carboxyhemoglobin 1.3 % Arterial Blood Methemoglobin 1.1 % Blood Gas Hemoglobin 12.0 G/DL Oxygen Delivery Device room air Blood Gas Inspired Oxygen 21 % Mental Status Examination Appearance: Appropriate Consciousness: Clouded Orientation: Person Motor Activity: Normal gait Speech: Unremarkable Language: Adequate Fund of Knowledge: Inadequate Attention and Concentration: Adequate Memory: Impaired Mood: Appropriate Affect: Appropriate Thought Process & Associations: Intact Thought Content: Appropriate Hallucination Type: None Delusion Type: None Suicidal Ideation: No Suicidal Plan: No Suicidal Intention: No Homicidal Ideation: No Homicidal Plan: No Homicidal Intention: No Insight: Poor Judgment: Poor Assessment & Plan Problem List: (1) Delirium due to another medical condition ICD Codes: F05 - Delirium due to known physiological condition Status: Acute Assessment & Plan: On psychiatric evaluation patient presents confused, with fluctuation of consciousness, memory deficits which seems to be secondary to delirium related with multiple factors. As per neurology assessment and recommendation, epileptogenic activity could be responsible for current mental status. However, patient has history of benzodiazepines and opiates use disorder and withdrawal is also possible. My concern with this patient is that I saw her 2 weeks ago with the same presentation and I wonder if the patient might need a higher level of outpatient care. He does not seem to benefit of a psychiatric admission at this moment. I agree with holding psychotropics, I do not have very cleared indication of Seroquel and trazodone in this patient. Will order Ativan 1 mg twice a day took over withdrawal symptoms. Monitor closely withdrawal. CIWA recommended. Will Follow-up. Assessment & Plan Estimated LOS: Jaron Small MD Dec 26, 2016 13:53
[2016-12-26 16:20] VITALS: BP 137/88; PULSE 71; RESP 16; TEMP 98.6; O2SAT 98
--- NOTE | 2016-12-26 17:12 | RADRPT ---
EXAM DATE/TIME: 12/26/2016 14:24 [place] COMPARISON: No previous studies available for comparison. INDICATIONS : Altered mental status. MEDICAL HISTORY : Chronic obstructive pulmonary disease. Hypertension. Myocardial infarction. CAD. SURGICAL HISTORY : Unknown. ENCOUNTER: Subsequent ACUITY: 2 day PAIN SCORE: 0/10 LOCATION: head. TECHNIQUE: Multiplanar, multisequence MRI of the brain was performed without contrast. FINDINGS: Moderate motion is present. There is no restricted diffusion. Ventricular size is appropriate. The re are no extra-axial fluid collections appreciated. CONCLUSION: Limited exam because of motion. Diffusion imaging is adequate to exclude an acute in farct. Subtle inflammatory process or small hemorrhage cannot be excluded. Rony Cabral MD FACR on December 26, 2016 at 17:09 Board Certified Radiologist. This report was verified electronically.
[2016-12-26] MEDS: LORazepam 1 MG TAB PO SCH (19:26)
[2016-12-26 19:40] VITALS: BP 129/88; PULSE 74; RESP 16; TEMP 97.4; O2SAT 98
[2016-12-26] MEDS ORDERED: HALOPERIDOL LACTATE 5 MG/ML AMP IM PRN (22:15)
[2016-12-26 23:30] VITALS: PULSE 62
[2016-12-27 00:44] VITALS: BP 138/84; PULSE 62; RESP 19; TEMP 97.5; O2SAT 96
[2016-12-27] MEDS ORDERED: levETIRAcetam 1000 MG INJ 100 ML IV SCH (04:00)
[2016-12-27 05:44] VITALS: BP 124/83; PULSE 66; RESP 20; TEMP 97.2; O2SAT 98
[2016-12-27 07:25] VITALS: PULSE 78
--- NOTE | 2016-12-27 07:28 | MG ---
cc: SONYA SALMERON MD Lab No: [id number] Date: 12/26/2016 Age: 56 Sex: F Race: ___ DATE OF [address] De La Vega MEDICAL HISTORY 1. Migraines 2. Stent 3. Stroke 4. Headaches 5. Heart attack 6. Hypertension 7. COPD 8. Asthma 9. GERD 10. Kidney stones 11. UTI 12. Falls 13. Depression/anxiety 14. Tobacco use 15. Hypercholesterolemia REASON FOR ADMISSION Admitted for being lethargic and sluggish. MEDICATIONS 1. Xarelto 2. Vitamin B12 INTERPRETATION There is generalized background slowing with polymorphic theta and delta activity superimposed by excess beta activity. There is bifrontal sharply controlled waves with occasional intermittent runs of sharp activity which look like eye flutter. Hyperventilation was not done. Photic stimulation did not elicit a driving response. INTERPRETATION This is an awake and drowsy EEG with generalized background slowing that indicates an encephalopathic etiology that may be related to metabolic, hypoxic , or medication effect. The sharply controlled contoured waves and runs of intermittent sharp activity may indicate electrographic seizures or ictal activity. Clinical correlation is recommended. The interpretation of the EEG recording was relayed to the neurologist photographic reproduction technician and surfacing technician. MD CARLOS Oreilly/DJL /9:31 PM /7:24 AM TANNER
[2016-12-27] MEDS: APIXABAN 5 MG TABLET PO SCH (07:47)
[2016-12-27] MEDS: amLODIPine BESYLATE 5 MG TAB PO SCH (07:51)
[2016-12-27] MEDS: CYANOCOBALAMIN 1,000 MCG TAB PO SCH (07:51)
[2016-12-27] MEDS: LORazepam 1 MG TAB PO SCH (07:54)
[2016-12-27] MEDS: SODIUM CHLORIDE 0.9% FLUSH 10 ML FLUSH IV FLUSH SCH (07:54)
--- NOTE | 2016-12-27 07:56 | HHI.PR ---
Objective Vital Signs Date Time Temp Pulse Resp B/P (MAP) Pulse Ox O2 Delivery O2 Flow Rate FiO2 12/27/16 05:44 97.2 66 20 124/83 (97) 98 12/27/16 00:44 97.5 62 19 138/84 (102) 96 12/26/16 23:30 62 12/26/16 19:40 97.4 74 16 129/88 (102) 98 12/26/16 16:20 98.6 71 16 137/88 (104) 98 12/26/16 12:00 99.0 61 18 150/85 (106) 97 12/26/16 08:00 98.1 60 17 144/87 (106) 96 I/O 12/26/16 12/26/16 12/26/16 12/27/16 12/27/16 12/27/16 07:00 15:00 23:00 07:00 15:00 23:00 Intake Total 0 ml 940 ml 520 ml Balance 0 ml 940 ml 520 ml Intake Oral 0 ml 240 ml 520 ml IV Total 700 ml # Voids 3 1 6 # Bowel Movements 2 2 0 Result Diagram: 12/26/16 0600 12/26/16 0600 Objective Remarks a and ox3 moves all well speech nl Assessment and Plan Assessment and Plan imp much better aj kelley says no xanax for a month should cont keppra 500 bid recheck eeg and if ok could dc mri neg rf 217 defer to med team crp nl Cruzito Dewitt MD Dec 27, 2016 07:56
[2016-12-27 08:00] VITALS: BP 146/89; PULSE 70; RESP 16; TEMP 97.2; O2SAT 98
[2016-12-27] MEDS ORDERED: levETIRAcetam 500 MG TAB PO SCH (09:00)
[2016-12-27] MEDS ORDERED: XARE15TA PO (11:26)
[2016-12-27] MEDS ORDERED: APIX5TAB PO ×2 (11:26→12:57)
[2016-12-27] MEDS ORDERED: LEVE500 PO (11:27)
[2016-12-27] MEDS ORDERED: LORA-474 PO (11:27)
[2016-12-27] MEDS ORDERED: AMLO10TA2 PO (13:05)
--- NOTE | 2016-12-27 13:09 | HHI.DS ---
Discharge Summary Admission Date Dec 25, 2016 at 15:29 Discharge Date: Dec 27, 2016 Admitting Diagnosis AMS (1) Encephalopathy ICD Code: G93.40 - Encephalopathy, unspecified Status: Acute (2) Bradycardia ICD Code: R00.1 - Bradycardia, unspecified Status: Acute Procedures None Brief History - From Admission Written by Manny Staples PA-C acting as scribe for Dr. Jess De La Vega on 12/25/16 at 16:40. This note was transcribed by scribe Manny Staples PA-C. I, Dr. Eusebio De La Vega personally performed the history, physical exam, and medical decision making; and confirmed the accuracy of the information in the transcribed note. Authenticated by Dr. Eusebio De La Vega on 12/25/16 at 16:40. Ms. Hensley is 56 years old, with history inclusive of coronary artery disease, S/P myocardial infarction, CVA, migraine headaches, COPD/chronic bronchitis, left upper extremity DVT (on Xarelto since September 2016), chronic narcotic dependence, hypertension, B12 deficiency, hyperlipidemia, and metabolic encephalopathy (3). Review of the medical record indicated metabolic encephalopathy twice noted in September 2016 and upon her 12/09/16- admission.She is [facility] for [facility] and anxiety Ms. Hensley was [place] [facility] [place] in a lethargic state with bradycardia. Per the ED report, Ms. Hensley was not able to provide much information at the time of admission. Information indicated she was last known well on the evening of 12/24/16. Friends found her in an altered state today, called EMS and she was subsequently brought to the hospital. ED reports indicated that her bradycardia was treated with atropine 0.5 mg 1 dose. It was also noted that her salicylate level was elevated (20.2). Fluids were administered. At time of interview, Ms. Hensley was not able to provide any significant information out her medical history or her current condition. When asked questions, she repeatedly said "Sir ". She would not follow simple one-step commands. As such, a 10 point review of systems could not be obtained. Ms. Hensley is being admitted for further evaluation and management of her condition. CBC/BMP: 12/26/16 0600 12/26/16 0600 Significant Findings Laboratory Tests Test 12/25/16 13:00 12/25/16 15:31 12/25/16 16:41 12/25/16 22:30 Mean Platelet Volume 6.7 FL (7.0-11.0) Monocytes (%) (Auto) 9.2 % (0.0-8.0) Blood Urea Nitrogen 5 MG/DL (7-18) Albumin 3.0 GM/DL (3.4-5.0) Calcium Level 8.1 MG/DL (8.5-10.1) Sodium Level 146 MEQ/L (136-145) Chloride Level 117 MEQ/L (98-107) Salicylates Level 20.2 MG/DL (2.8-20.0) Acetaminophen Level LESS THAN 2.0 MCG/ML Arterial Blood Partial Pressure CO2 37 mmHg (38-42) Arterial Blood Carboxyhemoglobin 4.2 % (0-4) Test 12/26/16 06:00 12/26/16 12:03 12/26/16 17:35 Mean Platelet Volume 6.9 FL (7.0-11.0) Monocytes (%) (Auto) 8.4 % (0.0-8.0) Blood Urea Nitrogen 6 MG/DL (7-18) Creatinine 0.35 MG/DL (0.50-1.00) Calcium Level 8.1 MG/DL (8.5-10.1) Sodium Level 146 MEQ/L (136-145) Chloride Level 116 MEQ/L (98-107) Arterial Blood Partial Pressure CO2 34 mmHg (38-42) Phosphorus Level 1.7 MG/DL (2.5-4.9) Rheumatoid Factor Screen POSITIVE (NEGATIVE) Rheumatoid Factor Titer 217.0 IU/ML (0.0-14.9) Imaging Last Impressions Brain MRI 12/26/16 1120 Signed Impressions: Service Date/Time: Monday, December 26, 2016 14:24 - CONCLUSION: Limited exam because of motion. Diffusion imaging is adequate to exclude an acute infarct. Subtle inflammatory process or small hemorrhage cannot be excluded. Rony Cabral MD FACR Head CT 12/25/16 0000 Signed Impressions: Service Date/Time: Sunday, December 25, 2016 13:29 - CONCLUSION: 1. 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 No acute infarct, hemorrhage, midline shift or extraaxial fluid collections. Tarun Mcallister MD PE at Discharge GENERAL: Patient walking around unit without difficulty. Appears comfortable. She is disoriented, fearful of security, fearful of nurses, feels that there is a conspiracy. SKIN: Warm and dry. HEAD: Normocephalic. EYES: No scleral icterus. No injection or drainage. NECK: Supple, trachea midline. No JVD. CARDIOVASCULAR: Regular rate and rhythm without murmurs, gallops, or rubs. RESPIRATORY: Breath sounds equal bilaterally. No accessory muscle use. GASTROINTESTINAL: Abdomen soft, non-tender, nondistended. MUSCULOSKELETAL: No cyanosis, or edema. BACK: Nontender without obvious deformity. No CVA tenderness. Pt update on day of discharge Patient seen this morning around 11 AM. Walking around unit without difficulty. Denies any chest pain or shortness of breath. Hospital Course Ms. Hensley is a 56-year-old female with a history of anxiety, depression, CAD, COPD, chronic narcotic dependence who was brought to the emergency room due to acute encephalopathy. On the day of admission patient was able to make some sound but no meaningful common medication. CT head did not reveal any acute findings. Patient has had similar admissions before. Neurology was consulted, EEG showed possible seizure activity, place and was placed on Keppra with improvement. Psychiatry was consulted, recommends discharge to medical psychiatry. EEG was repeated on 12/27, and results are still pending. Patient also had hypernatremia with sodium 146, and will need to continue on one half normal saline. Blood pressure slightly over controlled, and home amlodipine was decreased to 5 mg daily. Patient has previous DVT, and will be switched to apixaban 5 mg by mouth twice daily. I have called nurse to discuss medication changes. For problem-based summary, please see below. //Acute encephalopathy - Likely due to medications. - Continue to hold her medications including Seroquel, trazodone, pain medication Lortab. -Some seizure activity on EEG. Appreciate neurology assistance //COPD - DuoNeb PRN. Supplemental O2 if needed to keep O2 sat > 90%. //Left Upper ext DVT - Diagnosed on 10/15/2016. - Patient was on Xarelto. Home med indicates Xarelto 15mg BID. After 21 days , it should be 20mg Qday. - We will continue anti-coagulation for 20 more days. We will switch her to Apixaban 5mg BID. -Continue on apixaban 5 mg by mouth twice a day. //Hypertension - Reduce home med Amlodipine from 10mg to 5mg Qday. -12/27. Blood pressure acceptable. Continue amlodipine 5 mg daily. //Hypernatremia. Sodium 146. Continue half-normal saline. Full code. Apixaban. Pt Condition on Discharge: Good Discharge Disposition: Disc to Psych Care [facility] Discharge Time: > 30 minutes Discharge Instructions DIET: Follow Instructions for: Heart Healthy Diet Activities you can perform: Regular-No Restrictions Follow up Referrals: Neurology - Daily with Cruzito Dewitt MD New Medications: Apixaban (Eliquis) 5 Mg Tab 5 MG PO BID for DVT for 30 Days, #60 TAB start AFTER completing intial course of xarelto Levetiracetam (Keppra) 500 Mg Tab 500 MG PO Q12HR for seizures for 30 Days, TAB Lorazepam (Ativan) 1 Mg Tab 1 MG PO Q12HR for Anxiety for 30 Days, TAB Changed Medications: Amlodipine (Amlodipine) 10 Mg Tab 5 MG PO DAILY for Blood Pressure Management, #30 TAB 0 Refills (Changed from: 10 MG) Continued Medications: Cyanocobalamin (Vitamin B-12) 1,000 Mcg Tab 1000 MCG PO DAILY for Alcohol Detox, #31 TAB Rivaroxaban (Xarelto) 15 Mg Tab 15 MG PO BID for dvt for 19 Days, #38 TAB (This prescription has been renewed) Terrance Curry MD Dec 27, 2016 13:09
[2016-12-28] MEDS ORDERED: LORA-474 PO (11:31)
[2016-12-28] MEDS ORDERED: OLAN2.5T PO (11:31)
[2016-12-28] MEDS ORDERED: AMLO10TA2 PO (11:31)
[2016-12-28] MEDS ORDERED: VITA10002 PO (11:31)
[2016-12-28] MEDS ORDERED: LEVE500 PO (11:31)
[2016-12-28] MEDS ORDERED: APIX5TAB PO (11:31)
[2016-12-28 14:37] LABS: ANA SCREEN NEG (NEG)
== END 2016-12-27 11:58 | DRG 92 ==
LOC: NEPC 12:36 → NEDA 15:29 → N06A 17:52
PROVIDERS: ADMIT Internal Medicine; ATTEND Internal Medicine
DX: G92 Toxic encephalopathy (principal); E87.0 Hyperosmolality and hypernatremia; F05 Delirium due to known physiological condition; F11.20 Opioid dependence, uncomplicated; R56.9 Unspecified convulsions; I10 Essential (primary) hypertension; R00.1 Bradycardia, unspecified; J44.9 Chronic obstructive pulmonary disease, unspecified; I25.2 Old myocardial infarction; Z86.73 Personal history of transient ischemic attack (TIA), and cerebral infarction without residual deficits; G43.909 Migraine, unspecified, not intractable, without status migrainosus; Z86.718 Personal history of other venous thrombosis and embolism; Z79.01 Long term (current) use of anticoagulants; E53.8 Deficiency of other specified B group vitamins; F32.9 Major depressive disorder, single episode, unspecified; F41.9 Anxiety disorder, unspecified; I25.10 Atherosclerotic heart disease of native coronary artery without angina pectoris; E78.5 Hyperlipidemia, unspecified; Z95.5 Presence of coronary angioplasty implant and graft; F17.210 Nicotine dependence, cigarettes, uncomplicated; T50.905A Adverse effect of unspecified drugs, medicaments and biological substances, initial encounter; Y92.9 Unspecified place or not applicable
CPT/HCPCS: 36600; 70450; 70551; 80048; 80053; 80307; 81001; 82140; 82550; 82805; 83605; 83735; 84100; 84425; 85025; 85652; 86038; 86140; 86430; 86592; 93005; 95819; J1953; J7030; P9612

== ENCOUNTER 2016-12-27 11:52 | Inpatient (IN) | payer OTHER ==
[~2016-12-27] VITALS: Ht 165.1 cm; Wt 69.0 kg
[~2016-12-27 11:52] MED LIST changes: +APIX5TAB PO; +LEVE500 PO; +LORA-474 PO
[2016-12-27] MEDS ORDERED: APIX5TAB PO (12:57)
[2016-12-27] MEDS ORDERED: AMLO10TA2 PO (13:05)
[2016-12-27] MEDS ORDERED: FLUMAZENIL 0.5 MG/5 ML VIAL IV PUSH PRN (13:30)
[2016-12-27] MEDS ORDERED: ACETAMINOPHEN 325 MG TAB PO PRN (13:30)
[2016-12-27] MEDS ORDERED: OLANZapine IM 10 MG VIAL IM PRN (13:30)
[2016-12-27] MEDS ORDERED: LORazepam 0.5 MG TAB PO PRN (13:30)
[2016-12-27] MEDS ORDERED: MAGNESIUM HYDROXIDE SUSP 30 ML CUP PO PRN (13:30)
[2016-12-27] MEDS ORDERED: LORazepam 2 MG TAB PO PRN (13:30)
[2016-12-27] MEDS: OLANZapine 2.5 MG TAB PO SCH ×3 (13:30→20:20)
[2016-12-27] MEDS ORDERED: RIVAROXABAN 15 MG TAB PO SCH (13:30)
[2016-12-27] MEDS: NICOTINE 21 MG/24 HR PATCH T-DERMAL SCH (13:30)
[2016-12-27] MEDS: levETIRAcetam 500 MG TAB PO SCH ×2 (13:30→20:20)
[2016-12-27] MEDS ORDERED: ALUMINUM/MAGNESIUM/SIMETH 30 ML CUP PO PRN (13:30)
[2016-12-27] MEDS: APIXABAN 5 MG TABLET PO SCH ×2 (13:30→20:19)
[2016-12-27] MEDS ORDERED: LORazepam 2 MG/ML VIAL IV PUSH PRN ×4 (13:30)
[2016-12-27] MEDS ORDERED: LORazepam 1 MG TAB PO PRN ×2 (13:30)
[2016-12-27] MEDS ORDERED: LORazepam 2 MG/ML VIAL IM PRN ×2 (13:30)
--- NOTE | 2016-12-27 14:06 | HHI.PYPN ---
Subjective Remarks Patient was seen today for psychiatric reevaluation, patient reports that she has been doing better, she wants to leave hospital to go back home. She reports good mood, denies depression, eyes suicidal and homicidal ideation. She is oriented 3, no fluctuation of consciousness, however she says that there are 8 people inside the room bothering her and talking about her and that is the reason she wants to leave. She also says that the nurses has been planning since last night to poison her. As per nursing report, and chart review, last night the patient was very agitated, violent, trying to leave the hospital, disorganized, and had to be medicated with ETO. Mental Status Examination Appearance: Appropriate Consciousness: Alert Orientation: x4 Motor Activity: Normal gait Speech: Unremarkable Language: Adequate Fund of Knowledge: Adequate Attention and Concentration: Adequate Memory: Impaired Mood: Appropriate Affect: Appropriate Thought Process & Associations: Intact Thought Content: Appropriate Hallucination Type: None, Visual Delusion Type: Paranoid Suicidal Ideation: No Suicidal Plan: No Suicidal Intention: No Homicidal Ideation: No Homicidal Plan: No Homicidal Intention: No Insight: Poor Judgment: Poor Assessment & Plan Problem List: (1) Unspecified psychosis ICD Codes: F29 - Unspecified psychosis not due to a substance or known physiological condition Assessment & Plan: Patient is acutely psychotic, she endorses visual hallucinations, acute paranoia, she has been episodically agitated and aggressive, surprisingly she is oriented 3, with conserve attention and without any fluctuation of consciousness. Will admit in psychiatry under [facility] act for stabilization. We'll start as a teen 2.5 mg twice a day, and olanzapine 10 mg IM every 8 hours when necessary aggressive behavior and agitation. will place in [facility]. Assessment & Plan Estimated LOS: days Justification for Cont. Inpt. Patient is acutely psychotic, she endorses visual hallucinations, acute paranoia , she has been episodically agitated and aggressive, surprisingly she is oriented 3, with conserve attention and without any fluctuation of consciousness. Will admit in psychiatry under [facility] act for stabilization. We' ll start as a teen 2.5 mg twice a day, and olanzapine 10 mg IM every 8 hours when necessary aggressive behavior and agitation. will place in [facility]. Jaron Oquendo MD Dec 27, 2016 14:06
--- NOTE | 2016-12-27 14:06 | HHI.PYPN ---
Subjective Remarks Patient was seen today for psychiatric reevaluation, patient reports that she has been doing better, she wants to leave hospital to go back home. She reports good mood, denies depression, eyes suicidal and homicidal ideation. She is oriented 3, no fluctuation of consciousness, however she says that there are 8 people inside the room bothering her and talking about her and that is the reason she wants to leave. She also says that the nurses has been planning since last night to poison her. As per nursing report, and chart review, last night the patient was very agitated, violent, trying to leave the hospital, disorganized, and had to be medicated with ETO. Mental Status Examination Appearance: Appropriate Consciousness: Alert Orientation: x4 Motor Activity: Normal gait Speech: Unremarkable Language: Adequate Fund of Knowledge: Adequate Attention and Concentration: Adequate Memory: Impaired Mood: Appropriate Affect: Appropriate Thought Process & Associations: Intact Thought Content: Appropriate Hallucination Type: None, Visual Delusion Type: Paranoid Suicidal Ideation: No Suicidal Plan: No Suicidal Intention: No Homicidal Ideation: No Homicidal Plan: No Homicidal Intention: No Insight: Poor Judgment: Poor Assessment & Plan Problem List: (1) Unspecified psychosis ICD Codes: F29 - Unspecified psychosis not due to a substance or known physiological condition Assessment & Plan: Patient is acutely psychotic, she endorses visual hallucinations, acute paranoia, she has been episodically agitated and aggressive, surprisingly she is oriented 3, with conserve attention and without any fluctuation of consciousness. Will admit in psychiatry under [facility] act for stabilization. We'll start as a teen 2.5 mg twice a day, and olanzapine 10 mg IM every 8 hours when necessary aggressive behavior and agitation. will place in [facility]. Assessment & Plan Estimated LOS: days Justification for Cont. Inpt. Patient is acutely psychotic, she endorses visual hallucinations, acute paranoia , she has been episodically agitated and aggressive, surprisingly she is oriented 3, with conserve attention and without any fluctuation of consciousness. Will admit in psychiatry under Hunt act for stabilization. We' ll start as a teen 2.5 mg twice a day, and olanzapine 10 mg IM every 8 hours when necessary aggressive behavior and agitation. will place in [facility]. Jaron Oquendo MD Dec 27, 2016 14:06
[2016-12-27 20:37] VITALS: BP 121/74; PULSE 82; RESP 16; TEMP 97.8; O2SAT 97
[2016-12-28 06:10] VITALS: BP 142/82; PULSE 95; RESP 16; TEMP 97.8; O2SAT 96
[2016-12-28 06:34] LABS: BICARBONATE 29.7 MEQ/L (21.0-32.0); BLOOD UREA NITROGEN 6 MG/DL (7-18); CALCIUM 8.9 MG/DL (8.5-10.1); CHLORIDE 105 MEQ/L (98-107); CHOLESTEROL 175 MG/DL (120-200); CREATININE 0.52 MG/DL (0.50-1.00); GLOMERULAR FILTRATION RATE 123 ML/MIN (>89); GLUCOSE,RANDOM 85 MG/DL (74-106); HDL CHOLESTEROL 56.3 MG/DL (40.0-60.0); LDL CHOLESTEROL 102 MG/DL (0-99); SODIUM (NA) 143 MEQ/L (136-145); TRIGLYCERIDES 84 MG/DL (42-150)
--- NOTE | 2016-12-28 08:09 | HHI.PR ---
Objective Vital Signs Date Time Temp Pulse Resp B/P (MAP) Pulse Ox O2 Delivery O2 Flow Rate FiO2 12/28/16 06:10 97.8 95 16 142/82 (102) 96 12/27/16 20:37 97.8 82 16 121/74 (90) 97 I/O 12/27/16 12/27/16 12/27/16 12/28/16 12/28/16 12/28/16 07:00 15:00 23:00 07:00 15:00 23:00 Intake Total 240 ml 0 ml Balance 240 ml 0 ml Intake Oral 240 ml 0 ml # Voids 1 2 Result Diagram: 12/28/16 0429 Objective Remarks awake alert no speech mmse 30/30 acct to psych team Assessment and Plan Assessment and Plan imp eeg still some bifrontal sharps not driving inc keppra to 1000 bid ok dc and fu office 4 weeks Cruzito Dewitt MD Dec 28, 2016 08:09
--- NOTE | 2016-12-28 08:11 | HHI.PR ---
Objective Vital Signs Date Time Temp Pulse Resp B/P (MAP) Pulse Ox O2 Delivery O2 Flow Rate FiO2 12/28/16 06:10 97.8 95 16 142/82 (102) 96 12/27/16 20:37 97.8 82 16 121/74 (90) 97 I/O 12/27/16 12/27/16 12/27/16 12/28/16 12/28/16 12/28/16 07:00 15:00 23:00 07:00 15:00 23:00 Intake Total 240 ml 0 ml Balance 240 ml 0 ml Intake Oral 240 ml 0 ml # Voids 1 2 Result Diagram: 12/28/16 0429 Objective Remarks awake alert no speech mmse 30/30 acct to psych team Assessment and Plan Assessment and Plan imp eeg still some bifrontal sharps not driving inc keppra to 1000 bid ok dc and fu office 4 weeks crp nl rf 217 Cruzito Dewitt MD Dec 28, 2016 08:11
[2016-12-28] MEDS: NICOTINE 21 MG/24 HR PATCH T-DERMAL SCH (09:00)
[2016-12-28] MEDS ORDERED: levETIRAcetam 500 MG TAB PO SCH (09:00)
[2016-12-28] MEDS: OLANZapine 2.5 MG TAB PO SCH (09:40)
[2016-12-28] MEDS: APIXABAN 5 MG TABLET PO SCH (09:40)
[2016-12-28] MEDS ORDERED: LEVE500 PO (11:31)
[2016-12-28] MEDS ORDERED: AMLO10TA2 PO (11:31)
[2016-12-28] MEDS ORDERED: OLAN2.5T PO (11:31)
[2016-12-28] MEDS ORDERED: VITA10002 PO (11:31)
[2016-12-28] MEDS ORDERED: LORA-474 PO (11:31)
[2016-12-28] MEDS ORDERED: APIX5TAB PO (11:31)
--- NOTE | 2016-12-28 11:32 | PD.CONS ---
[facility] Request[facility] By Doctor Jaron Oquendo Reason for Consult Medical Management Primary Care Physician Unknown Diagnoses: History of Present Illness This is a pleasant 56 y/o Female who was admitted by hospitalist on Dec 25, 2016 and Discharged to inpatient psychiatry on Dec 27, 2016 She was admitted with Altered Mental Status, Encephalopathy, Bradycardia, History from last admission Written by Manny Staples PA-C acting as scribe for Dr. Jess De La Vega on 12/25/16 at 16:40. This note was transcribed by scribe Manny Staples PA-C. I, Dr. Eusebio De La Vega personally performed the history, physical exam, and medical decision making; and confirmed the accuracy of the information in the transcribed note. Authenticated by Dr. Eusebio De La Vega on 12/25/16 at 16:40. Ms. Hensley is 56 years old, with history inclusive of coronary artery disease, S/P myocardial infarction, CVA, migraine headaches, COPD/chronic bronchitis, left upper extremity DVT (on Xarelto since September 2016), chronic narcotic dependence, hypertension, B12 deficiency, hyperlipidemia, and metabolic encephalopathy (3). Review of the medical record indicated metabolic encephalopathy twice noted in September 2016 and upon her 12/09/16- admission.She is followed by psychiatry at the [facility] for depression and anxiety Ms. Hensley was brought to [facility] on 12/25/16 in a lethargic state with bradycardia. Per the ED report, Ms. Hensley was not able to provide much information at the time of admission. Information indicated she was last known well on the evening of 12/24/16. Friends found her in an altered state today, called EMS and she was subsequently brought to the hospital. ED reports indicated that her bradycardia was treated with atropine 0.5 mg 1 dose. It was also noted that her salicylate level was elevated (20.2). Fluids were administered. At time of interview, Ms. Hensley was not able to provide any significant information out her medical history or her current condition. When asked questions, she repeatedly said "Sir Sir". She would not follow simple one-step commands. As such, a 10 point review of systems could not be obtained. Ms. Hensley is being admitted for further evaluation and management of her condition. Hospital Course Ms. Hensley is a 56-year-old female with a history of anxiety, depression, CAD, COPD, chronic narcotic dependence who was brought to the emergency room due to acute encephalopathy. On the day of admission patient was able to make some sound but no meaningful common medication. CT head did not reveal any acute findings. Patient has had similar admissions before. Neurology was consulted, EEG showed possible seizure activity, place and was placed on Keppra with improvement. Psychiatry was consulted, recommends discharge to medical psychiatry. EEG was repeated on 12/27, and results are still pending. Patient also had hypernatremia with sodium 146, and will need to continue on one half normal saline. Blood pressure slightly over controlled, and home amlodipine was decreased to 5 mg daily. Patient has previous DVT, and will be switched to apixaban 5 mg by mouth twice daily. I have called nurse to discuss medication changes. 12/28: Stable in her bedroom already discharged by Psychiatry specialist no medical issues to hold the discharge, no nausea, vomit or diarrhea seen in the presence of nurse Miss Durant. Review of Systems Constitutional: DENIES: Fever, Chills, Change in appetite Endocrine: DENIES: Heat/cold intolerance Eyes: DENIES: Blurred vision, Eye pain Except as stated in HPI: all other systems reviewed are Neg Past Family Social History Allergies: Coded Allergies: codeine (Unverified Allergy, Severe, Rash, 12/25/16) KEEP RECORD PREVIOUS VISIT PT LETHARGIC UNABLE TO VERIFY penicillin G (Unverified Allergy, Severe, SWELLING, 12/25/16) KEEP RECORD PREVIOUS VISIT PT LETHARGIC UNABLE TO VERIFY prochlorperazine (Unverified Allergy, Severe, SWELLING, 12/25/16) KEEP RECORD PREVIOUS VISIT PT LETHARGIC UNABLE TO VERIFY Past Medical History coronary artery disease, S/P myocardial infarction, CVA/TIA, migraine headaches, COPD/chronic bronchitis, left upper extremity DVT (on Xarelto since September 2016), chronic narcotic dependence, hypertension, B12 deficiency, hyperlipidemia, metabolic encephalopathy (3) Past Surgical History Cardiac stenting Left wrist repair Tubal ligation Reported Medications Reported Meds & Active Scripts Active Olanzapine 2.5 Mg Tab 2.5 Mg PO Q12HR Amlodipine (Amlodipine Besylate) 10 Mg Tab 5 Mg PO DAILY Eliquis (Apixaban) 5 Mg Tab 5 Mg PO BID 30 Days start AFTER completing intial course of xarelto Ativan (Lorazepam) 1 Mg Tab 1 Mg PO Q12HR 30 Days Keppra (Levetiracetam) 500 Mg Tab 500 Mg PO Q12HR 30 Days Vitamin B-12 (Cyanocobalamin) 1,000 Mcg Tab 1,000 Mcg PO DAILY Active Ordered Medications Current Medications Medications (Trade) Dose Ordered Sig/Sandoval Route Start Time Stop Time Status Last Admin (Norvasc) 5 mg DAILY PO 12/27/16 13:30 12/28/16 09:39 (Eliquis) 5 mg BID PO 12/27/16 13:30 12/28/16 09:40 (Ativan) 1 mg Q6H PRN PO 12/27/16 13:30 12/27/16 20:26 (Ativan Inj) 1 mg Q6H PRN IM 12/27/16 13:30 (Tylenol) 650 mg Q4H PRN PO 12/27/16 13:30 (Milk Of Magnesia Liq) 30 ml DAILY PRN PO 12/27/16 13:30 (Mag-Al Plus Susp Liq) 30 ml Q6H PRN PO 12/27/16 13:30 (Habitrol 21 Mg Patch.24 Hr) 1 patch DAILY T-DERMAL 12/27/16 13:30 (Romazicon Inj) 0.2 mg Q1M PRN IV PUSH 12/27/16 13:30 (Ativan) 1 mg Q4H PRN PO 12/27/16 13:30 (Ativan Inj) 1 mg Q4H PRN IV PUSH 12/27/16 13:30 (Ativan) 2 mg Q2H PRN PO 12/27/16 13:30 (Ativan Inj) 2 mg Q2H PRN IV PUSH 12/27/16 13:30 (Ativan Inj) 2 mg Q1H PRN IV PUSH 12/27/16 13:30 (Ativan Inj) 2 mg Q15M PRN IV PUSH 12/27/16 13:30 (ZyPREXA) 2.5 mg Q12HR PO 12/27/16 13:30 12/28/16 09:40 (ZyPREXA INJ) 10 mg Q12H PRN IM 12/27/16 13:30 (Keppra) 1,000 mg Q12HR PO 12/28/16 09:00 12/28/16 09:40 Family History Review of records indicates negative history for diabetes Social History Medical records indicate patient smokes one half pack cigarettes per day duration unknown. Records indicate no previous history of illicit/recreational drug use. Patient has history of alcohol use, amount and duration unknown. Previous notes indicate that the patient denied alcohol use for 6 months in September 2016. Unknown at this time the patient has used any alcohol since that time; toxicology screen was negative for alcohol at this admission. Physical Exam Vital Signs Vital Signs Date Time Temp Pulse Resp B/P (MAP) Pulse Ox O2 Delivery O2 Flow Rate FiO2 12/28/16 06:10 97.8 95 16 142/82 (102) 96 12/27/16 20:37 97.8 82 16 121/74 (90) 97 Physical Exam GENERAL: No acute distress. SKIN: Warm and dry. HEAD: Normocephalic. EYES: No scleral icterus. No injection or drainage. NECK: Supple, trachea midline. No JVD. CARDIOVASCULAR: Regular rate and rhythm without murmurs, gallops, or rubs. RESPIRATORY: Breath sounds equal bilaterally. No accessory muscle use. GASTROINTESTINAL: Abdomen soft, non-tender, nondistended. MUSCULOSKELETAL: No cyanosis, or edema. BACK: Nontender without obvious deformity. No CVA tenderness. Laboratory Laboratory Tests Test 12/28/16 04:29 Blood Urea Nitrogen 6 Creatinine 0.52 Random Glucose 85 Calcium Level 8.9 Sodium Level 143 Potassium Level 4.5 Chloride Level 105 Carbon Dioxide Level 29.7 Anion Gap 8 Estimat Glomerular Filtration Rate 123 Triglycerides Level 84 Cholesterol Level 175 LDL Cholesterol 102 HDL Cholesterol 56.3 Cholesterol/HDL Ratio 3.10 Result Diagram: 12/28/16 0429 Imaging Brain MRI 12/26/16 1120 Signed Impressions: Service Date/Time: Monday, December 26, 2016 14:24 - CONCLUSION: Limited exam because of motion. Diffusion imaging is adequate to exclude an acute infarct. Subtle inflammatory process or small hemorrhage cannot be excluded. Rony Cabral MD FACR Head CT 12/25/16 0000 Signed Impressions: Service Date/Time: Sunday, December 25, 2016 13:29 - CONCLUSION: 1. 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 No acute infarct, hemorrhage, midline shift or extraaxial fluid collections. Tarun Mcallister MD Assessment and Plan Assessment and Plan Psychosis Improved seen in Psychiatric unit already discharged by her Primary Psychiatry specialist. -Some seizure activity on EEG. Appreciate neurology assistance on [place], recommended not driving for six months and follow in his office COPD - DuoNeb PRN. Supplemental O2 if needed to keep O2 sat > 90%. Left Upper ext DVT - Diagnosed on 10/15/2016. - Patient was on Xarelto. Home med indicates Xarelto 15mg BID. After 21 days , it should be 20mg Qday. - We will continue anti-coagulation for 20 more days. We will switch her to Apixaban 5mg BID. -Continue on apixaban 5 mg by mouth twice a day. Hypertension - continue Amlodipine 5 mg daily. Full code. Apixaban. Agree with Discharge Appreciated Doctor Jaron Oquendo for this consult. Code Status Full code. Discussed Condition With Patient and nurse Prashant Garcia MD Dec 28, 2016 11:32 am
--- NOTE | 2016-12-28 11:34 | HHI.DS ---
Psychiatry Discharge Summary Inpatient Psychiatric care?: Yes Advance Directive: No Reason Not Provided: Due to Patient Condition Mental Health AdvanceDirective: No Health Care Proxy: No Admission Admission Date Dec 27, 2016 at 12:06 Admission Diagnosis: (1) Unspecified psychosis ICD Code: F29 - Unspecified psychosis not due to a substance or known physiological condition Brief History 12/26/2016 The patient is a 56-year-old woman, domiciled with a friend , , unemployed, with psychiatric history of self reported Anxiety, Depression, she is on trazodone 50 mg and Seroquel 100 mg [facility], no previous psychiatric hospitalizations, no previous suicidal attempts, benzodiazepines and opiates use disorder, was seen by me 2 weeks ago in the ER with a very similar presentation, significant medical history of CAD, h/o CVA, COPD, h/o UE DVT on Xarelto, who was brought to the ER by EMS secondary to AMS. On the day of admission patient was able to make some sound but no meaningful common medication. CT head did not reveal any acute findings. Patient has had similar admissions before. As per Neurology assessment today: The EEG shows some bifrontal sharply contoured waves that do , not look classic for triphasic waves. It is possible she could have somesubclinical status and we will treat her with some Keppra. I will also give her a little bit of Xanax in case she has a history of benzodiazepine use and could be having withdrawal seizures. We will check an MRI of the brain and I will be following her with you in the hospital. Stroke is another consideration. On psychiatric evaluation today she is found calm, cooperative, in a good spirit, but evidently confused and disoriented. She reports good mood , she denies previous suicidal attempts, she denies suicidal ideation, he clearly say that she has not tried to commit suicide and overdose. However, patient says that she is in [place], she doesn't know what she is at this moment, is even unable to say that she is in the hospital and what is the reason of her hospitalization. She says that the construction millwright is [place]. Denies having any family member around. She is able to repeat 3 words, but unable to recall them 5 minutes later. Her draw clock test is a complete failure. She also has everything attention and concentration impairment as well as abstract thought and executive function. She denies visual and auditory hallucinations. No agitation, no aggressive behavior, no restlessness, no paranoia, delusions of reference are present at this moment. 12/27/2016 Patient was seen today for psychiatric reevaluation, patient reports that she has been doing better, she wants to leave hospital to go back home. She reports good mood, denies depression, eyes suicidal and homicidal ideation. She is oriented 3, no fluctuation of consciousness, however she says that there are 8 people inside the room bothering her and talking about her and that is the reason she wants to leave. She also says that the nurses has been planning since last night to poison her. As per nursing report, and chart review, last night the patient was very agitated, violent, trying to leave the hospital, disorganized, and had to be medicated with ETO. 12/28/2016 on psychiatric evaluation today the patient is logical, coherent, relevant. In reports to be discharged, she says that she has her pets than his to be fed. Patient denies depressive symptoms, she denies suicidal and homicidal ideation, she denies visual and auditory hallucinations. Fully oriented 3, MMS is 30/30. Tobacco Use In Past 30 Days: 5 or More Cigarettes/Day Alcohol Use: Never Hospital Course Patient was admitted today due to psychotic symptoms presented during her medical hospitalization. However, today a psychiatric hospitalization patient no longer present psychosis. She denies visual and auditory hallucinations, she denies suicidal and homicidal ideation. Patient is oriented 3. Results Blood Pressure 142 / 82 Vital Signs Date Time Temp Pulse Resp B/P (MAP) Pulse Ox O2 Delivery O2 Flow Rate FiO2 12/28/16 06:10 97.8 95 16 142/82 (102) 96 Laboratory Tests Test 12/28/16 04:29 Blood Urea Nitrogen 6 MG/DL (7-18) LDL Cholesterol 102 MG/DL (0-99) Laboratory Results Test 12/28/16 04:29 Cholesterol Level 175 MG/DL (120-200) HDL Cholesterol 56.3 MG/DL (40.0-60.0) LDL Cholesterol 102 MG/DL (0-99) Triglycerides Level 84 MG/DL (42-150) Summary of Procedures none Pending results at discharge: No Medications # of Antipsychotic meds at D/C: 1 Approp Antipsych med options 1 - Minimum of three failed multiple trials of monotherapy. 2 - Documented plan to taper to monotherapy due to previous use of multiple meds OR cross-taper in progress at D/C. 3 - Documentation of augmentation of Clozapine. 4 - Justification other than those listed in allowable values 1-3, document here : Discharge Discharge Date: Dec 28, 2016 Discharge Diagnosis: (1) Unspecified psychosis Diagnosis: Principal ICD Code: F29 - Unspecified psychosis not due to a substance or known physiological condition Pt Condition on Discharge: Stable Discharge Disposition: Discharge Home Discharge Instructions Diet Instructions: As Tolerated, No Restrictions Activities you can perform: Full Weight Bearing Scheduled Appointment: [facility] clinic Appointment Date: Dec 31, 2016 Appointment Time: 08:30am Discharge Time > 30 minutes Mental Status Examination Appearance: Appropriate Consciousness: Alert Orientation: x4 Motor Activity: Normal gait Speech: Unremarkable Language: Adequate Fund of Knowledge: Adequate Attention and Concentration: Adequate Memory: Impaired Mood: Appropriate Affect: Appropriate Thought Process & Associations: Intact Thought Content: Appropriate Hallucination Type: None, Visual Delusion Type: Paranoid Suicidal Ideation: No Suicidal Plan: No Suicidal Intention: No Homicidal Ideation: No Homicidal Plan: No Homicidal Intention: No Insight: Poor Judgment: Poor Discharge/Advance Care Plan Health Problems: (1) Unspecified psychosis Goals to promote your health * To prevent worsening of your condition and complications * To maintain your health at the optimal level Directions to meet your goals Take your medications as prescribed Follow your dietary instruction Follow activity as directed Keep your appointments as scheduled Take your immunizations and boosters as scheduled If your symptoms worsen call your PCP, if no PCP go to Urgent Care Center or Emergency Room For 24 questions related to your inpatient stay or results of tests pending at discharge, please contact Dr. Jaron Oquendo at Smoking is Dangerous to Your Health. Avoid second hand smoking Jaron Oquendo MD Dec 28, 2016 11:34
[2016-12-28 12:22] VITALS: BP 109/61; PULSE 86; RESP 16; TEMP 98; O2SAT 98
[2016-12-28 14:16] LABS: HEMOGLOBIN A1C 6.2 % (4.3-6.0)
--- NOTE | 2016-12-28 15:06 | HHI.HP ---
Provisional Diagnosis Admission Date Dec 27, 2016 at 12:06 [place] I. Unspecified psychosis Certification of Person's Competence To Provide Express and Informed Consent I have personally examined Gem Hensley , a person being served at [facility] on, Dec 28, 2016 15:05. Express and informed consent means consent voluntarily given in writing, by a competent person, after sufficient explanation and disclosure of the subject matter involved to enable the person to make a knowing and willful decision without any element of force, fraud, deceit, duress, or other form of constraint or coercion. This person is 18 years of age or older, is not now known to be incompetent to consent to treatment with a guardian advocate, and does not have a health care surrogate or proxy currently making medical treatment decisions. I have found this person to be one of the following: [x] Competent to provide express and informed consent, as defined above, for voluntary admission to this facility and is competent to provide express and informed consent for treatment. He/she has the consistent capacity to make well reasoned, willful, and knowing decisions concerning his or her medical or mental health treatment. The person fully and consistently understands the purpose of the admission for examination/placement and is fully capable of personally exercising all rights assured [place] [] Incompetent to provide express and informed consent to voluntary admission, and this is incompetent to provide express and informed consent to treatment. The person must be transferred to involuntary status and a petition for a guardian advocate filed with the Circuit Court. [] Refusing to provide express and informed consent to voluntary admission but is competent to provide express and informed consent for treatment. The person must be discharged or transferred to involuntary status. Form shall be completed within 24 hours of a person's arrival at the receiving facility and filed in the clinical record of each person: 1. Admitted on a voluntary basis 2. Permitted to provide express and informed consent to his/her own treatment 3. Allowed to transfer from involuntary to voluntary status 4. Prior to permitting a person to consent to his or her own treatment after having been previously found incompetent to consent to treatment. 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 On the day of admission patient was able to make some sound but no meaningful common medication. CT head did not reveal any acute findings. Patient has had similar admissions before. As per Neurology assessment today: The EEG shows some bifrontal sharply contoured waves that do , not look classic for triphasic waves. It is possible she could have somesubclinical status and we will treat her with some Keppra. I will also give her a little bit of Xanax in case she has a history of benzodiazepine use and could be having withdrawal seizures. We will check an MRI of the brain and I will be following her with you in the hospital. Stroke is another consideration. On psychiatric evaluation today she is found calm, cooperative, in a good spirit, but evidently confused and disoriented. She reports good mood , she denies previous suicidal attempts, she denies suicidal ideation, he clearly say that she has not tried to commit suicide and overdose. However, patient says that she is in [place], she doesn't know what she is at this moment, is even unable to say that she is in the hospital and what is the reason of her hospitalization. She says that the wedding florist is Analilia. Denies having any family member around. She is able to repeat 3 words, but unable to recall them 5 minutes later. Her draw clock test is a complete failure. She also has everything attention and concentration impairment as well as abstract thought and executive function. She denies visual and auditory hallucinations. No agitation, no aggressive behavior, no restlessness, no paranoia, delusions of reference are present at this moment. 12/27/2016 Patient was seen today for psychiatric reevaluation, patient reports that she has been doing better, she wants to leave hospital to go back home. She reports good mood, denies depression, eyes suicidal and homicidal ideation. She is oriented 3, no fluctuation of consciousness, however she says that there are 8 people inside the room bothering her and talking about her and that is the reason she wants to leave. She also says that the nurses has been planning since last night to poison her. As per nursing report, and chart review, last night the patient was very agitated, violent, trying to leave the hospital, disorganized, and had to be medicated with ETO. 12/28/2016 on psychiatric evaluation today the patient is logical, coherent, relevant. In reports to be discharged, she says that she has her pets than his to be fed. Patient denies depressive symptoms, she denies suicidal and homicidal ideation, she denies visual and auditory hallucinations. Fully oriented 3, MMS is . Past Family Social History Coded Allergies: codeine (Unverified Allergy, Severe, Rash, 12/25/16) KEEP RECORD PREVIOUS VISIT PT LETHARGIC UNABLE TO VERIFY penicillin G (Unverified Allergy, Severe, SWELLING, 12/25/16) KEEP RECORD PREVIOUS VISIT PT LETHARGIC UNABLE TO VERIFY prochlorperazine (Unverified Allergy, Severe, SWELLING, 12/25/16) KEEP RECORD PREVIOUS VISIT PT LETHARGIC UNABLE TO VERIFY Active Scripts Olanzapine (Olanzapine) 2.5 Mg Tab, 2.5 MG PO Q12HR for health, #14 TAB Prov:Jaron Oquendo MD 12/28/16 Amlodipine (Amlodipine) 10 Mg Tab, 5 MG PO DAILY for Blood Pressure Management, #30 TAB 0 Refills Prov:Jaron Oquendo MD 12/28/16 Apixaban (Eliquis) 5 Mg Tab, 5 MG PO BID for DVT for 30 Days, #60 TAB start AFTER completing intial course of xarelto Prov:Jaron Oquendo MD 12/28/16 Lorazepam (Ativan) 1 Mg Tab, 1 MG PO Q12HR for Anxiety for 30 Days, TAB Prov:Jaron Oquendo MD 12/28/16 Levetiracetam (Keppra) 500 Mg Tab, 500 MG PO Q12HR for seizures for 30 Days, TAB Prov:Jaron Oquendo MD 12/28/16 Cyanocobalamin (Vitamin B-12) 1,000 Mcg Tab, 1000 MCG PO DAILY for Alcohol Detox , #31 TAB Prov:Jaron Oquendo MD 12/28/16 Discontinued Reported Medications Amlodipine (Amlodipine) 10 Mg Tab, 10 MG PO DAILY for Blood Pressure Management , #30 TAB 0 Refills 08/30/16 Discontinued Scripts Apixaban (Eliquis) 5 Mg Tab, 20 MG PO BID for DVT for 30 Days, #240 TAB start AFTER completing intial course of xarelto Prov:Terrance Curry MD 12/27/16 Rivaroxaban (Xarelto) 15 Mg Tab, 15 MG PO BID for 30 Days, TAB Prov:Ernestina Locke MD 10/19/16 Social History Patient was born and raised in [place], she lives in [place] with a friend, she is , unemployed, his level of education is 11th grade Physical Exam Vital Signs Vital Signs Date Time Temp Pulse Resp B/P (MAP) Pulse Ox O2 Delivery O2 Flow Rate FiO2 12/28/16 12:22 98.0 86 16 109/61 (77) 98 I/O 12/28/16 12/28/16 12/29/16 08:00 16:00 00:00 Intake Total 0 ml 600 ml Balance 0 ml 600 ml Lab Results Test 12/28/16 04:29 Blood Urea Nitrogen 6 MG/DL Creatinine 0.52 MG/DL Random Glucose 85 MG/DL Calcium Level 8.9 MG/DL Sodium Level 143 MEQ/L Potassium Level 4.5 MEQ/L Chloride Level 105 MEQ/L Carbon Dioxide Level 29.7 MEQ/L Anion Gap 8 MEQ/L Estimat Glomerular Filtration Rate 123 ML/MIN Triglycerides Level 84 MG/DL Cholesterol Level 175 MG/DL LDL Cholesterol 102 MG/DL HDL Cholesterol 56.3 MG/DL Cholesterol/HDL Ratio 3.10 RATIO Mental Status Examination Appearance: Appropriate Consciousness: Alert Orientation: x4 Motor Activity: Normal gait Speech: Unremarkable Language: Adequate Fund of Knowledge: Adequate Attention and Concentration: Adequate Memory: Impaired Mood: Appropriate Affect: Appropriate Thought Process & Associations: Intact Thought Content: Appropriate Hallucination Type: None, Visual Delusion Type: Paranoid Suicidal Ideation: No Suicidal Plan: No Suicidal Intention: No Homicidal Ideation: No Homicidal Plan: No Homicidal Intention: No Insight: Poor Judgment: Poor Assessment & Plan Problem List: (1) Unspecified psychosis ICD Codes: F29 - Unspecified psychosis not due to a substance or known physiological condition Assessment & Plan: Patient does not meet criteria to continue his psychiatric admission. She will be discharged on olanzapine 2.5 mg twice a day. Appropriate outpatient connections. Referred to the discharge summary for more information. Assessment & Plan Estimated LOS: Jaron Small MD Dec 28, 2016 15:06
== END 2016-12-28 13:30 | disposition home or self-care (01) | DRG 885 ==
LOC: H4EA 12:06
PROVIDERS: ADMIT Psychiatry & Neurology Psychiatry; ATTEND Psychiatry & Neurology Psychiatry
DX: F29 Unspecified psychosis not due to a substance or known physiological condition (principal); E87.0 Hyperosmolality and hypernatremia; R56.9 Unspecified convulsions; I25.10 Atherosclerotic heart disease of native coronary artery without angina pectoris; I10 Essential (primary) hypertension; J44.9 Chronic obstructive pulmonary disease, unspecified; E53.8 Deficiency of other specified B group vitamins; E78.5 Hyperlipidemia, unspecified; G43.909 Migraine, unspecified, not intractable, without status migrainosus; F32.9 Major depressive disorder, single episode, unspecified; F41.9 Anxiety disorder, unspecified; F17.210 Nicotine dependence, cigarettes, uncomplicated; I25.2 Old myocardial infarction; Z79.01 Long term (current) use of anticoagulants; Z79.899 Other long term (current) drug therapy; Z86.718 Personal history of other venous thrombosis and embolism; Z86.73 Personal history of transient ischemic attack (TIA), and cerebral infarction without residual deficits; Z95.5 Presence of coronary angioplasty implant and graft
CPT/HCPCS: 80048; 80061; 83036

== ENCOUNTER 2017-05-06 15:20 | Emergency (ER) | payer OTHER ==
[~2017-05-06] VITALS: Ht 160 cm; Wt 65.0 kg
[~2017-05-06 15:20] MED LIST changes: +OLAN2.5T7 PO; -XARE15TA PO
[2017-05-06 15:30] VITALS: BP 109/71; PULSE 80; RESP 16; TEMP 98.6
[2017-05-06 18:12] VITALS: BP 113/71; PULSE 73; RESP 18; O2SAT 98
[2017-05-06] MEDS ORDERED: SODIUM CHLORIDE 0.9% FLUSH 10 ML FLUSH IV FLUSH PRN (18:15)
--- NOTE | 2017-05-06 18:47 | PD ---
HPI Chief Complaint: Psychiatric Symptoms Time Seen by Provider: 17:31 Travel History International Travel<30 days: No Contact w/Intl Traveler<30days: No Traveled to known affect area: No History of Present Illness HPI 56-year-old female presents to the emergency room voluntarily via ambulance for evaluation of depression. Patient is poor historian and very nonspecific. She seems slightly confused. According to ambulance, she called 911 for being depressed but denies suicidal ideation. They report that she has been drinking alcohol. Patient denies drinking or drug use. States she does remember calling 911 but she does not remember why. She denies any pain or complaints. States she just wants to go home. Patient is alert to self and place but does not know the date, day, month, or year. She denies headache, chest pain, shortness of breath, or any other physical complaint. States she stopped taking her medications 2 days ago because she forgot. States she may have had a seizure 2 days ago but adamantly denies any seizure activity today. States she can remember the whole day. The nurse called her roommates to ask about last seen normal and could not get a straight answer. They stated that patient acts altered when she has not been taking her medications. PFSH Past Medical History Arthritis: No Asthma: Yes Autoimmune Disease: No Blood Disorders: No Anxiety: No Depression: No Heart Rhythm Problems: No Cancer: No Cardiac Catheterization: Yes (07/08/12 ) Cardiovascular Problems: No High Cholesterol: Yes Chest Pain: No Congestive Heart Failure: No COPD: Yes Cerebrovascular Accident: Yes (STENT) Diabetes: No Diminished Hearing: No Gastrointestinal Disorders: Yes GERD: Yes Headaches: Yes (Teenage years early twenties migraines) Hepatitis: No Hiatal Hernia: No Hypertension: Yes Implanted Vascular Access Dvce: No Kidney Stones: Yes Musculoskeletal: Yes Psychiatric: No Reproductive: Yes Respiratory: Yes Immunizations Current: Yes Migraines: Yes Myocardial Infarction: Yes (2012) Renal Failure: No Seizures: No Thyroid Disease: No Ulcer: No PNEUMOCCOCAL Vaccine (Year): 1 ?: Not Menopausal: Yes : 4 Para: 3 Miscarriage: 1 : 0 Ectopic : No Ovarian Cysts: No Tubal Ligation: Yes Past Surgical History AICD: No Body Medical Devices: PLATE, SCREWS LEFT WRIST Cardiac Surgery: Yes (2012) Section: Yes Coronary Stent: Yes (X 1) Gynecologic Surgery: Yes (tubaligation) Hysterectomy: No Insulin Pump: No Pacemaker: No Other Surgery: Yes Social History Alcohol Use: No (HX OF ALCOHOL ABUSE ) Tobacco Use: Yes (1/2 PPD) Substance Use: No (denies) Allergies-Medications (Allergen,Severity, Reaction): Coded Allergies: codeine (Unverified Allergy, Severe, Rash, 12/25/16) KEEP RECORD PREVIOUS VISIT PT LETHARGIC UNABLE TO VERIFY penicillin G (Unverified Allergy, Severe, SWELLING, 12/25/16) KEEP RECORD PREVIOUS VISIT PT LETHARGIC UNABLE TO VERIFY prochlorperazine (Unverified Allergy, Severe, SWELLING, 12/25/16) KEEP RECORD PREVIOUS VISIT PT LETHARGIC UNABLE TO VERIFY Reported Meds & Prescriptions Reported Meds & Active Scripts Active Olanzapine 2.5 Mg Tab 2.5 Mg PO Q12HR Amlodipine (Amlodipine Besylate) 10 Mg Tab 5 Mg PO DAILY Eliquis (Apixaban) 5 Mg Tab 5 Mg PO BID 30 Days start AFTER completing intial course of xarelto Ativan (Lorazepam) 1 Mg Tab 1 Mg PO Q12HR 30 Days Keppra (Levetiracetam) 500 Mg Tab 500 Mg PO Q12HR 30 Days Vitamin B-12 (Cyanocobalamin) 1,000 Mcg Tab 1,000 Mcg PO DAILY Review of Systems Except as stated in HPI: all other systems reviewed are Neg Physical Exam Narrative GENERAL: Well-nourished, well-developed female no acute distress. Afebrile. Ambulatory. Smells of alcohol. SKIN: Focused skin assessment warm/dry. HEAD: Normocephalic. EYES: No scleral icterus. No injection or drainage. NECK: Supple, trachea midline. No JVD or lymphadenopathy. CARDIOVASCULAR: Regular rate and rhythm without murmurs, gallops, or rubs. RESPIRATORY: Breath sounds equal bilaterally. No accessory muscle use. NEUROLOGICAL: Awake and alert. Cranial nerves II through XII intact. Motor and sensory grossly within normal limits. Five out of 5 muscle strength in all muscle groups. Normal speech. No pronator drift in upper or lower extremities. PSYCHIATRIC: No delusional thought processes. No hallucinations. Flat affect. Data Data Last Documented VS Vital Signs Date Time Temp Pulse Resp B/P (MAP) Pulse Ox O2 Delivery O2 Flow Rate FiO2 05/06/17 18:12 73 18 113/71 (85) 98 Room Air 05/06/17 15:30 98.6 Orders Orders Complete Blood Count With Diff (05/06/17 16:33) Comprehensive Metabolic Panel (05/06/17 16:33) Thyroid Stimulating Hormone (05/06/17 16:33) Urinalysis - C+S If Indicated (05/06/17 16:33) Psych Screen (05/06/17 16:33) Drug Screen, Random Urine (05/06/17 16:33) Alcohol (Ethanol) (05/06/17 16:33) Ct Brain W/O Iv Contrast(Rout) (05/06/17 ) Ammonia (05/06/17 18:07) Ecg Monitoring (05/06/17 18:07) Iv Access Insert/Monitor (05/06/17 18:07) Sodium Chloride 0.9% Flush (Ns Flush) (05/06/17 18:15) Creatine Kinase (Cpk) (05/06/17 18:10) Labs Laboratory Tests Test 05/06/17 18:10 White Blood Count 5.7 TH/MM3 Red Blood Count 4.24 MIL/MM3 Hemoglobin 13.0 GM/DL Hematocrit 39.2 % Mean Corpuscular Volume 92.4 FL Mean Corpuscular Hemoglobin 30.8 PG Mean Corpuscular Hemoglobin Concent 33.3 % Red Cell Distribution Width 15.4 % Platelet Count 484 TH/MM3 Mean Platelet Volume 6.4 FL Neutrophils (%) (Auto) 71.0 % Lymphocytes (%) (Auto) 18.6 % Monocytes (%) (Auto) 9.7 % Eosinophils (%) (Auto) 0.0 % Basophils (%) (Auto) 0.7 % Neutrophils # (Auto) 4.0 TH/MM3 Lymphocytes # (Auto) 1.1 TH/MM3 Monocytes # (Auto) 0.6 TH/MM3 Eosinophils # (Auto) 0.0 TH/MM3 Basophils # (Auto) 0.0 TH/MM3 CBC Comment DIFF FINAL Differential Comment MDM Medical Decision Making Medical Screen Exam Complete: Yes Emergency Medical Condition: Yes Medical Record Reviewed: Yes Differential Diagnosis Alcohol intoxication, encephalopathy, altered mental status Narrative Course 56-year-old female presents to the emergency room for evaluation of altered mental status. States she called 911 earlier today and told him that she was depressed but denies suicidal ideation. Patient states she feels fine and wants to go home. She denies any complaints. She does appear slightly altered and smells of alcohol. EMR shows history of alcohol abuse with encephalopathy. Physical exam is reassuring. Patient sitting up in bed. She is interacting appropriately. No focal neurological deficits. She is alert and oriented to self and place but not time or date. IV access established and basic labs obtained. CT the brain is negative for acute abnormality. CBC is unremarkable. Rest of the labs ordered and pending. Patient signed out to nighttime provider. Condition: Stable Ruby Paul May 06, 2017 18:47
--- NOTE | 2017-05-06 18:53 | RADRPT ---
EXAM DATE/TIME: 05/06/2017 18:42 [place] COMPARISON: No previous studies available for comparison. INDICATIONS : Altered mental status RADIATION DOSE: 40.34 CTDIvol (mGy) MEDICAL HISTORY : Cerebrovascular disease. Hypertension. Cardiovascular disease SURGICAL HISTORY : None. ENCOUNTER: Initial ACUITY: 1 day PAIN SCALE: 0/10 LOCATION: cranial TECHNIQUE: Multiple contiguous axial images were obtained of the head. Using automated exposure control and adj ustment of the mA and/or kV according to patient size, radiation dose was kept as low as reasonably a chievable to obtain optimal diagnostic quality images. DICOM format image data is available electro nically for review and comparison. FINDINGS: CEREBRUM: The ventricles are normal for age. No evidence of midline shift, mass lesion, hemorrhage or acute in farction. Mild low density prominence of the left subdural space again noted, unchanged at approximat angelina 7 mm maximum. No acute extra-axial fluid collections are seen. Atrophy and chronic low attenuatio n in the periventricular white matter. POSTERIOR FOSSA: The cerebellum and brainstem are intact. The 4th ventricle is midline. The cerebellopontine angle i s unremarkable. EXTRACRANIAL: The visualized portion of the orbits is intact. SKULL: The calvaria is intact. No evidence of skull fracture. CONCLUSION: 1. No acute intracranial abnormality. 2. Atrophy and chronic white matter changes are again noted. 3. 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 Reynaldo Tamayo MD on May 06, 2017 at 18:50 Board Certified Radiologist. This report was verified electronically.
[2017-05-06 19:01] LABS: BASOPHIL % 0.7 % (0.0-2.0); HEMATOCRIT 39.2 % (35.0-46.0); LYMPH % 18.6 % (9.0-44.0); LYMPHOCYTE # 1.1 TH/MM3 (1.0-4.8); MEAN CELL VOLUME 92.4 FL (80.0-100.0); MEAN CORPUSCULAR HEMOGLOBIN 30.8 PG (27.0-34.0); MEAN CORPUSCULAR HGB CONC 33.3 % (32.0-36.0); MEAN PLATELET VOLUME 6.4 FL (7.0-11.0); MONO % 9.7 % (0.0-8.0); MONOCYTE # 0.6 TH/MM3 (0-0.9); PLATELET COUNT 484 TH/MM3 (150-450); RED BLOOD COUNT 4.24 MIL/MM3 (4.00-5.30); RED CELL DISTRIBUTION WIDTH 15.4 % (11.6-17.2); WHITE BLOOD COUNT 5.7 TH/MM3 (4.0-11.0)
[2017-05-06 19:21] LABS: ALBUMIN 3.3 GM/DL (3.4-5.0); AST (GOT) 21 U/L (15-37); BICARBONATE 20.2 MEQ/L (21.0-32.0); BLOOD UREA NITROGEN 7 MG/DL (7-18); CALCIUM 8.2 MG/DL (8.5-10.1); CHLORIDE 104 MEQ/L (98-107); CREATININE 0.55 MG/DL (0.50-1.00); GLOMERULAR FILTRATION RATE 115 ML/MIN (>89); GLUCOSE,RANDOM 62 MG/DL (74-106); SODIUM (NA) 137 MEQ/L (136-145)
[2017-05-06 19:23] LABS: ALT (GPT) 15 U/L (10-53)
[2017-05-06 19:32] LABS: ALKALINE PHOSPHATASE 120 U/L (45-117); TOTAL BILIRUBIN ADULT 0.2 MG/DL (0.2-1.0); TOTAL PROTEIN 7.4 GM/DL (6.4-8.2)
[2017-05-06 19:45] VITALS: BP 121/65; PULSE 78; RESP 16; O2SAT 96
[2017-05-06] MEDS ORDERED: ONDANSETRON HCL 4 MG/2 ML VIAL IV PUSH ONE (19:45)
[2017-05-06] MEDS ORDERED: METOCLOPRAMIDE HCL 10 MG/2 ML VIAL IV PUSH ONE (21:30)
[2017-05-06] MEDS ORDERED: diphenhydrAMINE HCL 50 MG/ML VIAL IV PUSH ONE (21:30)
[2017-05-06 22:57] LABS: BACTERIA, URINE RARE /hpf; BILIRUBIN, URINE NEG (NEG); BLOOD, URINE NEG (NEG); GLUCOSE,URINE NEG (NEG); KETONE, URINE 40 mg/dL (NEG); MUCUS URINE FEW /lpf (OCC); NITRITE,URINE NEG (NEG); PH, URINE 5.5 (5.0-8.5); SQUAMOUS EPITHELIAL CELL URINE 5 /hpf (0-5); URINE COLOR YELLOW (YELLW/STRAW); URINE LEUKOCYTE ESTERASE NEG (NEG)
--- NOTE | 2017-05-07 00:13 | PD ---
Physical Exam Date Seen by Provider: May 06, 2017 Time Seen by Provider: 21:30 Narrative GENERAL: This is a well-nourished, well-developed patient, in no apparent distress. SKIN: No rashes, ecchymoses or lesions. Warm and dry. HEAD: Atraumatic. Normocephalic. EYES: PERRL, EOMI, no discharge or injection. No scleral icterus. EARS: Clear NOSE: Nasal turbinates appear normal. THROAT: Mucosa pink and moist. Airway patent. NECK: Trachea midline. supple, moves head freely. LUNGS: Clear to auscultation. CV: Regular in rhythm. ABDOMEN: Soft nontender. EXT: No clubbing cyanosis or edema. Data Data Last Documented VS Vital Signs Date Time Temp Pulse Resp B/P (MAP) Pulse Ox O2 Delivery O2 Flow Rate FiO2 05/06/17 19:45 78 16 121/65 (83) 96 Room Air 05/06/17 15:30 98.6 Orders Orders Complete Blood Count With Diff (05/06/17 16:33) Comprehensive Metabolic Panel (05/06/17 16:33) Thyroid Stimulating Hormone (05/06/17 16:33) Urinalysis - C+S If Indicated (05/06/17 16:33) Psych Screen (05/06/17 16:33) Drug Screen, Random Urine (05/06/17 16:33) Alcohol (Ethanol) (05/06/17 16:33) Ct Brain W/O Iv Contrast(Rout) (05/06/17 ) Ammonia (05/06/17 18:07) Ecg Monitoring (05/06/17 18:07) Iv Access Insert/Monitor (05/06/17 18:07) Sodium Chloride 0.9% Flush (Ns Flush) (05/06/17 18:15) Creatine Kinase (Cpk) (05/06/17 18:10) Ondansetron Inj (Zofran Inj) (05/06/17 19:45) Diphenhydramine Inj (Benadryl Inj) (05/06/17 21:30) Metoclopramide Inj (Reglan Inj) (05/06/17 21:30) Lipase (05/06/17 18:10) Dextrose 5%-Lactated Ring Inj (D5-Lr Inj (05/06/17 23:30) Ketorolac Inj (Toradol Inj) (05/07/17 00:15) Labs Laboratory Tests Test 05/06/17 18:10 05/06/17 19:20 05/06/17 22:00 White Blood Count 5.7 TH/MM3 Red Blood Count 4.24 MIL/MM3 Hemoglobin 13.0 GM/DL Hematocrit 39.2 % Mean Corpuscular Volume 92.4 FL Mean Corpuscular Hemoglobin 30.8 PG Mean Corpuscular Hemoglobin Concent 33.3 % Red Cell Distribution Width 15.4 % Platelet Count 484 TH/MM3 Mean Platelet Volume 6.4 FL Neutrophils (%) (Auto) 71.0 % Lymphocytes (%) (Auto) 18.6 % Monocytes (%) (Auto) 9.7 % Eosinophils (%) (Auto) 0.0 % Basophils (%) (Auto) 0.7 % Neutrophils # (Auto) 4.0 TH/MM3 Lymphocytes # (Auto) 1.1 TH/MM3 Monocytes # (Auto) 0.6 TH/MM3 Eosinophils # (Auto) 0.0 TH/MM3 Basophils # (Auto) 0.0 TH/MM3 CBC Comment DIFF FINAL Differential Comment Blood Urea Nitrogen 7 MG/DL Creatinine 0.55 MG/DL Random Glucose 62 MG/DL Total Protein 7.4 GM/DL Albumin 3.3 GM/DL Calcium Level 8.2 MG/DL Alkaline Phosphatase 120 U/L Aspartate Amino Transf (AST/SGOT) 21 U/L Alanine Aminotransferase (ALT/SGPT) 15 U/L Total Bilirubin 0.2 MG/DL Sodium Level 137 MEQ/L Potassium Level 4.1 MEQ/L Chloride Level 104 MEQ/L Carbon Dioxide Level 20.2 MEQ/L Anion Gap 13 MEQ/L Estimat Glomerular Filtration Rate 115 ML/MIN Total Creatine Kinase 54 U/L Lipase 543 U/L Thyroid Stimulating Hormone 3rd Gen 0.342 uIU/ML Ethyl Alcohol Level 187 MG/DL Ammonia 27 MCMOL/L Urine Color YELLOW Urine Turbidity CLEAR Urine pH 5.5 Urine Specific [place] 1.014 Urine Protein TRACE mg/dL Urine Glucose (UA) NEG mg/dL Urine Ketones 40 mg/dL Urine Occult Blood NEG Urine Nitrite NEG Urine Bilirubin NEG Urine Urobilinogen LESS THAN 2.0 MG/DL Urine Leukocyte Esterase NEG Urine RBC LESS THAN 1 /hpf Urine WBC 1 /hpf Urine Squamous Epithelial Cells 5 /hpf Urine Bacteria RARE /hpf Urine Mucus FEW /lpf Microscopic Urinalysis Comment CULT NOT INDICATED Urine Opiates Screen POS Urine Barbiturates Screen NEG Urine Amphetamines Screen NEG Urine Benzodiazepines Screen NEG Urine Cocaine Screen NEG Urine Cannabinoids Screen NEG MDM Medical Record Reviewed: Yes Supervised Visit with ALICIA: No Interpretation(s) Last [address] 05/06/17 0000 Signed Impressions: Service Date/Time: Saturday, May 06, 2017 18:42 - CONCLUSION: 1. No acute intracranial abnormality. 2. Atrophy and chronic white matter changes are again noted. 3. 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 Reynaldo Tamayo MD Laboratory Tests Test 05/06/17 18:10 05/06/17 19:20 05/06/17 22:00 White Blood Count 5.7 TH/MM3 Red Blood Count 4.24 MIL/MM3 Hemoglobin 13.0 GM/DL Hematocrit 39.2 % Mean Corpuscular Volume 92.4 FL Mean Corpuscular Hemoglobin 30.8 PG Mean Corpuscular Hemoglobin Concent 33.3 % Red Cell Distribution Width 15.4 % Platelet Count 484 TH/MM3 Mean Platelet Volume 6.4 FL Neutrophils (%) (Auto) 71.0 % Lymphocytes (%) (Auto) 18.6 % Monocytes (%) (Auto) 9.7 % Eosinophils (%) (Auto) 0.0 % Basophils (%) (Auto) 0.7 % Neutrophils # (Auto) 4.0 TH/MM3 Lymphocytes # (Auto) 1.1 TH/MM3 Monocytes # (Auto) 0.6 TH/MM3 Eosinophils # (Auto) 0.0 TH/MM3 Basophils # (Auto) 0.0 TH/MM3 CBC Comment DIFF FINAL Differential Comment Blood Urea Nitrogen 7 MG/DL Creatinine 0.55 MG/DL Random Glucose 62 MG/DL Total Protein 7.4 GM/DL Albumin 3.3 GM/DL Calcium Level 8.2 MG/DL Alkaline Phosphatase 120 U/L Aspartate Amino Transf (AST/SGOT) 21 U/L Alanine Aminotransferase (ALT/SGPT) 15 U/L Total Bilirubin 0.2 MG/DL Sodium Level 137 MEQ/L Potassium Level 4.1 MEQ/L Chloride Level 104 MEQ/L Carbon Dioxide Level 20.2 MEQ/L Anion Gap 13 MEQ/L Estimat Glomerular Filtration Rate 115 ML/MIN Total Creatine Kinase 54 U/L Lipase 543 U/L Thyroid Stimulating Hormone 3rd Gen 0.342 uIU/ML Ethyl Alcohol Level 187 MG/DL Ammonia 27 MCMOL/L Urine Color YELLOW Urine Turbidity CLEAR Urine pH 5.5 Urine Specific [place] 1.014 Urine Protein TRACE mg/dL Urine Glucose (UA) NEG mg/dL Urine Ketones 40 mg/dL Urine Occult Blood NEG Urine Nitrite NEG Urine Bilirubin NEG Urine Urobilinogen LESS THAN 2.0 MG/DL Urine Leukocyte Esterase NEG Urine RBC LESS THAN 1 /hpf Urine WBC 1 /hpf Urine Squamous Epithelial Cells 5 /hpf Urine Bacteria RARE /hpf Urine Mucus FEW /lpf Microscopic Urinalysis Comment CULT NOT INDICATED Urine Opiates Screen POS Urine Barbiturates Screen NEG Urine Amphetamines Screen NEG Urine Benzodiazepines Screen NEG Urine Cocaine Screen NEG Urine Cannabinoids Screen NEG Differential Diagnosis . Narrative Course The patient has reported nausea. She was given Zofran 4 mg IV. Once again the patient reports nausea with vomiting. She was given Benadryl 25 mg IV and Reglan 10 mg IV. I have ordered a lipase. The patient lipase is mildly elevated. Patient has mild pancreatitis secondary to her chronic alcohol abuse. She is also complaining of back pain. She was given Toradol 30 mg IV. I explained her that I would not be giving her any narcotics today. Patient verbally states understanding and agrees with treatment plan and follow-up. She will be seen in the morning by the psychiatrist. The patient will be given 2 L of D5LR over the next 10 hours. This is medical clearance for psychiatric admission, chronic alcohol abuse, alcohol intoxication, mild pancreatitis Diagnosis Primary Impression: Medical clearance for psychiatric admission Additional Impressions: Alcohol intoxication Qualified Codes: F10.920 - Alcohol use, unspecified with intoxication, uncomplicated Pancreatitis, alcoholic, acute Qualified Codes: K85.20 - Alcohol induced acute pancreatitis without necrosis or infection Condition: Bharath Markham May 07, 2017 00:13
[2017-05-07] MEDS ORDERED: KETOROLAC TROMETHAMINE 30 MG/ML (IVP) VIAL IV PUSH ONE ×2 (00:15→09:00)
[2017-05-07] MEDS: DEXTROSE 5%-LACTATED RING INJ 1,000 ML IV SCH ×2 (00:22→04:43)
[2017-05-07 00:24] VITALS: BP 131/69; PULSE 78; RESP 20; O2SAT 96
[2017-05-07] MEDS ORDERED: ACETAMINOPHEN 325 MG TAB PO ONE (07:00)
[2017-05-07 07:30] VITALS: BP 149/83; PULSE 78; RESP 17; TEMP 98.1; O2SAT 98
[2017-05-07] MEDS ORDERED: ONDANSETRON ODT 4 MG TAB PO ONE (08:45)
--- NOTE | 2017-05-07 09:32 | PD ---
Physical Exam Date Seen by Provider: May 07, 2017 Time Seen by Provider: 09:26 Data Data Last Documented VS Vital Signs Date Time Temp Pulse Resp B/P (MAP) Pulse Ox O2 Delivery O2 Flow Rate FiO2 05/07/17 07:30 98.1 78 17 149/83 (105) 98 Room Air Orders Orders Complete Blood Count With Diff (05/06/17 16:33) Comprehensive Metabolic Panel (05/06/17 16:33) Thyroid Stimulating Hormone (05/06/17 16:33) Urinalysis - C+S If Indicated (05/06/17 16:33) Psych Screen (05/06/17 16:33) Drug Screen, Random Urine (05/06/17 16:33) Alcohol (Ethanol) (05/06/17 16:33) Ct Brain W/O Iv Contrast(Rout) (05/06/17 ) Ammonia (05/06/17 18:07) Ecg Monitoring (05/06/17 18:07) Iv Access Insert/Monitor (05/06/17 18:07) Sodium Chloride 0.9% Flush (Ns Flush) (05/06/17 18:15) Creatine Kinase (Cpk) (05/06/17 18:10) Ondansetron Inj (Zofran Inj) (05/06/17 19:45) Diphenhydramine Inj (Benadryl Inj) (05/06/17 21:30) Metoclopramide Inj (Reglan Inj) (05/06/17 21:30) Lipase (05/06/17 18:10) Dextrose 5%-Lactated Ring Inj (D5-Lr Inj (05/06/17 23:30) Ketorolac Inj (Toradol Inj) (05/07/17 00:15) Acetaminophen (Tylenol) (05/07/17 07:00) Diet Regular Basic (05/07/17 Breakfast) Ondansetron Odt (Zofran Odt) (05/07/17 08:45) Ketorolac Inj (Toradol Inj) (05/07/17 09:00) Ed Discharge Order (05/07/17 09:26) Labs Laboratory Tests Test 05/06/17 18:10 05/06/17 19:20 05/06/17 22:00 White Blood Count 5.7 TH/MM3 Red Blood Count 4.24 MIL/MM3 Hemoglobin 13.0 GM/DL Hematocrit 39.2 % Mean Corpuscular Volume 92.4 FL Mean Corpuscular Hemoglobin 30.8 PG Mean Corpuscular Hemoglobin Concent 33.3 % Red Cell Distribution Width 15.4 % Platelet Count 484 TH/MM3 Mean Platelet Volume 6.4 FL Neutrophils (%) (Auto) 71.0 % Lymphocytes (%) (Auto) 18.6 % Monocytes (%) (Auto) 9.7 % Eosinophils (%) (Auto) 0.0 % Basophils (%) (Auto) 0.7 % Neutrophils # (Auto) 4.0 TH/MM3 Lymphocytes # (Auto) 1.1 TH/MM3 Monocytes # (Auto) 0.6 TH/MM3 Eosinophils # (Auto) 0.0 TH/MM3 Basophils # (Auto) 0.0 TH/MM3 CBC Comment DIFF FINAL Differential Comment Blood Urea Nitrogen 7 MG/DL Creatinine 0.55 MG/DL Random Glucose 62 MG/DL Total Protein 7.4 GM/DL Albumin 3.3 GM/DL Calcium Level 8.2 MG/DL Alkaline Phosphatase 120 U/L Aspartate Amino Transf (AST/SGOT) 21 U/L Alanine Aminotransferase (ALT/SGPT) 15 U/L Total Bilirubin 0.2 MG/DL Sodium Level 137 MEQ/L Potassium Level 4.1 MEQ/L Chloride Level 104 MEQ/L Carbon Dioxide Level 20.2 MEQ/L Anion Gap 13 MEQ/L Estimat Glomerular Filtration Rate 115 ML/MIN Total Creatine Kinase 54 U/L Lipase 543 U/L Thyroid Stimulating Hormone 3rd Gen 0.342 uIU/ML Ethyl Alcohol Level 187 MG/DL Ammonia 27 MCMOL/L Urine Color YELLOW Urine Turbidity CLEAR Urine pH 5.5 Urine Specific [place] 1.014 Urine Protein TRACE mg/dL Urine Glucose (UA) NEG mg/dL Urine Ketones 40 mg/dL Urine Occult Blood NEG Urine Nitrite NEG Urine Bilirubin NEG Urine Urobilinogen LESS THAN 2.0 MG/DL Urine Leukocyte Esterase NEG Urine RBC LESS THAN 1 /hpf Urine WBC 1 /hpf Urine Squamous Epithelial Cells 5 /hpf Urine Bacteria RARE /hpf Urine Mucus FEW /lpf Microscopic Urinalysis Comment CULT NOT INDICATED Urine Opiates Screen POS Urine Barbiturates Screen NEG Urine Amphetamines Screen NEG Urine Benzodiazepines Screen NEG Urine Cocaine Screen NEG Urine Cannabinoids Screen NEG MDM Medical Record Reviewed: Yes Supervised Visit with ALICIA: No Narrative Course 56-year-old female presented to the emergency room yesterday voluntarily with request to see the psychiatrist for depression. Patient was intoxicated on arrival. She was acting altered and and altered mental status workup was initiated. Workup is negative except for pancreatitis. Patient was given 2 L of lactated Ringer's, bowel rest, and medication for pain. She was seen by the psychiatric nurse practitioner and cleared to follow-up as an outpatient. She follows up with the [facility]. Patient is walking in the halls without difficulty. She is communicating normally. She was discharged with instructions to follow- up with a primary care physician about alcohol abuse and pancreatitis. Told to refrain from drinking. She understands and agrees to plan. Diagnosis Primary Impression: Medical clearance for psychiatric admission Additional Impressions: Alcohol intoxication Qualified Codes: F10.920 - Alcohol use, unspecified with intoxication, uncomplicated Pancreatitis, alcoholic, acute Qualified Codes: K85.20 - Alcohol induced acute pancreatitis without necrosis or infection Referrals: Primary Care Physician Additional Instruction: Rest and drink plenty of fluids. Refrain from drinking alcohol in excess. Take Tylenol and/or Motrin as directed, as needed for pain. Apply ice to the affected area for 20 minutes at a time, as needed for pain and swelling. Follow-up with a primary care physician. Return to the emergency room for worsening symptoms for worsening symptoms: nausea, vomiting, or abdominal pain. Disposition: 01 DISCHARGE HOME Condition: Stable Ruby Paul May 07, 2017 09:32
[2017-05-07] MEDS ORDERED: ZOFR4TAB3 SL (09:33)
[2017-05-07 09:42] VITALS: BP 164/82
--- NOTE | 2017-05-07 09:45 | PD ---
History of Present Illness Chief Complaint: Psychiatric Symptoms Time Seen by Provider: 08:40 Travel History International Travel<30 Days: No Contact w/Intl Traveler<30days: No Known affected area: No Legal Status Legal Status: Voluntary History of Present Illness: 56 year old single white female presents to the emergency room voluntarily with complaints of depression. This patient is known to our facility her last admission was from December 25, 2016 through December 27, 2016. She follows up with the [facility]. Patient's blood alcohol level was 187. Reviewed electronic medical record, labs, and discussed case with staff. Patient evaluation was performed in her room in the ED. Found patient awake, alert, and oriented. Her speech is clear, logical, and organized. Her appearance is slightly disheveled. I can elicit no delusions. She denies wanting to hurt herself, homicidal ideation, visual or auditory hallucinations. She denies any previous suicidal attempts. Patient advises that she was scheduled for a lung biopsy yesterday through the [facility]. She states that she became extremely anxious and depressed and went on a "2 day drinking binge". She does live with a roommate whom she advises she has a close relationship with and is supportive. She states that she just wants to go home and go to bed. In discussing her medical condition with her, patient acknowledges the sooner she feels with this the better, and states that she plans on rescheduling her biopsy for soon as possible. She will be discharged to her roommate and contracts for safety. [facility] Past Medical History Narrative Medical Patient medically cleared by ED staff. Arthritis: No Asthma: Yes Autoimmune Disease: No Blood Disorders: No Anxiety: No Depression: No Heart Rhythm Problems: No Cancer: No Cardiac Catheterization: Yes (07/08/12 ) Cardiovascular Problems: No High Cholesterol: Yes Chest Pain: No Congestive Heart Failure: No COPD: Yes Cerebrovascular Accident: Yes (STENT) Diabetes: No Diminished Hearing: No Gastrointestinal Disorders: Yes GERD: Yes Headaches: Yes (Teenage years early twenties migraines) Hepatitis: No Hiatal Hernia: No Hypertension: Yes Implanted Vascular Access Dvce: No Kidney Stones: Yes Musculoskeletal: Yes Psychiatric: No Reproductive: Yes Respiratory: Yes Immunizations Current: Yes Migraines: Yes Myocardial Infarction: Yes (2012) Renal Failure: No Seizures: No Thyroid Disease: No Ulcer: No PNEUMOCCOCAL Vaccine (Year): 1 ?: Not Menopausal: Yes : 4 Para: 3 Miscarriage: 1 : 0 Ectopic : No Ovarian Cysts: No Tubal Ligation: Yes Past Surgical History AICD: No Body Medical Devices: PLATE, SCREWS LEFT WRIST Cardiac Surgery: Yes (2012) Section: Yes Coronary Stent: Yes (X 1) Gynecologic Surgery: Yes (tubaligation) Hysterectomy: No Insulin Pump: No Pacemaker: No Other Surgery: Yes Psychiatric History Psychiatric History Known to this facility. History of inpatient admissions. The last one was from December 25, 2016 to December 27, 2016. History of depression. Hx Psychiatric Treatment: per hx.........Hx BA in 10/14/2004. Patient was seen by and sent to [facility] under a Physician Certificate at that time. Denies any other psychiatric involvement during her lifetime. History of Inpatient Treatment: Yes Guns or firearms in home: No Social History Patient advises that she typically "is not a big drinker". However she reports going on a "2 day drinking spray", due to her anxiety over a pending lung biopsy. She lives with a "friend" whom she reports is supportive and that she is close to. She is previous [employer] and follows with the [facility]. Advises that she will reschedule her biopsy and her roommate will take her to [facility] for the procedure as soon as possible. Hx Alcohol Use: No (HX OF ALCOHOL ABUSE ) Hx Tobacco Use: Yes (1/2 PPD) Hx Substance Use: No (denies) Substance Use Type: Alcohol, Nicotine/Cigarettes Other Substances Used: 1 ppd Hx of Substance Use Treatment: No Family Psychiatric History Denies any familial history of suicide attempts or mental illness. Allergies-Medications (Allergen,Severity, Reaction): Coded Allergies: codeine (Unverified Allergy, Severe, Rash, 12/25/16) KEEP RECORD PREVIOUS VISIT PT LETHARGIC UNABLE TO VERIFY penicillin G (Unverified Allergy, Severe, SWELLING, 12/25/16) KEEP RECORD PREVIOUS VISIT PT LETHARGIC UNABLE TO VERIFY prochlorperazine (Unverified Allergy, Severe, SWELLING, 12/25/16) KEEP RECORD PREVIOUS VISIT PT LETHARGIC UNABLE TO VERIFY Reported Meds & Prescriptions Reported Meds & Active Scripts Active Olanzapine 2.5 Mg Tab 2.5 Mg PO Q12HR Amlodipine (Amlodipine Besylate) 10 Mg Tab 5 Mg PO DAILY Eliquis (Apixaban) 5 Mg Tab 5 Mg PO BID 30 Days start AFTER completing intial course of xarelto Ativan (Lorazepam) 1 Mg Tab 1 Mg PO Q12HR 30 Days Keppra (Levetiracetam) 500 Mg Tab 500 Mg PO Q12HR 30 Days Vitamin B-12 (Cyanocobalamin) 1,000 Mcg Tab 1,000 Mcg PO DAILY Mental Status Examination Appearance: Disheveled Consciousness: Alert Orientation: x4 Motor Activity: Normal gait Speech: Unremarkable Language: Adequate Fund of Knowledge: Adequate Attention and Concentration: Adequate Memory: Unremarkable Mood: Sad (When speaking of the impending lung biopsy), Anxious Affect: Appropriate Thought Process & Associations: Intact Thought Content: Appropriate Hallucination Type: None Delusion Type: None Suicidal Ideation: No Suicidal Plan: No Suicidal Intention: No Homicidal Ideation: No Homicidal Plan: No Homicidal Intention: No Insight: Adequate Judgment: Adequate MDM Medical Decision Making Assessment/Plan 56-year-old single, white female who presents voluntarily to the emergency department for complaints of depression. Patient's mood is sad and somewhat anxious. Her affect is appropriate. She reports that she had a lung biopsy scheduled for yesterday at the [facility] and leg known. Although she denies heavy drinking recently, she does admit that she "stayed on a drunk for the last 2 days". The time of exam her speech is clear, organized, logical. Her appearance is somewhat disheveled. Her mood and affect are congruent and appropriate given the circumstances. She denies thoughts of self- harm, homicidal ideation, auditory or visual hallucinations. She reports that she lives with a "friend" with whom she is close. She is future oriented stating that she plans to reschedule the procedure for soon as possible and that her roommate will take her to [facility] to have it done. I encouraged her to speak to the PR doctor who will be doing the procedure to see if they can premedicate her for the anxiety however, she reports that she does have Xanax prescribed. She admits the Xanax would be a better option preprocedure than the alcohol. Patient will be discharged to her roommate was picking her up. She has been advised to return if her condition worsens. Orders Orders Complete Blood Count With Diff (05/06/17 16:33) Comprehensive Metabolic Panel (05/06/17 16:33) Thyroid Stimulating Hormone (05/06/17 16:33) Urinalysis - C+S If Indicated (05/06/17 16:33) Psych Screen (05/06/17 16:33) Drug Screen, Random Urine (05/06/17 16:33) Alcohol (Ethanol) (05/06/17 16:33) Ct Brain W/O Iv Contrast(Rout) (05/06/17 ) Ammonia (05/06/17 18:07) Ecg Monitoring (05/06/17 18:07) Iv Access Insert/Monitor (05/06/17 18:07) Sodium Chloride 0.9% Flush (Ns Flush) (05/06/17 18:15) Creatine Kinase (Cpk) (05/06/17 18:10) Ondansetron Inj (Zofran Inj) (05/06/17 19:45) Diphenhydramine Inj (Benadryl Inj) (05/06/17 21:30) Metoclopramide Inj (Reglan Inj) (05/06/17 21:30) Lipase (05/06/17 18:10) Dextrose 5%-Lactated Ring Inj (D5-Lr Inj (05/06/17 23:30) Ketorolac Inj (Toradol Inj) (05/07/17 00:15) Acetaminophen (Tylenol) (05/07/17 07:00) Diet Regular Basic (05/07/17 Breakfast) Ondansetron Odt (Zofran Odt) (05/07/17 08:45) Ketorolac Inj (Toradol Inj) (05/07/17 09:00) Ed Discharge Order (05/07/17 09:26) Results Vital Signs Date Time Temp Pulse Resp B/P (MAP) Pulse Ox O2 Delivery O2 Flow Rate FiO2 05/07/17 07:30 98.1 78 17 149/83 (105) 98 Room Air 05/07/17 07:30 78 17 05/07/17 01:22 17 05/07/17 00:24 78 20 131/69 (89) 96 Room Air 05/06/17 19:45 78 16 121/65 (83) 96 Room Air 05/06/17 18:12 73 18 113/71 (85) 98 Room Air 05/06/17 15:30 98.6 80 16 109/71 (84) Laboratory Tests Test 05/06/17 18:10 05/06/17 19:20 05/06/17 22:00 White Blood Count 5.7 Red Blood Count 4.24 Hemoglobin 13.0 Hematocrit 39.2 Mean Corpuscular Volume 92.4 Mean Corpuscular Hemoglobin 30.8 Mean Corpuscular Hemoglobin Concent 33.3 Red Cell Distribution Width 15.4 Platelet Count 484 Mean Platelet Volume 6.4 Neutrophils (%) (Auto) 71.0 Lymphocytes (%) (Auto) 18.6 Monocytes (%) (Auto) 9.7 Eosinophils (%) (Auto) 0.0 Basophils (%) (Auto) 0.7 Neutrophils # (Auto) 4.0 Lymphocytes # (Auto) 1.1 Monocytes # (Auto) 0.6 Eosinophils # (Auto) 0.0 Basophils # (Auto) 0.0 CBC Comment DIFF FINAL Differential Comment Blood Urea Nitrogen 7 Creatinine 0.55 Random Glucose 62 Total Protein 7.4 Albumin 3.3 Calcium Level 8.2 Alkaline Phosphatase 120 Aspartate Amino Transf (AST/SGOT) 21 Alanine Aminotransferase (ALT/SGPT) 15 Total Bilirubin 0.2 Sodium Level 137 Potassium Level 4.1 Chloride Level 104 Carbon Dioxide Level 20.2 Anion Gap 13 Estimat Glomerular Filtration Rate 115 Total Creatine Kinase 54 Lipase 543 Thyroid Stimulating Hormone 3rd Gen 0.342 Ethyl Alcohol Level 187 Ammonia 27 Urine Color YELLOW Urine Turbidity CLEAR Urine pH 5.5 Urine Specific [place] 1.014 Urine Protein TRACE Urine Glucose (UA) NEG Urine Ketones 40 Urine Occult Blood NEG Urine Nitrite NEG Urine Bilirubin NEG Urine Urobilinogen LESS THAN 2.0 Urine Leukocyte Esterase NEG Urine RBC LESS THAN 1 Urine WBC 1 Urine Squamous Epithelial Cells 5 Urine Bacteria RARE Urine Mucus FEW Microscopic Urinalysis Comment CULT NOT INDICATED Urine Opiates Screen POS Urine Barbiturates Screen NEG Urine Amphetamines Screen NEG Urine Benzodiazepines Screen NEG Urine Cocaine Screen NEG Urine Cannabinoids Screen NEG Diagnosis Primary Impression: Adjustment disorder with depressed mood Additional Impression: Alcohol abuse Psychiatrically Cleared: Yes Condition: Stable Problem Qualifiers Reid,Raeann COMPENSATION AGENT May 07, 2017 09:45
== END 2017-05-07 10:20 | disposition home or self-care (01) ==
LOC: NEDAMB 15:20 → NEPD 05-07 10:20
DX: F10.129 Alcohol abuse with intoxication, unspecified (principal); Y90.6 Blood alcohol level of 120-199 mg/100 ml; K85.20 Alcohol induced acute pancreatitis without necrosis or infection; F32.9 Major depressive disorder, single episode, unspecified; J44.9 Chronic obstructive pulmonary disease, unspecified; E78.00 Pure hypercholesterolemia, unspecified; K21.9 Gastro-esophageal reflux disease without esophagitis; I25.2 Old myocardial infarction; F17.200 Nicotine dependence, unspecified, uncomplicated
CPT/HCPCS: 70450; 80053; 80307; 81001; 82140; 82550; 83690; 84443; 85025; 96365; 96366; 96375; 96376; 99284; J1200; J1885; J2405; J2765; J7121